=== PATIENT | male | born 1960 | race Caucasian/White ===

== ENCOUNTER 2017-10-01 09:16 | Emergency (ER) | payer BC ==
[2017-10-01 09:32] VITALS: BP 124/75
--- NOTE | 2017-10-01 10:11 | UC ---
Respiratory Complaint HPI - HPI Summary HPI Summary: 2-3 WEEKS OF COUGH, SUBJECTIVE FEVER, FATIGUE, POST-TUSSIVE EMESIS, SOB WITH COUGH. - History of Current Complaint Chief Complaint: UCGeneralIllness Stated Complaint: FLU SYMPTOMS Time Seen by Provider: 10/01/17 09:58 Hx Obtained From: Patient Onset/Duration: Gradual Onset, Lasting Weeks, Still Present Timing: Constant Severity Initially: Moderate Severity Currently: Moderate Pain Intensity: 2 Pain Scale Used: 0-10 Numeric Character: Cough: Nonproductive Aggravating Factors: Nothing Alleviating Factors: Nothing Associated Signs And Symptoms: Positive: Dyspnea, Fever, URI, Nasal Congestion - Allergies/Home Medications Allergies/Adverse Reactions: Allergies Allergy/AdvReac Type Severity Reaction Status Date / Time No Known Allergies Allergy Verified 10/01/17 09:32 PMH/Surg Hx/FS Hx/Imm Hx Endocrine History: Diabetes Cardiovascular History: Hypertension - Surgical History Surgical History: Yes Surgery Procedure, Year, and Place: Umbilical hernia surgery 2006. cardiac stent - May 2016 - Family History Known Family History: Positive: Hypertension - Social History Alcohol Use: Rare Substance Use Type: None Smoking Status (MU): Light Every Day Tobacco Smoker Type: Cigarettes Amount Used/How Often: 1-2/DAY Length of Time of Smoking/Using Tobacco: 32 years Have You Smoked in the Last Year: Yes Household Exposure Type: Cigarettes - Immunization History Most Recent Influenza Vaccination: NONE Most Recent Tetanus Shot: UNK Most Recent Pneumonia Vaccination: NONE Review of Systems Constitutional: Fever, Chills, Fatigue Respiratory: Shortness Of Breath, Cough Cardiovascular: Negative Gastrointestinal: Negative Musculoskeletal: Myalgia Neurological: Headache All Other Systems Reviewed And Are Negative: Yes Physical Exam Triage Information Reviewed: Yes Appearance: No Pain Distress, Well-Nourished, Ill-Appearing - MILD Vital Signs: Initial Vital Signs Temp 99.5 F 10/01/17 09:26 Pulse 63 10/01/17 09:26 Resp 19 10/01/17 09:26 BP 124/75 10/01/17 09:26 Pulse Ox 92 10/01/17 09:26 Eyes: Positive: Conjunctiva Clear ENT: Positive: Hearing grossly normal, Pharynx normal, TMs normal Neck: Positive: Supple, Nontender, No Lymphadenopathy Respiratory: Positive: No respiratory distress, No accessory muscle use, Crackles - MILD LEFT BASE. Negative: Wheezing Cardiovascular Exam: Normal Abdomen Description: Positive: Soft Musculoskeletal: Positive: No Edema Neurological: Positive: Alert Psychological: Positive: Age Appropriate Behavior Skin: Negative: rashes UC Diagnostic Evaluation - Laboratory O2 Sat by Pulse Oximetry: 92 - Radiology Xray Interpretation: Positive (See Comments) - CXR - RETROCARDIAC LEFT LUNG BASE DENSITY COULD REPRESENT PNEUMONIA OR ATELECTASIS Radiology Interpretation Completed By: Radiologist Respiratory Course/Dx - Differential Dx/Diagnosis Provider Diagnoses: LLL PNEUMONIA Discharge - Discharge Plan Condition: Stable Disposition: HOME Prescriptions: Doxycycline (Monohydrate) [Doxycycline Monohydrate] 1 cap PO BID #20 cap Guaifenesin-Codeine [Codeine/Guaifenesin 100-10 mg/5Ml] 5 - 10 ml PO Q6H PRN # 150 ml MDD 40ML PRN Reason: Cough Patient Education Materials: Pneumonia (ED) Forms: *Work Release Referrals: Charles Hancock MD [Primary Care Provider] - If Needed Additional Instructions: RECOMMEND REPEATING CHEST XRAY IN 4-6 WEEKS TO ENSURE RESOLUTION OF YOUR SYMPTOMS. TAKE ANTIBIOTICS TWICE DAILY FOR 10 DAYS. SEEK FOLLOW-UP IF YOU ARE NOT IMPROVING EXPECTED.
--- NOTE | 2017-10-01 10:39 | RAD ---
INDICATION: Shortness of breath fever COMPARISON: Chest x-ray February 02, 2016 TECHNIQUE: PA and lateral views of the chest were obtained. FINDINGS: The heart and mediastinum are normal in size and contour. There is appearance of a left lung base retrocardiac density. More superiorly the left lung as well as the right lung are otherwise clear. There is no evidence of large pleural effusion. Visualized bones are normal for the patient's age. There is no radiographic evidence of free air beneath the diaphragm IMPRESSION: RETROCARDIAC LEFT LUNG BASE DENSITY COULD REPRESENT PNEUMONIA OR ATELECTASIS.
== END 2017-10-01 11:06 | disposition home or self-care (01) ==
LOC: UCEAST 09:16
DX: J18.9 Pneumonia, unspecified organism (principal); E11.9 Type 2 diabetes mellitus without complications; I10 Essential (primary) hypertension; Z98.61 Coronary angioplasty status; F17.210 Nicotine dependence, cigarettes, uncomplicated
CPT/HCPCS: 71046; 99212; G0463

== ENCOUNTER 2017-12-17 10:26 | Observation (INO) | payer BC ==
[2017-12-17] MEDS ORDERED: fentaNYL* 50 MCG/ML 2 ML VIAL (100 MCG VIAL) ONE (11:22)
[2017-12-17] MEDS ORDERED: Iohexol 350 (CONTRAST) 200 ML MDV IV ONE ×2 (11:22→11:32)
[2017-12-17] MEDS ORDERED: Midazolam* 1 MG/ML 10 ML VIAL (10 MG) ONE (11:22)
[2017-12-17] MEDS ORDERED: Heparin 2 UNITS/ML IVPREMIX* 2,000 ML IV ONE (11:22)
[2017-12-17] MEDS ORDERED: Lidocaine 1% INJ* 10 MG/ML 30 ML SDV ONE (11:22)
[2017-12-17] MEDS ORDERED: NS 0.9% 1000 ML* 1,000 ML IV SCH (12:30)
[2017-12-17] MEDS ORDERED: Furosemide IV* 10 MG/ML 2 ML VIAL (20 MG) ONE ×2 (12:34→13:54)
--- NOTE | 2017-12-17 14:34 | RAD ---
INDICATION: Chronic low oxygen saturation and dyspnea. COMPARISON: Comparison is made with prior study from [place] 2017. TECHNIQUE: A portable view of the chest was obtained. FINDINGS: The heart is moderately enlarged and unchanged from the prior exam. There is mild diffuse prominence of the interstitial markings. No significant focal infiltrate is seen. No pleural effusion is noted. IMPRESSION: 1. CARDIAC MEGALY, UNCHANGED. 2. DIFFUSE INTERSTITIAL PROMINENCE, UNCHANGED.
[2017-12-17] MEDS ORDERED: Potassium Chlor TAB* 20 MEQ TAB.ER ONE (16:39)
[2017-12-17] MEDS ORDERED: Albuterol/Ipratropium NEB.SOL* Albuterol 2.5 MG/Ipratropium 0.5 MG 3 ML INH PRN (18:01)
[2017-12-17] MEDS ORDERED: Acetaminophen TAB* 325 MG PO PRN (18:01)
[2017-12-17] MEDS ORDERED: Dextrose 50% Syringe 50 ML* 25 GM/50 ML SYRINGE IV PUSH PRN (18:06)
[2017-12-17] MEDS ORDERED: Furosemide IV* 10 MG/ML 2 ML VIAL (20 MG) IV ONE (18:37)
[2017-12-17 19:51] LABS: EGFR Non-African American 100.4 (>60)
[2017-12-17] MEDS: Potassium Chlor TAB* 20 MEQ TAB.ER PO SCH (21:21)
[2017-12-17] MEDS: Docusate CAP* 100 MG PO SCH (21:21)
[2017-12-17] MEDS: Insulin LISPRO* 1 UNITS UNIT SUBCUT SCH (21:22)
[2017-12-17] MEDS: Heparin VIAL(*) 5000 UNITS/ML VIAL (FIVE THOUSAND) SUBCUT SCH (21:23)
--- NOTE | 2017-12-17 21:46 | HP ---
CC: Dr. Hancock; Dr. Stockton; Dr. Craig * HISTORY AND PHYSICAL: DATE OF ADMISSION: 12/17/17 PRIMARY CARE PROVIDER: Dr. Hancock. CHIEF COMPLAINT: Shortness of breath. HISTORY OF PRESENT ILLNESS: Augustine Watson is a 57-year-old male with history of bicuspid aortic valve as well as coronary artery disease for which he had been followed by Dr. Craig. He presented to Dr. Craig's office on 08/19 complaining of worsening shortness of breath and exertional dyspnea also. The patient was noted to have significant aortic stenosis that increased from kcbardck-so-bldvtb to severe with mean gradient across the aortic valve of 53. The patient presented today to [facility] for elective cardiac catheterization for evaluation for open heart surgery and aortic valve replacement. Postcardiac catheterization that showed no worsening of his coronary artery disease with stent that was placed in 2016. The patient was noted to be hypoxemic and required oxygen. He is being placed on overnight observation with a diagnosis of CHF. PAST MEDICAL HISTORY: 1. Coronary artery disease, status post cardiac catheterization in 2016 with stent placement into proximal LAD at that point. 2. History of bicuspid aortic valve and aortic valve stenosis. 3. History of moderate to severe concentric LVH. 4. History of aneurysm of the thoracic aorta. 5. History of tobacco use. 6. History of hypertension. 7. Dyspnea. 8. Hyperlipidemia. 9. Diabetes type 2. 10. Obstructive sleep apnea. 11. Obesity. CURRENT MEDICATIONS: Include: 1. Potassium chloride 20 mEq daily. 2. Pravachol 40 mg daily. 3. Acetaminophen 500 mg daily. 4. Doxazosin 4 mg daily. 5. Furosemide 20 mg daily. 6. Lisinopril/hydrochlorothiazide 20/12.5 one tablet daily. 7. Metformin 750 mg daily. 8. Amlodipine 10 mg daily. 9. Aspirin 81 mg daily. 10. Atenolol 100 mg daily. ALLERGIES: No known drug allergies. FAMILY HISTORY: Positive for father with heart disease and hypertension. SOCIAL HISTORY: The patient smokes half a pack of cigarettes per day. He denies any alcohol or drug use. He started smoking when he was 22 years old. He 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 , who is his surrogate. 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 REVIEW OF SYSTEMS: Positive for exertional dyspnea. The patient denies paroxysmal nocturnal dyspnea. He stated that he has had leg edema for the past couple of years and that had been unchanged. His cardiac catheterization today was from the right femoral access and he denies any pain or discomfort in the area. He denies chest pain. He complains of frequent cough productive of white sputum worsening for the past 1 to 2 months. All the remaining 12 systems were reviewed with the patient and were otherwise negative. PHYSICAL EXAMINATION GENERAL: The patient is a very pleasant 57-year-old obese male, who is in no acute distress. Alert, awake, and oriented x3. VITAL SIGNS: Blood pressure of 128/83, heart rate of 66 and regular, respiratory rate 18, oxygen saturation 94% on 2 L of oxygen nasal cannula, temperature 97.4. HEENT: Head: Atraumatic, normocephalic. Eyes: Pupils are equal, reactive to light and accommodation. Oropharynx clear. Mucosa moist. NECK: Supple. No JVD. No bruits bilaterally. CARDIOVASCULAR: Regular rate and rhythm with a 4/6 systolic ejection murmur noted on auscultation of the right upper sternal border radiating to bilateral carotids. ABDOMEN: Protuberant, obese, soft, nontender. Bowel sounds present in all quadrants. EXTREMITIES: There is +2 pitting pedal edema. Pulses poorly palpable, but present bilaterally. There is no clubbing or cyanosis. SKIN: On evaluation of skin, there is venous stasis chronic erythema, bilateral distal lower extremities. The puncture site of the right groin is covered with dressing. There is no evidence of hematoma. The patient has good femoral artery pulses bilaterally. NEUROLOGIC: Speech clear. Cranial nerves II through XII grossly intact. Motor strength is 5/5 bilaterally. DIAGNOSTIC STUDIES/LAB DATA: Laboratory data is pending at the time of dictation. The patient's portable chest x-ray obtained today showed cardiomegaly and diffuse interstitial prominence. ASSESSMENT AND PLAN: 1. The patient is in congestive heart failure worsening due to his aortic stenosis, which is severe. The patient is going to receive 20 mg of IV Lasix tonight and 1 dose tomorrow[address] We will place patient on strict I's and O's as well as daily weights. I will hold the patient's p.o. Lasix as well as lisinopril and hydrochlorothiazide. Remaining blood pressure medications are going to be continued. 2. In regards to the patient's dyslipidemia, the patient's Pravachol is going to be continued. 3. For the patient's diabetes, metformin is going to be held. The patient is going to be placed on insulin sliding scale. 4. For DVT prophylaxis, the patient is going to be placed on heparin subcutaneously. 5. The patient's code status is full. His surrogate is his . We will continue to ask control integration engineer to follow up with the patient with further suggestions, although at this point from my discussion with Dr. Craig, the patient is planned to be placed on observation, likely discharged home and possibly on oxygen at home. The plan is for the the patient to see Dr. Stockton next week for aortic valve replacement and likely aortic root repair. TIME SPENT: Approximately 65 minutes were spent on admission of this patient, more than half that time was spent [id number] with the patient during the interview and physical exam. [id number]/[facility] #: [id number] MTDD
--- NOTE | 2017-12-17 22:36 | CONS ---
CC: Dr. Charles Hancock; Dr. Nuno Stockton * CARDIOLOGY CONSULTATION: DATE OF CONSULT: 12/17/17 REASON FOR CONSULT: The patient postcardiac catheterization with congestive heart failure with known critical aortic stenosis. HISTORY OF PRESENT ILLNESS: The patient is a 57-year-old gentleman, known to me from his prior cardiac disease. He has a history of aortic stenosis progressive in nature over the past several years. Most recent echo when I saw him back in followup in the office just last week after not having been seen for 6 months and complaining about significant change in the shortness of breath , revealed overall LV function to be in a low-normal range at 50% to 55% with fgcojuxa-et-golzbh left ventricular hypertrophy. There was abnormal diastolic function with restrictive pattern. The left atrium was brgafhtpkp-fu-kooitkqr dilated and there was mild aortic regurgitation. There was severe aortic stenosis with a mean aortic valve gradient of 53 mmHg. There was trace tricuspid regurgitation and mild pulmonary hypertension with trace pulmonic regurgitation. There was moderate dilation of the ascending aorta, although the main portion of the ascending aorta could not be well assessed given the limitations and imaging. Of note earlier in December, he had a CTA of the chest with an aortic root of 3.6 cm with an ascending aorta of 4.8 cm at the level of the main pulmonary artery and 4.1 at the proximal aortic arch, 2.9 in the distal arch. There reportedly had not been a significant change compared to January of 2017. He came in for cardiac catheterization this morning and underwent cardiac catheterization with less than 70 cc of contrast utilized. He has no significant coronary artery disease with only mild luminal reductions and a patent LAD stent in the proximal portion from 2014. Post-procedure, he was noted to have a worsening O2 saturations and an intravenous Lasix was given. Because of the fact that his O2 saturations did not significantly improve despite diuresing over a liter, he was admitted to the hospital for further help with control of his congestive heart failure. In reviewing discussions with him, I had seen him in the office back on the discussing his echocardiogram and the CTA, and at that point, we had increased his furosemide to 40 mg twice a day for 2 days and then back to 40 mg a day. Interestingly, he tells me that he seems to remember his family doctor when he renewed his furosemide in the past where it had been 40 mg once a day alternating with twice a day, was renewed at only 40 mg once a day that was several months ago. Prior to the cardiac catheterization and leading up to this fairly rapid workup for his valve, he had complained about shortness of breath with any type of activity. PAST MEDICAL HISTORY: Includes diabetes type 2, hyperlipidemia, hypertension, sleep apnea, and aortic stenosis with ascending aortic aneurysm as mentioned. PAST SURGICAL HISTORY: Includes hernia repair in 2005. MEDICATIONS: Current medications at home included: 1. Pravastatin 40 mg a day. 2. Furosemide 40 mg after 2 days of 40 b.i.d. 3. Lantus 100 units per mL 80 units at night at bedtime. 4. Lisinopril/hydrochlorothiazide 20/12.5 daily. 5. Metformin 750 mg once a day. 6. Atenolol 100 mg by mouth daily. 7. Doxazosin 4 mg a day. 8. Amlodipine 10 mg daily. 9. Potassium chloride 20 mEq daily. 10. Aspirin 81 mg a day. FAMILY HISTORY: Includes the presence of diabetes, heart disease, and hypertension with a father who had an MO and heart disease. Mother had chronic obstructive lung disease and emphysema. SOCIAL HISTORY: He is , 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 and children, stepdaughter. 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 The patient has been a smoker as much as 8 cigarettes a day and trying to wean down. He rarely consumes alcohol. He denies any illicit drug usage. REVIEW OF SYSTEMS: As per the H and P with no additional findings. PHYSICAL EXAM: At the time when I saw him at postcardiac catheterization included blood pressure of 135/80 with a pulse in the 60 to 70 range. O2 saturation was 86% to 87% on room air with O2 administration. It increased at times into the 90 to 92 range, but would still dip into the 80s when he would not take deep inspirations. Afebrile. Neck was supple. His neck was too thick to appreciate a JVP. Carotids had diminished upstrokes and volume with bilateral bruits versus a transmitted murmur. Conjunctivae were pink. Sclerae clear. Lungs revealed no accessory muscle usage. There was zjba-ju-imgb excursion heard at best. There were slight crackles in the bases bilaterally. Heart revealed no visible heaves, no palpable heaves or thrills. Normal S1, S2. Does not split physiologic. There is a 2/3 systolic murmur at the aortic outflow track. I cannot appreciate a significant diastolic murmur. Abdomen is morbidly obese and I cannot assess with any degree of accuracy for organomegaly. Extremities are heavy bilaterally with marked nonpitting edema and usfm-uk-mpieciok pitting edema. Neuro: The patient is alert and oriented with normal mentation. Musculoskeletal: The patient walks with a slow cautious gait. Psychiatric: The patient with normal affect. DIAGNOSTIC STUDIES/LAB DATA: Laboratory results from the day before cardiac catheterization dated 12/16/17 revealed hemoglobin and hematocrit of 14.7 and 45 , white count of 8200, platelet count of 221,000. INR was 1.1. His sodium was 144, potassium 3.6, chloride 105, bicarb 32, BUN and creatinine were 11 and 0.67. Electrocardiogram from my office had revealed sinus bradycardia, heart rate 59, MN interval 0.22, first-degree AV block, QRS of 0.10, QT 0.45, axis is -15 degrees. There were no acute ST-T wave changes. Chest x-ray reported postcardiac catheterization revealed cardiomegaly, unchanged from x-ray in September. There was diffuse interstitial prominence noted. OVERALL ASSESSMENT: Augustine now presents with significant aortic stenosis with worsening shortness of breath and signs of congestive heart failure with an echocardiogram that suggests a restrictive pattern. At this point in time, he is admitted overnight hopefully observation status for further diuresis and hopefully will be able to go home in the morning. I am concerned that his O2 saturation and with his body habitus, I am worried about a possible pickwickian syndrome and I honestly believe he may need to go home on low-dose oxygen as well. I discussed this case with Dr. Nuno Stockton, who was scheduled to see him tomorrow, but prefers seeing him on Saturday at [facility] and being admitted overnight in preparation for aortic valve replacement. I discussed the case at length with the Hospitalist, who will be admitting the patient, Dr. Webster, and she understands our ultimate goals overnight. We will reassess the patient in the morning to decide his status. Thank you very much for asking me to be involved in his care during this hopefully brief admission. One of the considerations will be timing of restarting metformin after getting his dye load albeit not a significant amount. I would think if his BUN and creatinine are stable tomorrow, most likely we could consider restarting the metformin. [id number]/[facility] #: [id number] MTDD
[2017-12-18 05:03] LABS: ABS Basophils 0.1 10^3/ul (0-0.2); ABS Eosinophils 0.3 10^3/ul (0-0.6); ABS Lymphocytes 3.3 10^3/ul (1.0-4.8); ABS Monocytes 0.9 10^3/ul (0-0.8); ABS Neutrophils 5.8 10^3/ul (1.5-7.7); ABS Nucleated RBC 0 10^3/ul; Eosinophil % 2.6 % (0-6); Hematocrit 43 % (42-52); Hemoglobin 14.1 g/dl (14.0-18.0); Mean Corpuscular HGB Conc 33 g/dl (31-36); Mean Corpuscular Hemoglobin 29 pg (27-31); Mean Corpuscular Volume 87 fL (80-94); Nucleated Red Blood Cells % 0; Platelet Count 208 10^3/ul (150-450); Red Blood Count 4.86 10^6/ul (4.0-5.4); Red Cell Distribution Width 16 % (10.5-15); White Blood Count 10.4 10^3/ul (3.5-10.8)
[2017-12-18 05:19] LABS: EGFR Non-African American 106.5 (>60)
[2017-12-18] MEDS: Heparin VIAL(*) 5000 UNITS/ML VIAL (FIVE THOUSAND) SUBCUT SCH (06:25)
[2017-12-18] MEDS: Insulin LISPRO* 1 UNITS UNIT SUBCUT SCH ×2 (08:25→12:51)
[2017-12-18] MEDS ORDERED: Furosemide IV* 10 MG/ML 2 ML VIAL (20 MG) IV SCH (09:00)
[2017-12-18] MEDS ORDERED: amLODIPine TAB* 5 MG PO SCH (09:00)
[2017-12-18] MEDS ORDERED: Aspirin EC TAB* 81 MG TAB.EC PO SCH (09:00)
[2017-12-18] MEDS ORDERED: Atenolol TAB* 50 MG PO SCH (09:00)
[2017-12-18] MEDS: Potassium Chlor TAB* 20 MEQ TAB.ER PO SCH (09:18)
[2017-12-18] MEDS: Docusate CAP* 100 MG PO SCH (09:20)
--- NOTE | 2017-12-18 10:53 | CATH ---
CC: Charles Hancock MD; Dr. Nuno Stockton, Cardiovascular Surgeon, [facility] CARDIAC CATHETERIZATION REPORT: DATE OF PROCEDURE: 12/17/17 INDICATION FOR THE PROCEDURE: The patient for coronary arteriography in preparation for aortic valve replacement with critical aortic stenosis by echocardiography. PROCEDURE: Coronary arteriography, placement of a Mynx closure device in the right femoral artery site. EQUIPMENT UTILIZED: 1. Sheath utilized: 5-South African, 11-cm [employer] sheath. 2. Diagnostic coronary catheters - a FL5 curve 5-South African Monet left coronary catheter and a 5-South African JR4 curve diagnostic catheter. CLOSURE DEVICE: Mynx vascular closure device. DESCRIPTION OF PROCEDURE: The patient was interviewed and examined in the holding area where the risks and benefits were explained. He understood them and wished to proceed. He was brought to the cardiovascular laboratory were a formal time-out was performed. He was prepped and draped in a sterile fashion. The right groin area was anesthetized with 1% lidocaine. The right femoral artery was cannulated utilizing an anterior wall stick only and a 5-South African sheath was placed. Coronary arteriography was performed. Following this, an injection was made into the right femoral sheath to assess eligibility to utilize closure device. It was found to be acceptable for this and as such a 5-South African Mynx closure device was deployed with good hemostasis. The total contrast used was 70 cc of Omnipaque dye. The radiation exposure included 5.4 minutes of fluoro time. The air kerma radiation was 1326 milligray. The DAP radiation was 8757 microgray/sq. m. RESULTS: CORONARY ARTERIOGRAPHY: A. Left coronary artery: 1. Left main - widely patent. 2. Left anterior descending artery - there was calcification seen in the proximal portion of the left anterior descending artery. The prior existing stent had mild in-stent restenosis, the degree of luminal reduction was noted at best to be 30%. The rest of the left anterior descending artery traversed to the apical region and minimally on to the distal inferior wall. A bifurcating mid diagonal branch was noted, the lower branch of which had what appeared to be an ostial 40% narrowing. The hfb-hm-wekxxd LAD had mild 30% to 35% narrowing noted. 3. Circumflex artery - a nondominant vessel supplying a large size first obtuse marginal branch which trifurcated throughout the course of it extending to the inferoapical lateral region, there was mild luminal irregularity seen with 20% to 25% narrowing, but no critical stenosis was noted. Past this point , the continuation of the circumflex supplied a low-lying posterior left ventricular branch just after the first obtuse marginal branch, the continuation of the circumflex had a 25% to 30% narrowing. B. Right coronary artery - a dominant vessel supplying the PDA and multiple posterior left ventricular branches. There were minimal luminal irregularities seen in the posterior descending artery with 30% to 35% narrowing in its mid portion. OVERALL ASSESSMENT: No significant coronary artery disease noted as described above. This information was shared with Dr. Stas Stockton, who will be planning on performing aortic valve replacement in the near future. [id number]/[facility] #: [id number] MTDD
[2017-12-18 12:24] VITALS: BP 115/75
--- NOTE | 2017-12-18 18:07 | DS ---
CC: Dr. Charles Hancock; Dr. Nuno Stockton; Dr. Craig * DISCHARGE SUMMARY: DATE OF ADMISSION: 12/17/17 DATE OF DISCHARGE: 12/18/17 PRIMARY CARE PROVIDER: Dr. Charles Hancock. DISCHARGE DIAGNOSES: 1. Exacerbation of chronic diastolic congestive heart failure. 2. Severe aortic valve stenosis in patient with bicuspid aortic valve. SECONDARY DIAGNOSES: 1. Diabetes type 2. 2. Hyperlipidemia. 3. Hypertension. 4. Obstructive sleep apnea. 5. History of bicuspid aortic valve and aortic stenosis. 6. Ascending aortic aneurysm. MEDICATIONS AT DISCHARGE: Include: 1. Tylenol Extra Strength 500 mg daily p.r.n. 2. Norvasc 10 mg daily. 3. Aspirin 81 mg daily. 4. Atenolol 100 mg daily. 5. Cardura 4 mg daily. 6. Lasix 40 mg daily. 7. Hydrochlorothiazide/lisinopril 20/12.5 mg 1 tablet daily. 8. Metformin 750 mg a day. 9. Potassium chloride 20 mEq daily. 10. Pravachol 40 mg daily. LABORATORY DATA AND STUDIES PERFORMED DURING THE HOSPITAL STAY: Include: On , sodium of 142, potassium of 3.6, chloride 103, carbon dioxide 32, BUN 14 and creatinine 0.76. Magnesium was 2.1. Brain natriuretic peptide on admission was 491. Portable chest x-ray obtained on admission, cardiomegaly unchanged. Diffuse interstitial prominence appeared unchanged. HOSPITALIZATION COURSE: Augustine Watson is a 57-year-old male who was admitted after cardiac catheterization performed by Dr. Craig on 12/17/17. The cardiac catheterization report is pending at the time of dictation, but from Dr. Craig's verbal report, it did not show significant new coronary artery disease and patent stent. It was originally placed in 2016. The cardiac catheterization was obtained in preparation for the patient to have aortic valve replacement. The patient has a history of bicuspid aortic valve and severe aortic stenosis was diagnosed within the past week. Post cardiac catheterization, the patient was severely dyspneic and required oxygen. He was noted to be in CHF with symptoms going back to approximately a month prior. The patient was placed on overnight observation. We will treat him with intravenous Lasix. He had diuresed so far approximately 800 mL. He is going to go home with increased dose of Lasix from 20 mg, which he took before, to [address] Craig saw the patient in consultation during the hospital stay, which is greatly appreciated. The patient is scheduled with Dr. Toth next week to be seen at [facility] for aortic valve replacement. PHYSICAL EXAMINATION AT THE TIME OF DISCHARGE: Blood pressure of 115/75, heart rate of 56 and regular, respiratory rate 15, oxygen saturation 94% on 2 L of oxygen nasal cannula, temperature 97.8. General: The patient is a very pleasant 57-year- old male who is in no acute distress. Alert, awake, and oriented x3. HEENT: Head atraumatic, normocephalic. Eyes: Pupils equal and reactive to light and accommodation. Oropharynx clear. Mucosa moist. Neck: Supple. No JVD. No bruits bilaterally. Cardiovascular: Regular rate and rhythm with 4/6 systolic ejection murmur noted on auscultation on the right upper sternal border radiating to bilateral carotids. Respiratory: Crackles heard at bilateral bases. Abdomen: Protuberant, obese, soft, nontender. Bowel sounds present in all 4 quadrants. Extremities: There is +1 pitting pedal edema. Pulses are +2 bilaterally. There is no clubbing or cyanosis. On neuro evaluation, speech clear. Cranial nerves II through XII grossly intact. Motor strength is 5/5 bilaterally. Please note that the patient was significantly hypoxemic during his hospital stay due to CHF and with cough and qualified for oxygen, which is going to be prescribed to use at home at 2 L continuously. [id number]/[facility] #: [id number] [facility]
== END 2017-12-18 14:19 | disposition home or self-care (01) ==
LOC: CHICATH 10:26 → MEDTELE 17:43
PROVIDERS: ADMIT Internal Medicine Cardiovascular Disease; ATTEND Internal Medicine Cardiovascular Disease
DX: I11.0 Hypertensive heart disease with heart failure (principal); I50.32 Chronic diastolic (congestive) heart failure; I35.0 Nonrheumatic aortic (valve) stenosis; E11.9 Type 2 diabetes mellitus without complications; E78.5 Hyperlipidemia, unspecified; G47.33 Obstructive sleep apnea (adult) (pediatric); I71.2 Thoracic aortic aneurysm, without rupture; Z95.2 Presence of prosthetic heart valve; Z79.82 Long term (current) use of aspirin; I25.10 Atherosclerotic heart disease of native coronary artery without angina pectoris; Z95.5 Presence of coronary angioplasty implant and graft; Z87.891 Personal history of nicotine dependence; R06.00 Dyspnea, unspecified; E66.9 Obesity, unspecified
CPT/HCPCS: 36415; 71045; 80048; 83735; 83880; 85025; 93454; 99406; A9270-GY; C1887; G0378; J1644; J1940; J2250; J3010

== ENCOUNTER 2018-02-04 15:06 | Inpatient (IN) | payer BC ==
[2018-02-04] MEDS ORDERED: Furosemide IV* 10 MG/ML 10 ML VIAL (100 MG) IV ONE (15:43)
--- OUTSIDE RECORDS SUMMARY | 2018-02-04 15:58 | XMS REPORT ---
:1960 External Reference #:[id number] Author Organization [facility] Address [address] [address] Phone [phone] Care Team Providers Name Role Phone Charles Hancock MD Primary Care Physician Unavailable Payers Type Date Identification Numbers Payment Provider Subscriber Commercial Effective: Policy Number: BS Facets Augustine Watson JR 2017 [id number] PayID: [id number] [facility] [id number] [place] [id number] Problems Date Description Provider Status Onset: 01/29/2018 Atrial flutter Tma Craig M.D., [facility], Active [facility] Onset: 01/29/2018 Heart valve replacement Tam Craig M.D., [place], Active [facility] Onset: 12/12/2017 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, Active [facility] Onset: 02/28/2015 Thoracic Aortic Ectasia Tam Craig M.D., [facility], Active [facility] Onset: 02/14/2015 Dyspnea Tam Craig M.D., [facility], Active [facility] Onset: 02/14/2015 Hyperlipidemia Tam Craig M.D., [facility], Active [facility] Onset: 02/14/2015 Benign essential hypertension Tam Craig M.D., [facility], Active [facility] Onset: 02/14/2015 Aortic valve disorder Tam Craig M.D., [facility], Active 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 [employer] Cigarette Use Former Cigarette Smoker quit as of December 17 2017 ETOH Use Rarely consumes alcohol Recreational Drug Use Denies Drug Use Smoking Patient is a current smoker, 8 cigarretts a day smokes every day Daily Caffeine Consumes on average 1 cup of regular coffee per day Exercise Type/Frequency Exercises regularly 500 ft daily Allergies, Adverse Reactions, Alerts Date Description Reaction Status Severity Comments 02/14/2015 NKDA active Medications Medication Date Status Form Strength Qnty SIG Indications Ordering Provider Pravastatin 05/09/ Active Tablets 40mg 180tab 1 tablet E78.5 Tam Sodium 2015 s daily at Junie, sudha Denise [facility], [facility] Furosemide 04/09/ Active Tablets 40mg 150tab one daily Tam 2016 s Howie Craig, [facility], [facility] Lantus / Active Solution 100Unit/ML 80 units at Unknown 0000 night before bed Metformin HCL 00/ Active Tablets ER 750mg 2 by mouth Unknown ER 0000 24HR every day Doxazosin 0000/ Active Tablets 4mg one tab by Unknown Mesylate 0000 mouth daily Amlodipine 00/ Active Tablets 10mg 1 by mouth Unknown Besylate 0000 every day Potassium 00/00/ Active Tablets ER 20Meq 1 by mouth Unknown Chloride ER 0000 every day Tylenol Extra / Active Tablets 500mg prn Unknown Strength 0000 Aspirin 00/00/ Active Tablets DR 81mg 1 by mouth Unknown 0000 every day Amiodarone / Active Tablets 200mg 30tabs 1 by mouth Tam HCL 0000 every day Stefek, for 30 days M.Richie, FACC, [facility] Hydrocodone-A / Active Tablets 5-325mg 1 or 2 tabs Unknown cetaminophen 0000 by mouth every 6-8 hours as needed for pain Metoprolol / Active Tablets 25mg 1 by mouth Unknown Tartrate 0000 twice a day Warfarin / Active Tablets 2mg take 2 Unknown Sodium 0000 tablet daily Brilinta 07/15/ Hx Tablets 60mg 60tabs 1 tab by Tam 2017 - mouth twice Stefek, day M.Richie, 2018 FACC, [facility] Ibuprofen / Hx Tablets 200mg as needed Unknown 0000 - 2015 Lisinopril-Hy / Hx Tablets 20-12.5mg 1 by mouth Unknown drochlorothia 0000 - daily zide 2017 Atenolol / Hx Tablets 100mg 1 by mouth Unknown 0000 - every day 2017 Pravastatin / Hx Tablets 40mg 1 tablet E78.5 Unknown Sodium 0000 - daily at 05/09/ bedtime 2015 Furosemide / Hx Tablets 40mg 150tab 1 by mouth Unknown 0000 - s alternating 04/09/ with 2 by 2016 mouth a day Brilinta / Hx Tablets 90mg 1 tab by Unknown 0000 - mouth twice day 2017 Vital Signs Date Vital Result Comment 01/29/2018 Height 67 inches 5'7" Weight 308.00 lb w/ shoes Heart Rate 72 /min BP Systolic Sitting 138 mmHg lue lg cuff BP Diastolic Sitting 82 mmHg lue lg cuff BP Systolic Standing 138 mmHg lue lg cuff BP Diastolic Standing 82 mmHg lue lg cuff Respiratory Rate 18 /min BMI (Body Mass Index) 48.2 kg/m2 Ejection Fraction 50-55% echo 12/11/17 12/12/2017 Height 67 inches 5'7" Weight 325.00 lb w/ shoes Heart Rate 60 /min BP Systolic Sitting 120 mmHg lue large cuff BP Diastolic Sitting 78 mmHg lue large cuff BP Systolic Standing 122 mmHg lue large cuff BP Diastolic Standing 82 mmHg lue large cuff Respiratory Rate 18 /min BMI (Body Mass Index) 50.9 kg/m2 Ejection Fraction 50-55% echo 12/11/17 07/15/2017 Height 67 inches 5'7" Weight 295.00 lb w/ boots Heart Rate 66 /min BP Systolic Sitting 122 mmHg rue large cuff BP Diastolic Sitting 64 mmHg rue large cuff BP Systolic Standing 132 mmHg rue large cuff BP Diastolic Standing 74 mmHg rue large cuff Respiratory Rate 18 /min BMI (Body Mass Index) 46.2 kg/m2 Ejection Fraction 60-65% echo 02/06/17 12/19/2016 Height 67 inches 5'7" Weight 291.00 lb w/ shoes Heart Rate 64 /min reg BP Systolic Sitting 120 mmHg Rue, lg cuff BP Diastolic Sitting 80 mmHg Rue, lg cuff BP Systolic Standing 114 mmHg Rue BP Diastolic Standing 80 mmHg Rue Respiratory Rate 16 /min BMI (Body Mass Index) 45.6 kg/m2 Ejection Fraction 55-60% as of 01/26/16 echo 05/09/2016 Height 67 inches 5'7" Weight 282.00 lb Heart Rate 68 /min 70 BP Systolic Sitting 124 mmHg right arm, large cuff BP Diastolic Sitting 76 mmHg right arm, large cuff BP Systolic Standing 120 mmHg right arm, large cuff BP Diastolic Standing 78 mmHg right arm, large cuff Respiratory Rate 20 /min BMI (Body Mass Index) 44.2 kg/m2 Ejection Fraction 55-60% 01/26/16 04/09/2016 Height 67 inches 5'7" Weight 285.00 lb Heart Rate 66 /min 68 BP Systolic Sitting 130 mmHg left arm, large cuff BP Diastolic Sitting 84 mmHg left arm, large cuff BP Systolic Standing 124 mmHg left arm, large cuff BP Diastolic Standing 82 mmHg left arm, large cuff Respiratory Rate 16 /min BMI (Body Mass Index) 44.6 kg/m2 Ejection Fraction 55-60% 01/26/16 02/15/2016 Height 67 inches 5'7" Weight 292.00 lb Heart Rate 64 /min 66 BP Systolic Sitting 126 mmHg right arm, large cuff BP Diastolic Sitting 78 mmHg right arm, large cuff BP Systolic Standing 124 mmHg right arm, large cuff BP Diastolic Standing 78 mmHg right arm, large cuff Respiratory Rate 20 /min BMI (Body Mass Index) 45.7 kg/m2 Ejection Fraction 55-60% 01/26/16 09/12/2015 Height 67 inches 5'7" Weight 291.00 lb Heart Rate 60 /min 62 BP Systolic Sitting 118 mmHg right arm, large cuff BP Diastolic Sitting 82 mmHg right arm, large cuff BP Systolic Standing 116 mmHg right arm, large cuff BP Diastolic Standing 80 mmHg right arm, large cuff Respiratory Rate 16 /min BMI (Body Mass Index) 45.6 kg/m2 Ejection Fraction 60-65% 02/15/15 03/23/2015 Height 67 inches 5'7" Heart Rate 62 /min 64 BP Systolic Sitting 122 mmHg right arm, large cuff BP Diastolic Sitting 84 mmHg right arm, large cuff BP Systolic Standing 118 mmHg right arm, large cuff BP Diastolic Standing 82 mmHg right arm, large cuff Respiratory Rate 20 /min Ejection Fraction 60-65% 02/15/15 02/28/2015 Height 67 inches 5'7" Weight 289.00 lb w/ shoes Heart Rate 72 /min BP Systolic Sitting 136 mmHg LA, reg BP Diastolic Sitting 88 mmHg LA, reg BP Systolic Standing 132 mmHg LA, reg BP Diastolic Standing 82 mmHg LA, reg BMI (Body Mass Index) 45.3 kg/m2 Ejection Fraction 60% 02/21/15 [facility]-resting 02/14/2015 Height 67 inches 5'7" Weight 285.00 lb Heart Rate 64 /min 68 BP Systolic 110 mmHg left arm, large cuff BP Diastolic 80 mmHg left arm, large cuff BP Systolic Sitting 118 mmHg right arm, large cuff BP Diastolic Sitting 84 mmHg right arm, large cuff BP Systolic Standing 108 mmHg right arm, large cuff BP Diastolic Standing 80 mmHg right arm, large cuff Respiratory Rate 22 /min BMI (Body Mass Index) 44.6 kg/m2 Ejection Fraction 55-60% 09/12/11 Results Test Date Test Result H/L Range Note Basic Metabolic Panel 12/19/2017 Sodium 144 mmol/L 139-145 Potassium 3.8 mmol/L 3.5-5.0 Chloride 103 mmol/L 101-111 Co2 Carbon Dioxide 36 mmol/L High 22-32 Anion Gap 5 mmol/L 2-11 Glucose 119 mg/dL High 70-100 Blood Urea Nitrogen 16 mg/dL 6-24 Creatinine 0.76 mg/dL 0.67-1.17 BUN/Creatinine Ratio 21.1 High 8-20 Calcium 9.1 mg/dL 8.6-10.3 Egfr Non- 106.5 >60 Egfr 136.9 >60 1 Cath Panel 12/16/2017 Partial Thrombo Time PTT 35.0 seconds 26.0-36.3 CBC Auto Diff 12/16/2017 White Blood Count 8.2 10^3/uL 3.5-10.8 Red Blood Count 5.12 10^6/uL 4.0-5.4 Hemoglobin 14.7 g/dL 14.0-18.0 Hematocrit 45 % 42-52 Mean Corpuscular Volume 88 fL 80-94 Mean Corpuscular Hemoglobin 29 pg 27-31 Mean Corpuscular HGB Conc 33 g/dL 31-36 Red Cell Distribution Width 16 % High 10.5-15 Platelet Count 221 10^3/uL 150-450 Mean Platelet Volume 9.3 um3 7.4-10.4 Abs Neutrophils 5.2 10^3/uL 1.5-7.7 Abs Lymphocytes 2.2 10^3/uL 1.0-4.8 Abs Monocytes 0.6 10^3/uL 0-0.8 Abs Eosinophils 0.2 10^3/uL 0-0.6 Abs Basophils 0.1 10^3/uL 0-0.2 Abs Nucleated RBC 0 10^3/uL Granulocyte % 63.0 % 38-83 Lymphocyte % 26.3 % 25-47 Monocyte % 7.2 % High 0-7 Eosinophil % 2.8 % 0-6 Basophil % 0.7 % 0-2 Nucleated Red Blood Cells % 0.1 Inr/Protime 12/16/2017 Inr 1.13 High 0.77-1.02 Basic Metabolic Panel 12/16/2017 Sodium 144 mmol/L 139-145 Potassium 3.6 mmol/L 3.5-5.0 Chloride 105 mmol/L 101-111 Co2 Carbon Dioxide 32 mmol/L 22-32 Anion Gap 7 mmol/L 2-11 Glucose 92 mg/dL 70-100 Blood Urea Nitrogen 11 mg/dL 6-24 Creatinine 0.67 mg/dL 0.67-1.17 BUN/Creatinine Ratio 16.4 8-20 Calcium 9.1 mg/dL 8.6-10.3 Egfr Non- 123.2 >60 Egfr 158.4 >60 2 Basic Metabolic Panel 12/05/2017 Sodium 144 mmol/L 139-145 Potassium 3.7 mmol/L 3.5-5.0 Chloride 107 mmol/L 101-111 Co2 Carbon Dioxide 30 mmol/L 22-32 Anion Gap 7 mmol/L 2-11 Glucose 151 mg/dL High 70-100 Blood Urea Nitrogen 15 mg/dL 6-24 Creatinine 0.78 mg/dL 0.67-1.17 BUN/Creatinine Ratio 19.2 8-20 Calcium 8.9 mg/dL 8.6-10.3 Egfr Non- 103.3 >60 Egfr 132.9 >60 3 CBC Auto Diff 10/03/2016 White Blood Count 11.7 10^3/uL High 3.5-10.8 4 Red Blood Count 5.10 10^6/uL 4.0-5.4 4 Hemoglobin 15.3 g/dL 14.0-18.0 4 Hematocrit 45 % 42-52 4 Mean Corpuscular Volume 89 fL 80-94 4 Mean Corpuscular Hemoglobin 30 pg 27-31 4 Mean Corpuscular HGB Conc 34 g/dL 31-36 4 Red Cell Distribution Width 14 % 10.5-15 4 Platelet Count 246 10^3/uL 150-450 4 Mean Platelet Volume 10 um3 7.4-10.4 4 Abs Neutrophils 6.2 10^3/uL 1.5-7.7 4 Abs Lymphocytes 4.2 10^3/uL 1.0-4.8 4 Abs Monocytes 0.7 10^3/uL 0-0.8 4 Abs Eosinophils 0.5 10^3/uL 0-0.6 4 Abs Basophils 0.1 10^3/uL 0-0.2 4 Abs Nucleated RBC 0.01 10^3/uL 4 Granulocyte % 53.1 % 38-83 4 Lymphocyte % 35.8 % 25-47 4 Monocyte % 6.1 % 1-9 4 Eosinophil % 4.3 % 0-6 4 Basophil % 0.7 % 0-2 4 Nucleated Red Blood Cells % 0.1 4 Comp Metabolic Panel 10/03/2016 Sodium 140 mmol/L 133-145 4 Potassium 3.6 mmol/L 3.5-5.0 4 Chloride 105 mmol/L 101-111 4 Co2 Carbon Dioxide 26 mmol/L 22-32 4 Anion Gap 9 mmol/L 2-11 4 Glucose 302 mg/dL High 70-100 4 Blood Urea Nitrogen 18 mg/dL 6-24 4 Creatinine 0.77 mg/dL 0.67-1.17 4 BUN/Creatinine Ratio 23.4 High 8-20 4 Calcium 9.3 mg/dL 8.6-10.3 4 Total Protein 7.0 g/dL 6.4-8.9 4 Albumin 3.9 g/dL 3.2-5.2 4 Globulin 3.1 g/dL 2-4 4 Albumin/Globulin Ratio 1.3 1-3 4 Total Bilirubin 0.60 mg/dL 0.2-1.0 4 Alkaline Phosphatase 63 U/L 34-104 4 Alt 19 U/L 7-52 4 Ast 15 U/L 13-39 4 Egfr Non- 105.3 >60 4 Egfr 135.4 >60 4, 5 Lipid Profile (Trig/Chol/HDL) 10/03/2016 Triglycerides 206 mg/dL 4, 6 Cholesterol 155 mg/dL 4, 7 HDL Cholesterol 31.6 mg/dL 4, 8 LDL Cholesterol 82 mg/dL 4, 9 Laboratory test finding 10/03/2016 TSH (Thyroid Stim 1.85 mcIU/mL 0.34- 5.60 4, 10 Horm) PSA Screening 0.279 ng/mL 0-4.000 4, 11 Hemoglobin A1c (Glyco HGB) 11.1 % High Less than 6.0 4, 12 Basic Metabolic Panel 05/02/2016 Sodium 137 mmol/L 133-145 Potassium 3.7 mmol/L 3.5-5.0 Chloride 101 mmol/L 101-111 Co2 Carbon Dioxide 27 mmol/L 22-32 Anion Gap 9 mmol/L 2-11 Glucose 427 mg/dL High 70-100 Blood Urea Nitrogen 16 mg/dL 6-24 Creatinine 0.88 mg/dL 0.67-1.17 BUN/Creatinine Ratio 18.2 8-20 Calcium 9.5 mg/dL 8.6-10.3 Egfr Non- 90.6 >60 Egfr 116.5 >60 13 Lipid Profile (Trig/Chol/HDL) 04/28/2016 Triglycerides 228 mg/dL 14, 15 Cholesterol 155 mg/dL 14, 16 HDL Cholesterol 32.5 mg/dL 14, 17 LDL Cholesterol 77 mg/dL 14, 18 Cath Panel 04/28/2016 Partial Thrombo Time PTT 28.9 seconds 26.0-36.3 CBC Auto Diff 04/28/2016 White Blood Count 10.8 10^3/uL 3.5-10.8 Red Blood Count 5.43 10^6/uL High 4.0-5.4 Hemoglobin 16.3 g/dL 14.0-18.0 Hematocrit 47 % 42-52 Mean Corpuscular Volume 86 fL 80-94 Mean Corpuscular Hemoglobin 30 pg 27-31 Mean Corpuscular HGB Conc 35 g/dL 31-36 Red Cell Distribution Width 14 % 10.5-15 Abs Neutrophils 5.1 10^3/uL 1.5-7.7 Abs Lymphocytes 4.4 10^3/uL 1.0-4.8 Abs Monocytes 0.7 10^3/uL 0-0.8 Abs Eosinophils 0.4 10^3/uL 0-0.6 Abs Basophils 0.1 10^3/uL 0-0.2 Granulocyte % 47.7 % 38-83 Lymphocyte % 41.0 % 25-47 Monocyte % 7.0 % 1-9 Eosinophil % 3.4 % 0-6 Basophil % 0.9 % 0-2 Platelet Count 204 10^3/uL 150-450 Mean Platelet Volume 10 um3 7.4-10.4 Laboratory test finding 04/28/2016 Ast 19 U/L 13-39 14, 19 Alt 23 U/L 7-52 14, 20 Inr/Protime 04/28/2016 Inr 0.99 0.89-1.11 Basic Metabolic Panel 04/28/2016 Sodium 140 mmol/L 133-145 Potassium 3.4 mmol/L Low 3.5-5.0 Chloride 105 mmol/L 101-111 Co2 Carbon Dioxide 28 mmol/L 22-32 Anion Gap 7 mmol/L 2-11 Glucose 229 mg/dL High 70-100 Blood Urea Nitrogen 15 mg/dL 6-24 Creatinine 0.72 mg/dL 0.67-1.17 BUN/Creatinine Ratio 20.8 High 8-20 Calcium 9.3 mg/dL 8.6-10.3 Egfr Non- 114.2 >60 Egfr 146.9 >60 21 Laboratory test finding 04/28/2016 B-Type Natriuretic 91 pg/mL 14, 22 Peptide BNP Basic Metabolic Panel 04/04/2016 Sodium 137 mmol/L 133-145 Potassium 3.9 mmol/L 3.5-5.0 Chloride 102 mmol/L 101-111 Co2 Carbon Dioxide 26 mmol/L 22-32 Anion Gap 9 mmol/L 2-11 Glucose 369 mg/dL High 70-100 Blood Urea Nitrogen 16 mg/dL 6-24 Creatinine 0.76 mg/dL 0.67-1.17 BUN/Creatinine Ratio 21.1 High 8-20 Calcium 9.3 mg/dL 8.6-10.3 Egfr Non- 107.3 >60 Egfr 138.0 >60 23 Cath Panel 03/30/2016 Partial Thrombo Time PTT 31.8 seconds 26.0-36.3 24 CBC Auto Diff 03/30/2016 White Blood Count 12.6 10^3/uL High 3.5-10.8 Red Blood Count 5.16 10^6/uL 4.0-5.4 Hemoglobin 15.1 g/dL 14.0-18.0 Hematocrit 45 % 42-52 Mean Corpuscular Volume 87 fL 80-94 Mean Corpuscular Hemoglobin 29 pg 27-31 Mean Corpuscular HGB Conc 34 g/dL 31-36 Red Cell Distribution Width 13 % 10.5-15 Platelet Count 234 10^3/uL 150-450 Mean Platelet Volume 10 um3 7.4-10.4 Abs Neutrophils 6.5 10^3/uL 1.5-7.7 Abs Lymphocytes 4.8 10^3/uL 1.0-4.8 Abs Monocytes 0.9 10^3/uL High 0-0.8 Abs Eosinophils 0.3 10^3/uL 0-0.6 Abs Basophils 0.1 10^3/uL 0-0.2 Abs Nucleated RBC 0.01 10^3/uL Granulocyte % 51.4 % 38-83 Lymphocyte % 37.9 % 25-47 Monocyte % 6.9 % 1-9 Eosinophil % 2.6 % 0-6 Basophil % 1.2 % 0-2 Nucleated Red Blood Cells % 0.1 Inr/Protime 03/30/2016 Inr 1.06 0.89-1.11 Basic Metabolic Panel 03/30/2016 Sodium 143 mmol/L 133-145 Potassium 4.0 mmol/L 3.5-5.0 Chloride 105 mmol/L 101-111 Co2 Carbon Dioxide 30 mmol/L 22-32 Anion Gap 8 mmol/L 2-11 Glucose 168 mg/dL High 70-100 Blood Urea Nitrogen 19 mg/dL 6-24 Creatinine 0.90 mg/dL 0.67-1.17 BUN/Creatinine Ratio 21.1 High 8-20 Calcium 9.4 mg/dL 8.6-10.3 Egfr Non- 88.3 >60 Egfr 113.5 >60 25 Creatinine 03/17/2015 Creatinine 0.73 mg/dL 0.67-1.17 Egfr Non- 112.8 >60 Egfr 145.1 >60 26 Laboratory test finding 03/17/2015 Blood Urea Nitrogen BUN 15 mg/dL 6-24 Creatinine 03/11/2015 Creatinine 0.58 mg/dL Low 0.67-1.17 Egfr Non- 147.1 >60 Egfr 189.2 >60 27 Laboratory test finding 03/11/2015 Blood Urea Nitrogen BUN 12 mg/dL 6-24 1 Because ethnic data is not always readily available, this report includes an eGFR for both -Americans and non- Americans. The National Kidney Disease Education Program (NKDEP) does not endorse the use of the MDRD equation for patients that are not between the ages of 18 and 70, are , have extremes of body size, muscle mass, or nutritional status, or are non- or non-. According to the National Kidney Foundation, irrespective of diagnosis, the stage of the disease is based on the level of kidney function: Stage Description GFR(mL/min/1.73 m(2)) 1 Kidney damage with normal or decreased GFR 90 2 Kidney damage with mild decrease in GFR 60-89 3 Moderate decrease in GFR 30-59 4 Severe decrease in GFR 15-29 5 Kidney failure <15 (or dialysis) 2 Because ethnic data is not always readily available, this report includes an eGFR for both -Americans and non- Americans. The National Kidney Disease Education Program (NKDEP) does not endorse the use of the MDRD equation for patients that are not between the ages of 18 and 70, are , have extremes of body size, muscle mass, or nutritional status, or are non- or non-. According to the National Kidney Foundation, irrespective of diagnosis, the stage of the disease is based on the level of kidney function: Stage Description GFR(mL/min/1.73 m(2)) 1 Kidney damage with normal or decreased GFR 90 2 Kidney damage with mild decrease in GFR 60-89 3 Moderate decrease in GFR 30-59 4 Severe decrease in GFR 15-29 5 Kidney failure <15 (or dialysis) 3 Because ethnic data is not always readily available, this report includes an eGFR for both -Americans and non- Americans. The National Kidney Disease Education Program (NKDEP) does not endorse the use of the MDRD equation for patients that are not between the ages of 18 and 70, are , have extremes of body size, muscle mass, or nutritional status, or are non- or non-. According to the National Kidney Foundation, irrespective of diagnosis, the stage of the disease is based on the level of kidney function: Stage Description GFR(mL/min/1.73 m(2)) 1 Kidney damage with normal or decreased GFR 90 2 Kidney damage with mild decrease in GFR 60-89 3 Moderate decrease in GFR 30-59 4 Severe decrease in GFR 15-29 5 Kidney failure <15 (or dialysis) 4 [id number] 5 Because ethnic data is not always readily available, this report includes an eGFR for both -Americans and non- Americans. The National Kidney Disease Education Program (NKDEP) does not endorse the use of the MDRD equation for patients that are not between the ages of 18 and 70, are , have extremes of body size, muscle mass, or nutritional status, or are non- or non-. According to the National Kidney Foundation, irrespective of diagnosis, the stage of the disease is based on the level of kidney function: Stage Description GFR(mL/min/1.73 m(2)) 1 Kidney damage with normal or decreased GFR 90 2 Kidney damage with mild decrease in GFR 60-89 3 Moderate decrease in GFR 30-59 4 Severe decrease in GFR 15-29 5 Kidney failure <15 (or dialysis) 6 Desirable <150 Borderline high 150-199 High 200-499 Very High >500 7 Desirable <200 Borderline high 200-239 High >239 8 Low <40 Desirable: 40-60 High: >60 9 Desirable: <100 mg/dL Near Optimal: 100-129 mg/dL Borderline High: 130-159 mg/dL High: 160-189 mg/dL Very High: >189 mg/dL 10 [id number] 11 Serum levels of PSA measured using the [employer] DXI Hybritech immunoassay should not be interpreted as absolute evidence of the presence or absence of disease. The PSA value should be used in conjunction with other pertinent clinical diagnostic procedures. A PSA value in the range of 0.1 to 0.6 ng/ml is indeterminate if being used as an indicator of recurrent or residual disease. The values obtained with different assay methods or kits cannot be used interchangeably. 12 Therapeutic target for the treatment of diabetes Mellitus patients is <7% HBA1C, and in selective patients <6.0%.Please refer to [place] [employer] Diabetic care guidelines for further information. 13 Because ethnic data is not always readily available, this report includes an eGFR for both -Americans and non- Americans. The National Kidney Disease Education Program (NKDEP) does not endorse the use of the MDRD equation for patients that are not between the ages of 18 and 70, are , have extremes of body size, muscle mass, or nutritional status, or are non- or non-. According to the National Kidney Foundation, irrespective of diagnosis, the stage of the disease is based on the level of kidney function: Stage Description GFR(mL/min/1.73 m(2)) 1 Kidney damage with normal or decreased GFR 90 2 Kidney damage with mild decrease in GFR 60-89 3 Moderate decrease in GFR 30-59 4 Severe decrease in GFR 15-29 5 Kidney failure <15 (or dialysis) 14 to be drawn after 2 weeks on the increased furosemide. copy to Dr. Elijah cmleod Assess for rnalinsu 15 Desirable <150 Borderline high 150-199 High 200-499 Very High >500 16 Desirable <200 Borderline high 200-239 High >239 17 Low <40 Desirable: 40-60 High: >60 18 Desirable: <100 mg/dL Near Optimal: 100-129 mg/dL Borderline High: 130-159 mg/dL High: 160-189 mg/dL Very High: >189 mg/dL 19 to be drawn after 2 weeks on the increased furosemide. copy to Dr. Elijah mcleod Assess for rnalinsufficiency on increased diuretic and assess choles terol.. 20 to be drawn after 2 weeks on the increased furosemide. copy to Dr. Elijah hercules. Assess for rnalinsufficiency on increased diuretic and assess choles terol.. 21 Because ethnic data is not always readily available, this report includes an eGFR for both -Americans and non- Americans. The National Kidney Disease Education Program (NKDEP) does not endorse the use of the MDRD equation for patients that are not between the ages of 18 and 70, are , have extremes of body size, muscle mass, or nutritional status, or are non- or non-. According to the National Kidney Foundation, irrespective of diagnosis, the stage of the disease is based on the level of kidney function: Stage Description GFR(mL/min/1.73 m(2)) 1 Kidney damage with normal or decreased GFR 90 2 Kidney damage with mild decrease in GFR 60-89 3 Moderate decrease in GFR 30-59 4 Severe decrease in GFR 15-29 5 Kidney failure <15 (or dialysis) 22 >100 to <200 pg/mL: likely compensated congestive heart failure (CHF) 200 to 400 pg/mL: likely moderate CHF >400 pg/mL: likely moderate to severe CHF 23 Because ethnic data is not always readily available, this report includes an eGFR for both -Americans and non- Americans. The National Kidney Disease Education Program (NKDEP) does not endorse the use of the MDRD equation for patients that are not between the ages of 18 and 70, are , have extremes of body size, muscle mass, or nutritional status, or are non- or non-. According to the National Kidney Foundation, irrespective of diagnosis, the stage of the disease is based on the level of kidney function: Stage Description GFR(mL/min/1.73 m(2)) 1 Kidney damage with normal or decreased GFR 90 2 Kidney damage with mild decrease in GFR 60-89 3 Moderate decrease in GFR 30-59 4 Severe decrease in GFR 15-29 5 Kidney failure <15 (or dialysis) 24 to be done no sooner than 4 days before cath. 25 Because ethnic data is not always readily available, this report includes an eGFR for both -Americans and non- Americans. The National Kidney Disease Education Program (NKDEP) does not endorse the use of the MDRD equation for patients that are not between the ages of 18 and 70, are , have extremes of body size, muscle mass, or nutritional status, or are non- or non-. According to the National Kidney Foundation, irrespective of diagnosis, the stage of the disease is based on the level of kidney function: Stage Description GFR(mL/min/1.73 m(2)) 1 Kidney damage with normal or decreased GFR 90 2 Kidney damage with mild decrease in GFR 60-89 3 Moderate decrease in GFR 30-59 4 Severe decrease in GFR 15-29 5 Kidney failure <15 (or dialysis) 26 Because ethnic data is not always readily available, this report includes an eGFR for both -Americans and non- Americans. The National Kidney Disease Education Program (NKDEP) does not endorse the use of the MDRD equation for patients that are not between the ages of 18 and 70, are , have extremes of body size, muscle mass, or nutritional status, or are non- or non-. According to the National Kidney Foundation, irrespective of diagnosis, the stage of the disease is based on the level of kidney function: Stage Description GFR(mL/min/1.73 m(2)) 1 Kidney damage with normal or decreased GFR 90 2 Kidney damage with mild decrease in GFR 60-89 3 Moderate decrease in GFR 30-59 4 Severe decrease in GFR 15-29 5 Kidney failure <15 (or dialysis) 27 Because ethnic data is not always readily available, this report includes an eGFR for both -Americans and non- Americans. The National Kidney Disease Education Program (NKDEP) does not endorse the use of the MDRD equation for patients that are not between the ages of 18 and 70, are , have extremes of body size, muscle mass, or nutritional status, or are non- or non-. According to the National Kidney Foundation, irrespective of diagnosis, the stage of the disease is based on the level of kidney function: Stage Description GFR(mL/min/1.73 m(2)) 1 Kidney damage with normal or decreased GFR 90 2 Kidney damage with mild decrease in GFR 60-89 3 Moderate decrease in GFR 30-59 4 Severe decrease in GFR 15-29 5 Kidney failure <15 (or dialysis) Procedures Date CPT Code Description Status 01/29/2018 19048 EKG Tracing & Interpretation Completed 12/17/2017 95336 RT & LT HRT Cath W/Inj For Ventriculography I/S And Completed Interp If Don 12/12/2017 69674 EKG Tracing & Interpretation Completed 12/11/2017 56981 ECHO Transthorasic Realtime 2D W Doppler & Color Completed [facility] 02/06/2017 66894 ECHO Transthorasic Realtime 2D W Doppler & Color Completed [facility] 05/09/2016 11808 EKG Tracing & Interpretation Completed 05/01/2016 93457 EKG, Interpretation Only Completed 04/30/2016 45829 Intravascular Blood Flow Velocity Completed 04/30/2016 79802 EKG, Interpretation Only Completed 04/30/2016 78988 Percutaneous Transcatheter Placement Of Intracoronary Completed Stent 04/10/2016 96175 Echocardiography, Transesophageal, Real Time W/Image 2D Completed W/W/O M-M 04/10/2016 19254 Pulse Wave/Continuous-Interp.RPT Completed 04/10/2016 65853 Color Flow Doppler/Interp & Reprt Completed 04/02/2016 51431 RT & lt Cath W/Injx HRT Art&L Ventr Img S&I Completed 03/06/2016 10422 Treadmill Interp/Report Only Completed 03/06/2016 59348 Stress Test Supervsn W/Out I/R Completed 02/15/2016 95202 EKG Tracing & Interpretation Completed 01/26/2016 38979 ECHO Transthorasic Realtime 2D W Doppler & Color Completed [facility] 09/12/2015 02567 EKG Tracing & Interpretation Completed 02/23/2015 78943 Treadmill Interp/Report Only Completed 02/23/2015 53964 Stress Test Supervsn W/Out I/R Completed 02/15/2015 69113 ECHO Transthorasic Realtime 2D W Doppler & Color Completed [facility] 02/14/2015 05442 EKG Tracing & Interpretation Completed Encounters Type Date Location Provider CPT E/M Dx Office Visit 01/29/2018 [facility] Codi Craig M.D., 06346 Z95.2 1:40p [employer] AT [facility], FSCAI R06.02 I25.10 I48.3 Office Visit 12/18/2017 2:04p [facility] Codi Craig M.D., 67825 I35.0 [employer] AT [facility], [facility] I50.9 Office Visit [facility] 59460 I50.33 [facility] M.Richie I35.0 E11.9 E78.5 [facility] 47325 I50.33 [facility] MBerna I35.0 E11.9 E78.5 Office Visit 12/17/2017 11:30a [facility] Codi Craig M.D., 00381 R93.1 [employer] AT [facility], [facility] I35.0 I50.9 Office Visit 12/12/2017 8:40a [facility] Codi Craig M.D., 81363 I35.0 [employer] AT [facility], [facility] I25.10 I71.2 Office Visit 07/15/2017 8:20a [facility] Codi Craig M.D., 28648 I35.0 [employer] AT [facility], [facility] I25.110 I71.2 Office Visit 12/19/2016 8:20a [facility] Codi Craig M.D., 63055 I25.110 [employer] AT [facility], [facility] I10 E78.5 Z72.0 I35.0 I77.810 Office Visit 05/09/2016 3:00p [facility] Codi Craig M.D., 25131 I35.0 [employer] AT [facility], [facility] I10 I25.110 E78.5 Z72.0 Office Visit 04/09/2016 3:20p [facility] Codi Craig M.D., 86852 I35.0 [employer] AT [facility], [facility] I25.9 I10 E78.5 I25.10 Office Visit 02/15/2016 9:20a [facility] Codi Craig M.D., 97190 I35.0 [facility] AT [facility], [facility] I77.810 I10 Office Visit 09/12/2015 10:00a [facility] Codi Craig M.D., 82976 I35.0 [facility] AT [facility], [facility] I10 I77.810 Office Visit 03/23/2015 3:45p [facility] Codi Craig M.D., 20197 424.1 [employer] AT [facility], [facility] 401.1 447.71 Office Visit 02/28/2015 3:00p [facility] Codi Craig M.D., 93200 786.05 [facility] AT [facility], [facility] 424.1 401.1 272.4 447.71 Office Visit 02/14/2015 9:00a [facility] Codi Craig M.D., 85616 424.1 [facility] AT [facility], [facility] 401.1 272.4 786.05 Plan of Care Future Appointment(s):02/03/2018 3:40 pm - Tam Craig M.D., [facility], [facility] at [facility] AT [facility]01/30/2018 9:00 am - Tam Craig M.D., [facility], [facility] at [facility] AT [facility]01/29/2018 - Tam Craig M.D., [facility], IKEMFM62.2 Presence of prosthetic heart valveNew Orders:EchocardiogramComments: Your prosthetic aortic valve sounds stableFollow up:after swmksvgW78.02 Shortness of breathNew Xrays:Chest PA & Lat 2 VWSComments:Your exam suggests the presence of fluid still in your lungs . We will check a chest xray.I25.10 Athscl heart disease of sleetm[place] coronary artery w/o ang pctrsComments :You currently do not have any significant symptoms of progressive coronary artery disease.Recommendations:Continue current medications and watch carefully for symptoms as we yadgrddcvR46.3 Typical atrial flutterRecommendations: Continue current medications
--- OUTSIDE RECORDS SUMMARY | 2018-02-04 15:59 | XMS REPORT ---
:1960 External Reference #:[id number] Author Organization [facility] Address [address] [facility]/[address] [place] [address] Phone [phone] Care Team Providers Name Role Phone Charles Hancock MD Care Team Information Math Specialist Unavailable Charles Hancock MD Primary Care Physician Unavailable Payers Type Date Identification Numbers Payment Provider Subscriber Commercial Effective: Policy Number: BS [employer] [employer] Jerrica Watson 2017 [id number] PayID: [id number] [address] [address] [place] [address] Problems Date Description Provider Status Onset: 10/24/2016 Tobacco user Jesus SolisP Active Onset: 10/24/2016 Chronic obstructive lung disease Jesus SolisP Active Onset: 10/24/2016 Type II diabetes mellitus uncontrolled Jesus SolisP Active Onset: 10/24/2016 Essential hypertension Jesus SolisP Active Onset: 10/24/2016 Mixed hyperlipidemia Jesus SolisP Active Onset: 10/24/2016 Obstructive sleep apnea syndrome Jesus SolisP Active Onset: 10/24/2016 Impotence of organic origin Jesus SolisP Active Onset: 10/24/2016 Morbid obesity Jesus SolisP Active Onset: 10/24/2016 Chronic combined systolic and diastolic Jesus SolisP Active heart failure Onset: 10/24/2016 Aortic valve disorder Jesus SolisP Active Onset: 10/24/2016 Peripheral venous insufficiency Jesus SolisP Active Family History Date Family Member(s) Problem(s) Comments Father 73 Father Heart Attack Father Diabetes Mother 72 Mother Chronic Obstructive Pulmonary Disease (COPD) First Son 28 Second Son 26 First Daughter 25 Social History Type Date Description Comments Marital Status Legal Status: ETOH Use Occasionally consumes alcohol Smoking Light tobacco smoker (10 or fewer cigarettes/day) Daily Caffeine Negative For Consumes on average 3 cups of regular coffee per day Daily Caffeine Consumes on average 2 sodas per day Allergies, Adverse Reactions, Alerts Date Description Reaction Status Severity Comments 01/05/2016 NKDA active Medications Medication Date Status Form Strength Qnty SIG Indications Ordering Provider Brilinta Active Tablets 60mg 180tabs 1 by mouth E11.65 Santi, 018 twice a Ahmad M., day-cardiolo M.DCharles gy Ultra Fine Active 100unit use bid-tid Santi, Lancets 017 s Charles Whiteside M.D. Miguel Contour Active Strips 100unit use one E11.65 Santi, Next Blood 017 s strip to Charles Whiteside, Glucose Test check M.DCharles glucose twice daily Contour Next Active Kit 1units FS Qac And E11.65 Santi, One Blood 017 hs And prn Charles Whiteside, Glucose E11.65 M.DCharles Monitoring System Cpap Active cpap mask, G47.33 Santi, 016 head gear, Charles Whiteside, tubing, M.Richie filters, humidifier chamber with 1 refill [id number] Furosemide Active Tablets 40mg 90tabs 1 tab by R60.0 Santi, 016 mouth every Ahmad M., day M.D. I50.20 Klor-Con M20 02/07/2016 Active Tablets ER 20Meq 90tabs 1 by mouth R60.0 Santi, Ahmad every day M., M.DCharles I50.20 BD Pen 01/10/2016 Active Misc 31G 100units use as E11.65 Santi, Needle/Short/Ultrafine/31G X 8 directed Ahmad X 5/16" mm M., MCharlesD. Doxazosin Mesylate Active Table 4mg 90tabs 1 tab by R35.1 Santi, ts mouth Ahmad every M., night M.D. N40.1 R97.20 Lantus Active Solution 100Unit/ML 75units 85 units E11.65 Santi, Solostar Pen-Inject every in Ahmad the M., morning M.D. Pravastatin Active Tablets 40mg 90tabs 1 tab by E78.2 Santi, Sodium mouth Ahmad every day M., at M.D. bedtime Metformin HCL Active Tablets ER 750mg 180tabs 2 tab by E11.65 Santi, ER 24HR mouth Ahmad every day M., M.D. Lisinopril-Hy Active Tablets 20-12.5mg 90tabs take 1 I10 Santi, drochlorothia tablet by Ahmamackenzie zide mouth M., every M.D. morning I50.20 Atenolol Active Tablets 100mg 90tabs 1 tab by I10 Santi, mouth Ahmad M., every day M.D. Amlodipine Active Tablets 10mg 90tabs 1 by mouth I10 Santi, Besylate every day Ahmad M., M.D. Brilinta 07/02/2016 - Hx Tablets 90mg 180tabs 1 tab by E11.65 Santi, 10/21/2017 mouth Ahmad M., twice a M.D. day Miguel Contour 01/11/2016 - Hx Strips 75units fs twice a E11.65 Santi, Blood Glucose 04/08/2017 day and as Ahmad M., Test Strips needed M.D. pv Pen Brice 01/05/2016 - Hx FS Qac And E11.65 Santi, 8mm 31G 01/10/2016 hs And prn Charles Whiteside M.D. Vital Signs Date Vital Result Comment 01/14/2018 BP Systolic 140 mmHg BP Diastolic 85 mmHg Height 67 inches 5'7" Weight 280.00 lb BMI (Body Mass Index) 43.8 kg/m2 Heart Rate 95 /min Respiratory Rate 18 /min 10/21/2017 BP Systolic 124 mmHg BP Diastolic 80 mmHg Height 67 inches 5'7" Weight 307.00 lb BMI (Body Mass Index) 48.1 kg/m2 Heart Rate 61 /min Respiratory Rate 18 /min 07/12/2017 BP Systolic 130 mmHg BP Diastolic 70 mmHg Height 67 inches 5'7" Weight 303.00 lb BMI (Body Mass Index) 47.5 kg/m2 Heart Rate 61 /min Respiratory Rate 16 /min 04/08/2017 BP Systolic 136 mmHg BP Diastolic 80 mmHg Height 67 inches 5'7" Weight 294.00 lb BMI (Body Mass Index) 46.0 kg/m2 Heart Rate 89 /min Respiratory Rate 18 /min 10/24/2016 BP Systolic 128 mmHg BP Diastolic 82 mmHg Height 67 inches 5'7" Weight 282.00 lb BMI (Body Mass Index) 44.2 kg/m2 Heart Rate 66 /min Respiratory Rate 18 /min 10/03/2016 BP Systolic 120 mmHg BP Diastolic 78 mmHg Height 67 inches 5'7" Weight 280.00 lb BMI (Body Mass Index) 43.8 kg/m2 Heart Rate 77 /min Respiratory Rate 16 /min 02/21/2016 BP Systolic 134 mmHg BP Diastolic 90 mmHg Height 67 inches 5'7" Weight 293.00 lb BMI (Body Mass Index) 45.9 kg/m2 Heart Rate 82 /min Respiratory Rate 20 /min 02/07/2016 BP Systolic 130 mmHg BP Diastolic 88 mmHg Height 67 inches 5'7" Weight 297.00 lb BMI (Body Mass Index) 46.5 kg/m2 Heart Rate 78 /min Respiratory Rate 18 /min 01/05/2016 BP Systolic 156 mmHg BP Diastolic 93 mmHg Height 67 inches 5'7" Weight 296.00 lb BMI (Body Mass Index) 46.4 kg/m2 Heart Rate 84 /min Body Temperature 97.1 F Respiratory Rate 18 /min Results Test Date Test Result H/L Range [...] Non- 106.5 >60 Egfr 136.9 >60 1 CBC Auto Diff 12/16/2017 White Blood Count [...] 0.1 Inr/Protime 12/16/2017 Inr 1.13 High 0.77-1.02 Laboratory test finding 12/16/2017 Partial Thrombo Time 35.0 seconds 26.0 -36.3 PTT Basic Metabolic Panel 12/16/2017 Sodium 144 mmol/L 139-145 Potassium 3.6 mmol/L 3.5-5.0 Chloride 105 mmol/L 101-111 Co2 Carbon Dioxide 32 mmol/L 22-32 Anion Gap 7 mmol/L 2-11 Glucose 92 mg/dL 70-100 Blood Urea Nitrogen 11 mg/dL 6-24 Creatinine 0.67 mg/dL 0.67-1.17 BUN/Creatinine Ratio 16.4 8-20 Calcium 9.1 mg/dL 8.6-10.3 Egfr Non- 123.2 >60 Egfr 158.4 >60 2 CBC Auto Diff 10/21/2017 White Blood Count 10.6 10^3/uL 3.5-10.8 3 Red Blood Count 4.89 10^6/uL 4.0-5.4 3 Hemoglobin 14.3 g/dL 14.0-18.0 3 Hematocrit 43 % 42-52 3 Mean Corpuscular Volume 88 fL 80-94 3 Mean Corpuscular Hemoglobin 29 pg 27-31 3 Mean Corpuscular HGB Conc 33 g/dL 31-36 3 Red Cell Distribution Width 16 % High 10.5-15 3 Platelet Count 223 10^3/uL 150-450 3 Mean Platelet Volume 9 um3 7.4-10.4 3 Abs Neutrophils 6.2 10^3/uL 1.5-7.7 3 Abs Lymphocytes 3.1 10^3/uL 1.0-4.8 3 Abs Monocytes 0.8 10^3/uL 0-0.8 3 Abs Eosinophils 0.4 10^3/uL 0-0.6 3 Abs Basophils 0.1 10^3/uL 0-0.2 3 Abs Nucleated RBC 0 10^3/uL 3 Granulocyte % 58.9 % 38-83 3 Lymphocyte % 29.5 % 25-47 3 Monocyte % 7.4 % 1-9 3 Eosinophil % 3.7 % 0-6 3 Basophil % 0.5 % 0-2 3 Nucleated Red Blood Cells % 0.1 3 Comp Metabolic Panel 10/21/2017 Sodium 143 mmol/L 133-145 3 Potassium 3.7 mmol/L 3.5-5.0 3 Chloride 107 mmol/L 101-111 3 Co2 Carbon Dioxide 29 mmol/L 22-32 3 Anion Gap 7 mmol/L 2-11 3 Glucose 101 mg/dL High 70-100 3 Blood Urea Nitrogen 15 mg/dL 6-24 3 Creatinine 0.67 mg/dL 0.67-1.17 3 BUN/Creatinine Ratio 22.4 High 8-20 3 Calcium 9.1 mg/dL 8.6-10.3 3 Total Protein 6.8 g/dL 6.4-8.9 3 Albumin 3.7 g/dL 3.2-5.2 3 Globulin 3.1 g/dL 2-4 3 Albumin/Globulin Ratio 1.2 1-3 3 Total Bilirubin 1.10 mg/dL High 0.2-1.0 3 Alkaline Phosphatase 55 U/L 34-104 3 Alt 16 U/L 7-52 3 Ast 18 U/L 13-39 3 Egfr Non- 123.2 >60 3 Egfr 158.4 >60 3, 4 Laboratory test finding 10/21/2017 Hemoglobin A1c (Glyco HGB) 7.6 % High 4.0-5.6 3, 5 TSH (Thyroid Stim Horm) 3.17 mcIU/mL 0.34-5.60 3, 6 Lipid Profile (Trig/Chol/HDL) 10/21/2017 Triglycerides 79 mg/dL 3, 7 Cholesterol 127 mg/dL 3, 8 HDL Cholesterol 29.0 mg/dL 3, 9 LDL Cholesterol 82 mg/dL 3, 10 PSA Free And Total 10/21/2017 PSA Total 0.40 ng/mL <=3.5 3 PSA Free <0.1 ng/mL 3 PSA Free/Total See Comment ratio 3, 11 Laboratory test 10/21/2017 Vitamin D Total 10.7 ng/mL Low 20-50 3, 12 finding 25(Oh) Laboratory test 04/08/2017 TSH (Thyroid Stim 1.35 mcIU/mL 0.34-5.60 13, 14 finding Horm) PSA Screening 0.300 ng/mL 0-4.000 13, 15 Lipid Profile (Trig/Chol/HDL) 04/08/2017 Triglycerides 83 mg/dL 13, 16 Cholesterol 153 mg/dL 13, 17 HDL Cholesterol 36.6 mg/dL 13, 18 LDL Cholesterol 100 mg/dL 13, 19 Comp Metabolic Panel 04/08/2017 Sodium 141 mmol/L 133-145 13 Potassium 3.7 mmol/L 3.5-5.0 13 Chloride 108 mmol/L 101-111 13 Co2 Carbon Dioxide 26 mmol/L 22-32 13 Anion Gap 7 mmol/L 2-11 13 Glucose 132 mg/dL High 70-100 13 Blood Urea Nitrogen 12 mg/dL 6-24 13 Creatinine 0.63 mg/dL Low 0.67-1.17 13 BUN/Creatinine Ratio 19.0 8-20 13 Calcium 9.1 mg/dL 8.6-10.3 13 Total Protein 7.3 g/dL 6.4-8.9 13 Albumin 4.1 g/dL 3.2-5.2 13 Globulin 3.2 g/dL 2-4 13 Albumin/Globulin Ratio 1.3 1-3 13 Total Bilirubin 0.60 mg/dL 0.2-1.0 13 Alkaline Phosphatase 58 U/L 34-104 13 Alt 18 U/L 7-52 13 Ast 17 U/L 13-39 13 Egfr Non- 132.7 >60 13 Egfr 170.7 >60 13, 20 CBC Auto Diff 04/08/2017 White Blood Count 11.7 10^3/uL High 3.5-10.8 13 Red Blood Count 5.10 10^6/uL 4.0-5.4 13 Hemoglobin 15.1 g/dL 14.0-18.0 13 Hematocrit 46 % 42-52 13 Mean Corpuscular Volume 89 fL 80-94 13 Mean Corpuscular Hemoglobin 30 pg 27-31 13 Mean Corpuscular HGB Conc 33 g/dL 31-36 13 Red Cell Distribution Width 14 % 10.5-15 13 Platelet Count 226 10^3/uL 150-450 13 Mean Platelet Volume 10 um3 7.4-10.4 13 Abs Neutrophils 7.0 10^3/uL 1.5-7.7 13 Abs Lymphocytes 3.7 10^3/uL 1.0-4.8 13 Abs Monocytes 0.7 10^3/uL 0-0.8 13 Abs Eosinophils 0.3 10^3/uL 0-0.6 13 Abs Basophils 0.1 10^3/uL 0-0.2 13 Abs Nucleated RBC 0 10^3/uL 13 Granulocyte % 59.4 % 38-83 13 Lymphocyte % 31.5 % 25-47 13 Monocyte % 5.8 % 1-9 13 Eosinophil % 2.4 % 0-6 13 Basophil % 0.9 % 0-2 13 Nucleated Red Blood Cells % 0 13 Urine Microalbumin Random 04/08/2017 Urine Creatinine 138.10 mg/dL 13 Ur Microalbumin (mg/L) 912.7 mg/L 13 Urine Microalbumin/Creatinine 660.8 ug/mg High <31 13 Laboratory test 04/08/2017 Hemoglobin A1c 7.7 % High Less than 13, 21 finding (Glyco HGB) 6.0 Laboratory test 10/03/2016 Hemoglobin A1c 11.1 % High Less than 22, 23 finding (Glyco HGB) 6.0 CBC Auto Diff 10/03/2016 White Blood Count 11.7 10^3/uL High 3.5-10.8 22 Red Blood Count 5.10 10^6/uL 4.0-5.4 22 Hemoglobin 15.3 g/dL 14.0-18.0 22 Hematocrit 45 % 42-52 22 Mean Corpuscular Volume 89 fL 80-94 22 Mean Corpuscular Hemoglobin 30 pg 27-31 22 Mean Corpuscular HGB Conc 34 g/dL 31-36 22 Red Cell Distribution Width 14 % 10.5-15 22 Platelet Count 246 10^3/uL 150-450 22 Mean Platelet Volume 10 um3 7.4-10.4 22 Abs Neutrophils 6.2 10^3/uL 1.5-7.7 22 Abs Lymphocytes 4.2 10^3/uL 1.0-4.8 22 Abs Monocytes 0.7 10^3/uL 0-0.8 22 Abs Eosinophils 0.5 10^3/uL 0-0.6 22 Abs Basophils 0.1 10^3/uL 0-0.2 22 Abs Nucleated RBC 0.01 10^3/uL 22 Granulocyte % 53.1 % 38-83 22 Lymphocyte % 35.8 % 25-47 22 Monocyte % 6.1 % 1-9 22 Eosinophil % 4.3 % 0-6 22 Basophil % 0.7 % 0-2 22 Nucleated Red Blood Cells % 0.1 22 Comp Metabolic Panel 10/03/2016 Sodium 140 mmol/L 133-145 22 Potassium 3.6 mmol/L 3.5-5.0 22 Chloride 105 mmol/L 101-111 22 Co2 Carbon Dioxide 26 mmol/L 22-32 22 Anion Gap 9 mmol/L 2-11 22 Glucose 302 mg/dL High 70-100 22 Blood Urea Nitrogen 18 mg/dL 6-24 22 Creatinine 0.77 mg/dL 0.67-1.17 22 BUN/Creatinine Ratio 23.4 High 8-20 22 Calcium 9.3 mg/dL 8.6-10.3 22 Total Protein 7.0 g/dL 6.4-8.9 22 Albumin 3.9 g/dL 3.2-5.2 22 Globulin 3.1 g/dL 2-4 22 Albumin/Globulin Ratio 1.3 1-3 22 Total Bilirubin 0.60 mg/dL 0.2-1.0 22 Alkaline Phosphatase 63 U/L 34-104 22 Alt 19 U/L 7-52 22 Ast 15 U/L 13-39 22 Egfr Non- 105.3 >60 22 Egfr 135.4 >60 22, 24 Lipid Profile (Trig/Chol/HDL) 10/03/2016 Triglycerides 206 mg/dL 22, 25 Cholesterol 155 mg/dL 22, 26 HDL Cholesterol 31.6 mg/dL 22, 27 LDL Cholesterol 82 mg/dL 22, 28 Laboratory test 10/03/2016 TSH (Thyroid Stim 1.85 mcIU/mL 0.34-5.60 22, 29 finding Horm) PSA Screening 0.279 ng/mL 0-4.000 22, 30 Laboratory test finding 07/01/2016 Wound Culture/Sensi SEE RESULT BELOW 31, 32 MRSA/S. aureus Ssti PCR SEE RESULT BELOW 31, 33 Laboratory test finding 04/28/2016 Alt 23 U/L 7-52 34, 35 Ast 19 U/L 13-39 34, 36 B-Type Natriuretic Peptide BNP 91 pg/mL 34, 37 Lipid Profile (Trig/Chol/HDL) 04/28/2016 Triglycerides 228 mg/dL 34, 38 Cholesterol 155 mg/dL 34, 39 HDL Cholesterol 32.5 mg/dL 34, 40 LDL Cholesterol 77 mg/dL 34, 41 Basic Metabolic Panel 04/28/2016 Sodium 140 mmol/L 133-145 Potassium 3.4 mmol/L Low 3.5-5.0 Chloride 105 mmol/L 101-111 Co2 Carbon Dioxide 28 mmol/L 22-32 Anion Gap 7 mmol/L 2-11 Glucose 229 mg/dL High 70-100 Blood Urea Nitrogen 15 mg/dL 6-24 Creatinine 0.72 mg/dL 0.67-1.17 BUN/Creatinine Ratio 20.8 High 8-20 Calcium 9.3 mg/dL 8.6-10.3 Egfr Non- 114.2 >60 Egfr 146.9 >60 42 Inr/Protime 04/28/2016 Inr 0.99 0.89-1.11 Laboratory test finding 04/28/2016 Partial Thrombo Time 28.9 seconds 26.0 -36.3 PTT CBC Auto Diff 04/28/2016 White Blood Count [...] 150-450 Mean Platelet Volume 10 um3 7.4-10.4 Basic Metabolic Panel 04/04/2016 Sodium 137 mmol/L 133-145 Potassium 3.9 mmol/L 3.5-5.0 Chloride 102 mmol/L 101-111 Co2 Carbon Dioxide 26 mmol/L 22-32 Anion Gap 9 mmol/L 2-11 Glucose 369 mg/dL High 70-100 Blood Urea Nitrogen 16 mg/dL 6-24 Creatinine 0.76 mg/dL 0.67-1.17 BUN/Creatinine Ratio 21.1 High 8-20 Calcium 9.3 mg/dL 8.6-10.3 Egfr Non- 107.3 >60 Egfr 138.0 >60 43 Basic Metabolic Panel 02/07/2016 Sodium 140 mmol/L 133-145 44 Potassium 3.7 mmol/L 3.5-5.0 44 Chloride 103 mmol/L 101-111 44 Co2 Carbon Dioxide 30 mmol/L 22-32 44 Anion Gap 7 mmol/L 2-11 44 Glucose 161 mg/dL High 70-100 44 Blood Urea Nitrogen 17 mg/dL 6-24 44 Creatinine 0.74 mg/dL 0.67-1.17 44 BUN/Creatinine Ratio 23.0 High 8-20 44 Calcium 9.0 mg/dL 8.6-10.3 44 Egfr Non- 110.6 >60 44 Egfr 142.3 >60 44, 45 Urinalysis Profile 02/02/2016 Urine Color Yellow Urine Appearance Clear Urine Specific Stites 1.015 1.010-1.030 Urine pH 6.0 5-9 Urine Urobilinogen Negative Negative Urine Ketones Negative Negative Urine Protein 2+(100 mg/dL) Negative Urine Leukocytes Negative Negative Urine Blood Negative Negative Urine Nitrite Negative Negative Urine Bilirubin Negative Negative Urine Glucose Negative Negative Urine White Blood Cell Trace(0-5/hpf) Absent Urine Red Blood Cell Trace(0-2/hpf) Absent Urine Bacteria Absent Absent Urine Squamous Epithelial Cell Present Absent Laboratory test finding 02/02/2016 TSH (Thyroid Stim Horm) 1.51 ?IU/mL 0.34-5.60 CKMB 02/02/2016 CKMB ng/mL 4.6 ng/mL 0.6-6.3 Laboratory test finding 02/02/2016 Magnesium 2.0 mg/dL 1.9-2.7 Lipase 20 U/L 11.0-82.0 Creatine Kinase 228 U/L High 10-223 Troponin-I (TnI) 0.01 ng/mL <0.03 46 C Reactive Protein 7.71 mg/L High < 5.00 47 Comp Metabolic Panel 02/02/2016 Sodium 140 mmol/L 133-145 Potassium 3.4 mmol/L Low 3.5-5.0 Chloride 106 mmol/L 101-111 Co2 Carbon Dioxide 28 mmol/L 22-32 Anion Gap 6 mmol/L 2-11 Glucose 138 mg/dL High 70-100 Blood Urea Nitrogen 13 mg/dL 6-24 Creatinine 0.64 mg/dL Low 0.67-1.17 BUN/Creatinine Ratio 20.3 High 8-20 Calcium 8.9 mg/dL 8.6-10.3 Total Protein 6.9 g/dL 6.4-8.9 Albumin 3.8 g/dL 3.2-5.2 Globulin 3.1 g/dL 2-4 Albumin/Globulin Ratio 1.2 1-3 Total Bilirubin 0.90 mg/dL 0.2-1.0 Alkaline Phosphatase 60 U/L 34-104 Alt 18 U/L 7-52 Ast 18 U/L 13-39 Egfr Non- 130.8 >60 Egfr 168.2 >60 48 Laboratory test 02/02/2016 B-Type Natriuretic 250 pg/mL High 49 finding Peptide BNP CBC Auto Diff 02/02/2016 White Blood Count 9.7 10^3/uL 3.5-10.8 Red Blood Count 4.92 10^6/uL 4.0-5.4 Hemoglobin 14.4 g/dL 14.0-18.0 Hematocrit 44 % 42-52 Mean Corpuscular Volume 90 fL 80-94 Mean Corpuscular Hemoglobin 29 pg 27-31 Mean Corpuscular HGB Conc 33 g/dL 31-36 Red Cell Distribution Width 14 % 10.5-15 Platelet Count 196 10^3/uL 150-450 Mean Platelet Volume 10 um3 7.4-10.4 Abs Neutrophils 5.3 10^3/uL 1.5-7.7 Abs Lymphocytes 3.4 10^3/uL 1.0-4.8 Abs Monocytes 0.7 10^3/uL 0-0.8 Abs Eosinophils 0.3 10^3/uL 0-0.6 Abs Basophils 0.1 10^3/uL 0-0.2 Abs Nucleated RBC 0 10^3/uL Granulocyte % 54.5 % 38-83 Lymphocyte % 34.7 % 25-47 Monocyte % 6.9 % 1-9 Eosinophil % 3.3 % 0-6 Basophil % 0.6 % 0-2 Nucleated Red Blood Cells % 0.1 Laboratory test finding 02/02/2016 Inr/Protime 1.15 High 0.89-1.11 Partial Thrombo Time PTT 32.6 seconds 26.0-36.3 Lactic Acid 0.9 mmol/L 0.5-2.0 50 1 Because ethnic data is not always [...] 5 Kidney failure <15 (or dialysis) 3 [id number] 4 Because ethnic data is not always readily [...] 15-29 5 Kidney failure <15 (or dialysis) 5 Therapeutic target for the treatment of diabetes mellitus patients is <7% HBA1C, and in selective patients <6.0%. Please refer to [place] [employer] diabetic care guidelines for further information. 6 [id number] 7 Desirable: <150 Borderline High: 150-199 High: 200-499 Very High: >500 8 Desirable: <200 Borderline High: 200-239 High: >239 9 Low: <40 Desirable: 40-60 High: >60 10 Desirable: <100 Near Optimal: 100-129 Borderline High: 130-159 High: 160-189 Very High: >189 11 Ratio was not calculated because free PSA is less than 0.1 ng/mL Ratio not calculated because clinical usefulness is not defined except in range of total PSA 4.0-10.0 ng/mL. ADDITIONAL INFORMATION The testing method is an electrochemiluminescence assay manufactured by [employer] and performed on the Modular or Nadira system. Values obtained with different assay methods or kits may be different and cannot be used interchangeably. Test results cannot be interpreted as absolute evidence for the presence or absence of malignant disease. Test Performed by: [facility] [employer] [address] [place] [address] 12 [id number] 15 Serum levels of PSA measured using the [employer] DXI Hybritech immunoassay should not be interpreted [...] methods or kits cannot be used interchangeably. 16 Desirable <150 Borderline high 150-199 High 200-499 Very High >500 17 Desirable <200 Borderline high 200-239 High >239 18 Low <40 Desirable: 40-60 High: >60 19 Desirable: <100 mg/dL Near Optimal: 100-129 mg/dL Borderline High: 130-159 mg/dL High: 160-189 mg/dL Very High: >189 mg/dL 20 Because ethnic data is not always readily [...] 15-29 5 Kidney failure <15 (or dialysis) 21 Therapeutic target for the treatment of diabetes Mellitus patients is <7% HBA1C, and in selective patients <6.0%.Please refer to [place] [employer] Diabetic care guidelines for further information. 22 [id number] 23 Therapeutic target for the treatment of diabetes Mellitus patients is <7% HBA1C, and in selective patients <6.0%.Please refer to [place] [employer] Diabetic care guidelines for further information. 24 Because ethnic data is not always readily [...] 15-29 5 Kidney failure <15 (or dialysis) 25 Desirable <150 Borderline high 150-199 High 200-499 Very High >500 26 Desirable <200 Borderline high 200-239 High >239 27 Low <40 Desirable: 40-60 High: >60 28 Desirable: <100 mg/dL Near Optimal: 100-129 mg/dL Borderline High: 130-159 mg/dL High: 160-189 mg/dL Very High: >189 mg/dL 29 [id number] 30 Serum levels of PSA measured using the [employer] DXI Hybritech immunoassay should not be interpreted [...] methods or kits cannot be used interchangeably. 31 [id number] 32 SEE RESULT BELOW Name: JERRICA WATSON JR : [address]: Dale Aiken MD Acct: [id number] Unit: [id number] AGE: 56 Location: [facility] Re07/01/16 SEX: M Status: DEP ER SPEC: [id number] DIONICIO: 07/01/16-[address] [facility] [address]: Joy Aiken PILOT SUBMERSIBLE REQ: [id number] RECD: 07/02/16-1103 STATUS: RES BUCK DR: Charles Aiken MD _ SOURCE: THIGH,LEFT SPDESC: ORDERED: MRSA/SA SSTI, Culture Stain COMMENTS: [id number] Procedure Result Reported Site MRSA/S. aureus SSTI PCR PENDING Wound/Misc Gram Stain Final 07/02/16- 1320 ML 1+ Epithelial Cells 2+ Neutrophils 2+ Gram Positive Cocci Wound/Misc Culture PENDING * ML - MAIN LAB ([facility]) . END OF REPORT * ML=Testing performed at Main Lab DEPARTMENT OF PATHOLOGY, [address] [place] [address] Israel Catherine M.D. Director [facility] # [id number] 33 SEE RESULT BELOW Name: JERRICA WATSON JR : [address]: Dale Aiken MD Acct: [id number] Unit: [id number] AGE: 56 Location: [facility] Re07/01/16 SEX: M Status: DEP ER SPEC: [id number] DIONICIO: 07/01/[address] [facility] [address]: Joy Aiken PILOT SUBMERSIBLE REQ: [id number] RECD: 07/02/16 STATUS: RODRIGO JANE DR: Charles Aiken MD _ SOURCE: THIGH,LEFT SPDESC: ORDERED: MRSA/SA SSTI, Culture Stain COMMENTS: [id number] Procedure Result Reported Site MRSA/S. aureus SSTI PCR Final 07/02/16- 1444 ML Organism 1 MRSA NEGATIVE Organism 2 S.AUREUS NEGATIVE Wound/Misc Gram Stain Final 07/02/16- 1320 ML 1+ Epithelial Cells 2+ Neutrophils 2+ Gram Positive Cocci Wound/Misc Culture Final 07/05/16- 0818 ML Organism 1 STREP AGALACTIAE - (GROUP B) Quantity 1+ Organism 2 STAPHYLOCOCCUS LUGDENENSIS Quantity 2+ Organism 3 NORMAL NESS Quantity 2+ 1. STREP AGALACTIAE - (GROUP B) M.I.C. RX --------- ------ Ampicillin <=0.25 S Penicillin <=0.12 S Clindamycin R Levofloxacin 0.5 S Linezolid 1 S * Moxifloxacin <=0.25 S CONTINUED ON NEXT PAGE * ML=Testing performed at Main Lab DEPARTMENT OF PATHOLOGY, [address] [place] [address] Israel Catherine M.D. Director [facility] # [id number] Patient: JERRICA WATSON JR [id number] (Continued) Specimen: [id number] Collected: 07/01/16-1310 Received: 07/02/16-1103 (Continued) Procedure Result Reported Site Wound/Misc Culture Final (continued) 07/05/16817 1. STREP AGALACTIAE - (GROUP B) (continued) M.I.C. RX --------- ------ * Quinupristin/Dalfopristin <=0.25 S Tetracycline >=16 R Tigecycline 0.25 S Vancomycin <=0.5 S Imipenem-Deduced S * Ampicillin/Sulbactam-Deduced S Cefazolin-Deduced S 2. STAPHYLOCOCCUS LUGDENENSIS M.I.C. RX --------- ------ Penicillin <=0.03 S Clindamycin >=8 R Erythromycin >=8 R Gentamicin <=0.5 S Linezolid 1 S Nitrofurantoin <=16 S Oxacillin 1 S * Quinupristin/Dalfopristin <=0.25 S Rifampin <=0.5 S Tetracycline <=1 S Doxycycline - Deduced S * Minocycline - Deduced S Tigecycline <=0.12 S Vancomycin 1 S Imipenem-Deduced S * Ampicillin/Sulbactam-Deduced S Cefazolin-Deduced S CONTINUED ON NEXT PAGE * ML=Testing performed at Main Lab DEPARTMENT OF PATHOLOGY, [address] [place] [address] Israel Catherine M.D. Director [facility] # [id number] Patient: JERRICA WATSON JR [id number] (Continued) Specimen: [id number] Collected: 07/01/16-131 Received: 07/02/16 (Continued) Procedure Result Reported Site Wound/Misc Culture Final (continued) * These antibiotics are not available in the [facility] Formulary Contact the Microbiology Department for any additional antibiotic reporting. * ML - MAIN LAB ([facility]) . END OF REPORT * ML=Testing performed at Main Lab DEPARTMENT OF PATHOLOGY, [address] [place] [address] Israel Cahterine M.D. Director [facility] # [id number] 34 to be drawn after 2 weeks on the increased furosemide. copy to Dr. Elijah mcleod Assess for rnalinsu 35 to be drawn after 2 weeks on the increased furosemide. copy to Dr. Elijah hercules. Assess for rnalinsufficiency on increased diuretic and assess choles terol.. 36 to be drawn after 2 weeks on the increased furosemide. copy to Dr. Elijah hercules. Assess for rnalinsufficiency on increased diuretic and assess choles terol.. 37 >100 to <200 pg/mL: likely compensated congestive heart failure (CHF) 200 to 400 pg/mL: likely moderate CHF >400 pg/mL: likely moderate to severe CHF 38 Desirable <150 Borderline high 150-199 High 200-499 Very High >500 39 Desirable <200 Borderline high 200-239 High >239 40 Low <40 Desirable: 40-60 High: >60 41 Desirable: <100 mg/dL Near Optimal: 100-129 mg/dL Borderline High: 130-159 mg/dL High: 160-189 mg/dL Very High: >189 mg/dL 42 Because ethnic data is not always readily [...] 15-29 5 Kidney failure <15 (or dialysis) 43 Because ethnic data is not always readily [...] 15-29 5 Kidney failure <15 (or dialysis) 44 [id number] 45 Because ethnic data is not always readily [...] 15-29 5 Kidney failure <15 (or dialysis) 46 Reference Range and Interpretation: TnI (ng/mL) Interpretation Less Than 0.03 ng/mL Not supportive of diagnosis of MS 0.03 - 0.50 ng/mL Indeterminate: suggest serial studies if clinically indicated. Greater than 0.5 ng/mL Consistent with diagnosis of MS 47 Acute inflammation: >10.00 48 Because ethnic data is not always readily [...] 15-29 5 Kidney failure <15 (or dialysis) 49 >100 to <200 pg/mL: likely compensated congestive heart failure (CHF) 200 to 400 pg/mL: likely moderate CHF >400 pg/mL: likely moderate to severe CHF 50 [facility] Severe Sepsis and Septic Shock Management Bundle Measure requires all lactic acids initially measuring >2.0 mmol/L be repeated. Procedures Date CPT Code Description Status 10/24/2016 35824 Visual Screening Test Completed 10/24/2016 97540 EKG Completed 10/24/2016 26418 Audiometry, Bekesy, Screening Completed 01/05/2016 47472 Visual Screening Test Completed 01/05/2016 59855 Audiometry, Bekesy, Screening Completed Encounters Type Date Location Provider CPT E/M Dx Office Visit 01/14/2018 2:00p [facility] Charles Hancock M.D. 05515 E11.65 I10 J44.9 E78.2 G47.33 F17.210 E66.01 R97.20 R35.1 M54.5 N52.9 M15.9 J30.9 L20.9 H52.4 H90.6 R60.0 I35.0 I87.2 I83.92 I50.42 F41.9 N40.1 E55.9 I71.2 I48.2 Z00.01 Office Visit 10/21/2017 8:15a [facility] Charles Hancock M.D. 62389 E11.65 I10 J44.9 E78.2 G47.33 F17.210 E66.01 R97.20 R35.1 M54.5 N52.9 M15.9 J30.9 L20.9 H52.4 H90.6 R60.0 I35.0 I87.2 I83.92 I50.42 F41.9 N40.1 E55.9 I77.810 J18.9 Office Visit 07/12/2017 8:30a [facility] Charles Hancock M.D. 31271 E11.65 I10 J44.9 E78.2 G47.33 F17.210 E66.01 R97.20 R35.1 N40.0 M54.5 N52.9 I25.10 M15.9 J30.9 L20.9 H52.4 H90.6 I35.0 R60.0 I87.2 I83.92 I50.42 F41.9 Z28.20 Office Visit 04/08/2017 11:30a [facility] [address] F17.210 J44.9 E11.65 I10 G47.33 E78.2 E66.01 R97.20 R35.1 N40.0 I50.20 Office Visit 10/24/2016 8:45a [facility] 53691 F17.210 J44.9 E11.65 I10 G47.33 E78.2 E66.01 Z00.01 Office Visit 10/03/2016 8:30a [facility] 827[address] J44.9 E11.65 I10 M54.5 G47.33 E78.2 I10 E11.65 N52.9 F17.210 E66.01 I25.10 J44.9 Office Visit 02/21/2016 10:45a [facility] Charles Hancock M.D. 40592 E11.65 I10 E78.2 M15.9 M54.5 Z68.42 E66.01 G47.33 J44.9 F17.210 J30.9 L20.9 N52.9 H52.4 H90.6 I35.0 R60.0 I87.2 I83.92 I50.42 Office Visit 02/07/2016 9:30a [facility] Charles Hancock M.D. 70520 E11.65 I10 E78.2 M15.9 M54.5 Z68.42 E66.01 G47.33 J44.9 F17.210 J30.9 L20.9 N52.9 H52.4 H90.6 I35.0 R60.0 I87.2 I83.92 I50.42 Office Visit 01/05/2016 9:30a [facility] Charles Hancock M.D. 40185 Z00.01 E11.65 I10 E78.2 M15.9 M54.5 Z68.42 E66.01 G47.33 J44.9 F17.210 J30.9 L20.9 N52.9 H52.4 H90.6 Plan of Care Future Appointment(s):02/13/2018 1:00 pm - Charles Hancock M.D. at [facility]01/14/2018 - Charles Hancock M.D.E11.65 Type 2 diabetes mellitus with hyperglycemiaComments:DIET REVIEWED CONTINUE DIETWT LOSSF/U LAB FS qAC AND HS PRN F/U FBWI10 Essential (primary) hypertensionComments:CHECK BP TIW ( PRN)F/U LABDIET AND FLUID COUNSELING LOW SODIUM DIETWT LOSSF/U LABJ44.9 Chronic obstructive pulmonary disease, unspecifiedComments:INCREASE PO FLUIDRESTSMOKING VBJLKFBBAD33.2 Mixed hyperlipidemiaComments:DIET REVIEWED CONTINUE DIETWT LOSSF/ U LAB FBWG47.33 Obstructive sleep apnea (adult) (pediatric)Comments:CONTINUE WITH CPAPF/U WITH ENT PRN SMOKING WIGMKNEHXT71.210 Nicotine dependence, cigarettes, uncomplicatedComments:SMOKING CESSATION VJQJRKWGLKYH31.01 Morbid ( severe) obesity due to excess caloriesComments:WT LOSS COUNCELLINGEXERCISEDIET RSYDPOSDWALK62.20 Elevated prostate specific antigen [PSA]Comments:F/U WITH UROLOGY PRNF/U PSAR35.1 NocturiaComments:USE RX GIVEN EDUCATION ON DX AND TXM54.5 Low back painComments:EXERCISE/HEAT /MESSAGEAVOID HEAVY LIFTING WT LOSSTYLENOL OR MOTRIN PRNN52.9 Male erectile dysfunction, unspecifiedComments: COUNCELLING AND TEACHING ON DIFEEERENT TREATMENT LREOZUAP02.9 Polyosteoarthritis , unspecifiedComments:EXERCISE/HEAT/MESSAGETYLENOL OR MOTRIN PRNAVOID HEAVY LIFTINGWT LOSSJ30.9 Allergic rhinitis, unspecifiedComments:INCREASE PO FLUID USE ANTIHISTAMINE PRN SECOND HAND SMOKING AVOIDANCE SMOKING DCWFSZHOMS17.9 Atopic dermatitis, unspecifiedComments:SKIN CARE INSTRUCTIONS LOTION OR BABY OIL 2-3 APPLICATION PER DAYUSE MOISTURIZING SOAPAVOID PROLONGED WATER EXPOSUREAVOID USING HOT WATER IN LHJEIXN95.4 PresbyopiaComments:USE GLASSES/ CONTACTSF/U WITH XCDPDHHBVGVIMF53.6 Mixed conductive and sensorineural hearing loss, bilateralComments:OBSERVE F/U WITH ENT PRN SMOKING QQTZHDKLJR38.0 Localized edemaComments:ELEVATE LE PRNELASTIC STOCKING / TREVOR WRAP PRNF/U LABI35.0 Nonrheumatic aortic (valve) stenosisComments:CARDIOLOGY CONSULT AND F/ UI87.2 Venous insufficiency (chronic) (peripheral)Comments:ELEVATE LEPRESSURE STOCKINGWT LOSS NEEDED F/U LABI83.92 Asymptomatic varicose veins of left lower extremityComments:WT. LOSS ELEVATE LOWER EXT. ELASTIC CTEJJUOPL07.42 Chronic combined systolic and diastolic hrt failComments:F/U LABELEVATE LE PRNTED STOCKING / TREVOR WRAP PRN HNRGSKD01.9 Anxiety disorder, unspecifiedComments:COUNCELLING AND REASSURANCE RELAXATION TECHNIQUES DISCUSSEDCOUNSELED RE: STRESSORS IN LIFE AVOID ALLENERGY/HIGH CAFFEINE SMDTIND59.1 Benign prostatic hyperplasia with lower urinary tract sympComments: STABLEF/U PSAE55.9 Vitamin D deficiency, unspecifiedComments:INCREASE EXPOSURE TO SUNREVIEW OF DIETI71.2 Thoracic aortic aneurysm, without ruptureComments:S/P REPAIR 12/27/17OBSERVE F/U WITH CARDIOLOIGYF/U CT PIWWRJVEAV50.2 Chronic atrial fibrillationComments:CHECK PT/INR CONTINUE COUMADINCOUNCELLING ON COUMADIN CARE F/U WITH CARDIOLOGY NEEDED LAB DONE BYVISITING NURSE AND F/U BY CARDIOLOIGYFollow up:1 yvceuH16.01 Encounter for general adult medical exam w abnormal findingsComments:GOOD NUTRITION /EXERCISEDENTAL/ FLOSSING/ SELF CAREDROWNING/ SUN SAFETYSEAT BELT/ DRIVING SAFETYSPORT BIKE/ HELMET USESPORTS/ INJURY PREVENTIONVIOLENCE PREVENTION/ GUN SAFETYPARENTING ADVICE"SAFE AT HOME "SEX EDUCATION/ COUNSELINGBREAST/ TESTICULAR SELF EXAMEDUCATION GOALS/ ACTIVITIESLIMIT TV/ INTERNETUSETOBACCO/ ALCOHOL/ DRUGS/ INHALANTSPEER REFUSAL SKILLSSOCIAL INTERACTIONFAMILY FUNCTIONINGSELF CONTROLDEPRESSION/ ANXIETYNEXT APPOINTMENTYEARLY PHYSICAL WELLNESS EVALUATION
[2018-02-04 16:04] LABS: ABS Basophils 0.1 10^3/ul (0-0.2); ABS Eosinophils 0.2 10^3/ul (0-0.6); ABS Lymphocytes 2.9 10^3/ul (1.0-4.8); ABS Monocytes 0.8 10^3/ul (0-0.8); ABS Neutrophils 5.3 10^3/ul (1.5-7.7); ABS Nucleated RBC 0 10^3/ul; Eosinophil % 1.8 % (0-6); Hematocrit 32 % (42-52); Hemoglobin 10.2 g/dl (14.0-18.0); Lymphocyte % 31.3 % (25-47); Mean Corpuscular HGB Conc 32 g/dl (31-36); Mean Corpuscular Hemoglobin 27 pg (27-31); Mean Corpuscular Volume 85 fL (80-94); Mean Platelet Volume 7.6 um3 (7.4-10.4); Nucleated Red Blood Cells % 0.1; Platelet Count 363 10^3/ul (150-450); Red Blood Count 3.71 10^6/ul (4.0-5.4); Red Cell Distribution Width 17 % (10.5-15); White Blood Count 9.3 10^3/ul (3.5-10.8)
--- NOTE | 2018-02-04 16:08 | RAD ---
Indication: Shortness of breath. Single frontal view of the chest performed at 1551 hours was reviewed. Comparison is made with previous exam dated February 04, 2018. Cardiomegaly is noted. Interstitial edema consistent with mild vascular congestion is noted. Patient is status post chest thoracotomy. IMPRESSION: CARDIOMEGALY WITH MILD VASCULAR CONGESTION.
[2018-02-04 16:26] LABS: EGFR Non-African American 92.3 (>60)
[2018-02-04] MEDS ORDERED: Albuterol 2.5 MG/3 ML NEB.SOL* (0.083%) INH PRN (17:39)
[2018-02-04] MEDS ORDERED: Al Hydrox/Mg Hydrox/Simet LIQ* 30 ML UDC PO PRN (17:39)
[2018-02-04] MEDS ORDERED: Acetaminophen TAB* 325 MG PO PRN (17:39)
[2018-02-04] MEDS ORDERED: HYDROcodone/ACETAMIN 5-325 MG* 1 TAB PO PRN (17:42)
[2018-02-04] MEDS ORDERED: Dextrose 50% Syringe 50 ML* 25 GM/50 ML SYRINGE IV PUSH PRN (17:43)
[2018-02-04] MEDS: Insulin LISPRO* 1 UNITS UNIT SUBCUT SCH (21:42)
--- NOTE | 2018-02-04 21:44 | HP ---
CC: Dr. Hancock; Dr. Craig; Dr. Stockton * HISTORY AND PHYSICAL: DATE OF ADMISSION: 02/04/18 PRIMARY CARE PROVIDER: Dr. Charles Hancock CHIEF COMPLAINT: Shortness of breath, sent from Dr. Craig's office. HISTORY OF PRESENT ILLNESS: Augustine Watson is a 57-year-old male with history of status post aortic valve replacement performed on 12/27/[address] Stockton as well as replacement of ascending aortic aneurysm with vascular graft. On , the patient returned to the OR for mediastinal bleeding and it was surgically repaired. Post surgery, he was released and he followed up with Dr. Craig. The patient stated that his weight after surgery was approximately 250 pounds and currently the patient weighs 316 pounds. He is close to 70-pound weight gain in the past month and a half. Also, postoperatively, he developed atrial flutter for which he is on Coumadin. I saw the patient in reevaluation today after the patient's Lasix was increased from 40 to 80 mg daily for the past 5 days. The increase in Lasix did not bring any results and the patient continues to gain weight and having generalized edema. He is going to be admitted with diagnosis of congestive heart failure. Please note that the patient's EF on 01/30/18 on echo showed to be at lower limits of normal at 50% to 55% with severe left atrial dilatation. The right ventricle is moderately dilated and systolic function was mildly reduced. The bioprosthetic pericardial aortic valve appeared to be grossly normal in function. There was felt to be small pericardial effusion without signs of significant hemodynamic compromise. PAST MEDICAL HISTORY: 1. Status post aortic valve replacement with bioprosthetic valve of [place] as well as ascending aortic aneurysm replacement with vascular graft performed by Dr. Stockton on 12/27/17. 2. History of atrial flutter. 3. History of tobacco use. 4. History of bioprosthetic aortic valve preoperatively and aortic valve stenosis preoperatively, now status post replacement as mentioned above. 5. History of urjxsmwv-df-ridpzf concentric LVH. 6. History of hypertension. 7. Dyslipidemia. 8. Diabetes, type 2. 9. Obstructive sleep apnea, on CPAP. 10. Obesity. MEDICATIONS AT HOME: Include: Please note that the patient uses CPAP at night at 2 L of oxygen continuously during the day time. Remaining medications are: 1. Coumadin 2 mg daily. 2. Pravachol 40 mg daily. 3. Potassium chloride 20 mEq daily. 4. Metoprolol tartrate 25 mg b.i.d. 5. Glucophage 750 mg b.i.d. 6. Insulin glargine 65 units daily. 7. Nikolai 1 to 2 tablets on a p.r.n. basis. 8. Furosemide 80 mg daily. 9. Cardura 4 mg daily. 10. Aspirin 81 mg daily. 11. Amiodarone 200 mg daily. ALLERGIES: No known drug allergies. FAMILY HISTORY: Positive for father with heart disease and hypertension. SOCIAL HISTORY: The patient smokes half a pack of cigarettes a day and he stopped approximately a month ago. He denies any alcohol or drug use. He 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 , who is his surrogate. 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 REVIEW OF SYSTEMS: Positive for paroxysmal nocturnal dyspnea. Positive for shortness of breath with any exertion. Negative for chest pain. Positive for generalized edema and weight gain as mentioned above. All the remaining 12 systems were reviewed with the patient and were otherwise negative. PHYSICAL EXAMINATION GENERAL: The patient is a very pleasant 57-year-old male, who appears markedly edematous. The patient is in no acute distress. Alert, awake, oriented x3. VITAL SIGNS: Blood pressure of 158/107, heart rate of 101 and regular, respiratory rate 23, oxygen saturation 95% on 2 L of oxygen via nasal cannula, temperature of 98.0. HEENT: Head: Atraumatic, normocephalic. Eyes: Pupils are equal, reactive to light and accommodation. Oropharynx clear. Mucosa moist. NECK: Supple. No JVD. No bruits bilaterally. RESPIRATORY: Decreased sounds in bilateral bases, more so on the left, one- third of the lower lung base to percussion. CARDIOVASCULAR: Tachycardia and mostly regular rhythm. Atrial flutter on evaluation on telemetry. Occasionally, the rhythm is irregular. There is no murmur noted. ABDOMEN: Soft, nontender. Bowel sounds are present in all 4 quadrants. EXTREMITIES: There is +2 entire bilateral lower extremity edema. There is no clubbing or cyanosis. Pulses are +2 bilaterally. NEURO: Speech is clear. Cranial nerves II through XII grossly intact. Motor strength is 5/5 bilaterally. SKIN: On evaluation of the skin, the patient's surgical scars on his chest and from the drains on his upper abdomen are healed without evidence of dehiscence or wound infection. There is an area in the epigastric region, a wound after one of the drains that was pulled, that was covered with eschar approximately 1 cm in diameter. DIAGNOSTIC STUDIES/LAB DATA: White blood cell count was 9.3, hemoglobin 10.2, hematocrit 32, and platelets 363. INR of 2.9. Sodium was 145, potassium 4.0, chloride 104, carbon dioxide 36, BUN 15, creatinine 0.86. Liver function tests unremarkable. Troponin of 0.01. Brain natriuretic peptide was 245. Portable chest x-ray, impression: "Cardiomegaly with mild vascular congestion. " The patient's EKG shows atrial flutter with ventricular heart rate of 98 beats per minute with some nonspecific ST changes. ASSESSMENT AND PLAN: 1. Acute what appears to be diastolic congestive heart failure. The patient did not diurese on p.o. Lasix at home. I will place the patient on 60 mg of IV Lasix twice a day. Daily weights and I's and O's are going to be followed. The patient already had a transthoracic echocardiogram just a week ago and I do not believe we need a repeat one. 2. In regards to the patient's diabetes, the patient's all medications are going to be held and he is going to be continued on insulin Lantus at lower dose when in hospital stay as well as with addition of insulin lispro sliding scale. 3. The patient's anemia is postoperative and at baseline. 4. The patient's atrial flutter is controlled with amiodarone and metoprolol, which is going to be continued. 5. In regards to the left-sided pleural effusion, at this point, I would attempt to try to diurese the patient before considering thoracentesis. Nevertheless, I will hold the patient's Coumadin for the time being in case he needed thoracentesis. 6. For DVT prophylaxis, the patient is still therapeutic with his therapeutic INR at this point. 7. For obstructive sleep apnea, the patient is going to be continued on his CPAP from home. 8. The patient's code status is full and his surrogate is his . TIME SPENT: Approximately 70 minutes was spent on the admission of this patient , more than half that time was spent [id number] with the patient during the interview and physical exam. [id number]/[facility] #: [id number] KATELYNN
[2018-02-04] MEDS: Docusate CAP* 100 MG PO SCH (22:03)
[2018-02-04] MEDS: Insulin GLARGINE(*) 1 UNITS UNIT SUBCUT SCH (22:03)
[2018-02-04] MEDS: Metoprolol Tartrate TAB* 25 MG PO SCH (22:03)
[2018-02-05] MEDS: Insulin LISPRO* 1 UNITS UNIT SUBCUT SCH ×4 (07:22→20:42)
[2018-02-05] MEDS: Aspirin EC TAB* 81 MG TAB.EC PO SCH (07:51)
[2018-02-05] MEDS: Metoprolol Tartrate TAB* 25 MG PO SCH ×2 (07:51→20:42)
[2018-02-05] MEDS: Amiodarone TAB* 200 MG PO SCH (07:51)
[2018-02-05] MEDS: Docusate CAP* 100 MG PO SCH ×2 (07:51→20:42)
[2018-02-05] MEDS ORDERED: Furosemide IV* 10 MG/ML 10 ML VIAL (100 MG) IV SCH (08:00)
[2018-02-05] MEDS: Doxazosin TAB* 2 MG PO SCH (08:10)
[2018-02-05 08:34] LABS: EGFR Non-African American 98.9 (>60)
[2018-02-05] MEDS ORDERED: Potassium Chlor TAB* 20 MEQ TAB.ER PO SCH (09:00)
[2018-02-05] MEDS ORDERED: Furosemide IV* 10 MG/ML VIAL (40 MG) IV ONE (09:38)
--- NOTE | 2018-02-05 09:44 | PN ---
Subjective Date of Service: 02/05/18 Interval History: Pt had no urinated much during the night, but filled the urinal twice this AM. Objective Active Medications: Acetaminophen (Tylenol Tab*) 650 mg PO Q4H PRN PRN Reason: FEVER/PAIN Hydrocodone Bitart/Acetaminophen ([place] 5-325 Tab*) 1 tab PO Q4H PRN PRN Reason: PAIN Al Hydrox/Mg Hydrox/Simethicone (Maalox Plus*) 30 ml PO Q6H PRN PRN Reason: INDIGESTION Albuterol (Ventolin 2.5 Mg/3 Ml Neb.Rebecca*) 2.5 mg INH RT.[id number] AWAKE PRN PRN Reason: sob/wheezing Amiodarone HCl (Cordarone Tab*) 200 mg PO DAILY [facility] Last Admin: 02/05/18 07:51 Dose: 200 mg Aspirin (Aspirin Ec Tab*) 81 mg PO DAILY [facility] Last Admin: 02/05/18 07:51 Dose: 81 mg Dextrose (D50w Syringe 50 Ml*) 12.5 gm IV PUSH .FOR FS < 60 - SS PRN PRN Reason: FS < 60 Docusate Sodium (Colace Cap*) 100 mg PO BID [facility] Last Admin: 02/05/18 07:51 Dose: 100 mg Doxazosin Mesylate (Cardura Tab*) 4 mg PO DAILY [facility] Last Admin: 02/05/18 08:10 Dose: 4 mg Furosemide (Lasix Iv*) 40 mg IV ONCE ONE Stop: 02/05/18 09:39 Insulin Glargine (Lantus(*)) 40 units SUBCUT Q24H [facility] Last Admin: 02/04/18 22:03 Dose: 40 units Insulin Human Lispro (Humalog*) 0 units SUBCUT ACHS [facility] PRN Reason: Protocol Last Admin: 02/05/18 07:22 Dose: Not Given Metoprolol Tartrate (Lopressor Tab*) 25 mg PO BID [facility] Last Admin: 02/05/18 07:51 Dose: 25 mg Potassium Chloride (Klor Con Er Tab*) 20 meq PO DAILY [facility] Last Admin: 02/05/18 07:51 Dose: 20 meq Vital Signs - 8 hr 02/05/18 02/05/18 02/05/18 03:35 06:47 07:11 Temperature 97.8 F 98.1 F Pulse Rate 82 92 Respiratory 22 22 20 Rate Blood Pressure 142/90 155/102 (mmHg) O2 Sat by Pulse 97 95 Oximetry Oxygen Devices in Use Now: Nasal Cannula Appearance: 57 yo M in nAD, AAOx3 Eyes: No Scleral Icterus, PERRLA Ears/Nose/Mouth/Throat: NL Teeth, Lips, Gums, Mucous Membranes Moist Neck: Trachea Midline, No Thyroid Enlargement, Masses Respiratory: Symmetrical Chest Expansion and Respiratory Effort, - - decreased breath sounds LLL, bibasiliar wheezes Cardiovascular: - - irregular Abdominal: NL Sounds; No Tenderness; No Distention, No Hepatosplenomegaly Lymphatic: No Cervical Adenopathy Extremities: No Clubbing, Cyanosis, - - +2 pitting pedal edema Skin: No Rash or Ulcers, No Nodules or Sclerosis Neurological: Alert and Oriented x 3, NL Muscle Strength and Tone Result Diagrams: 02/04/18 15:58 02/05/18 07:56 Assess/Plan/Problems-Billing Assessment: 57 yo M s/o AVR and aortic root graft in 12/2017 now with post op pleural effusions and CHF. Gained nearly 70 lbs since his surgery - Patient Problems (1) CHF (congestive heart failure) Comment: Acute , suspected diastolic. Dr. Craig consulted Lasix increased to 80 mg BID Cont daily weights and I/Os (2) Pleural effusion Comment: mostly on left side will get PA, lat CXR to eval today Will ask DR. Saravia to see pt in consult re: poss pickwickian syndrome and poss thoracentesis (3) MARIA R (obstructive sleep apnea) Comment: on CPAP at night (4) Chronic hypoxemic respiratory failure Comment: on 02 post op, now up to 4 L (5) DM2 (diabetes mellitus, type 2) Comment: const Lantus and ISS (6) Atrial flutter Comment: persistent, post op Cotn amiodarone and lopressor coumadin held for now in case pt needed throracentesis in the near future (7) DVT prophylaxis Comment: INR from today pending Status and Disposition: inpatient
[2018-02-05] MEDS ORDERED: Potassium Chlor TAB* 20 MEQ TAB.ER PO ONE (09:55)
[2018-02-05 11:08] LABS: INR 2.75 (0.77-1.02)
--- NOTE | 2018-02-05 11:47 | RAD ---
HISTORY: Pleural effusions COMPARISONS: February 04, 2018 VIEWS: 4: Frontal dual-energy and lateral views of the chest. FINDINGS: CARDIOMEDIASTINAL SILHOUETTE: The cardiomediastinal silhouette is normal. MARCO: The amrco are normal. PLEURA: There is moderate left pleural effusion with a small right pleural effusion. LUNG PARENCHYMA: There is confluent alveolar opacification of the left lung base. ABDOMEN: The upper abdomen is clear. There is no subphrenic gas. BONES AND SOFT TISSUES: The patient is status post median sternotomy. OTHER: None. IMPRESSION: MODERATE LEFT AND SMALL RIGHT PLEURAL EFFUSIONS WITH LEFT BASILAR ATELECTASIS VERSUS CONSOLIDATION
--- NOTE | 2018-02-05 14:41 | CONS ---
CC: Dr. Charles Hancock; Dr. Sobia Saravia * CARDIOLOGY CONSULT: DATE OF CONSULT: 02/05/18 INDICATION FOR CONSULT: The patient with a history of recent aortic valve replacement and ascending aortic replacement with progressive shortness of breath and heart failure with resistant pleural effusions to outpatient diuretic therapy, now admitted for inpatient IV diuretic therapy. HISTORY OF PRESENT ILLNESS: The patient is a pleasant 57-year-old gentleman, known from his prior cardiac problems. I have followed him along with his bicuspid aortic valve and ascending aortic aneurysm. Of note, he has had a prior cardiac catheterization back in 2016 with a proximal LAD lesion with a positive FFR and underwent stenting of that with a drug-eluting stent at that time. Since that time, he had progression in his valvular disease and continued significant shortness of breath. He does have a history of sleep apnea and I believe underlying chronic obstructive lung disease and possible Pickwickian syndrome. He has had chronic lower leg edema. He eventually underwent aortic valve replacement and ascending aortic replacement back on 12/27/[address] Stockton at [facility] with a pericardial aortic valve. He went back to the OR for tamponade of bleeding and had a prolonged hospital course with respiratory difficulty, atrial fibrillation, eventually atrial flutter, for which he was placed on Coumadin therapy. Since coming home, he had had continued progressive shortness of breath and weight gain. I initially saw him as an outpatient and tried to increase his diuretic therapy with 80 mg of Lasix orally a day. I had worked him up and shown that he had significant left pleural effusion and a right pleural effusion. He had an echocardiogram that showed low normal left ventricular systolic function with a normal functioning bioprosthetic valve. The right ventricle had significant volume with pressure overload. Left atrium was severely dilated. The right ventricle was moderately dilated, and there was mildly reduced right ventricular systolic function. There was tricuspid regurgitation but the tracing was difficult to assess and it was reported as mild pulmonary hypertension. He had a pericardial effusion that was felt not to be significant. He continued to do poorly and as such I referred him to the emergency room for admission for aggressive IV diuretic therapy and pleural effusion tapping. I have already spoken with Dr. Una Webster regarding these things. PAST MEDICAL HISTORY: Diabetes type 2, hyperlipidemia, hypertension, sleep apnea, aortic stenosis, and coronary artery disease as mentioned. CURRENT MEDICATIONS: At home and include: 1. Pravastatin 40 mg a day. 2. Furosemide 80 mg a day. 3. Lantus insulin 80 units at bedtime. 4. Metformin 750 mg twice a day. 5. Doxazosin 4 mg a day. 6. Amlodipine 10 mg daily. 7. Potassium 20 mEq a day. 8. Aspirin 81 mg a day. 9. Amiodarone 200 mg a day. 10. Hydrocodone as needed for pain. 11. Metoprolol tartrate 25 mg twice a day. 12. Warfarin under the management of Dr. Hancock for the atrial flutter. ALLERGIES: No known drug allergies. FAMILY HISTORY: Father had heart disease and SD. Mother had chronic obstructive lung disease and emphysema. 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 He was a former smoker and was smoking 8 cigarettes a day, 12/17/17 he states he quit. He rarely consumes alcohol. REVIEW OF SYSTEMS: As per H and P with no additional comments. PHYSICAL EXAM: Reveals blood pressure in 142/90 range, pulse is in the 80s to 90s, respirations are 20, O2 saturation 95% with oxygen. Neck is supple. It is thick in nature. I cannot assess accurately for increased JVP. Carotids have fair upstroke and volume without bruits. Conjunctivae are slightly pale. Sclerae are clear. Lungs reveal no accessory muscle usage. There is absent breath sounds in left base from the base to the midportion. The right has diminished breath sounds in the base. Heart reveals no visible heaves, no palpable heaves or thrills. Heart sounds are very distant in nature. There is a faint systolic murmur noted. Abdomen is morbidly obese. Extremities have severe tense edema present bilaterally. DIAGNOSTIC STUDIES/LAB DATA: Laboratory results from admission 02/04/18, hemoglobin and hematocrit of 10.2 and 32 with a white count of 9300, platelet count of 363,000. INR on admission was 2.9, repeat today 2.75. Admission BUN and creatinine were 15 and 0.8, on repeat 14 and 0.8. Cardiac enzymes, troponin 0.01, 0.03, 0.00. B-natriuretic peptide is 245. Albumin is 3.5, total protein 7.2, lactic acid was 1.6. Electrocardiogram reveals atrial flutter with a somewhat controlled rate. Chest x-ray from 02/04/18 showed question of mild vascular congestion with pleural effusions noted. OVERALL ASSESSMENT: Augustine comes in with refractory heart failure that appears to be more diastolic than systolic in nature. I am concerned about the persistent pleural effusions and most likely left lung collapse. At this point in time, I do not believe diuretic therapy alone will help him and I believe he needs pleurocentesis to remove the fluid. Dr. Webster stated that she was going to consult Dr. Saravia for further management of this. Ideally with regard to the atrial flutter, he has been on amiodarone for long enough time period where I would want to attempt an elective cardioversion, but I need to have his lung status much more stable in order to put him under any type of anesthesia. We will try to stabilize his respiratory status before we attempt to electrically cardiovert him. I would continue aggressive diuretic management as well and hopefully as we get his fluid off from his lungs, he will slowly improve. Aggressive incentive spirometry will have to be pursued as well. Thank you very much for asking us to see the patient. We will follow him with you. [id number]/[facility] #: [id number] KATELYNN
--- NOTE | 2018-02-05 15:38 | CONS ---
PULMONARY CONSULTATION REPORT: DATE OF CONSULT: 02/05/18 CONSULTATION REQUESTED BY: Dr. Webster. REASON FOR CONSULT: Evaluation of pleural effusion and hypoxemia. HISTORY OF PRESENT ILLNESS: The patient is a 57-year-old obese male with history of aortic valve stenosis, status post aortic valve replacement in December 2017 at [place]; history of ascending aortic aneurysm, status post repair with vascular graft around the same time, had a complicated postop course with mediastinal hemorrhage, was surgically repaired, who was doing well until recently when he started noticing worsening shortness of breath and also increase in weight from his discharge weight at 250 pounds to 316 pounds with a 70-pound weight gain. He also had developed atrial flutter post surgery and was initiated on Coumadin. The patient has chronic lower extremity swelling, which has worsened slightly recently. He was admitted with a diagnosis of congestive heart failure. Repeat echocardiogram showed low EF at 50% to 55% with left atrial dilatation, moderate dilatation of right ventricle with mildly decreased systolic function with normal appearing bioprosthetic aortic valve, small pericardial effusion without hemodynamic compromise. The patient also was noted to have pleural effusion on the left side. The patient had a CT scan in December 2017, which did not reveal any filling defects, was found to have mildly prominent or enlarged paratracheal lymph nodes, cardiomegaly with left ventricular and left atrial enlargement, small pericardial effusion, and calcified aortic valve. The patient also noted to have a small right pleural effusion at that time. The patient had chest x-ray on admission, which showed evidence of moderate to large left-sided left pleural effusion with basal atelectasis, small right pleural effusion. The patient was initiated on 80 mg b.i.d. of Lasix. The patient reports improvement in shortness of breath this morning compared to yesterday. The patient also reports slight improvement in lower extremity swelling. He denies chest pain, palpitations, or dizziness. He is on therapeutic dose of Coumadin. The patient has significant smoking history, quit recently in December 2017. The patient denies history of recurrent bronchitis in the past. The patient also has history of obstructive sleep apnea and has been on CPAP. He claims to be compliant with CPAP as prescribed. He is on CPAP of 13 cm H2O. His machine was not checked for a very long time , I checked his download from last night which appeared to be good. He was recently initiated on O2 supplementation secondary to hypoxemia. The patient did not have PFTs in the past. PAST MEDICAL HISTORY: 1. Status post aortic valve replacement with bioprosthetic valve and ascending aortic aneurysm repair in December 2017. 2. Recently diagnosed with atrial flutter. 3. Significant tobacco abuse, not diagnosed with COPD in the past. 4. Recently noted to have hypoxemia, on O2 supplementation. 5. Moderate to severe left ventricular concentric hypertrophy. 6. Morbid obesity. 7. Hypertension. 8. Dyslipidemia. 9. Diabetes. 10. Obstructive sleep apnea, on CPAP. MEDICATIONS AT HOME: 1. Coumadin. 2. Pravachol. 3. Potassium chloride. 4. Metoprolol. 5. Glucophage. 6. Insulin. 7. Mobile. 8. Furosemide. 9. Cardura. 10. Aspirin. 11. Amiodarone. ALLERGIES: No known drug allergies. FAMILY HISTORY: Heart disease and hypertension. SOCIAL HISTORY: Smoked half a pack per day, smoked 1 pack until a year ago, quit a month ago. Denies alcohol or drug abuse. 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 REVIEW OF SYSTEMS: All 14 systems reviewed and as per HPI. PHYSICAL EXAM: An obese male, in bed, in no apparent distress, significant lower extremity edema. Vital Signs: Temperature 98, pulse 90 beats per minute , respiratory rate 16 per minute, O2 sat 98% on 4 L, blood pressure 136/98. HEENT: Pupils equal, reactive to light. Mucous membranes moist. No JVD. Lungs : Diminished air entry at bases left greater than right, slight rhonchi present at left base. Cardiovascular: S1, S2 present. Regular. Murmur present. Abdomen: Obese. Bowel sounds present. Nontender. Extremities: Significant lower extremity edema bilaterally, normal range of motion, no cellulitis. Skin : No rash or bruises. Neuro: No focal deficits. DIAGNOSTIC STUDIES/LAB DATA: WBC count 9.3, hemoglobin 10.2, hematocrit 32, platelet count 363,000. INR 2.75. Sodium 143, potassium 3.6, chloride 103, bicarb 36, BUN 14, creatinine 0.81, glucose 107. BNP elevated at 245. Troponin is within normal limits. Chest x-ray on admission showed evidence of moderate to large left pleural effusion and small right pleural effusion, slight improvement on repeat chest x- ray from this morning. IMPRESSION AND PLAN: 57-year-old obese male, former smoker, with history of aortic valve stenosis, status post replacement with complicated postop course, with new-onset atrial flutter, mediastinal bleeding, status post drainage, also noted to have pleural effusion when he was in [place], was diuresed and was doing well when he started having worsening shortness of breath and admitted for evaluation of shortness of breath. 1. Shortness of breath, likely secondary to congestive heart failure. 2. Pleural effusion bilaterally, greater on the left side, likely secondary to heart failure and recent surgery. 3. Obstructive sleep apnea, on CPAP. 4. Hypoxemia secondary to underlying cardiac issues with pleural effusion. Also concern with chronic obstructive pulmonary disease. The patient reports improvement in breathing. He does have anemia; however, also had significant bleeding recently, so could have been from mediastinal bleeding that he had recently and resultant blood loss. The patient's hemoglobin in December was around 14.1, which currently is at 10.3, might have been from recent blood loss during the surgery. Worsening hypoxemia could also be secondary to underlying anemia. Given the pleural effusion, would probably need thoracentesis to evaluate for hemorrhage into the chest cavity, which then needs to be drained. The patient on Coumadin, will hold the dose tonight and then repeat a chest x- ray tomorrow. If no significant improvement in fluid with current diuresis, we will schedule the patient for thoracentesis. For now, continue with diuresis and hold the Coumadin for tonight and repeat INR tomorrow morning. Otherwise, continue with current management. CPAP pressures are optimal at 13 cm H2O. He will also continue with O2 along with the CPAP. Will need further evaluation for chronic obstructive pulmonary disease as outpatient. Thank you for allowing me to participate in the care of your patient. Will follow up with you. D/w Dr Webster [id number]/[facility] #: [id number] KATELYNN
[2018-02-05] MEDS: Insulin GLARGINE(*) 1 UNITS UNIT SUBCUT SCH (16:58)
[2018-02-05] MEDS: Furosemide IV* 10 MG/ML 10 ML VIAL (100 MG) IV SCH (16:58)
[2018-02-06 05:40] LABS: ABS Basophils 0.4 10^3/ul (0-0.2); ABS Eosinophils 0.2 10^3/ul (0-0.6); ABS Lymphocytes 3.2 10^3/ul (1.0-4.8); ABS Monocytes 0.9 10^3/ul (0-0.8); ABS Neutrophils 4.5 10^3/ul (1.5-7.7); ABS Nucleated RBC 0 10^3/ul; Eosinophil % 2.7 % (0-6); Hematocrit 32 % (42-52); Hemoglobin 10.1 g/dl (14.0-18.0); Lymphocyte % 34.3 % (25-47); Mean Corpuscular HGB Conc 32 g/dl (31-36); Mean Corpuscular Hemoglobin 27 pg (27-31); Mean Corpuscular Volume 85 fL (80-94); Mean Platelet Volume 7.5 um3 (7.4-10.4); Nucleated Red Blood Cells % 0.1; Platelet Count 338 10^3/ul (150-450); Red Blood Count 3.73 10^6/ul (4.0-5.4); Red Cell Distribution Width 17 % (10.5-15); White Blood Count 9.2 10^3/ul (3.5-10.8)
[2018-02-06 05:51] LABS: INR 2.41 (0.77-1.02)
[2018-02-06 05:58] LABS: EGFR Non-African American 93.6 (>60)
[2018-02-06] MEDS: Insulin LISPRO* 1 UNITS UNIT SUBCUT SCH ×4 (07:39→20:34)
[2018-02-06] MEDS: Furosemide IV* 10 MG/ML 10 ML VIAL (100 MG) IV SCH ×2 (08:07→17:35)
[2018-02-06] MEDS: Aspirin EC TAB* 81 MG TAB.EC PO SCH (08:07)
[2018-02-06] MEDS: Potassium Chlor TAB* 20 MEQ TAB.ER PO SCH (08:07)
[2018-02-06] MEDS: Metoprolol Tartrate TAB* 25 MG PO SCH ×2 (08:07→20:34)
[2018-02-06] MEDS: Docusate CAP* 100 MG PO SCH ×2 (08:07→20:34)
[2018-02-06] MEDS: Doxazosin TAB* 2 MG PO SCH (08:07)
[2018-02-06] MEDS: Amiodarone TAB* 200 MG PO SCH (08:07)
--- NOTE | 2018-02-06 11:39 | PN ---
Subjective Date of Service: 02/06/18 Interval History: Wt loss of 19 lbs since admission. Feels better. c/o occasional cough Objective Active Medications: Acetaminophen (Tylenol Tab*) 650 mg PO Q4H PRN PRN Reason: FEVER/PAIN Hydrocodone Bitart/Acetaminophen ([place] 5-325 Tab*) 1 tab PO Q4H PRN PRN Reason: PAIN Al Hydrox/Mg Hydrox/Simethicone (Maalox Plus*) 30 ml PO Q6H PRN PRN Reason: INDIGESTION Albuterol (Ventolin 2.5 Mg/3 Ml Neb.Rebecca*) 2.5 mg INH RT.[id number]-[id number] AWAKE PRN PRN Reason: sob/wheezing Amiodarone HCl (Cordarone Tab*) 200 mg PO DAILY [facility] Last Admin: 02/06/18 08:07 Dose: 200 mg Aspirin (Aspirin Ec Tab*) 81 mg PO DAILY [facility] Last Admin: 02/06/18 08:07 Dose: 81 mg Dextrose (D50w Syringe 50 Ml*) 12.5 gm IV PUSH .FOR FS < 60 - SS PRN PRN Reason: FS < 60 Docusate Sodium (Colace Cap*) 100 mg PO BID [facility] Last Admin: 02/06/18 08:07 Dose: 100 mg Doxazosin Mesylate (Cardura Tab*) 4 mg PO DAILY [facility] Last Admin: 02/06/18 08:07 Dose: 4 mg Furosemide (Lasix Iv*) 80 mg IV 0800,1700 [facility] Last Admin: 02/06/18 08:07 Dose: 80 mg Insulin Glargine (Lantus(*)) 40 units SUBCUT Q24H [facility] Last Admin: 02/05/18 16:58 Dose: 40 units Insulin Human Lispro (Humalog*) 0 units SUBCUT ACHS [facility] PRN Reason: Protocol Last Admin: 02/06/18 07:39 Dose: Not Given Metoprolol Tartrate (Lopressor Tab*) 25 mg PO BID [facility] Last Admin: 02/06/18 08:07 Dose: 25 mg Potassium Chloride (Klor Con Er Tab*) 40 meq PO DAILY [facility] Last Admin: 02/06/18 08:07 Dose: 40 meq Vital Signs - 8 hr 02/06/18 02/06/18 07:30 07:51 Temperature 97.7 F Pulse Rate 102 Respiratory 20 20 Rate Blood Pressure 149/95 (mmHg) O2 Sat by Pulse 91 Oximetry Oxygen Devices in Use Now: Nasal Cannula Appearance: 57 yo M in nAD, AAOx3 Eyes: No Scleral Icterus, PERRLA Ears/Nose/Mouth/Throat: NL Teeth, Lips, Gums, Mucous Membranes Moist Neck: NL Appearance and Movements; NL JVP, Trachea Midline Respiratory: Symmetrical Chest Expansion and Respiratory Effort, - - LLL rhonchi noted Cardiovascular: NL Sounds; No Murmurs; No JVD, RRR Abdominal: NL Sounds; No Tenderness; No Distention Lymphatic: No Cervical Adenopathy Extremities: No Clubbing, Cyanosis, - - +2 pittinf edema b.l LE's Skin: No Rash or Ulcers, No Nodules or Sclerosis Neurological: Alert and Oriented x 3, NL Muscle Strength and Tone Result Diagrams: 02/06/18 05:28 02/06/18 05:28 Assess/Plan/Problems-Billing Assessment: 57 yo M s/o AVR and aortic root graft in 12/2017 now with post op pleural effusions and CHF. Gained nearly 70 lbs since his surgery - Patient Problems (1) CHF (congestive heart failure) Comment: Acute , suspected diastolic. Appreciate Dr. Craig's consult Lasix cont 80 mg BID Cont daily weights and I/Os. Today's wt decreased by 19 lbs since admission (2) Pleural effusion Comment: mostly on left side Repeat PA, lat CXR to eval today pending appreciate DR. Saravia's consult . Pt may need thoracentesis if effusion not improving with diuresis (3) MARIA R (obstructive sleep apnea) Comment: on CPAP at night (4) Chronic hypoxemic respiratory failure Comment: on 02 post op, now up to 4 L (5) DM2 (diabetes mellitus, type 2) Comment: const Lantus and ISS (6) Atrial flutter Comment: persistent, post op. Today on EKG apppared to be sinus tachy, but now back to a. flutter Cont amiodarone and lopressor coumadin held for now in case pt needed throracentesis in the near future (7) DVT prophylaxis Comment: INR stil therapeutic, Coumadin held since admission Status and Disposition: inpatient
--- NOTE | 2018-02-06 14:38 | RAD ---
HISTORY: f/u pleural effusion COMPARISONS: February 05, 2018 VIEWS: 4: Frontal dual-energy and lateral views of the chest. FINDINGS: CARDIOMEDIASTINAL SILHOUETTE: The cardiomediastinal silhouette is normal. A prosthetic heart valve is noted. MARCO: The marco are normal. PLEURA: There is a moderate left pleural effusion. There is blunting of the right costophrenic angle. This is stable from the previous examination. LUNG PARENCHYMA: There is confluent alveolar opacification of the left lung base. ABDOMEN: The upper abdomen is clear. There is no subphrenic gas. BONES AND SOFT TISSUES: The patient is status post median sternotomy. OTHER: None. IMPRESSION: STABLE MODERATE LEFT AND SMALL RIGHT PLEURAL EFFUSION WITH LEFT BASILAR ATELECTASIS VERSUS CONSOLIDATION
[2018-02-06] MEDS ORDERED: Phytonadione Oral Solution* 5 MG/25 ML UDC PO ONE (14:49)
[2018-02-06] MEDS ORDERED: Phytonadione INJ (Adult)* 5 MG in NS 0.9% 50 ML* 50 ML IV ONE (15:30)
[2018-02-06] MEDS: Insulin GLARGINE(*) 1 UNITS UNIT SUBCUT SCH (17:35)
[2018-02-07 06:06] LABS: ABS Basophils 0.1 10^3/ul (0-0.2); ABS Eosinophils 0.3 10^3/ul (0-0.6); ABS Lymphocytes 2.6 10^3/ul (1.0-4.8); ABS Monocytes 0.9 10^3/ul (0-0.8); ABS Nucleated RBC 0 10^3/ul; Eosinophil % 3.1 % (0-6); Hematocrit 31 % (42-52); Mean Corpuscular HGB Conc 32 g/dl (31-36); Mean Corpuscular Hemoglobin 27 pg (27-31); Mean Corpuscular Volume 84 fL (80-94); Mean Platelet Volume 7.4 um3 (7.4-10.4); Nucleated Red Blood Cells % 0.1; Platelet Count 327 10^3/ul (150-450); Red Blood Count 3.71 10^6/ul (4.0-5.4); Red Cell Distribution Width 17 % (10.5-15); White Blood Count 8.9 10^3/ul (3.5-10.8)
[2018-02-07 06:10] LABS: INR 1.7 (0.77-1.02)
[2018-02-07 06:26] LABS: EGFR Non-African American 94.9 (>60)
[2018-02-07] MEDS ORDERED: Potassium Chlor TAB* 20 MEQ TAB.ER PO ONE (07:37)
[2018-02-07] MEDS ORDERED: Phytonadione INJ (Adult)* 3 MG in NS 0.9% 50 ML* 50 ML IV ONE (07:41)
--- NOTE | 2018-02-07 08:40 | ED ---
David Maria Stephanie, scribed for Quinton Gonzales MD on 02/04/18 at 1556 . Shortness of Breath - HPI Summary HPI Summary: The pt is a 57 y/o M presenting to the ED with c/o SOB that began after aortic valve replacement on December 27 2017. The pt went to Dr. Craig today for check- up and for increased SOB since surgery. Symptoms include cough, fluid retention in lungs and bilateral LE. The pt has been on home O2 since surgery. He states he is taking 80 mg of water pills. - History of Current Complaint Chief Complaint: EDShortnessOfBreath Time Seen by Provider: 02/04/18 15:42 Hx Obtained From: Patient Onset/Duration: Gradual Onset, Lasting Weeks, Still Present Timing: Constant Current Severity: Moderate Aggrevating Factors: Nothing Alleviating Factors: Nothing Associated Signs & Symptoms: Cough (Nonproductive) - Allergy/Home Medications Allergies/Adverse Reactions: Allergies Allergy/AdvReac Type Severity Reaction Status Date / Time No Known Allergies Allergy Verified 02/04/18 15:14 PMH/Surg Hx/FS Hx/Imm Hx Endocrine/Hematology History: Reports: Hx Diabetes - Type 2 Denies: Hx Thyroid Disease Cardiovascular History: Reports: Hx Angina, Hx Hypercholesterolemia, Hx Hypertension, Other Cardiovascular Problems/Disorders - aoritic valve replacement soon Denies: Hx Coronary Artery Disease, Hx Myocardial Infarction, Hx Valvular Heart Disease Respiratory History: Reports: Hx Sleep Apnea - WEARS cpap AT NIGHT Denies: Hx Asthma, Hx Chronic Obstructive Pulmonary Disease (COPD) GI History: Reports: Other GI Disorders - umbicial hernia repair 2002 Denies: Hx Ulcer History: Denies: Hx Renal Disease Sensory History: Reports: Hx Contacts or Glasses - reading Denies: Hx Hearing Aid Opthamlomology History: Reports: Hx Contacts or Glasses - reading - Surgical History Surgery Procedure, Year, and Place: Umbilical hernia surgery 2006. cardiac stent - May 2016 Hx Anesthesia Reactions: No Infectious Disease History: No Infectious Disease History: Denies: Hx Hepatitis, Hx Human Immunodeficiency Virus (HIV), History Other Infectious Disease, Traveled Outside the [place] in Last 30 Days - Family History Known Family History: Positive: Hypertension - Social History Occupation: Employed Full-time Lives: With Family Alcohol Use: None Hx Substance Use: No Substance Use Type: Reports: None Hx Tobacco Use: Yes Smoking Status (MU): Light Every Day Tobacco Smoker Type: Cigarettes Amount Used/How Often: 1-2/DAY Length of Time of Smoking/Using Tobacco: 32 years Have You Smoked in the Last Year: Yes Review of Systems Negative: Fever, Chills Negative: Erythema Negative: Sore Throat Negative: Chest Pain Positive: Shortness Of Breath, Cough Negative: Abdominal Pain, Vomiting, Nausea Negative: dysuria, hematuria Positive: Edema - bilateral LE. Negative: Myalgia Negative: Rash All Other Systems Reviewed And Are Negative: Yes Physical Exam - Summary Physical Exam Summary: Constitutional: Well-developed, Well-nourished, Alert. (-) Distressed Skin: Warm, Dry HENT: Normocephalic; Atraumatic Eyes: Conjunctiva normal Neck: Musculoskeletal ROM normal neck. (-) JVD, (-) Stridor, (-) Tracheal deviation Cardio: Rhythm regular, rate normal, Heart sounds normal; Intact distal pulses; The pedal pulses are 2+ and symmetric. Radial pulses are 2+ and symmetric. (-) Murmur Pulmonary/Chest wall: Effort normal. Diminished breath sounds on the L, (-) Wheezes, (-) Rales Abd: Soft, (-) Tenderness, (-) Distension, (-) Guarding, (-) Rebound Musculoskeletal: 3+ bilateral LE pitting edema Lymph: (-) Cervical adenopathy Neuro: Alert, Oriented x3 Psych: Mood and affect Normal Triage Information Reviewed: Yes Vital Signs On Initial Exam: Initial Vitals Temp Pulse Resp BP Pulse Ox 98 F 104 28 157/94 87 02/04/18 15:10 02/04/18 15:10 02/04/18 15:10 02/04/18 15:10 02/04/18 15:10 Vital Signs Reviewed: Yes Diagnostics - Vital Signs Vital Signs Temp Pulse Resp BP Pulse Ox 02/04/18 15:22 99 47 174/118 95 02/04/18 15:10 98 F 104 28 157/94 87 - Laboratory Result Diagrams: 02/04/18 15:58 02/04/18 15:58 Lab Statement: Any lab studies that have been ordered have been reviewed, and results considered in the medical decision making process. - Radiology CXR Xray Interpretation: Positive (See Comments) Radiology Interpretation Completed By: Radiologist - CARDIOMEGALY WITH MILD VASCULAR CONGESTION. ED physician has reviewed this report. 1 of 1 - EKG 15:41 Cardiac Rate: Tachycardia EKG Rhythm: Sinus Tachycardia - 98 BPM EKG Interpretation: No STEMI Re-Evaluation - Re-Evaluation First Eval Re-Evaluation Time: 17:00 Change: Unchanged - ED physician discussed plan of admission to the hospital with the pt and the pt understands and agrees. Course/Dx - Diagnoses Provider Diagnoses: Pulmonary edema - Physician Notifications Discussed Care of Patient With: Una Webster Time Discussed With Above Provider: 17:13 Instructed by Provider To: Admit As Inpatient Discharge - Sign-Out/Discharge Documenting (check all that apply): Discharge/Admit/Transfer - Admit - Discharge Plan Condition: Stable Disposition: ADMITTED TO [facility] Referrals: Charles Hancock MD [Primary Care Provider] - The documentation as recorded by the David woodard Stephanie accurately reflects the service I personally performed and the decisions made by Janet reese Jerry, MD.
[2018-02-07] MEDS: Insulin LISPRO* 1 UNITS UNIT SUBCUT SCH ×4 (09:07→21:42)
[2018-02-07] MEDS: Amiodarone TAB* 200 MG PO SCH (09:19)
[2018-02-07] MEDS: Docusate CAP* 100 MG PO SCH ×2 (09:19→21:42)
[2018-02-07] MEDS: Metoprolol Tartrate TAB* 25 MG PO SCH ×3 (09:19→21:42)
[2018-02-07] MEDS: Potassium Chlor TAB* 20 MEQ TAB.ER PO SCH (09:19)
[2018-02-07] MEDS: Aspirin EC TAB* 81 MG TAB.EC PO SCH (09:19)
[2018-02-07] MEDS: Furosemide IV* 10 MG/ML 10 ML VIAL (100 MG) IV SCH ×2 (09:19→18:21)
[2018-02-07] MEDS: Doxazosin TAB* 2 MG PO SCH (09:30)
--- NOTE | 2018-02-07 10:04 | PN ---
Subjective Date of Service: 02/07/18 Interval History: Pt feels "OK" , anxious before planned thoracentesis Objective Active Medications: Acetaminophen (Tylenol Tab*) 650 mg PO Q4H PRN PRN Reason: FEVER/PAIN Hydrocodone Bitart/Acetaminophen ([place] 5-325 Tab*) 1 tab PO Q4H PRN PRN Reason: PAIN Al Hydrox/Mg Hydrox/Simethicone (Maalox Plus*) 30 ml PO Q6H PRN PRN Reason: INDIGESTION Albuterol (Ventolin 2.5 Mg/3 Ml Neb.Rebecca*) 2.5 mg INH [id number] AWAKE PRN PRN Reason: sob/wheezing Amiodarone HCl (Cordarone Tab*) 200 mg PO DAILY [facility] Last Admin: 02/07/18 09:19 Dose: 200 mg Aspirin (Aspirin Ec Tab*) 81 mg PO DAILY [facility] Last Admin: 02/07/18 09:19 Dose: 81 mg Dextrose (D50w Syringe 50 Ml*) 12.5 gm IV PUSH .FOR FS < 60 - SS PRN PRN Reason: FS < 60 Docusate Sodium (Colace Cap*) 100 mg PO BID [facility] Last Admin: 02/07/18 09:19 Dose: 100 mg Doxazosin Mesylate (Cardura Tab*) 4 mg PO DAILY [facility] Last Admin: 02/07/18 09:30 Dose: 4 mg Furosemide (Lasix Iv*) 80 mg IV 0800,1700 [facility] Last Admin: 02/07/18 09:19 Dose: 80 mg Insulin Glargine (Lantus(*)) 40 units SUBCUT Q24H [facility] Last Admin: 02/06/18 17:35 Dose: 40 units Insulin Human Lispro (Humalog*) 0 units SUBCUT ACHS [facility] PRN Reason: Protocol Last Admin: 02/07/18 09:07 Dose: Not Given Metoprolol Tartrate (Lopressor Tab*) 25 mg PO Q8H [facility] Potassium Chloride (Klor Con Er Tab*) 40 meq PO DAILY [facility] Last Admin: 02/07/18 09:19 Dose: 40 meq Vital Signs - 8 hr 02/07/18 02/07/18 02/07/18 04:35 07:44 08:00 Temperature 97.9 F 97.8 F Pulse Rate 84 98 Respiratory 16 16 18 Rate Blood Pressure 141/84 143/96 (mmHg) O2 Sat by Pulse 97 96 Oximetry Oxygen Devices in Use Now: Nasal Cannula Appearance: 57 yo M in nAD, aAOx3 Eyes: No Scleral Icterus, PERRLA Ears/Nose/Mouth/Throat: NL Teeth, Lips, Gums, Mucous Membranes Moist Neck: NL Appearance and Movements; NL JVP, Trachea Midline Respiratory: Symmetrical Chest Expansion and Respiratory Effort, - - LLL - decreased breath sounds Cardiovascular: - - irregular Abdominal: NL Sounds; No Tenderness; No Distention, No Hepatosplenomegaly Lymphatic: No Cervical Adenopathy Extremities: No Clubbing, Cyanosis, - - +2 piting pedal edema Skin: No Rash or Ulcers, No Nodules or Sclerosis Neurological: Alert and Oriented x 3, NL Muscle Strength and Tone Result Diagrams: 02/07/18 05:55 02/07/18 05:55 Assess/Plan/Problems-Billing Assessment: 57 yo M s/o AVR and aortic root graft in 12/2017 now with post op pleural effusions and CHF. Gained nearly 70 lbs since his surgery - Patient Problems (1) CHF (congestive heart failure) Comment: Acute , suspected diastolic. Appreciate Dr. Craig's consult. will get a limited Echo to eval for possible pericardial effusion Lasix cont 80 mg BID Cont daily weights and I/Os. Today's wt decreased by 2 lbs only (2) Pleural effusion Comment: mostly on left side-for thoracentesis today by Dr. Saravia (3) MARIA R (obstructive sleep apnea) Comment: on CPAP at night (4) Chronic hypoxemic respiratory failure Comment: on 02 post op (5) DM2 (diabetes mellitus, type 2) Comment: const Lantus and ISS (6) Atrial flutter Comment: persistent, post op. Cont amiodarone and lopressor. due to SBP's in 140's and HR in 90's, will increase Lopressor to TID 25 mg coumadin held for throracentesis (7) DVT prophylaxis Comment: INR 1.7. will start SCD's, no anticoagulation due to planned procedure Status and Disposition: inpatient
--- NOTE | 2018-02-07 11:54 | ECHO ---
Patient: JERRICA BUI [facility] Rec#: [id number] : 1960 Date: 02/07/2018 Age: 57y Height: 170 cm / 66.9 in Weight: 134 kg / 295.3 lbs Sex: M BSA: 2.38 Room#: [facility] Admit Date#: 02/04/2018 Type: Inpatient Referring: Una Webster MD Reading: Yogi Owen DO Information Technology Instructor: Katie Perera RN RDCS CC: Charles Hancock MD Transthoracic Echocardiogram Indication: Pericardial effusion, SOB BP: 143/96 HR: 104 Rhythm: Tachycardia Findings History: CAD, PCI, aortic valve stenosis, S/P AVR #27 [place] pericardial tissue valve and ascending aortic graft 32mm, HTN, HLD, DM, former smoker, obesity, MARIA R. This is a LIMITED exam to reassess the pericardial effusion per Dr. Webster. Technical Comments: The study is technically limited due to patient body habitus. The study is technically limited due to the patient's smoking history. Pericardium: There is a large pericardial effusion. Venous: The inferior vena cava is dilated. There is no change in the dimension of the inferior vena cava with respiration consistent with markedly increased right atrial pressure. Conclusions Limited echo. There is a large posterior predominant pericardial effusion measuring up to 2.9 cm which is unchanged from recent echo 01/30/2018. Analysis limited by atrial flutter at time of examination. Patient has sensitive finding for hemodynamic significance with dilated IVC does not collapse with inspiration. There are no specific findings for hemodynamic significance including the mitral E peak respiratory variation is 8% and LVOT velocity variation is 10% which are normal. There is no abnormal diastolic collapse of the RA, RV or LA. Given the non-circumferential and post-operative nature of this effusion would recommend to correlate clinically. Results discussed and imaging reviewed with patients parts room associate Dr. Craig at time of interpretation Measurements Name Value Normal Range IVC diameter 3.1 cm -
--- NOTE | 2018-02-07 13:27 | RAD ---
INDICATION: Pradip site for thoracentesis. COMPARISON: Comparison is made with a prior chest x-ray study from February 06, 2018. TECHNIQUE: Multiple real-time images of the chest were obtained on the left side. FINDINGS: There is a moderate size left pleural effusion. A site was marked for thoracentesis to follow. IMPRESSION: MODERATE SIZE LEFT PLEURAL EFFUSION SITE MARKED FOR FOLLOW-UP THORACENTESIS.
--- NOTE | 2018-02-07 15:15 | RAD ---
Indication: Left thoracentesis, left pleural effusion. Single frontal view of the chest performed at 1439 hours was reviewed. No prior study is available.. No mediastinal shift is noted. Large heart is noted. No pleural fluid or pneumothorax is noted. Lung juares appear clear. IMPRESSION: NO ACTIVE CARDIOPULMONARY DISEASE IS NOTED. NO EVIDENCE OF PNEUMOTHORAX IS NOTED.
[2018-02-07] MEDS: Insulin GLARGINE(*) 1 UNITS UNIT SUBCUT SCH (18:21)
--- NOTE | 2018-02-07 20:35 | PN ---
Progress Note - Progress Note Date of Service: 02/07/18 - Pulm f/u note Note: Pt seen and examined at bedside. Pt reports improvement in SOB. Denies cough, chest pain, LE swelling is improving CXR was reviewed, no change in effusion on left side Active Medications Generic Name Dose Route Start Last Admin Trade Name Freq PRN Reason Stop Dose Admin Acetaminophen 650 mg 02/04/18 17:39 Tylenol Tab* PO Q4H PRN FEVER/PAIN Hydrocodone Bitart/Acetaminophen 1 tab 02/04/18 17:42 02/07/18 14:02 [place] 5-325 Tab* PO 1 tab Q4H PRN Administration PAIN Al Hydrox/Mg Hydrox/Simethicone 30 ml 02/04/18 17:39 Maalox Plus* PO Q6H PRN INDIGESTION Albuterol 2.5 mg 02/04/18 17:39 Ventolin 2.5 Mg/3 Ml Neb.Rebecca* INH [id number] AWAKE PRN sob/wheezing Amiodarone HCl 200 mg 02/05/18 09:00 02/07/18 09:19 Cordarone Tab* PO 200 mg DAILY [facility] Administration Aspirin 81 mg 02/05/18 09:00 02/07/18 09:19 Aspirin Ec Tab* PO 81 mg DAILY MARYJO Administration Dextrose 12.5 gm 02/04/18 17:43 D50w Syringe 50 Ml* IV PUSH .FOR FS < 60 - SS PRN FS < 60 Docusate Sodium 100 mg 02/04/18 21:00 02/07/18 09:19 Colace Cap* PO 100 mg BID MARYJO Administration Doxazosin Mesylate 4 mg 02/05/18 09:00 02/07/18 09:30 Cardura Tab* PO 4 mg DAILY [facility] Administration Furosemide 80 mg 02/05/18 17:00 02/07/18 18:21 Lasix Iv* IV 80 mg 0800,1700 [facility] Administration Insulin Glargine 40 units 02/04/18 18:00 02/07/18 18:21 Lantus(*) SUBCUT 40 units Q24H [facility]ARY[facility] Administration Insulin Human Lispro 0 units 02/04/18 21:00 02/07/18 18:21 Humalog* SUBCUT 1 units ACHS MARYJO Administration Protocol Metoprolol Tartrate 25 mg 02/07/18 12:00 02/07/18 14:02 Lopressor Tab* PO 25 mg Q8H [facility] Administration Potassium Chloride 40 meq 02/05/18 09:55 02/07/18 09:19 Klor Con Er Tab* PO 40 meq DAILY [facility] Administration Vital Signs Temp Pulse Resp BP Pulse Ox 98.3 F 82 24 113/75 95 02/07/18 19:54 02/07/18 19:54 02/07/18 19:54 02/07/18 19:54 02/07/18 19:54 O/E: Pt in NAD HEENT: PERRLA, No JVD Lungs: Diminished air entry at bases L>R CVS: S1, S+ Abd: Obese, BS+ Ext: Edema +, normal ROM Neuro: NO focal defecits Skin: No rash Laboratory Results - last 24 hr 02/07/18 02/07/18 02/07/18 05:55 05:55 05:55 WBC 8.9 RBC 3.71 L Hgb 10.0 L Hct 31 L MCV 84 MCH 27 MCHC 32 RDW 17 H Plt Count 327 MPV 7.4 Neut % (Auto) 56.8 Lymph % (Auto) 29.0 [place] % (Auto) 9.9 H Eos % (Auto) 3.1 Baso % (Auto) 1.2 Absolute Neuts (auto) 5.0 Absolute Lymphs (auto) 2.6 Absolute Monos (auto) 0.9 H Absolute Eos (auto) 0.3 Absolute Basos (auto) 0.1 Absolute Nucleated RBC 0 Nucleated RBC % 0.1 ESR 25 H INR (Anticoag Therapy) 1.70 H Sodium 142 Potassium 3.3 L Chloride 100 L Carbon Dioxide 39 H Anion Gap 3 BUN 15 Creatinine 0.84 Est GFR ( Amer) 122.0 Est GFR (Non-Af Amer) 94.9 BUN/Creatinine Ratio 17.9 Glucose 82 POC Glucose (mg/dL) Calcium 9.0 C-Reactive Protein 1.69 Fluid Source Fluid Volume Fluid Color Fluid Appearance Fluid WBC Fluid RBC Fluid Tot Cell Count Fluid Neutrophils Fluid Lymphocytes Fluid Monocytes Fluid Other Cells 02/07/18 02/07/18 02/07/18 07:38 11:36 13:15 WBC RBC Hgb Hct MCV MCH MCHC RDW Plt Count MPV Neut % (Auto) Lymph % (Auto) [place] % (Auto) Eos % (Auto) Baso % (Auto) Absolute Neuts (auto) Absolute Lymphs (auto) Absolute Monos (auto) Absolute Eos (auto) Absolute Basos (auto) Absolute Nucleated RBC Nucleated RBC % ESR INR (Anticoag Therapy) Sodium Potassium Chloride Carbon Dioxide Anion Gap BUN Creatinine Est GFR ( Amer) Est GFR (Non-Af Amer) BUN/Creatinine Ratio Glucose POC Glucose (mg/dL) 85 119 H Calcium C-Reactive Protein Fluid Source Pleural fluid Fluid Volume 6 Fluid Color Yellow Fluid Appearance Cloudy Fluid WBC 837 Fluid RBC 802 Fluid Tot Cell Count 100 Fluid Neutrophils 12 Fluid Lymphocytes 66 Fluid Monocytes 22 Fluid Other Cells 14 02/07/18 16:54 WBC RBC Hgb Hct MCV MCH MCHC RDW Plt Count MPV Neut % (Auto) Lymph % (Auto) [place] % (Auto) Eos % (Auto) Baso % (Auto) Absolute Neuts (auto) Absolute Lymphs (auto) Absolute Monos (auto) Absolute Eos (auto) Absolute Basos (auto) Absolute Nucleated RBC Nucleated RBC % ESR INR (Anticoag Therapy) Sodium Potassium Chloride Carbon Dioxide Anion Gap BUN Creatinine Est GFR ( Amer) Est GFR (Non-Af Amer) BUN/Creatinine Ratio Glucose POC Glucose (mg/dL) 138 H Calcium C-Reactive Protein Fluid Source Fluid Volume Fluid Color Fluid Appearance Fluid WBC Fluid RBC Fluid Tot Cell Count Fluid Neutrophils Fluid Lymphocytes Fluid Monocytes Fluid Other Cells CXR: INterval improvement in left basal effusion, no PTX I/R: 57 y o obese male, former smoker with recent AVR with complicated post op course with hemothorax, anemia, a/w worsening SOB, found to have signficant LE edema, b/l effusions, L>R Pt with agressive diuresis with no improvement in pleural fluid Has been hypoxic, requiring O2 supplementation Coumadin being held for thoracentesis Thoracentesis performed at bedside, 650 ml pleural fluid, ark yellow, drained under manual suction See separately dictated thoracentesis report Post procedure CXR was reviewed, no PTX Pl fluid studies are pending Titrate FiO2 as tolerated c/w diuresis D/w Dr Webster
[2018-02-07] MEDS ORDERED: Captopril TAB* 12.5 MG PO SCH (21:00)
[2018-02-08] MEDS: Metoprolol Tartrate TAB* 25 MG PO SCH ×3 (05:09→20:21)
[2018-02-08 06:43] LABS: INR 1.29 (0.77-1.02)
[2018-02-08 06:50] LABS: EGFR Non-African American 93.6 (>60)
[2018-02-08] MEDS: Furosemide IV* 10 MG/ML 10 ML VIAL (100 MG) IV SCH ×2 (07:23→17:08)
[2018-02-08] MEDS: Potassium Chlor TAB* 20 MEQ TAB.ER PO SCH (07:24)
[2018-02-08] MEDS: Aspirin EC TAB* 81 MG TAB.EC PO SCH (07:24)
[2018-02-08] MEDS: Amiodarone TAB* 200 MG PO SCH (07:24)
[2018-02-08] MEDS: Doxazosin TAB* 2 MG PO SCH (07:24)
[2018-02-08] MEDS: Docusate CAP* 100 MG PO SCH ×2 (07:24→20:21)
[2018-02-08] MEDS ORDERED: Potassium Chlor TAB* 20 MEQ TAB.ER PO ONE (07:50)
[2018-02-08] MEDS: Insulin LISPRO* 1 UNITS UNIT SUBCUT SCH ×4 (07:57→20:56)
--- NOTE | 2018-02-08 10:12 | PRO ---
THORACENTESIS REPORT: DATE OF PROCEDURE: 02/07/18 - ROOM #445 PROCEDURE PERFORMED: Ultrasound-sound guided thoracentesis on the left side. PREPROCEDURAL DIAGNOSIS: Moderate-sized left pleural effusion. POSTPROCEDURAL DIAGNOSIS: Moderate left pleural effusion. ANESTHESIA: 1% lidocaine 5 mL. DESCRIPTION OF PROCEDURE: Informed consent was obtained from the patient prior to the procedure after all the risks and benefits of the procedure including risk of pneumothorax were thoroughly discussed. Appropriate time-out was agreed on by attending staff. Portable ultrasound was utilized at bedside to localize free flowing moderate-sized left pleural effusion. Site was marked. Area was anesthetized with chlorhexidine. Appropriate barrier techniques were utilized. A CareFusion 8-[place] thoracentesis catheter was utilized. Under ultrasound localization, after 1% lidocaine was instilled intradermally, subcutaneously, down in the pleural space taking precautions, a #11 scalpel blade was used to make a stab incision to facilitate passage of bigger needle. An 8-[place] CareFusion thoracentesis catheter was then inserted under manual suction taking precautions. Catheter was left in place and needle was removed. 650 mL of dark yellow fluid was drained under manual suction. Catheter was then removed and Band-Aid was applied to the area. Specimen was sent to the lab for cytological, biochemical, and hematological examination. Postprocedure chest x-ray was ordered and pending at the time of dictation. The patient tolerated the procedure well and felt improvement in shortness of breath postprocedure. [id number]/CPS #: [id number] KATELYNN
--- NOTE | 2018-02-08 11:48 | PN ---
Subjective Date of Service: 02/08/18 Interval History: Pt feels well. no significant change since yesterday. according to wt he diuresed only 2 lbs. Objective Active Medications: Acetaminophen (Tylenol Tab*) 650 mg PO Q4H PRN PRN Reason: FEVER/PAIN Hydrocodone Bitart/Acetaminophen ([place] 5-325 Tab*) 1 tab PO Q4H PRN PRN Reason: PAIN Last Admin: 02/07/18 14:02 Dose: 1 tab Al Hydrox/Mg Hydrox/Simethicone (Maalox Plus*) 30 ml PO Q6H PRN PRN Reason: INDIGESTION Albuterol (Ventolin 2.5 Mg/3 Ml Neb.Rebecca*) 2.5 mg INH [id number] AWAKE PRN PRN Reason: sob/wheezing Amiodarone HCl (Cordarone Tab*) 200 mg PO DAILY [facility] Last Admin: 02/08/18 07:24 Dose: 200 mg Aspirin (Aspirin Ec Tab*) 81 mg PO DAILY [facility] Last Admin: 02/08/18 07:24 Dose: 81 mg Dextrose (D50w Syringe 50 Ml*) 12.5 gm IV PUSH .FOR FS < 60 - SS PRN PRN Reason: FS < 60 Docusate Sodium (Colace Cap*) 100 mg PO BID [facility] Last Admin: 02/08/18 07:24 Dose: 100 mg Doxazosin Mesylate (Cardura Tab*) 4 mg PO DAILY [facility] Last Admin: 02/08/18 07:24 Dose: 4 mg Furosemide (Lasix Iv*) 80 mg IV 0800,1700 [facility] Last Admin: 02/08/18 07:23 Dose: 80 mg Insulin Glargine (Lantus(*)) 40 units SUBCUT Q24H [facility] Last Admin: 02/07/18 18:21 Dose: 40 units Insulin Human Lispro (Humalog*) 0 units SUBCUT ACHS [facility] PRN Reason: Protocol Last Admin: 02/08/18 07:57 Dose: Not Given Metolazone (Zaroxolyn Tab*) 5 mg PO DAILY [facility] Metolazone (Zaroxolyn Tab*) 5 mg PO ONCE ONE Stop: 02/08/18 16:01 Metoprolol Tartrate (Lopressor Tab*) 25 mg PO Q8H [facility] Last Admin: 02/08/18 05:09 Dose: 25 mg Potassium Chloride (Klor Con Er Tab*) 40 meq PO DAILY [facility] Last Admin: 02/08/18 07:24 Dose: 40 meq Vital Signs - 8 hr 02/08/18 02/08/18 02/08/18 05:10 07:13 07:51 Temperature 97.4 F 98.4 F Pulse Rate 80 Respiratory 16 20 Rate Blood Pressure 131/92 (mmHg) O2 Sat by Pulse 93 Oximetry Oxygen Devices in Use Now: Nasal Cannula Appearance: 57 yo M in nAD, aAOx3 Eyes: No Scleral Icterus, PERRLA Ears/Nose/Mouth/Throat: NL Teeth, Lips, Gums, Mucous Membranes Moist Neck: NL Appearance and Movements; NL JVP, Trachea Midline Respiratory: Symmetrical Chest Expansion and Respiratory Effort, - - decreased breath sounds at LLL+ rhonchi LLL Cardiovascular: NL Sounds; No Murmurs; No JVD, - - irregular Abdominal: NL Sounds; No Tenderness; No Distention Lymphatic: No Cervical Adenopathy Extremities: No Clubbing, Cyanosis, - - +2 pitting pedal edema b/l-slowly improving Skin: No Rash or Ulcers, No Nodules or Sclerosis Neurological: Alert and Oriented x 3, NL Muscle Strength and Tone Result Diagrams: 02/07/18 05:55 02/08/18 06:08 Microbiology and Other Data: Microbiology 02/07/18 13:15 Gram Stain - Final Pleural Fluid Body Fluid Culture - Preliminary No Growth Day 1 Assess/Plan/Problems-Billing Assessment: 57 yo M s/o AVR and aortic root graft in 12/2017 now with post op pleural effusions and CHF. Gained nearly 70 lbs since his surgery - Patient Problems (1) CHF (congestive heart failure) Comment: Acute , suspected diastolic. Appreciate Dr. Craig's consult. Lasix cont 80 mg BID Cont daily weights and I/Os. Today's wt decreased by 2 lbs only, adding metolazone (2) Pleural effusion Comment: mostly on left side- s/p thoracentesis on 02/07/[address] Saravia. Labs so far nonconclusive. gram stain neg. The fluid was straw coloured, slightly cloudy (3) MARIA R (obstructive sleep apnea) Comment: on CPAP at night (4) Chronic hypoxemic respiratory failure Comment: on 02 post op (5) DM2 (diabetes mellitus, type 2) Comment: const Lantus and ISS (6) Atrial flutter Comment: persistent, post op. Cont amiodarone and lopressor-dose increased to TID 25 mg on 02/07/18 coumadin held for throracentesis, as per d/w cardiology Echo on 02/07/18 showed siginficant pericardial effusion. Pt is asymptomatic. Plan to repeat Echo on 07/20 and compare. Till then no anticoagulation will be restarted. (7) DVT prophylaxis Comment: HSQ whrn not anticoagulated Status and Disposition: inpatient
[2018-02-08] MEDS: Metolazone TAB* 5 MG PO SCH (11:51)
[2018-02-08] MEDS: Heparin VIAL(*) 5000 UNITS/ML VIAL (FIVE THOUSAND) SUBCUT SCH ×2 (13:20→22:21)
[2018-02-08] MEDS ORDERED: Metolazone TAB* 5 MG PO ONE (16:00)
[2018-02-08] MEDS: Insulin GLARGINE(*) 1 UNITS UNIT SUBCUT SCH (17:10)
[2018-02-09] MEDS: Metoprolol Tartrate TAB* 25 MG PO SCH ×3 (04:15→20:02)
[2018-02-09] MEDS: Heparin VIAL(*) 5000 UNITS/ML VIAL (FIVE THOUSAND) SUBCUT SCH ×3 (05:03→21:43)
[2018-02-09 06:25] LABS: INR 1.26 (0.77-1.02)
[2018-02-09] MEDS: Metolazone TAB* 5 MG PO SCH (07:39)
[2018-02-09] MEDS: Insulin LISPRO* 1 UNITS UNIT SUBCUT SCH ×4 (07:42→20:23)
[2018-02-09] MEDS: Furosemide IV* 10 MG/ML 10 ML VIAL (100 MG) IV SCH ×2 (08:10→17:24)
[2018-02-09] MEDS: Potassium Chlor TAB* 20 MEQ TAB.ER PO SCH (08:10)
[2018-02-09] MEDS: Doxazosin TAB* 2 MG PO SCH (08:10)
[2018-02-09] MEDS: Amiodarone TAB* 200 MG PO SCH (08:10)
[2018-02-09] MEDS: Aspirin EC TAB* 81 MG TAB.EC PO SCH (08:10)
[2018-02-09] MEDS: Docusate CAP* 100 MG PO SCH ×2 (08:10→20:02)
[2018-02-09] MEDS ORDERED: Potassium Chlor TAB* 20 MEQ TAB.ER PO ONE (10:25)
[2018-02-09 10:27] LABS: EGFR Non-African American 82.3 (>60)
--- NOTE | 2018-02-09 10:58 | PN ---
Subjective Date of Service: 02/09/18 Interval History: Pt feels well, urinating "a lot" aprox 3000 ml neg balance in 24 hr Objective Active Medications: Acetaminophen (Tylenol Tab*) 650 mg PO Q4H PRN PRN Reason: FEVER/PAIN Hydrocodone Bitart/Acetaminophen ([place] 5-325 Tab*) 1 tab PO Q4H PRN PRN Reason: PAIN Last Admin: 02/07/18 14:02 Dose: 1 tab Al Hydrox/Mg Hydrox/Simethicone (Maalox Plus*) 30 ml PO Q6H PRN PRN Reason: INDIGESTION Albuterol (Ventolin 2.5 Mg/3 Ml Neb.Rebecca*) 2.5 mg INH [id number] AWAKE PRN PRN Reason: sob/wheezing Amiodarone HCl (Cordarone Tab*) 200 mg PO DAILY [facility] Last Admin: 02/09/18 08:10 Dose: 200 mg Aspirin (Aspirin Ec Tab*) 81 mg PO DAILY [facility] Last Admin: 02/09/18 08:10 Dose: 81 mg Dextrose (D50w Syringe 50 Ml*) 12.5 gm IV PUSH .FOR FS < 60 - SS PRN PRN Reason: FS < 60 Docusate Sodium (Colace Cap*) 100 mg PO BID [facility] Last Admin: 02/09/18 08:10 Dose: Not Given Doxazosin Mesylate (Cardura Tab*) 4 mg PO DAILY [facility] Last Admin: 02/09/18 08:10 Dose: 4 mg Furosemide (Lasix Iv*) 80 mg IV 0800,1700 [facility] Last Admin: 02/09/18 08:10 Dose: 80 mg Heparin Sodium (Porcine) (Heparin Vial(*)) 5,000 units SUBCUT Q8HR [facility] Last Admin: 02/09/18 05:03 Dose: 5,000 units Insulin Glargine (Lantus(*)) 40 units SUBCUT Q24H [facility] Last Admin: 02/08/18 17:10 Dose: 40 units Insulin Human Lispro (Humalog*) 0 units SUBCUT ACHS [facility] PRN Reason: Protocol Last Admin: 02/09/18 07:42 Dose: Not Given Metolazone (Zaroxolyn Tab*) 5 mg PO DAILY [facility] Last Admin: 02/09/18 07:39 Dose: 5 mg Metoprolol Tartrate (Lopressor Tab*) 25 mg PO Q8H [facility] Last Admin: 02/09/18 04:15 Dose: 25 mg Potassium Chloride (Klor Con Er Tab*) 40 meq PO DAILY [facility] Last Admin: 02/09/18 08:10 Dose: 40 meq Potassium Chloride (Klor Con Er Tab*) 40 meq PO ONCE ONE Stop: 02/09/18 10:26 Vital Signs - 8 hr 02/09/18 02/09/18 02/09/18 03:27 07:20 07:45 Temperature 98.0 F 98.1 F Pulse Rate 82 77 Respiratory 20 19 19 Rate Blood Pressure 122/69 131/81 (mmHg) O2 Sat by Pulse 93 97 Oximetry Oxygen Devices in Use Now: Nasal Cannula Appearance: 57 yo M in nAD, aAOx3 Eyes: No Scleral Icterus, PERRLA Ears/Nose/Mouth/Throat: NL Teeth, Lips, Gums, Mucous Membranes Moist Neck: NL Appearance and Movements; NL JVP, Trachea Midline Respiratory: Symmetrical Chest Expansion and Respiratory Effort, - - decreased breath sound at LLL Cardiovascular: - - irregular, no murmur Abdominal: NL Sounds; No Tenderness; No Distention, No Hepatosplenomegaly Lymphatic: No Cervical Adenopathy Extremities: No Clubbing, Cyanosis, - - +2 piting pedal edema still present Skin: No Rash or Ulcers, No Nodules or Sclerosis Neurological: Alert and Oriented x 3, NL Muscle Strength and Tone Result Diagrams: 02/07/18 05:55 02/09/18 05:29 Microbiology and Other Data: Microbiology 02/07/18 13:15 Gram Stain - Final Pleural Fluid Body Fluid Culture - Preliminary No Growth Day 1 Assess/Plan/Problems-Billing Assessment: 57 yo M s/o AVR and aortic root graft in 12/2017 now with post op pleural effusions and CHF. Gained nearly 70 lbs since his surgery - Patient Problems (1) CHF (congestive heart failure) Comment: Acute , suspected diastolic. Appreciate Dr. Craig's consult. Lasix cont 80 mg BID Cont daily weights and I/Os. added metolazone on 02/08/18 with improved urine output (2) Pleural effusion Comment: mostly on left side- s/p thoracentesis on 02/07/[address] Saravia. Labs so far nonconclusive. gram stain neg. The fluid was straw coloured, slightly cloudy (3) MARIA R (obstructive sleep apnea) Comment: on CPAP at night (4) Chronic hypoxemic respiratory failure Comment: on 02 post op (5) DM2 (diabetes mellitus, type 2) Comment: const Lantus and ISS (6) Atrial flutter Comment: persistent, post op. Cont amiodarone and lopressor-dose increased to TID 25 mg on 02/07/18 coumadin held for throracentesis, as per d/w cardiology Echo on 02/07/18 showed siginficant pericardial effusion. Pt is asymptomatic. Plan to repeat Echo on 07/20 and compare. Till then no anticoagulation will be restarted, as per d/w cardiology (7) DVT prophylaxis Comment: HSQ when not anticoagulated Status and Disposition: inpatient
[2018-02-09] MEDS: Insulin GLARGINE(*) 1 UNITS UNIT SUBCUT SCH (17:24)
[2018-02-10] MEDS: Metoprolol Tartrate TAB* 25 MG PO SCH ×2 (04:21→11:59)
[2018-02-10] MEDS: Heparin VIAL(*) 5000 UNITS/ML VIAL (FIVE THOUSAND) SUBCUT SCH ×2 (05:05→14:52)
[2018-02-10 05:55] LABS: EGFR Non-African American 79.4 (>60)
[2018-02-10] MEDS ORDERED: Potassium Chloride LIQUID* 20 MEQ PACKET PO ONE (08:13)
[2018-02-10] MEDS: Aspirin EC TAB* 81 MG TAB.EC PO SCH (08:26)
[2018-02-10] MEDS: Furosemide IV* 10 MG/ML 10 ML VIAL (100 MG) IV SCH (08:26)
[2018-02-10] MEDS: Doxazosin TAB* 2 MG PO SCH (08:26)
[2018-02-10] MEDS: Amiodarone TAB* 200 MG PO SCH (08:26)
[2018-02-10] MEDS: Potassium Chlor TAB* 20 MEQ TAB.ER PO SCH (08:27)
[2018-02-10] MEDS: Docusate CAP* 100 MG PO SCH (08:27)
[2018-02-10] MEDS: Insulin LISPRO* 1 UNITS UNIT SUBCUT SCH ×2 (09:12→11:56)
[2018-02-10] MEDS ORDERED: acetaZOLAMIDE TAB* 250 MG PO SCH (11:30)
--- NOTE | 2018-02-10 13:02 | ECHO ---
Patient: JERRICA BUI [facility] Rec#: [id number] : 1960 Date: 02/10/2018 Age: 57y Height: 170.18 cm / 67.0 in Weight: 133.81 kg / 294.9 lbs Sex: M BSA: 2.39 Room#: [facility] Admit Date#: 02/04/2018 Type: Inpatient Referring: Tam Craig MD Reading: Andrew Slade MD Wire Spinner: Audrey DriverHARRISON CC: Charles Hancock MD Transthoracic Echocardiogram Indication: Pericardial Effusion follow up. BP: 130/78 HR: 78 Rhythm: A-Flutter Findings History: CAD s/p PCI, aortic valve stenosis, s/p ACR # 27 [place] pericardial tissue valve, s/p ascending aorta graft 32 mm, HTN, HLD, former smoker. This is a LIMITED echo to reassess pericardial effusion. Technical Comments: The study quality is fair. Completed at 0900. Left Ventricle: The left ventricular chamber size is normal. Moderate concentric left ventricular hypertrophy is observed. Left ventricular systolic function is at the lower limits of normal. The estimated ejection fraction is 50-55%. Post surgical hypokinesis of the interventricular septum is observed consistent with valve replacement. The assessment of diastolic function is non-diagnostic. Right Ventricle: The right ventricle wall thickness is mildly increased. The right ventricle is moderately dilated. The right ventricular global systolic function is mildly reduced. Pericardium: There is a large pericardial effusion. The pericardial effusion is seen adjacent to the left ventricle.LArge pericardial effusion mostly posterior and lateral. Some RV diastolic collapse but no clear tomponade physiology. A pericardial fat pad is visualized. Venous: The inferior vena cava is dilated. There is less than 50% respiratory change in the inferior vena cava dimension. Conclusions Left ventricular systolic function is at the lower limits of normal. The estimated ejection fraction is 50-55%. Post surgical hypokinesis of the interventricular septum is observed consistent with valve replacement. There is a large pericardial effusion. The pericardial effusion is seen adjacent to the left ventricle.LArge pericardial effusion mostly posterior and lateral. Some RV diastolic collapse but no clear tomponade physiology. Compared to study of 02/07/18 the LV function and AVR function are the same. Size of pericardial effusion is the same Measurements Name Value Normal Range IVC diameter 3 cm -
--- NOTE | 2018-02-10 15:04 | PN ---
Subjective Date of Service: 02/10/18 Interval History: Patient is feeling much better today. Improved SOB, improved swelling in LE. No AMS, CP, SOB, N/V, abdominal pain, diarrhea, CP, dysuria, dizziness, palpitations. Patient is still making profuse clear urine. Family History: Unchanged from Admission Social History: Unchanged from Admission Past Medical History: Unchanged from Admission Objective Active Medications: Acetaminophen (Tylenol Tab*) 650 mg PO Q4H PRN PRN Reason: FEVER/PAIN Hydrocodone Bitart/Acetaminophen ([place] 5-325 Tab*) 1 tab PO Q4H PRN PRN Reason: PAIN Last Admin: 02/07/18 14:02 Dose: 1 tab Acetazolamide (Diamox Tab*) 250 mg PO BID [facility] Stop: 02/12/18 21:01 Last Admin: 02/10/18 11:59 Dose: 250 mg Al Hydrox/Mg Hydrox/Simethicone (Maalox Plus*) 30 ml PO Q6H PRN PRN Reason: INDIGESTION Albuterol (Ventolin 2.5 Mg/3 Ml Neb.Rebecca*) 2.5 mg INH [id number] AWAKE PRN PRN Reason: sob/wheezing Amiodarone HCl (Cordarone Tab*) 200 mg PO DAILY [facility] Last Admin: 02/10/18 08:26 Dose: 200 mg Aspirin (Aspirin Ec Tab*) 81 mg PO DAILY [facility] Last Admin: 02/10/18 08:26 Dose: 81 mg Dextrose (D50w Syringe 50 Ml*) 12.5 gm IV PUSH .FOR FS < 60 - SS PRN PRN Reason: FS < 60 Docusate Sodium (Colace Cap*) 100 mg PO BID [facility] Last Admin: 02/10/18 08:27 Dose: 100 mg Doxazosin Mesylate (Cardura Tab*) 4 mg PO DAILY [facility] Last Admin: 02/10/18 08:26 Dose: 4 mg Furosemide (Lasix Iv*) 80 mg IV 0800,1700 [facility] Last Admin: 02/10/18 08:26 Dose: 80 mg Heparin Sodium (Porcine) (Heparin Vial(*)) 5,000 units SUBCUT Q8HR [facility] Last Admin: 02/10/18 14:52 Dose: 5,000 units Insulin Glargine (Lantus(*)) 40 units SUBCUT Q24H [facility] Last Admin: 02/09/18 17:24 Dose: 40 units Insulin Human Lispro (Humalog*) 0 units SUBCUT ACHS MARYJO PRN Reason: Protocol Last Admin: 02/10/18 11:56 Dose: Not Given Metoprolol Tartrate (Lopressor Tab*) 25 mg PO Q8H [facility] Last Admin: 02/10/18 11:59 Dose: 25 mg Potassium Chloride (Klor Con Er Tab*) 40 meq PO DAILY [facility] Last Admin: 02/10/18 08:27 Dose: 40 meq Potassium Chloride (Klor Con Er Tab*) 20 meq PO DAILY [facility] Stop: 02/12/18 09:01 Vital Signs - 8 hr 02/10/18 02/10/18 02/10/18 08:00 08:24 11:46 Temperature 98.4 F 97.9 F Pulse Rate 70 90 Respiratory 20 20 16 Rate Blood Pressure 139/81 124/82 (mmHg) O2 Sat by Pulse 94 95 Oximetry Oxygen Devices in Use Now: Nasal Cannula Appearance: Patient is a 57yo male who appears stated age and is sitting in the bed in [facility]. Eyes: No Scleral Icterus, PERRLA Ears/Nose/Mouth/Throat: NL Teeth, Lips, Gums, Clear Oropharnyx, Mucous Membranes Moist Neck: NL Appearance and Movements; NL JVP, Trachea Midline Respiratory: Symmetrical Chest Expansion and Respiratory Effort, Clear to Auscultation Cardiovascular: NL Sounds; No Murmurs; No JVD, RRR, - - 3+ edema in B/L LE. Abdominal: NL Sounds; No Tenderness; No Distention, No Hepatosplenomegaly Lymphatic: No Cervical Adenopathy Extremities: No Clubbing, Cyanosis Skin: No Nodules or Sclerosis, - - Left sided thoracentesis site covered with band-aid without drainage. Neurological: Alert and Oriented x 3, NL Sensation, NL Muscle Strength and Tone , - - CN II-XII intact. Result Diagrams: 02/07/18 05:55 02/10/18 05:18 Microbiology and Other Data: Microbiology 02/07/18 13:15 Gram Stain - Final Pleural Fluid Body Fluid Culture - Preliminary No Growth Day 1 Assess/Plan/Problems-Billing Assessment: 57 yo M s/o AVR and aortic root graft in 12/2017 now with post op pleural effusions and CHF which are improving. Status and Disposition: inpatient
[2018-02-10 15:52] VITALS: BP 123/76
--- NOTE | 2018-02-10 20:34 | TRS ---
CC: Dr. Charles Hancock; Tam Craig MD; Dr. Dale Delgado, [facility] * TRANSFER SUMMARY: DATE OF ADMISSION: 02/04/18 DATE OF TRANSFER: 02/10/18 PRIMARY CARE PROVIDER: Dr. Charles Hancock. OUTPATIENT WIRE WINDER: Tam Craig MD ATTENDING PROVIDER: Tatianna Vargas MD * (DICTATED BY TOBY IQBAL) PRIMARY DISCHARGE DIAGNOSES: 1. Diastolic congestive heart failure exacerbation. 2. Status post aortic valve replacement. 3. Pericardial effusion. 4. Atrial flutter. SECONDARY DISCHARGE DIAGNOSES: 1. Status post aortic valve replacement, 12/27/17. 2. Atrial flutter. 3. Bicuspid aortic valve. 4. Hypertension. 5. Hyperlipidemia. 6. Diabetes mellitus. 7. Obstructive sleep apnea. 8. Obesity. STUDIES DONE WHILE IN THE HOSPITAL: Electrocardiogram from 02/04/18 shows atrial flutter, ST depression in V4 and V5 with notching, normal axis, no hypertrophy or enlargement, rate of 98, QTc of 487, no other significant abnormalities. Repeat EKG shows decrease in ST depression in V4 and V5, complete resolution in V4, T-wave flattening in V5 and V6, continued atrial flutter, rate of 85, QTc of 278, no significant changes from previous record. EKG from 02/06/18 shows T-wave inversion in V5 and V6, early repolarization in V3, possible ST depression in II, III and aVF, T-wave flattening in I and aVL. No other significant changes. Chest x-ray from 02/04/18 read as cardiomegaly with mild vascular congestion. Chest x-ray from 02/05/18 read as moderate left and small right pleural effusions with left basilar atelectasis versus consolidation. Chest x-ray from 02/06/18 read as stable moderate left and small right pleural effusion with left basilar atelectasis versus consolidation. Transthoracic echocardiogram from 02/07/18 read as large posterior prominent pericardial effusion measuring up to 2.9 cm, which is unchanged from recent echo on 01/30/18, limited by atrial flutter at the time of admission. The patient had sensitive finding for hemodynamic significance with dilated IVC, does not collapse during inspiration. There are no specific findings for hemodynamic significance including respiratory variation is 8% and LVOT velocity variation is 10%, which are normal. There is no abnormal diastolic collapse of the RA, RV or LA. Given the noncircumferential and postoperative nature of this effusion, we recommend cardiac correlate clinically. Results discussed and imaging reviewed with the patient's belt measurer, Dr. Craig. Chest ultrasound from 02/07/18 read as moderate sized left pleural effusion marked for followup thoracentesis. Chest x-ray from 02/07/18 read as no active cardiopulmonary disease, no evidence of pneumothorax. Transthoracic echocardiogram from 02/10/18 shows left ventricular systolic function at the lower limits of normal, estimated ejection fraction 50% to 55%, postsurgical hypokinesis of the interventricular septum consistent with valve replacement, large pericardial effusion, pericardial effusion seen adjacent to the left ventricular large pericardial effusion mostly posterior and lateral, some RV diastolic collapse, but no clear tamponade physiology. Compared to study of 02/07/18, the LV function and AVR function are the same, size of pericardial is the same. Cytology from pericardial effusion was negative for malignant cells. MEDICATIONS AT DISCHARGE: 1. Pravastatin 40 mg p.o. daily. 2. Tylenol 650 mg p.o. q.4 hours as needed. 3. Acetazolamide 250 mg p.o. b.i.d. x5 more doses. 4. Maalox Plus 30 mL p.o. q.6 hours as needed for indigestion. 5. Albuterol nebulizer 2.5 mg inhalation q.4 hours as needed. 6. Amiodarone 200 mg p.o. daily. 7. Aspirin 81 mg p.o. daily. 8. Docusate 100 mg p.o. b.i.d. 9. Doxazosin 4 mg p.o. daily. 10. Furosemide 80 mg IV at 0800 and 1700. 11. [place] 5/325 mg 1 tab p.o. q.4 hours as needed. 12. Insulin glargine 40 units subcutaneous q.24 hours. 13. Insulin lispro sliding scale a.c. and h.s. 14. Metoprolol tartrate 25 mg p.o. q.8 hours. 15. Potassium chloride 20 mEq p.o. daily. HOSPITAL COURSE: This is a brief summary of the patient's presentation. For more details, please see the history and physical from Dr. Una Webster on 01/17. In brief, the patient is a 57-year-old male with past medical history significant for the above, who was directly admitted from his belt measurer, Dr. Craig's office due to significant weight gain of approximately 70 pounds postoperatively from to 02/04/18, which was refractory to increase in oral Lasix dosing. The patient was admitted for congestive heart failure. The patient had an echocardiogram on 01/30/18, which showed a small pericardial effusion without significant hemodynamic compromise and EF at the lower limits of normal. The patient was admitted to the hospital and seen in consultation by his belt measurer, Dr. Craig, as well as pole peeling machine operator helper, Dr. Sobia Saravia. The patient was started on IV Lasix at 60 mg twice a day. The patient was continued on lantus and insulin sliding scale. The patient was found to be persistently in atrial flutter. The patient was on Coumadin at the time of admission, which was held due to pleural effusions and possible need for pericardiocentesis. The patient was not cardioverted at the time of admission due to decreased respiratory function due to pleural effusions causing compressive atelectasis as well as pulmonary edema from CHF. The patient was continued on his home CPAP at 13 cm of water with supplemental oxygen. The patient was significantly hypoxemic while in the hospital likely due to pleural effusion and pulmonary edema. The patient was diuresed aggressively with an initial weight of 304 pounds and weight at transfer of 280 pounds. There was also concern for Pickwickian syndrome. The patient remained stable throughout his hospitalization. The patient had a thoracentesis on 02/07/18. Pleural fluid showing yellow cloudy fluid with white blood cell count 837, red blood cell count of 802, neutrophils 12, lymphocytes 66, monocytes 22 with 14 other cells, glucose 114, total protein of 3.1, LDH 130. The patient met Light's criteria on his pleural fluid due to the LDH being greater than two-thirds of the upper limit of normal in [facility]'s lab, which was 140. The patient's serum LDH was 291 and protein on admission was 7.2. Other laboratory data of note on admission: Hemoglobin 10.2, decreased from 14.1 on 12/18/17 preoperatively. The patient had an admission carbon dioxide of 36. After 5 days of treatment with oral Lasix 80 daily, the patient had BNP of 245. Troponin I of 0.01, 0.03 and 0.00. The patient's initial INR was 2.75. The patient's hemoglobin stayed stable. The patient's INR trended down. The patient's carbon dioxide trended up to be 45 on day of transfer when he was started on Diamox with a plan for a total of 6 doses and close monitoring of his carbon dioxide. The patient refused an arterial blood gas due to pain. The patient's potassium was persistently decreased while in the hospital and this was repleted orally repeatedly and the patient was started on daily supplementation orally on his day of transfer. The patient is being transferred due to pericardial effusion of unknown hemodynamic significance, possibly complication of transaortic valve replacement with previous mediastinal bleeding, which would be unable to be addressed at this institution. The patient is being transferred to [facility] under the care of Dr. Dale Delgado for consideration of Cardiothoracic Surgery to address his pericardial effusion. DISCHARGE PLAN: The patient will be discharged to a higher level of care at [facility]. The patient will be continued at this time on his IV furosemide and his amiodarone. The patient is currently in what appears to be atrial flutter on his telemetry. The patient will also continue on his metoprolol tartrate 25 mg p.o. q.8 hours. The patient has received 1 dose of Diamox, which will be continued b.i.d. for a planned total of 6 doses. This should be continued cautiously if the patient continues to be alkalotic. TIME SPENT: Approximately 60 minutes were spent on this discharge, 30 of which was spent [id number] with the patient obtaining history and physical and discussing treatment plan. TOBY IQBAL [id number]/[facility] #: [id number] KATELYNN
[2018-02-11] MEDS ORDERED: Potassium Chlor TAB* 20 MEQ TAB.ER PO SCH (09:00)
== END 2018-02-10 16:45 | disposition short-term general hospital (02) | DRG 194 ==
LOC: ED 15:06 → MEDTELE 17:39 → ED 18:55
PROVIDERS: ADMIT Internal Medicine; ATTEND Internal Medicine
PROC: 5A2204Z Restoration of Cardiac Rhythm, Single (ICD-10-PCS; 2018-02-04)
PROC: 0W9B3ZZ Drainage of Left Pleural Cavity, Percutaneous Approach (ICD-10-PCS; principal; 2018-02-07)
PROC: 5A09357 Assistance with Respiratory Ventilation, Less than 24 Consecutive Hours, Continuous Positive Airway Pressure (ICD-10-PCS; 2018-02-07)
DX: I11.0 Hypertensive heart disease with heart failure (principal); I48.92 Unspecified atrial flutter; J96.11 Chronic respiratory failure with hypoxia; J90 Pleural effusion, not elsewhere classified; I31.3 Pericardial effusion (noninflammatory); Z68.41 Body mass index [BMI] 40.0-44.9, adult; I50.33 Acute on chronic diastolic (congestive) heart failure; E11.9 Type 2 diabetes mellitus without complications; E78.5 Hyperlipidemia, unspecified; G47.33 Obstructive sleep apnea (adult) (pediatric); D64.9 Anemia, unspecified; I27.20 Pulmonary hypertension, unspecified; I07.1 Rheumatic tricuspid insufficiency; I25.10 Atherosclerotic heart disease of native coronary artery without angina pectoris; E87.6 Hypokalemia; E66.01 Morbid (severe) obesity due to excess calories; Z95.5 Presence of coronary angioplasty implant and graft; Z82.49 Family history of ischemic heart disease and other diseases of the circulatory system; Z99.81 Dependence on supplemental oxygen; Z95.2 Presence of prosthetic heart valve; Z79.82 Long term (current) use of aspirin; Z79.4 Long term (current) use of insulin; Z87.891 Personal history of nicotine dependence; Z82.5 Family history of asthma and other chronic lower respiratory diseases
CPT/HCPCS: 36415; 71045; 71046; 71048; 76604; 80048; 80053; 82945; 83605; 83615; 83735; 83880; 83986; 84157; 84484; 85025; 85610; 85652; 86140; 87070; 87205; 88112; 88305; 88341; 88342; 89051; 93005; 93306; 93308; 94660; 99284; A9270-GY; J1644; J1940; J3430

== ENCOUNTER 2018-03-09 17:59 | Inpatient (IN) | payer BC ==
--- NOTE | 2018-03-09 18:40 | RAD ---
INDICATION: Fever. COMPARISON: Comparison is made with prior studies from October 01, 2017 and February 06, 2018. TECHNIQUE: A portable view of the chest was obtained. FINDINGS: The heart is slightly enlarged. The patient is status post sternotomy. There is a small left pleural effusion and basilar infiltrate which is slightly improved from the prior exam. IMPRESSION: SMALL LEFT PLEURAL EFFUSION AND BASILAR INFILTRATE SLIGHTLY IMPROVED.
[2018-03-09 18:47] LABS: ABS Basophils 0 10^3/ul (0-0.2); ABS Eosinophils 0.1 10^3/ul (0-0.6); ABS Lymphocytes 2.2 10^3/ul (1.0-4.8); ABS Neutrophils 6.2 10^3/ul (1.5-7.7); ABS Nucleated RBC 0 10^3/ul; Eosinophil % 0.9 % (0-6); Hematocrit 33 % (42-52); Hemoglobin 10.9 g/dl (14.0-18.0); Lymphocyte % 23.5 % (25-47); Mean Corpuscular HGB Conc 34 g/dl (31-36); Mean Corpuscular Hemoglobin 26 pg (27-31); Mean Corpuscular Volume 78 fL (80-94); Mean Platelet Volume 8.1 um3 (7.4-10.4); Nucleated Red Blood Cells % 0; Platelet Count 226 10^3/ul (150-450); Red Blood Count 4.17 10^6/ul (4.00-5.40); Red Cell Distribution Width 17 % (10.5-15); White Blood Count 9.5 10^3/ul (3.5-10.8)
[2018-03-09 18:56] LABS: INR 1.62 (0.77-1.02)
--- OUTSIDE RECORDS SUMMARY | 2018-03-09 19:00 | XMS REPORT ---
:1960 External Reference #:[id number] Author Organization [facility] Address [address] [address] Phone [phone] Care Team Providers Name Role Phone Charles Hancock MD Primary Care Physician Unavailable Payers Type Date Identification Numbers Payment Provider Subscriber Commercial Effective: Policy Number: BS Facets Augustine Watson JR 2017 [id number] PayID: [id number] [place] [id number] Problems Date Description Provider Status Onset: 02/14/2015 Aortic valve disorder Tam Craig M.D., [facility], Active [facility] Onset: 02/14/2015 Benign essential hypertension Tam Craig M.D., [place], Active [facility] Onset: 02/14/2015 Hyperlipidemia Tam Craig M.D., [facility], Active [facility] Onset: 02/14/2015 Dyspnea Tam Craig M.D., [place], Active [facility] Onset: 02/28/2015 Thoracic Aortic Ectasia Tam Craig M.D., [facility], Active [facility] Onset: 09/12/2015 Essential hypertension Tam Craig M.D., [facility], Active [facility] Onset: 04/09/2016 Chronic ischemic heart disease, Tam Craig M.D., [facility], Active unspecified [facility] Onset: 05/09/2016 [place] heart disease [place] Tam Craig M.D., [facility], Active cor art w unstable ang pctrs [facility] Onset: 05/09/2016 Tobacco use Tam Craig M.D., [facility], Active [facility] Onset: 07/15/2017 Aneurysm of thoracic aorta Tam Craig M.D., [facility], Active [facility] Onset: 12/12/2017 [place]scl heart disease [place] Tam Craig M.D., [facility], Active coronary artery w/o ang pctrs [facility] Onset: 01/29/2018 Heart valve replacement Tam Craig M.D., [facility], Active [facility] Onset: 01/29/2018 Atrial flutter Tam Craig M.D., [facility], Active [facility] Onset: 02/04/2018 Acute diastolic heart failure Una Webster M.D. Active Onset: 02/04/2018 Type 2 diabetes mellitus Una Webster M.D. Active Onset: 02/04/2018 Long-term current use of insulin Una Webster M.D. Active Onset: 02/05/2018 Chronic hypoxemic respiratory Una Webster M.D. Active failure Onset: 02/05/2018 Pleural effusion, not elsewhere Una Webster M.D. Active classified Onset: 02/08/2018 Pleural effusion Una Webster M.D. 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 [employer] Cigarette Use Former Cigarette Smoker quit as of December 17 2017 ETOH Use Rarely consumes alcohol Recreational Drug Use Denies Drug Use Smoking Patient is a current smoker, 8 cigarretts a day- pt quit smokes every day in December 2017 Daily Caffeine Consumes on average 1 cup of regular coffee per day Exercise Type/Frequency Exercises regularly 1/2 mile daily Allergies, Adverse Reactions, Alerts Date Description Reaction Status Severity Comments 02/14/2015 NKDA active Medications Medication Date Status Form Strength Qnty SIG Indications Ordering Provider Amiodarone 02/25/ Active Tablets 200mg 30tabs 1 by mouth I48.3 Tam HCL 2017 every day Stefek, for 30 days M.DCharles, [facility] Pravastatin 05/09/ Active Tablets 40mg 180tab 1 tablet E78.5 Tam Sodium 2016 [place] [facility] [place] Howie, [facility] Furosemide 04/09/ Active Tablets 40mg 150tab 1 tablet 2 Tam 2015 s times daily [facility] [place]changed at M.D., [facility] 02/17/18) [facility] Lantus / Active Solution 100Unit/ML 20 units at Unknown 0000 night before bed Metformin HCL / Active Tablets ER 750mg 2 by mouth Unknown ER 0000 24HR every day Doxazosin / Active Tablets 4mg one tab by Unknown Mesylate 0000 mouth daily Potassium / Active Tablets ER 20Meq 1 by mouth Unknown Chloride ER 0000 every day Tylenol Extra / Active Tablets 500mg prn Unknown Strength 0000 Aspirin / Active Tablets DR 81mg 1 by mouth Unknown 0000 every day Hydrocodone-A / Active Tablets 5-325mg 1 or 2 tabs Unknown cetaminophen 0000 by mouth every 6-8 hours as needed for pain Metoprolol / Active Tablets 25mg 1 by mouth Unknown Tartrate 0000 twice a day Warfarin / Active Tablets 4mg take 2 Unknown Sodium 0000 tablet daily Brilinta 07/15/ Hx Tablets 60mg 60tabs 1 tab by Tam 2016 - mouth twice [facility] [place] 10[place]21/ a day Howie, 2018 [facility] Ibuprofen /00/ Hx Tablets 200mg as needed Unknown 0000 - 2015 Lisinopril-Hy 00/ Hx Tablets 20-12.5mg 1 by mouth Unknown drochlorothia 0000 - daily zide 2017 Atenolol 00/ Hx Tablets 100mg 1 by mouth Unknown 0000 - every day 2017 Pravastatin / Hx Tablets 40mg 1 tablet E78.5 Unknown Sodium 0000 - daily at 09/07/ bedtime 2015 Amlodipine 00/ Hx Tablets 10mg 1 by mouth Unknown Besylate 0000 - every day 2017 Furosemide 00/ Hx Tablets 40mg 150tab 1 by mouth Unknown 0000 - s alternating 08/08/ with 2 by 2015 mouth a day Brilinta / Hx Tablets 90mg 1 tab by Unknown 0000 - mouth twice a day 2016 Amiodarone / Hx Tablets 200mg 30tabs 1 by mouth Tam HCL 0000 - every day Rafa, 02/24/ for 30 days M.Richie, 2018 [facility], [facility] Vital Signs Date Vital Result Comment 02/25/2018 Height 67 inches 5'7" Weight 268.00 lb w/ shoes Heart Rate 104 /min BP Systolic Sitting 144 mmHg lue lg cuff BP Diastolic Sitting 98 mmHg lue lg cuff BP Systolic Standing 132 mmHg lue lg cuff BP Diastolic Standing 88 mmHg lue lg cuff BMI (Body Mass Index) 42.0 kg/m2 Ejection Fraction 50-55% 02/10/18 02/04/2018 Height 67 inches 5'7" Weight 317.00 lb w/ shoes Heart Rate 106 /min BP Systolic Sitting 150 mmHg lue lg cuff BP Diastolic Sitting 72 mmHg lue lg cuff BP Systolic Standing 148 mmHg lue lg cuff BP Diastolic Standing 82 mmHg lue lg cuff Respiratory Rate 26 /min BMI (Body Mass Index) 49.6 kg/m2 Ejection Fraction 50-55% echo 01/30/18 01/29/2018 Height 67 inches 5'7" Weight 308.00 [...] Result H/L Range Note Basic Metabolic Panel 02/04/2018 Sodium 145 mmol/L 139-145 Potassium 3.9 mmol/L 3.5-5.0 Chloride 104 mmol/L 101-111 Co2 Carbon Dioxide 36 mmol/L High 22-32 Anion Gap 5 mmol/L 2-11 Glucose 136 mg/dL High 70-100 Blood Urea Nitrogen 17 mg/dL 6-24 Creatinine 0.85 mg/dL 0.67-1.17 BUN/Creatinine Ratio 20.0 8-20 Calcium 9.1 mg/dL 8.6-10.3 Egfr Non- 93.6 >60 Egfr 120.4 >60 1 CBC Auto Diff 02/04/2018 White Blood Count 8.0 10^3/uL 3.5-10.8 Red Blood Count 3.81 10^6/uL Low 4.0-5.4 Hemoglobin 10.3 g/dL Low 14.0-18.0 Hematocrit 33 % Low 42-52 Mean Corpuscular Volume 85 fL 80-94 Mean Corpuscular Hemoglobin 27 pg 27-31 Mean Corpuscular HGB Conc 32 g/dL 31-36 Red Cell Distribution Width 17 % High 10.5-15 Platelet Count 353 10^3/uL 150-450 Mean Platelet Volume 7.9 um3 7.4-10.4 Abs Neutrophils 4.9 10^3/uL 1.5-7.7 Abs Lymphocytes 2.2 10^3/uL 1.0-4.8 Abs Monocytes 0.7 10^3/uL 0-0.8 Abs Eosinophils 0.2 10^3/uL 0-0.6 Abs Basophils 0.1 10^3/uL 0-0.2 Abs Nucleated RBC 0 10^3/uL Granulocyte % 60.8 % 38-83 Lymphocyte % 27.2 % 25-47 Monocyte % 8.9 % High 0-7 Eosinophil % 2.2 % 0-6 Basophil % 0.9 % 0-2 Nucleated Red Blood Cells % 0.1 Inr/Protime 02/04/2018 Inr 2.90 High 0.77-1.02 Basic Metabolic Panel 01/30/2018 Sodium 144 mmol/L 139-145 Potassium 4.2 mmol/L 3.5-5.0 Chloride 105 mmol/L 101-111 Co2 Carbon Dioxide 34 mmol/L High 22-32 Anion Gap 5 mmol/L 2-11 Glucose 109 mg/dL High 70-100 Blood Urea Nitrogen 13 mg/dL 6-24 Creatinine 0.78 mg/dL 0.67-1.17 BUN/Creatinine Ratio 16.7 8-20 Calcium 9.0 mg/dL 8.6-10.3 Egfr Non- 103.3 >60 Egfr 132.9 >60 2 Laboratory test finding 01/30/2018 B-Type Natriuretic 257 pg/mL High 3 Peptide BNP Basic Metabolic Panel 12/19/2017 Sodium 144 mmol/L 139-145 Potassium 3.8 mmol/L 3.5-5.0 Chloride 103 mmol/L 101-111 Co2 Carbon Dioxide 36 mmol/L High 22-32 Anion Gap 5 mmol/L 2-11 Glucose 119 mg/dL High 70-100 Blood Urea Nitrogen 16 mg/dL 6-24 Creatinine 0.76 mg/dL 0.67-1.17 BUN/Creatinine Ratio 21.1 High 8-20 Calcium 9.1 mg/dL 8.6-10.3 Egfr Non- 106.5 >60 Egfr 136.9 >60 4 Cath Panel 12/16/2017 Partial Thrombo Time PTT [...] Egfr Non- 123.2 >60 Egfr 158.4 >60 5 Basic Metabolic Panel 12/05/2017 Sodium 144 mmol/L 139-145 Potassium 3.7 mmol/L 3.5-5.0 Chloride 107 mmol/L 101-111 Co2 Carbon Dioxide 30 mmol/L 22-32 Anion Gap 7 mmol/L 2-11 Glucose 151 mg/dL High 70-100 Blood Urea Nitrogen 15 mg/dL 6-24 Creatinine 0.78 mg/dL 0.67-1.17 BUN/Creatinine Ratio 19.2 8-20 Calcium 8.9 mg/dL 8.6-10.3 Egfr Non- 103.3 >60 Egfr 132.9 >60 6 CBC Auto Diff 10/03/2016 White Blood Count 11.7 10^3/uL High 3.5-10.8 7 Red Blood Count 5.10 10^6/uL 4.0-5.4 7 Hemoglobin 15.3 g/dL 14.0-18.0 7 Hematocrit 45 % 42-52 7 Mean Corpuscular Volume 89 fL 80-94 7 Mean Corpuscular Hemoglobin 30 pg 27-31 7 Mean Corpuscular HGB Conc 34 g/dL 31-36 7 Red Cell Distribution Width 14 % 10.5-15 7 Platelet Count 246 10^3/uL 150-450 7 Mean Platelet Volume 10 um3 7.4-10.4 7 Abs Neutrophils 6.2 10^3/uL 1.5-7.7 7 Abs Lymphocytes 4.2 10^3/uL 1.0-4.8 7 Abs Monocytes 0.7 10^3/uL 0-0.8 7 Abs Eosinophils 0.5 10^3/uL 0-0.6 7 Abs Basophils 0.1 10^3/uL 0-0.2 7 Abs Nucleated RBC 0.01 10^3/uL 7 Granulocyte % 53.1 % 38-83 7 Lymphocyte % 35.8 % 25-47 7 Monocyte % 6.1 % 1-9 7 Eosinophil % 4.3 % 0-6 7 Basophil % 0.7 % 0-2 7 Nucleated Red Blood Cells % 0.1 7 Comp Metabolic Panel 10/03/2016 Sodium 140 mmol/L 133-145 7 Potassium 3.6 mmol/L 3.5-5.0 7 Chloride 105 mmol/L 101-111 7 Co2 Carbon Dioxide 26 mmol/L 22-32 7 Anion Gap 9 mmol/L 2-11 7 Glucose 302 mg/dL High 70-100 7 Blood Urea Nitrogen 18 mg/dL 6-24 7 Creatinine 0.77 mg/dL 0.67-1.17 7 BUN/Creatinine Ratio 23.4 High 8-20 7 Calcium 9.3 mg/dL 8.6-10.3 7 Total Protein 7.0 g/dL 6.4-8.9 7 Albumin 3.9 g/dL 3.2-5.2 7 Globulin 3.1 g/dL 2-4 7 Albumin/Globulin Ratio 1.3 1-3 7 Total Bilirubin 0.60 mg/dL 0.2-1.0 7 Alkaline Phosphatase 63 U/L 34-104 7 Alt 19 U/L 7-52 7 Ast 15 U/L 13-39 7 Egfr Non- 105.3 >60 7 Egfr 135.4 >60 7, 8 Lipid Profile (Trig/Chol/HDL) 10/03/2016 Triglycerides 206 mg/dL 7, 9 Cholesterol 155 mg/dL 7, 10 HDL Cholesterol 31.6 mg/dL 7, 11 LDL Cholesterol 82 mg/dL 7, 12 Laboratory test finding 10/03/2016 TSH (Thyroid Stim 1.85 mcIU/mL 0.34- 5.60 7, 13 Horm) PSA Screening 0.279 ng/mL 0-4.000 7, 14 Hemoglobin A1c (Glyco HGB) 11.1 % High Less than 6.0 7, 15 Basic Metabolic Panel 05/02/2016 Sodium 137 mmol/L 133-145 Potassium 3.7 mmol/L 3.5-5.0 Chloride 101 mmol/L 101-111 Co2 Carbon Dioxide 27 mmol/L 22-32 Anion Gap 9 mmol/L 2-11 Glucose 427 mg/dL High 70-100 Blood Urea Nitrogen 16 mg/dL 6-24 Creatinine 0.88 mg/dL 0.67-1.17 BUN/Creatinine Ratio 18.2 8-20 Calcium 9.5 mg/dL 8.6-10.3 Egfr Non- 90.6 >60 Egfr 116.5 >60 16 CBC Auto Diff 04/28/2016 White Blood Count [...] 150-450 Mean Platelet Volume 10 um3 7.4-10.4 Cath Panel 04/28/2016 Partial Thrombo Time PTT 28.9 seconds 26.0-36.3 Inr/Protime 04/28/2016 Inr 0.99 0.89-1.11 Basic Metabolic [...] Egfr Non- 114.2 >60 Egfr 146.9 >60 17 Laboratory test finding 04/28/2016 B-Type Natriuretic Peptide 91 pg/mL 18, 19 BNP Lipid Profile 04/28/2016 Triglycerides 228 mg/dL 18, 20 (Trig/Chol/HDL) Cholesterol 155 mg/dL 18, 21 HDL Cholesterol 32.5 mg/dL 18, 22 LDL Cholesterol 77 mg/dL 18, 23 Laboratory test finding 04/28/2016 Ast 19 U/L 13-39 18, 24 Alt 23 U/L 7-52 18, 25 Basic Metabolic Panel 04/04/2016 Sodium 137 mmol/L 133-145 Potassium 3.9 mmol/L 3.5-5.0 Chloride 102 mmol/L 101-111 Co2 Carbon Dioxide 26 mmol/L 22-32 Anion Gap 9 mmol/L 2-11 Glucose 369 mg/dL High 70-100 Blood Urea Nitrogen 16 mg/dL 6-24 Creatinine 0.76 mg/dL 0.67-1.17 BUN/Creatinine Ratio 21.1 High 8-20 Calcium 9.3 mg/dL 8.6-10.3 Egfr Non- 107.3 >60 Egfr 138.0 >60 26 Basic Metabolic Panel 03/30/2016 Sodium 143 mmol/L 133-145 Potassium 4.0 mmol/L 3.5-5.0 Chloride 105 mmol/L 101-111 Co2 Carbon Dioxide 30 mmol/L 22-32 Anion Gap 8 mmol/L 2-11 Glucose 168 mg/dL High 70-100 Blood Urea Nitrogen 19 mg/dL 6-24 Creatinine 0.90 mg/dL 0.67-1.17 BUN/Creatinine Ratio 21.1 High 8-20 Calcium 9.4 mg/dL 8.6-10.3 Egfr Non- 88.3 >60 Egfr 113.5 >60 27 Inr/Protime 03/30/2016 Inr 1.06 0.89-1.11 CBC Auto Diff 03/30/2016 White Blood Count [...] 0-2 Nucleated Red Blood Cells % 0.1 Cath Panel 03/30/2016 Partial Thrombo Time 31.8 seconds 26.0-36.3 28 PTT Laboratory test finding 03/17/2015 Blood Urea Nitrogen BUN 15 mg/dL 6-24 Creatinine 03/17/2015 Creatinine 0.73 mg/dL 0.67-1.17 Egfr Non- 112.8 >60 Egfr 145.1 >60 29 Laboratory test finding 03/11/2015 Blood Urea Nitrogen BUN 12 mg/dL 6-24 Creatinine 03/11/2015 Creatinine 0.58 mg/dL Low 0.67-1.17 Egfr Non- 147.1 >60 Egfr 189.2 >60 30 1 Because ethnic data is not always [...] 5 Kidney failure <15 (or dialysis) 3 >100 to <200 pg/mL: likely compensated congestive heart failure (CHF) 200 to 400 pg/mL: likely moderate CHF >400 pg/mL: likely moderate to severe CHF 4 Because ethnic data is not always [...] 5 Kidney failure <15 (or dialysis) 5 Because ethnic data is not always [...] 5 Kidney failure <15 (or dialysis) 6 Because ethnic data is not always readily [...] 15-29 5 Kidney failure <15 (or dialysis) 7 [id number] Because ethnic data is not always readily [...] 15-29 5 Kidney failure <15 (or dialysis) 9 Desirable <150 Borderline high 150-199 High 200-499 Very High >500 10 Desirable <200 Borderline high 200-239 High >239 11 Low <40 Desirable: 40-60 High: >60 12 Desirable: <100 mg/dL Near Optimal: 100-129 mg/dL Borderline High: 130-159 mg/dL High: 160-189 mg/dL Very High: >189 mg/dL 13 [id number] Serum levels of PSA measured using the Cody Leonidas DXI Hybritech immunoassay should not be interpreted [...] methods or kits cannot be used interchangeably. 15 Therapeutic target for the treatment of diabetes Mellitus patients is <7% HBA1C, and in selective patients <6.0%.Please refer to [place] [employer] Diabetic care guidelines for further information. 16 Because ethnic data is not always readily [...] 15-29 5 Kidney failure <15 (or dialysis) 17 Because ethnic data is not always readily [...] 15-29 5 Kidney failure <15 (or dialysis) 18 to be drawn after 2 weeks on the increased furosemide. copy to Dr. Elijah mcleod Assess for rnalinsu 19 >100 to <200 pg/mL: likely compensated congestive heart failure (CHF) 200 to 400 pg/mL: likely moderate CHF >400 pg/mL: likely moderate to severe CHF 20 Desirable <150 Borderline high 150-199 High 200-499 Very High >500 21 Desirable <200 Borderline high 200-239 High >239 22 Low <40 Desirable: 40-60 High: >60 23 Desirable: <100 mg/dL Near Optimal: 100-129 mg/dL Borderline High: 130-159 mg/dL High: 160-189 mg/dL Very High: >189 mg/dL 24 to be drawn after 2 weeks on the increased furosemide. copy to Dr. Elijah hercules. Assess for rnalinsufficiency on increased diuretic and assess choles terol.. 25 to be drawn after 2 weeks on the increased furosemide. copy to Dr. Elijah hercules. Assess for rnalinsufficiency on increased diuretic and assess choles terol.. 26 Because ethnic data is not always [...] 15-29 5 Kidney failure <15 (or dialysis) 28 to be done no sooner than 4 days before cath. 29 Because ethnic data is not always readily [...] 15-29 5 Kidney failure <15 (or dialysis) 30 Because ethnic data is not always readily [...] dialysis) Procedures Date CPT Code Description Status 02/25/2018 04610 EKG Tracing & Interpretation Completed 02/10/2018 15339 Echocardiogram, Limited Study Completed 02/07/2018 94109 Echocardiogram, Limited Study Completed 02/07/2018 13502 Thoracentesis W/ Img Guidance Completed 01/30/2018 42647 ECHO Transthorasic Realtime 2D W Doppler & Color Flow Completed Hosp 01/30/2018 61491 ECHO Transthorasic Realtime 2D W Doppler & Color Flow Completed Hosp 01/29/2018 06590 EKG Tracing & Interpretation Completed 12/17/2017 26239 RT & LT HRT Cath W/Inj For Ventriculography I/S And Completed Interp If Don 12/12/2017 45727 EKG Tracing & Interpretation Completed 12/11/2017 37534 ECHO Transthorasic Realtime 2D W Doppler & Color Flow Completed Hosp 02/06/2017 72452 ECHO Transthorasic Realtime 2D W Doppler & Color Flow Completed Hosp 05/09/2016 97772 EKG Tracing & Interpretation Completed 05/01/2016 51101 EKG, Interpretation Only Completed 04/30/2016 36669 Percutaneous Transcatheter Placement Of Intracoronary Completed Stent 04/30/2016 90390 EKG, Interpretation Only Completed 04/30/2016 19928 Intravascular Blood Flow Velocity Completed 04/10/2016 85869 Color Flow Doppler/Interp & Reprt Completed 04/10/2016 51665 Pulse Wave/Continuous-Interp.RPT Completed 04/10/2016 95442 Echocardiography, Transesophageal, Real Time W/Image 2D Completed W/W/O M-M 04/02/2016 98176 RT & lt Cath W/Injx HRT Art&L Ventr Img S&I Completed 03/06/2016 17682 Treadmill Interp/Report Only Completed 03/06/2016 49686 Stress Test Supervsn W/Out I/R Completed 02/15/2016 85451 EKG Tracing & Interpretation Completed 01/26/2016 73692 ECHO Transthorasic Realtime 2D W Doppler & Color Flow Completed Hosp 09/12/2015 67499 EKG Tracing & Interpretation Completed 02/23/2015 04176 Treadmill Interp/Report Only Completed 02/23/2015 58173 Stress Test Supervsn W/Out I/R Completed 02/15/2015 15766 ECHO Transthorasic Realtime 2D W Doppler & Color Flow Completed Hosp 02/14/2015 33383 EKG Tracing & Interpretation Completed Encounters Type Date Location Provider CPT E/M Dx Office Visit 02/09/2018 [facility] nathalia Babcock, 81754 I50.31 8:44a Silvestre Denise I48.92 E11.9 Z79.4 J91.8 J96.11 Office Visit 02/08/2018 8:43a [facility] Una Webster 55407 I50.31 nathalia Babcock M.D. I48.92 E11.9 Z79.4 J96.11 J91.8 Office Visit 02/07/2018 11:09a [facility] Tam Craig M.D., 12567 I48.92 [employer] Manager AT [facility] J90 Office Visit 02/07/2018 8:42a [facility] Una Webster, 99584 I50.31 Assoc,pc Hospitalists M.Richie I48.92 E11.9 Z79.4 J96.11 Office Visit 02/07/2018 11:59a [facility] [address] R06.02 Services Of [employer] Manager R09.02 J90 R60.0 Z87.891 Office Visit 02/06/2018 8:41a [facility] Una Darin, 61502 I50.31 Assoc,pc Hospitalists MBerna J96.11 I48.92 J90 E11.9 Z79.4 Office Visit 02/05/2018 8:39a [facility] Una Hohn, 72188 J96.11 Assoc,pc Hospitalists MBerna J90 I48.92 E11.9 I50.31 Z79.4 Office Visit 02/05/2018 8:25a [facility] Codi Craig M.D., 27879 I50.9 [employer] Manager AT [facility], [facility] J90 I48.92 Office Visit 02/05/2018 11:50a [facility] [place] [address] R06.02 Services Of [employer] Manager R09.02 J90 G47.33 Office Visit 02/04/2018 8:35a [facility] Una Darin, 29929 J96.11 Assoc, Hospitalists Howie J90 I50.31 I48.92 E11.9 Z79.4 Office Visit 02/04/2018 2:20p [facility] Codi Craig M.D., 60773 R06.02 [employer]ass Plant Manager AT [facility], [facility] J90 Office Visit 01/30/2018 10:43a [facility] Edvin Santiago, 34620 R06.00 Howie R94.39 Z95.2 Office Visit 01/29/2018 1:40p [facility] Codi Craig M.D., 65755 Z95.2 [employer] Plant Manager AT [facility], [facility] R06.02 I25.10 I48.3 Office Visit 12/18/2017 [facility] 22265 I50.33 Assoc, Hospitalists Howie I35.0 E11.9 E78.5 Office Visit 12/18/2017 2:04p [facility] Tam Craig M.D., 57689 I35.0 [employer] Manager AT [facility], [facility] I50.9 Office Visit 12/17/2017 [facility] 49252 I50.33 Assoc, Hospitalists Howie I35.0 E11.9 E78.5 Office Visit 12/17/2017 11:30a [facility] Codi Craig M.D., 80559 R93.1 [employer]ass [employer] Manager AT [facility], [facility] I35.0 I50.9 Office Visit 12/12/2017 8:40a [facility] Codi Craig M.D., 25294 I35.0 [employer]ass Plant Manager AT [facility], [facility] I25.10 I71.2 Office Visit 07/15/2017 8:20a [facility] Codi Craig M.D., 48287 I35.0 [employer]ass Plant Manager AT [facility], [facility] I25.110 I71.2 Office Visit 12/19/2016 8:20a [facility] Codi Craig M.D., 91178 I25.110 [employer]ass Plant Manager AT [facility], [facility] I10 E78.5 Z72.0 I35.0 I77.810 Office Visit 05/09/2016 3:00p [facility] Codi Craig M.D., 74700 I35.0 [employer]ass Plant Manager AT [facility], [facility] I10 I25.110 E78.5 Z72.0 Office Visit 04/09/2016 3:20p [facility] Codi Craig M.D., 75303 I35.0 [employer]ass [employer] Manager AT [facility], [facility] I25.9 I10 E78.5 I25.10 Office Visit 02/15/2016 9:20a [facility] Codi Craig M.D., 94694 I35.0 [facility] AT [facility], [facility] I77.810 I10 Office Visit 09/12/2015 10:00a [facility] Codi Craig M.D., 14342 I35.0 [facility] AT [facility], [facility] I10 I77.810 Office Visit 03/23/2015 3:45p [facility] Codi Craig M.D., 91587 424.1 [employer]ass Plant Manager AT [facility], [facility] 401.1 447.71 Office Visit 02/28/2015 3:00p [facility] Codi Craig M.D., 27451 786.05 [facility] AT [facility], [facility] 424.1 401.1 272.4 447.71 Office Visit 02/14/2015 9:00a [facility] Codi Craig M.D., 83045 424.1 [facility] AT [facility], [facility] 401.1 272.4 786.05 Plan of Care Future Appointment(s):03/31/2018 3:00 pm - Tam Craig M.D., [facility], [facility] [place] - Tam Craig M.D., [facility], [id number] Disease of pericardium, unspecifiedNew Orders:EchocardiogramComments:Now feeling better after the pericardial fluid was removed from around your heart.Recommendations:We will schedule a repeat echocardiogram next week to reassess this.Z95.2 Presence of prosthetic heart valveComments:Your prosthetic aortic valve sounds xfmwyaR56.10 [place]cl heart disease [place] coronary artery w/o ang pctrsComments:You currently do not have any significant symptoms of progressive coronary artery disease.Follow up:1 monthRecommendations:Continue current medications and watch carefully for symptoms as we [id number] Typical atrial flutterNew Medication:Amiodarone HCL 200 mgComments:You are still in the atrial flutter rhythm.Recommendations:We will have you continue your Coumadin for now. After 4 weeks of appropriate level of anticoagulation, we will consider an outpatient electrical cardioversion.
--- OUTSIDE RECORDS SUMMARY | 2018-03-09 19:01 | XMS REPORT ---
:1960 External Reference #:[id number] Author Organization [facility] Address [address] [facility]/[address] [place] [address] Phone [phone] Care Team Providers Name Role Phone Charles Hancock MD Care Team Information Supervisor [facility] Nursing Unavailable Charles Hancock MD Primary Care Physician Unavailable Payers Type Date Identification Numbers Payment Provider Subscriber Commercial Effective: Policy Number: BS [place] [employer] Jerrica Watson 2017 [id number] PayID: [id number] [address] [address] [place] [address] Problems Date Description Provider Status Onset: 10/24/2016 Tobacco user Jesus SolisP Active Onset: 10/24/2016 Chronic obstructive lung disease Jesus SolisP Active Onset: 10/24/2016 Type II diabetes mellitus uncontrolled Na Solisy SPECIAL ORDER JEWELER Active Onset: 10/24/2016 Essential hypertension Jesus SolisP [...] Form Strength Qnty SIG Indications Ordering Provider Aspir-81 02/21/ Active Tablets 81mg OTC 1 by mouth I35.0 Santi, 2017 DR krzysztof Whiteside, morning M.D. Portable 02/21/ Active 2 L/min I31.3 Santi, Oxygen 2018 Charles Whiteside, Concentrator M.DCharles Coumadin 01/22/ Active Tablets 2mg 90tabs 1-2 tab by I48.2 Santi, 2017 mouth every Charles Whiteside, day M.D. Brilinta 10/21/ Active Tablets 60mg 180tab 1 by mouth E11.65 Santi, 2018 s twice a sarah Cosme-cardiolo M.Richie gy Ultra Fine 04/08/ Active 100uni use bid-tid Santi, Lancets 2017 ts Charles Whiteside M.D. Miguel Contour 04/08/ Active Strips 100uni use one E11.65 Santi, Next Blood 2016 ts strip to Charles Whiteside, Glucose Test check M.DCharles glucose twice daily Contour Next 02/07/ Active Kit 1units FS Qac And E11.65 Santi, One Blood 2016 hs And prn Charles Whiteside, Glucose E11.65 M.DCharles Monitoring System Cpap 04/05/ Active cpap mask, G47.33 Santi, 2015 head gear, Charles Whiteside, tubing, Howie filters, humidifier chamber with 1 refill [id number] Furosemide 02/06/ Active Tablets 40mg 90tabs 1 tab by R60.0 Santi, 2015 mouth every Charles Whiteside, day M.DCharles I50.20 Klor-Con M20 02/07/2016 Active Tablets ER 20Meq 90tabs 1 by mouth R60.0 Santi, Ahmad every day M., M.D. I50.20 BD Pen 01/10/2016 Active Misc 31G 100units use as . Santi, Needle/Short/Ultrafine/31G X 8 directed Ahmad X 5/16" mm M., M.D. Doxazosin Mesylate Active Table 4mg 90tabs 1 tab by R35.1 Santi, ts mouth Ahmad every M., night M.D. N40.1 R97.20 Lantus Active Solution 100Unit/ML 75units 85 units E11. Santi, Solostar Pen-Inject every in Ahmad the [...] - Hx Strips 75units fs twice a .65 Santi, Blood Glucose 04/08/2017 day and as Ahmad M., Test Strips needed M.D. pv Pen Tichnor 01/05/2016 - Hx FS Qac And . Santi, 8mm 31G 01/10/2016 hs And roman Whiteside M.D. Vital Signs Date Vital Result Comment 02/21/2018 BP Systolic 126 mmHg BP Diastolic 88 mmHg Height 67 inches 5'7" Weight 259.00 lb BMI (Body Mass Index) 40.6 kg/m2 Heart Rate 103 /min Respiratory Rate 16 /min 01/14/2018 BP Systolic 140 mmHg BP Diastolic [...] Test Date Test Result H/L Range Note Laboratory test finding 02/04/2018 Troponin-I (TnI) 0.03 ng/mL <0.04 CBC Auto Diff 02/04/2018 White Blood Count 9.3 10^3/uL 3.5-10.8 Red Blood Count 3.71 10^6/uL Low 4.0-5.4 Hemoglobin 10.2 g/dL Low 14.0-18.0 Hematocrit 32 % Low 42-52 Mean Corpuscular Volume 85 fL 80-94 Mean Corpuscular Hemoglobin 27 pg 27-31 Mean Corpuscular HGB Conc 32 g/dL 31-36 Red Cell Distribution Width 17 % High 10.5-15 Platelet Count 363 10^3/uL 150-450 Mean Platelet Volume 7.6 um3 7.4-10.4 Abs Neutrophils 5.3 10^3/uL 1.5-7.7 Abs Lymphocytes 2.9 10^3/uL 1.0-4.8 Abs Monocytes 0.8 10^3/uL 0-0.8 Abs Eosinophils 0.2 10^3/uL 0-0.6 Abs Basophils 0.1 10^3/uL 0-0.2 Abs Nucleated RBC 0 10^3/uL Granulocyte % 57.2 % 38-83 Lymphocyte % 31.3 % 25-47 Monocyte % 8.5 % High 0-7 Eosinophil % 1.8 % 0-6 Basophil % 1.2 % 0-2 Nucleated Red Blood Cells % 0.1 Laboratory test finding 02/04/2018 B-Type Natriuretic Peptide BNP 245 pg/mL High 1 Lactic Acid 1.6 mmol/L 0.5-2.0 2 Comp Metabolic Panel 02/04/2018 Sodium 145 mmol/L 139-145 Potassium 4.0 mmol/L 3.5-5.0 Chloride 104 mmol/L 101-111 Co2 Carbon Dioxide 36 mmol/L High 22-32 Anion Gap 5 mmol/L 2-11 Glucose 133 mg/dL High 70-100 Blood Urea Nitrogen 15 mg/dL 6-24 Creatinine 0.86 mg/dL 0.67-1.17 BUN/Creatinine Ratio 17.4 8-20 Calcium 8.7 mg/dL 8.6-10.3 Total Protein 7.2 g/dL 6.4-8.9 Albumin 3.5 g/dL 3.2-5.2 Globulin 3.7 g/dL 2-4 Albumin/Globulin Ratio 0.9 Low 1-3 Total Bilirubin 0.50 mg/dL 0.2-1.0 Alkaline Phosphatase 66 U/L 34-104 Alt 9 U/L 7-52 Ast 15 U/L 13-39 Egfr Non- 92.3 >60 Egfr 118.7 >60 3 Laboratory test finding 02/04/2018 Troponin-I (TnI) 0.01 ng/mL <0.04 CBC Auto Diff 02/04/2018 White Blood Count [...] Inr 2.90 High 0.77-1.02 Basic Metabolic Panel 02/04/2018 Sodium 145 mmol/L 139-145 Potassium 3.9 mmol/L 3.5-5.0 Chloride 104 mmol/L 101-111 Co2 Carbon Dioxide 36 mmol/L High 22-32 Anion Gap 5 mmol/L 2-11 Glucose 136 mg/dL High 70-100 Blood Urea Nitrogen 17 mg/dL 6-24 Creatinine 0.85 mg/dL 0.67-1.17 BUN/Creatinine Ratio 20.0 8-20 Calcium 9.1 mg/dL 8.6-10.3 Egfr Non- 93.6 >60 Egfr 120.4 >60 4 Basic Metabolic Panel 12/19/2017 Sodium 144 mmol/L 139-145 Potassium 3.8 mmol/L 3.5-5.0 Chloride 103 mmol/L 101-111 Co2 Carbon Dioxide 36 mmol/L High 22-32 Anion Gap 5 mmol/L 2-11 Glucose 119 mg/dL High 70-100 Blood Urea Nitrogen 16 mg/dL 6-24 Creatinine 0.76 mg/dL 0.67-1.17 BUN/Creatinine Ratio 21.1 High 8-20 Calcium 9.1 mg/dL 8.6-10.3 Egfr Non- 106.5 >60 Egfr 136.9 >60 5 CBC Auto Diff 12/16/2017 White Blood Count [...] Egfr Non- 123.2 >60 Egfr 158.4 >60 6 Laboratory test finding 10/21/2017 Vitamin D Total 25(Oh) 10.7 ng/mL Low 20-50 7, 8 PSA Free And Total 10/21/2017 PSA Total 0.40 ng/mL <=3.5 7 PSA Free <0.1 ng/mL 7 PSA Free/Total See Comment ratio 7, 9 Lipid Profile (Trig/Chol/HDL) 10/21/2017 Triglycerides 79 mg/dL 7, 10 Cholesterol 127 mg/dL 7, 11 HDL Cholesterol 29.0 mg/dL 7, 12 LDL Cholesterol 82 mg/dL 7, 13 Laboratory test finding 10/21/2017 Hemoglobin A1c (Glyco 7.6 % High 4.0- 5.6 7, 14 HGB) TSH (Thyroid Stim Horm) 3.17 mcIU/mL 0.34-5.60 7, 15 Comp Metabolic Panel 10/21/2017 Sodium 143 mmol/L 133-145 7 Potassium 3.7 mmol/L 3.5-5.0 7 Chloride 107 mmol/L 101-111 7 Co2 Carbon Dioxide 29 mmol/L 22-32 7 Anion Gap 7 mmol/L 2-11 7 Glucose 101 mg/dL High 70-100 7 Blood Urea Nitrogen 15 mg/dL 6-24 7 Creatinine 0.67 mg/dL 0.67-1.17 7 BUN/Creatinine Ratio 22.4 High 8-20 7 Calcium 9.1 mg/dL 8.6-10.3 7 Total Protein 6.8 g/dL 6.4-8.9 7 Albumin 3.7 g/dL 3.2-5.2 7 Globulin 3.1 g/dL 2-4 7 Albumin/Globulin Ratio 1.2 1-3 7 Total Bilirubin 1.10 mg/dL High 0.2-1.0 7 Alkaline Phosphatase 55 U/L 34-104 7 Alt 16 U/L 7-52 7 Ast 18 U/L 13-39 7 Egfr Non- 123.2 >60 7 Egfr 158.4 >60 7, 16 CBC Auto Diff 10/21/2017 White Blood Count 10.6 10^3/uL 3.5-10.8 7 Red Blood Count 4.89 10^6/uL 4.0-5.4 7 Hemoglobin 14.3 g/dL 14.0-18.0 7 Hematocrit 43 % 42-52 7 Mean Corpuscular Volume 88 fL 80-94 7 Mean Corpuscular Hemoglobin 29 pg 27-31 7 Mean Corpuscular HGB Conc 33 g/dL 31-36 7 Red Cell Distribution Width 16 % High 10.5-15 7 Platelet Count 223 10^3/uL 150-450 7 Mean Platelet Volume 9 um3 7.4-10.4 7 Abs Neutrophils 6.2 10^3/uL 1.5-7.7 7 Abs Lymphocytes 3.1 10^3/uL 1.0-4.8 7 Abs Monocytes 0.8 10^3/uL 0-0.8 7 Abs Eosinophils 0.4 10^3/uL 0-0.6 7 Abs Basophils 0.1 10^3/uL 0-0.2 7 Abs Nucleated RBC 0 10^3/uL 7 Granulocyte % 58.9 % 38-83 7 Lymphocyte % 29.5 % 25-47 7 Monocyte % 7.4 % 1-9 7 Eosinophil % 3.7 % 0-6 7 Basophil % 0.5 % 0-2 7 Nucleated Red Blood Cells % 0.1 7 Laboratory test 04/08/2017 Hemoglobin A1c 7.7 % High Less than 17, 18 finding (Glyco HGB) 6.0 Urine Microalbumin 04/08/2017 Urine Creatinine 138.10 17 Random mg/dL Ur Microalbumin (mg/L) 912.7 mg/L 17 Urine Microalbumin/Creatinine 660.8 ug/mg High <31 17 CBC Auto Diff 04/08/2017 White Blood Count 11.7 10^3/uL High 3.5-10.8 17 Red Blood Count 5.10 10^6/uL 4.0-5.4 17 Hemoglobin 15.1 g/dL 14.0-18.0 17 Hematocrit 46 % 42-52 17 Mean Corpuscular Volume 89 fL 80-94 17 Mean Corpuscular Hemoglobin 30 pg 27-31 17 Mean Corpuscular HGB Conc 33 g/dL 31-36 17 Red Cell Distribution Width 14 % 10.5-15 17 Platelet Count 226 10^3/uL 150-450 17 Mean Platelet Volume 10 um3 7.4-10.4 17 Abs Neutrophils 7.0 10^3/uL 1.5-7.7 17 Abs Lymphocytes 3.7 10^3/uL 1.0-4.8 17 Abs Monocytes 0.7 10^3/uL 0-0.8 17 Abs Eosinophils 0.3 10^3/uL 0-0.6 17 Abs Basophils 0.1 10^3/uL 0-0.2 17 Abs Nucleated RBC 0 10^3/uL 17 Granulocyte % 59.4 % 38-83 17 Lymphocyte % 31.5 % 25-47 17 Monocyte % 5.8 % 1-9 17 Eosinophil % 2.4 % 0-6 17 Basophil % 0.9 % 0-2 17 Nucleated Red Blood Cells % 0 17 Comp Metabolic Panel 04/08/2017 Sodium 141 mmol/L 133-145 17 Potassium 3.7 mmol/L 3.5-5.0 17 Chloride 108 mmol/L 101-111 17 Co2 Carbon Dioxide 26 mmol/L 22-32 17 Anion Gap 7 mmol/L 2-11 17 Glucose 132 mg/dL High 70-100 17 Blood Urea Nitrogen 12 mg/dL 6-24 17 Creatinine 0.63 mg/dL Low 0.67-1.17 17 BUN/Creatinine Ratio 19.0 8-20 17 Calcium 9.1 mg/dL 8.6-10.3 17 Total Protein 7.3 g/dL 6.4-8.9 17 Albumin 4.1 g/dL 3.2-5.2 17 Globulin 3.2 g/dL 2-4 17 Albumin/Globulin Ratio 1.3 1-3 17 Total Bilirubin 0.60 mg/dL 0.2-1.0 17 Alkaline Phosphatase 58 U/L 34-104 17 Alt 18 U/L 7-52 17 Ast 17 U/L 13-39 17 Egfr Non- 132.7 >60 17 Egfr 170.7 >60 17, 19 Lipid Profile (Trig/Chol/HDL) 04/08/2017 Triglycerides 83 mg/dL 17, 20 Cholesterol 153 mg/dL 17, 21 HDL Cholesterol 36.6 mg/dL 17, 22 LDL Cholesterol 100 mg/dL 17, 23 Laboratory test 04/08/2017 TSH (Thyroid Stim 1.35 mcIU/mL 0.34-5.60 17, 24 finding Horm) PSA Screening 0.300 ng/mL 0-4.000 17, 25 Laboratory test 10/03/2016 TSH (Thyroid Stim 1.85 mcIU/mL 0.34-5.60 26, 27 finding Horm) PSA Screening 0.279 ng/mL 0-4.000 26, 28 Lipid Profile (Trig/Chol/HDL) 10/03/2016 Triglycerides 206 mg/dL 26, 29 Cholesterol 155 mg/dL 26, 30 HDL Cholesterol 31.6 mg/dL 26, 31 LDL Cholesterol 82 mg/dL 26, 32 Comp Metabolic Panel 10/03/2016 Sodium 140 mmol/L 133-145 26 Potassium 3.6 mmol/L 3.5-5.0 26 Chloride 105 mmol/L 101-111 26 Co2 Carbon Dioxide 26 mmol/L 22-32 26 Anion Gap 9 mmol/L 2-11 26 Glucose 302 mg/dL High 70-100 26 Blood Urea Nitrogen 18 mg/dL 6-24 26 Creatinine 0.77 mg/dL 0.67-1.17 26 BUN/Creatinine Ratio 23.4 High 8-20 26 Calcium 9.3 mg/dL 8.6-10.3 26 Total Protein 7.0 g/dL 6.4-8.9 26 Albumin 3.9 g/dL 3.2-5.2 26 Globulin 3.1 g/dL 2-4 26 Albumin/Globulin Ratio 1.3 1-3 26 Total Bilirubin 0.60 mg/dL 0.2-1.0 26 Alkaline Phosphatase 63 U/L 34-104 26 Alt 19 U/L 7-52 26 Ast 15 U/L 13-39 26 Egfr Non- 105.3 >60 26 Egfr 135.4 >60 26, 33 CBC Auto Diff 10/03/2016 White Blood Count 11.7 10^3/uL High 3.5-10.8 26 Red Blood Count 5.10 10^6/uL 4.0-5.4 26 Hemoglobin 15.3 g/dL 14.0-18.0 26 Hematocrit 45 % 42-52 26 Mean Corpuscular Volume 89 fL 80-94 26 Mean Corpuscular Hemoglobin 30 pg 27-31 26 Mean Corpuscular HGB Conc 34 g/dL 31-36 26 Red Cell Distribution Width 14 % 10.5-15 26 Platelet Count 246 10^3/uL 150-450 26 Mean Platelet Volume 10 um3 7.4-10.4 26 Abs Neutrophils 6.2 10^3/uL 1.5-7.7 26 Abs Lymphocytes 4.2 10^3/uL 1.0-4.8 26 Abs Monocytes 0.7 10^3/uL 0-0.8 26 Abs Eosinophils 0.5 10^3/uL 0-0.6 26 Abs Basophils 0.1 10^3/uL 0-0.2 26 Abs Nucleated RBC 0.01 10^3/uL 26 Granulocyte % 53.1 % 38-83 26 Lymphocyte % 35.8 % 25-47 26 Monocyte % 6.1 % 1-9 26 Eosinophil % 4.3 % 0-6 26 Basophil % 0.7 % 0-2 26 Nucleated Red Blood Cells % 0.1 26 Laboratory test 10/03/2016 Hemoglobin A1c 11.1 % High Less than 26, 34 finding (Glyco HGB) 6.0 Laboratory test 07/01/2016 Wound SEE RESULT 35, 36 finding Culture/Sensi BELOW MRSA/S. aureus Ssti PCR SEE RESULT BELOW 35, 37 Basic Metabolic Panel 04/28/2016 Sodium 140 mmol/L 133-145 Potassium 3.4 mmol/L Low 3.5-5.0 Chloride 105 mmol/L 101-111 Co2 Carbon Dioxide 28 mmol/L 22-32 Anion Gap 7 mmol/L 2-11 Glucose 229 mg/dL High 70-100 Blood Urea Nitrogen 15 mg/dL 6-24 Creatinine 0.72 mg/dL 0.67-1.17 BUN/Creatinine Ratio 20.8 High 8-20 Calcium 9.3 mg/dL 8.6-10.3 Egfr Non- 114.2 >60 Egfr 146.9 >60 38 Inr/Protime 04/28/2016 Inr 0.99 0.89-1.11 Laboratory test [...] 150-450 Mean Platelet Volume 10 um3 7.4-10.4 Lipid Profile (Trig/Chol/HDL) 04/28/2016 Triglycerides 228 mg/dL 39, 40 Cholesterol 155 mg/dL 39, 41 HDL Cholesterol 32.5 mg/dL 39, 42 LDL Cholesterol 77 mg/dL 39, 43 Laboratory test finding 04/28/2016 Alt 23 U/L 7-52 39, 44 Ast 19 U/L 13-39 39, 45 B-Type Natriuretic Peptide BNP 91 pg/mL 39, 46 Basic Metabolic Panel 04/04/2016 Sodium 137 mmol/L 133-145 Potassium 3.9 mmol/L 3.5-5.0 Chloride 102 mmol/L 101-111 Co2 Carbon Dioxide 26 mmol/L 22-32 Anion Gap 9 mmol/L 2-11 Glucose 369 mg/dL High 70-100 Blood Urea Nitrogen 16 mg/dL 6-24 Creatinine 0.76 mg/dL 0.67-1.17 BUN/Creatinine Ratio 21.1 High 8-20 Calcium 9.3 mg/dL 8.6-10.3 Egfr Non- 107.3 >60 Egfr 138.0 >60 47 Basic Metabolic Panel 02/07/2016 Sodium 140 mmol/L 133-145 48 Potassium 3.7 mmol/L 3.5-5.0 48 Chloride 103 mmol/L 101-111 48 Co2 Carbon Dioxide 30 mmol/L 22-32 48 Anion Gap 7 mmol/L 2-11 48 Glucose 161 mg/dL High 70-100 48 Blood Urea Nitrogen 17 mg/dL 6-24 48 Creatinine 0.74 mg/dL 0.67-1.17 48 BUN/Creatinine Ratio 23.0 High 8-20 48 Calcium 9.0 mg/dL 8.6-10.3 48 Egfr Non- 110.6 >60 48 Egfr 142.3 >60 48, 49 Urinalysis Profile 02/02/2016 Urine Color Yellow Urine Appearance Clear Urine Specific [place] 1.015 1.010-1.030 Urine pH 6.0 5-9 Urine [...] High 10-223 Troponin-I (TnI) 0.01 ng/mL <0.03 50 C Reactive Protein 7.71 mg/L High < 5.00 51 Comp Metabolic Panel 02/02/2016 Sodium 140 mmol/L [...] Egfr Non- 130.8 >60 Egfr 168.2 >60 52 Laboratory test 02/02/2016 B-Type Natriuretic 250 pg/mL High 53 finding Peptide BNP CBC Auto Diff 02/02/2016 [...] seconds 26.0-36.3 Lactic Acid 0.9 mmol/L 0.5-2.0 54 1 >100 to <200 pg/mL: likely compensated congestive heart failure (CHF) 200 to 400 pg/mL: likely moderate CHF >400 pg/mL: likely moderate to severe CHF 2 [place] Severe Sepsis and Septic Shock Management Bundle Measure requires all lactic acids initially measuring >2.0 mmol/L be repeated. 3 Because ethnic data is not always [...] 5 Kidney failure <15 (or dialysis) 4 Because ethnic data is not always [...] 5 Kidney failure <15 (or dialysis) 7 [id number] Ratio was not calculated because free PSA [...] absence of malignant disease. Test Performed by: [facility] [employer] [facility] [address] [place] [address] 10 Desirable: <150 Borderline High: 150-199 High: 200-499 Very High: >500 11 Desirable: <200 Borderline High: 200-239 High: >239 12 Low: <40 Desirable: 40-60 High: >60 13 Desirable: <100 Near Optimal: 100-129 Borderline High: 130-159 High: 160-189 Very High: >189 14 Therapeutic target for the treatment of diabetes mellitus patients is <7% HBA1C, and in selective patients <6.0%. Please refer to [place] [employer] diabetic care guidelines for further information. 15 [id number] 16 Because ethnic data is not always [...] 5 Kidney failure <15 (or dialysis) 17 [id number] 18 Therapeutic target for the treatment of diabetes Mellitus patients is <7% HBA1C, and in selective patients <6.0%.Please refer to [place] [employer] Diabetic care guidelines for further information. 19 Because ethnic data is not always readily [...] 15-29 5 Kidney failure <15 (or dialysis) 20 Desirable <150 Borderline high 150-199 High 200-499 Very High >500 21 Desirable <200 Borderline high 200-239 High >239 22 Low <40 Desirable: 40-60 High: >60 23 Desirable: <100 mg/dL Near Optimal: 100-129 mg/dL Borderline High: 130-159 mg/dL High: 160-189 mg/dL Very High: >189 mg/dL 24 [id number] 25 Serum levels of PSA measured using the [employer] DailyStrength DXI Hybritech immunoassay should not be interpreted [...] methods or kits cannot be used interchangeably. 26 [id number] 27 [id number] 28 Serum levels of PSA measured using the [...] methods or kits cannot be used interchangeably. 29 Desirable <150 Borderline high 150-199 High 200-499 Very High >500 30 Desirable <200 Borderline high 200-239 High >239 31 Low <40 Desirable: 40-60 High: >60 32 Desirable: <100 mg/dL Near Optimal: 100-129 mg/dL Borderline High: 130-159 mg/dL High: 160-189 mg/dL Very High: >189 mg/dL 33 Because ethnic data is not always readily [...] 15-29 5 Kidney failure <15 (or dialysis) 34 Therapeutic target for the treatment of diabetes Mellitus patients is <7% HBA1C, and in selective patients <6.0%.Please refer to [place] [employer] Diabetic care guidelines for further information. 35 [id number] 36 SEE RESULT BELOW Name: JERRICA WATSON JR : [address]: Dale Aiken MD Acct: [id number] Unit: [id number] AGE: 56 Location: [facility] Re07/01/16 SEX: M Status: DEP ER SPEC: [id number] DIONICIO: 07/01/[address] [facility] [address]: Joy Aiken SPECIAL NEEDS CAREGIVER REQ: [id number] RECD: 07/02/16 STATUS: RES KATIAHR DR: Charles Aiken MD _ SOURCE: THIGH,LEFT SPDESC: ORDERED: MRSA/SA SSTI, Culture Stain COMMENTS: [id number] Procedure Result Reported Site MRSA/S. aureus SSTI PCR PENDING Wound/Misc Gram Stain Final 07/02/16- 1320 ML 1+ Epithelial Cells 2+ Neutrophils 2+ Gram Positive Cocci Wound/Misc Culture PENDING * ML - MAIN LAB ([facility]) . END OF REPORT * ML=Testing performed at Main Lab DEPARTMENT OF PATHOLOGY, [address] [place] [address] Israel Catherine M.D. Director [facility] # [id number] SEE RESULT BELOW Name: JERRICA WATSON JR : [address]: Dale Aiken MD Acct: [id number] Unit: [id number] AGE: 56 Location: [facility] Re07/01/16 SEX: M Status: DEP ER SPEC: [id number] DIONICIO: 07/01/[address] [facility] [address]: Joy Aiken SPECIAL NEEDS CAREGIVER REQ: [id number] RECD: 07/02/16 STATUS: RODRIGO JANE DR: Charles Aiken MD _ SOURCE: THIGH,LEFT SPDESC: ORDERED: MRSA/SA SSTI, Culture Stain COMMENTS: [id number] Procedure Result Reported Site MRSA/S. aureus SSTI [...] performed at Main Lab DEPARTMENT OF PATHOLOGY, [address] [place] [address] Israel Catherine M.D. Director [facility] # [id number] Patient: JERRICA WATSON JR [id number] (Continued) Specimen: [id number] Collected: 07/01/16-1310 Received: 07/02/16-1103 (Continued) Procedure Result [...] performed at Main Lab DEPARTMENT OF PATHOLOGY, [address] [place] [address] Israel Catherine M.D. Director [facility]ENNETH # [id number] Patient: JERRICA WATSON JR [id number] (Continued) Specimen: [id number] Collected: 07/01/16-1310 Received: 07/02/16 (Continued) Procedure Result Reported Site Wound/Misc Culture Final (continued) * These antibiotics are not available in the [facility] Formulary Contact the Microbiology Department for any additional antibiotic reporting. * ML - [facility] ([facility]) . END OF REPORT * ML=Testing performed at Main Lab DEPARTMENT OF PATHOLOGY, [address] [place] [address] Israel Catherine M.D. Director [facility] # [id number] 38 Because ethnic data is not always readily [...] 15-29 5 Kidney failure <15 (or dialysis) 39 to be drawn after 2 weeks on the increased furosemide. copy to Dr. Elijah hercules. Assess for rnalinsu 40 Desirable <150 Borderline high 150-199 High 200-499 Very High >500 41 Desirable <200 Borderline high 200-239 High >239 42 Low <40 Desirable: 40-60 High: >60 43 Desirable: <100 mg/dL Near Optimal: 100-129 mg/dL Borderline High: 130-159 mg/dL High: 160-189 mg/dL Very High: >189 mg/dL 44 to be drawn after 2 weeks on the increased furosemide. copy to Dr. Elijah mcleod Assess for rnalinsufficiency on increased diuretic and assess choles terol.. 45 to be drawn after 2 weeks on the increased furosemide. copy to Dr. Elijah hercules. Assess for rnalinsufficiency on increased diuretic and assess choles terol.. 46 >100 to <200 pg/mL: likely compensated congestive heart failure (CHF) 200 to 400 pg/mL: likely moderate CHF >400 pg/mL: likely moderate to severe CHF 47 Because ethnic data is not always readily [...] 15-29 5 Kidney failure <15 (or dialysis) 48 [id number] 49 Because ethnic data is not always readily [...] 15-29 5 Kidney failure <15 (or dialysis) 50 Reference Range and Interpretation: TnI (ng/mL) Interpretation Less Than 0.03 ng/mL Not supportive of diagnosis of HI 0.03 - 0.50 ng/mL Indeterminate: suggest serial studies if clinically indicated. Greater than 0.5 ng/mL Consistent with diagnosis of HI 51 Acute inflammation: >10.00 52 Because ethnic data is not always readily [...] 15-29 5 Kidney failure <15 (or dialysis) 53 >100 to <200 pg/mL: likely compensated congestive heart failure (CHF) 200 to 400 pg/mL: likely moderate CHF >400 pg/mL: likely moderate to severe CHF 54 [facility] Severe Sepsis and Septic Shock Management Bundle Measure requires all lactic acids initially measuring >2.0 mmol/L be repeated. Procedures Date CPT Code Description Status 10/24/2016 06769 Visual Screening Test Completed 10/24/2016 72345 EKG Completed 10/24/2016 94085 Audiometry, Bekesy, Screening Completed 01/05/2016 57950 Visual Screening Test Completed 01/05/2016 43849 Audiometry, Bekesy, Screening Completed Encounters Type Date Location Provider CPT E/M Dx Office Visit 02/21/2018 10:45a [facility] Charles Hancock M.D. 19176 E11.65 I10 J44.9 E78.2 G47.33 F17.210 E66.01 R97.20 R35.1 M54.5 N52.9 M15.9 J30.9 L20.9 H52.4 H90.6 R60.0 I35.0 I87.2 I83.92 I50.42 F41.9 N40.1 E55.9 I71.2 I48.2 I31.3 R06.02 Office Visit 01/14/2018 2:00p [facility] Charles Hancock M.D. 81953 E11.65 I10 J44.9 E78.2 G47.33 F17.210 Z68.41 E66.01 R97.20 R35.1 M54.5 N52.9 M15.9 J30.9 L20.9 H52.4 H90.6 R60.0 I35.0 I87.2 I83.92 I50.42 F41.9 N40.1 E55.9 I71.2 I48.2 Z00.01 Office Visit 10/21/2017 8:15a [facility] Charles Hancock M.D. 91360 E11.65 I10 J44.9 E78.2 G47.33 F17.210 E66.01 R97.20 R35.1 M54.5 N52.9 M15.9 J30.9 L20.9 H52.4 H90.6 R60.0 I35.0 I87.2 I83.92 I50.42 F41.9 N40.1 E55.9 I77.810 J18.9 Office Visit 07/12/2017 8:30a [facility] Charles Hancock M.D. 98201 E11.65 I10 J44.9 E78.2 G47.33 F17.210 E66.01 R97.20 R35.1 N40.0 M54.5 N52.9 I25.10 M15.9 J30.9 L20.9 H52.4 H90.6 I35.0 R60.0 I87.2 I83.92 I50.42 F41.9 Z28.20 Office Visit 04/08/2017 11:30a [facility] Jesus Solis [facility] [address]278 F17.210 J44.9 E11.65 I10 G47.33 E78.2 E66.01 R97.20 R35.1 N40.0 I50.20 Office Visit 10/24/2016 8:45a [facility] Jesus Solis [facility] [address] F17.210 J44.9 E11.65 I10 G47.33 E78.2 E66.01 Z00.01 Office Visit 10/03/2016 8:30a [facility] Jesus Solis [facility] [address] J44.9 E11.65 I10 M54.5 G47.33 E78.2 I10 E11.65 N52.9 F17.210 E66.01 I25.10 J44.9 Office Visit 02/21/2016 10:45a [facility] Charles Hancock M.D. 07540 E11.65 I10 E78.2 M15.9 M54.5 Z68.42 E66.01 G47.33 J44.9 F17.210 J30.9 L20.9 N52.9 H52.4 H90.6 I35.0 R60.0 I87.2 I83.92 I50.42 Office Visit 02/07/2016 9:30a [facility] Charles Hancock M.D. 08325 E11.65 I10 E78.2 M15.9 M54.5 Z68.42 E66.01 G47.33 J44.9 F17.210 J30.9 L20.9 N52.9 H52.4 H90.6 I35.0 R60.0 I87.2 I83.92 I50.42 Office Visit 01/05/2016 9:30a [facility] Charles Hancock M.D. 65460 Z00.01 E11.65 I10 E78.2 M15.9 M54.5 Z68.42 E66.01 G47.33 J44.9 F17.210 J30.9 L20.9 N52.9 H52.4 H90.6 Plan of Care 02/21/2018 - Charles Hancock M.D.E11.65 Type 2 diabetes mellitus with hyperglycemiaComments:DIET REVIEWED CONTINUE DIETWT LOSSF/U LAB FS qAC AND HS PRN F/U [id number] Essential (primary) hypertensionComments:CHECK BP TIW ( PRN)F/U LABDIET AND FLUID COUNSELING LOW SODIUM DIETWT LOSSF/U LABJ44.9 Chronic obstructive pulmonary disease, unspecifiedComments:INCREASE PO FLUIDRESTSMOKING WANQSTOEKX60.2 Mixed hyperlipidemiaComments:DIET REVIEWED CONTINUE DIETWT LOSSF/ U LAB FBWG47.33 Obstructive sleep apnea (adult) (pediatric)Comments:CONTINUE WITH CPAPF/U WITH ENT PRN SMOKING KAHRENGUVK73.210 Nicotine dependence, cigarettes, uncomplicatedComments:SMOKING CESSATION EMWLKWWGSLJL05.01 Morbid ( severe) obesity due to excess caloriesComments:WT LOSS COUNCELLINGEXERCISEDIET NZXAQCTVDVSM75.20 Elevated prostate specific antigen [PSA]Comments:F/U WITH UROLOGY PRNF/U PSAR35.1 NocturiaComments:USE RX GIVEN EDUCATION ON DX AND TXM54.5 Low back painComments:EXERCISE/HEAT /MESSAGEAVOID HEAVY LIFTING WT LOSSTYLENOL OR MOTRIN PRNN52.9 Male erectile dysfunction, unspecifiedComments: COUNCELLING AND TEACHING ON DIFEEERENT TREATMENT QCRAMDBZ03.9 Polyosteoarthritis , unspecifiedComments:EXERCISE/HEAT/MESSAGETYLENOL OR MOTRIN PRNAVOID HEAVY LIFTINGWT LOSSJ30.9 Allergic rhinitis, unspecifiedComments:INCREASE PO FLUID USE ANTIHISTAMINE PRN SECOND HAND SMOKING AVOIDANCE SMOKING [id number] Atopic dermatitis, unspecifiedComments:SKIN CARE INSTRUCTIONS LOTION OR BABY OIL 2-3 APPLICATION PER DAYUSE MOISTURIZING SOAPAVOID PROLONGED WATER EXPOSUREAVOID USING HOT WATER IN JQQKMVD32.4 PresbyopiaComments:USE GLASSES/ CONTACTSF/U WITH [id number] Mixed conductive and sensorineural hearing loss, bilateralComments:OBSERVE F/U WITH ENT PRN SMOKING [id number] Localized edemaComments:ELEVATE LE PRNELASTIC STOCKING / TREVOR WRAP PRNF/U LABI35.0 Nonrheumatic aortic (valve) stenosisNew Medication:Aspir-81 81 mgComments:CARDIOLOGY CONSULT AND F/UI87.2 Venous insufficiency (chronic) ( peripheral)Comments:ELEVATE LEPRESSURE STOCKINGWT LOSS NEEDED F/U LABI83.92 Asymptomatic varicose veins of left lower extremityComments:WT. LOSS ELEVATE LOWER EXT. ELASTIC ABGYXOLMA73.42 Chronic combined systolic and diastolic hrt failComments:F/U LABELEVATE LE PRNTED STOCKING / TREVOR WRAP PRN [id number] Anxiety disorder, unspecifiedComments:COUNCELLING AND REASSURANCE RELAXATION TECHNIQUES DISCUSSEDCOUNSELED RE: STRESSORS IN LIFE AVOID ALLENERGY/HIGH CAFFEINE TKCFNCO75.1 Benign prostatic hyperplasia with lower urinary tract sympComments:STABLEF/U PSAE55.9 Vitamin D deficiency, unspecifiedComments: INCREASE EXPOSURE TO SUNREVIEW OF DIETI71.2 Thoracic aortic aneurysm, without ruptureComments:S/P REPAIR 12/27/17OBSERVE F/U WITH CARDIOLOIGYF/U CT [id number] Chronic atrial fibrillationComments:CHECK PT/INR CONTINUE COUMADINCOUNCELLING ON COUMADIN CARE F/U WITH CARDIOLOGY NEEDED LAB DONE BYVISITING NURSE AND F/U BY [id number] Pericardial effusion ( noninflammatory)New Medication:Portable Oxygen ConcentratorComments:OBSERVE F/U WITH [id number] Shortness of breathComments:INCREASE PO FLUIDREST
[2018-03-09 19:04] LABS: EGFR Non-African American 117.1 (>60)
[2018-03-09] MEDS ORDERED: Cefepime(*) 1 GM in NS 0.9% 50 ML* 50 ML IVPB ONE (19:27)
[2018-03-09] MEDS ORDERED: Levofloxacin 750 MG IVPREMIX(* 750 MG/150 ML BAG IVPB ONE (19:27)
[2018-03-09] MEDS ORDERED: Vancomycin(*) 1,750 MG in NS 0.9% 500 ML* 500 ML IVPB ONE (20:00)
[2018-03-09] MEDS ORDERED: Vancomycin(*) 1,000 MG VIAL IVPB ONE (20:00)
--- NOTE | 2018-03-09 20:28 | ED ---
Linnette Maria Devyn, scribed for Mason Cobb MD on 03/09/18 at 1934 . HPI Febrile Illness - HPI Summary HPI Summary: This patient is a 57 year old M presenting to [facility] accompanied by his and granddaughter with a chief complaint of constant fever since this morning. Symptoms relieved with Tylenol before leaving his home. Pt was referred to come to the ER if his temperature bryce above 100 because of a previous open heart surgery in December ([facility]). Patient reports diarrhea, some nausea, coughing, leg edema. All discharge from cough is clear. Patient denies abd pain , difficulty urinating, facial pain, sinus pain, neck pain, rhinorrhea, flu symptoms, CP, wounds, LE pain. Pts product assurance engineer told him to go to [facility] today because of his fever. Pt has quit smoking and drinking but did both in the past. PMHx aortic dissection, aortic valve replacement, Afib). Valve was replaced with pig valve. FHx of CAD. No one in his home is sick. - History of Current Complaint Chief Complaint: EDGeneral Time Seen by Provider: 03/09/18 18:28 Hx Obtained From: Patient Onset/Duration: Started Hours Ago - this morning Timing: Constant Initial Severity: Moderate Current Severity: Moderate Pain Intensity: 0 Pain Scale Used: 0-10 Numeric - Additional Pertinent History Primary Care Physician: [id number] - Allergy/Home Medications Allergies/Adverse Reactions: Allergies Allergy/AdvReac Type Severity Reaction Status Date / Time No Known Allergies Allergy Verified 03/09/18 18:03 PMH/Surg Hx/FS Hx/Imm Hx Endocrine/Hematology History: Reports: Hx Diabetes - Type 2 Denies: Hx Thyroid Disease Cardiovascular History: Reports: Hx Angina, Hx Hypercholesterolemia, Hx Hypertension, Other Cardiovascular Problems/Disorders - aoritic valve replacement soon Denies: Hx Coronary Artery Disease, Hx Myocardial Infarction, Hx Valvular Heart Disease Respiratory History: Reports: Hx Sleep Apnea - WEARS cpap AT NIGHT Denies: Hx Asthma, Hx Chronic Obstructive Pulmonary Disease (COPD) GI History: Reports: Other GI Disorders - umbicial hernia repair 2002 Denies: Hx Ulcer History: Denies: Hx Renal Disease Sensory History: Reports: Hx Contacts or Glasses - reading Denies: Hx Hearing Aid Opthamlomology History: Reports: Hx Contacts or Glasses - reading - Surgical History Surgery Procedure, Year, and Place: Umbilical hernia surgery 2006. cardiac stent - May 2016 Hx Anesthesia Reactions: No Infectious Disease History: No Infectious Disease History: Denies: Hx Hepatitis, Hx Human Immunodeficiency Virus (HIV), History Other Infectious Disease, Traveled Outside the [place] in Last 30 Days - Family History Known Family History: Positive: Cardiac Disease, Hypertension - Social History Alcohol Use: None Hx Substance Use: No Substance Use Type: Reports: None Hx Tobacco Use: Yes Smoking Status (MU): Former Smoker Type: Cigarettes Amount Used/How Often: 1-2/DAY Length of Time of Smoking/Using Tobacco: 32 years Have You Smoked in the Last Year: Yes Review of Systems Negative: Nasal Discharge Negative: Chest Pain Positive: Cough Positive: Diarrhea, Nausea Negative: dysuria, hematuria Positive: Edema - LE. Negative: Other - LE pain All Other Systems Reviewed And Are Negative: Yes Physical Exam - Summary Physical Exam Summary: Appearance: Well appearing, no pain distress Skin: warm, dry, reflects adequate perfusion. Pitting edema 1-2+ bilateral fading in LEs. Head/face: normal Eyes: EOMI, ASH ENT: normal Neck: supple, non-tender Respiratory: CTA. Fine crackles right base, diminished in the left. Pleural effusion. Cardiovascular: tachycardic, pericardial effusion Abdomen: non-tender, soft, healing sternotomy scars Bowel Sounds: present Musculoskeletal: normal, strength/ROM intact Neuro: normal, sensory motor intact, A&Ox3 Triage Information Reviewed: Yes Vital Signs On Initial Exam: Initial Vitals Temp Pulse Resp BP Pulse Ox 98.5 F 116 16 129/75 93 03/09/18 18:01 03/09/18 18:01 03/09/18 18:01 03/09/18 18:01 03/09/18 18:01 Vital Signs Reviewed: Yes Diagnostics - Vital Signs Vital Signs Temp Pulse Resp BP Pulse Ox 03/09/18 18:44 94 03/09/18 18:01 98.5 F 116 16 129/75 93 - Laboratory Lab Results: Lab Results 03/09/18 03/09/18 03/09/18 Range/Units 18:40 18:40 18:40 WBC 9.5 (3.5-10.8) 10^3/ul RBC 4.17 (4.00-5.40) 10^6/ul Hgb 10.9 L (14.0-18.0) g/dl Hct 33 L (42-52) % MCV 78 L (80-94) fL MCH 26 L (27-31) pg MCHC 34 (31-36) g/dl RDW 17 H (10.5-15) % Plt Count 226 (150-450) 10^3/ul MPV 8.1 (7.4-10.4) um3 Neut % (Auto) 65.3 (38-83) % Lymph % (Auto) 23.5 L (25-47) % [place] % (Auto) 10.0 H (0-7) % Eos % (Auto) 0.9 (0-6) % Baso % (Auto) 0.3 (0-2) % Absolute Neuts (auto) 6.2 (1.5-7.7) 10^3/ul Absolute Lymphs (auto) 2.2 (1.0-4.8) 10^3/ul Absolute Monos (auto) 1.0 H (0-0.8) 10^3/ul Absolute Eos (auto) 0.1 (0-0.6) 10^3/ul Absolute Basos (auto) 0 (0-0.2) 10^3/ul Absolute Nucleated RBC 0 10^3/ul Nucleated RBC % 0 ESR Pending INR (Anticoag Therapy) 1.62 H (0.77-1.02) APTT 33.8 (26.0-36.3) seconds Sodium 137 (135-145) mmol/L Potassium 3.6 (3.5-5.0) mmol/L Chloride 100 L (101-111) mmol/L Carbon Dioxide 29 (22-32) mmol/L Anion Gap 8 (2-11) mmol/L BUN 9 (6-24) mg/dL Creatinine 0.70 (0.67-1.17) mg/dL Est GFR ( Amer) 141.7 (>60) Est GFR (Non-Af Amer) 117.1 (>60) BUN/Creatinine Ratio 12.9 (8-20) Glucose 128 H (70-100) mg/dL Lactic Acid (0.5-2.0) mmol/L Calcium 8.6 (8.6-10.3) mg/dL Total Bilirubin 0.70 (0.2-1.0) mg/dL AST 14 (13-39) U/L ALT 12 (7-52) U/L Alkaline Phosphatase 78 (34-104) U/L Troponin I 0.01 (<0.04) ng/mL C-Reactive Protein 58.66 H (<8.01) mg/L Total Protein 7.0 (6.4-8.9) g/dL Albumin 3.2 (3.2-5.2) g/dL Globulin 3.8 (2-4) g/dL Albumin/Globulin Ratio 0.8 L (1-3) /04/19 Range/Units 18:40 WBC (3.5-10.8) 10^3/ul RBC (4.00-5.40) 10^6/ul Hgb (14.0-18.0) g/dl Hct (42-52) % MCV (80-94) fL MCH (27-31) pg MCHC (31-36) g/dl RDW (10.5-15) % Plt Count (150-450) 10^3/ul MPV (7.4-10.4) um3 Neut % (Auto) (38-83) % Lymph % (Auto) (25-47) % [place] % (Auto) (0-7) % Eos % (Auto) (0-6) % Baso % (Auto) (0-2) % Absolute Neuts (auto) (1.5-7.7) 10^3/ul Absolute Lymphs (auto) (1.0-4.8) 10^3/ul Absolute Monos (auto) (0-0.8) 10^3/ul Absolute Eos (auto) (0-0.6) 10^3/ul Absolute Basos (auto) (0-0.2) 10^3/ul Absolute Nucleated RBC 10^3/ul Nucleated RBC % ESR INR (Anticoag Therapy) (0.77-1.02) APTT (26.0-36.3) seconds Sodium (135-145) mmol/L Potassium (3.5-5.0) mmol/L Chloride (101-111) mmol/L Carbon Dioxide (22-32) mmol/L Anion Gap (2-11) mmol/L BUN (6-24) mg/dL Creatinine (0.67-1.17) mg/dL Est GFR ( Amer) (>60) Est GFR (Non-Af Amer) (>60) BUN/Creatinine Ratio (8-20) Glucose (70-100) mg/dL Lactic Acid 1.0 (0.5-2.0) mmol/L Calcium (8.6-10.3) mg/dL Total Bilirubin (0.2-1.0) mg/dL AST (13-39) U/L ALT (7-52) U/L Alkaline Phosphatase (34-104) U/L Troponin I (<0.04) ng/mL C-Reactive Protein (<8.01) mg/L Total Protein (6.4-8.9) g/dL Albumin (3.2-5.2) g/dL Globulin (2-4) g/dL Albumin/Globulin Ratio (1-3) Result Diagrams: 03/09/18 18:40 03/09/18 18:40 Lab Statement: Any lab studies that have been ordered have been reviewed, and results considered in the medical decision making process. - EKG 18:32 EKG Rhythm: Atrial Fibrillation - rapid ventricular response rate 109, normal axis, low voltage ST Segment: Non-Specific Course/Dx - Course Course Of Treatment: 57-year-old male 3 months postoperative from repair of aortic dissection, aortic valve who presents with fever at home and cough since surgery. He also had pericardial effusion, pleural effusion that required thoracentesis and pericardial window. No chest pain or significant shortness of breath at present. No distress. Elevation of CRP without elevation of WBC. Tool Crib Manager wished to get echo in the morning. He was scheduled for outpatient procedure for same. There is infiltrated the right base which be treated as nosocomial acquired pneumonia. Triple antibiotics given. Discussed the case with the hospitalist will evaluate the bedside and admit. - Febrile Illness Differential Diagnoses: Other: - Pneumonia, UTI, pericarditis, empyema, endocarditis - Diagnoses Provider Diagnoses: Hospital acquired PNA, Pleural effusion, Fever - Provider Notifications Discussed Care Of Patient With: Aubrey Crump Time Discussed With Above Provider: 19:27 Instructed by Provider To: Admit As Inpatient Discharge - Sign-Out/Discharge Documenting (check all that apply): Discharge/Admit/Transfer - admit - Discharge Plan Condition: Fair Disposition: ADMITTED TO [facility] Referrals: Charles Hancock MD [Primary Care Provider] - - Billing Disposition and Condition Condition: FAIR Disposition: Admitted to [facility] The documentation as recorded by the Linnette woodard Devyn accurately reflects the service I personally performed and the decisions made by me, Mason Cobb MD.
[2018-03-09] MEDS ORDERED: NS 0.9% 50 ML* 50 ML ONE (21:31)
[2018-03-09] MEDS ORDERED: Albuterol 2.5 MG/3 ML NEB.SOL* (0.083%) INH PRN (22:21)
[2018-03-09] MEDS ORDERED: Acetaminophen TAB* 325 MG PO PRN (22:21)
[2018-03-09] MEDS ORDERED: Melatonin 3 MG TAB PO PRN (22:22)
--- NOTE | 2018-03-09 22:23 | HP ---
H&P (Free Text) History and Physical: PCP: Ewa Hancock MD Cardiology: Frannie Craig MD Date/Time: 03/09/2018 2145 CC: fever HPI: Mr Watson is a 57YO male HX AVR 12/[address] Stockton who has been coughing up more cream colored phlegm over the past 2 days and developed more malaise today associated with a fever of 101.6F, chills, and sweats. He called cardiology electrical transmission engineer, Dr Gonzalez, who advised evaluation in the ED where evaluation reveals a persistent L pleural effusion w/ associated atelectasis which could mask an infilatrate vs empyema. He is SIRS positive for tachycardia & tachypnea. PMedHx [facility] AVR 12/[address] Stockton pericardial effusion s/p pericardial window paroxysmal AFLUT DM2 2L oxygen dependant COPD MARIA R on CPAP HTN HLD mod/sev concentric LVH Ambulatory Orders Pravastatin (NF) [Pravachol (NF)] 40 mg PO DAILY 02/04/18 Acetaminophen TAB* [Tylenol TAB*] 650 mg PO Q4H PRN tab 02/10/18 Al Hydrox/Mg Hydrox/Simet LIQ* [Maalox Plus*] 30 ml PO Q6H PRN udc 02/10/18 Amiodarone TAB* [Cordarone Tab*] 200 mg PO DAILY tab 02/10/18 Aspirin EC TAB* [Ecotrin EC Low Dose 81 MG*] 81 mg PO DAILY tab.ec 02/10/18 Docusate CAP* [Colace Cap*] 100 mg PO BID cap 02/10/18 Doxazosin TAB* [Cardura TAB*] 4 mg PO DAILY tab 02/10/18 HYDROcodone/ACETAMIN 5-325 MG* [[place]ero 5-325 TAB*] 1 tab PO Q4H PRN tab MDD 6 tabs 02/10/18 Metoprolol Tartrate TAB* [Lopressor TAB*] 25 mg PO Q8H tab 02/10/18 Potassium Chlor TAB* [Potassium Chlor TAB 20 MEQ*] 20 meq PO DAILY tab.er 02/10 acetaZOLAMIDE TAB* [Diamox Tab*] 250 mg PO BID tab 02/10/18 Furosemide TAB* [Lasix TAB*] 40 mg PO BID 03/09/18 Insulin GLARGINE(*) [Lantus(*)] 20 units SUBCUT Q24H 03/09/18 Allergies No Known Allergies Allergy (Verified 03/09/18 18:03) SocHx: former smoker recently quit, no alcohol or recreational drugs; 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 ; [facility]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; 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 FamHx: positive for HTN & CAD ROS: as above, otherwise reviewed and all were negative vitals: Vital Signs Temp 36.9 C 03/09/18 18:01 Pulse 99 03/09/18 21:00 Resp 32 03/09/18 21:14 BP 135/85 03/09/18 21:14 Pulse Ox 94 03/09/18 21:00 Intake & Output 03/08/18 03/09/18 03/09/18 23:59 11:59 23:59 Weight 113.398 kg Constitutional: NAD, normally developed, obese white male HEENM: atraumatic; sclera/conjunctiva: anicteric/clear; hearing: clinically intact; oropharynx: clear, mucosa moist Neck: soft tissue: no nuchal rigidity; thyroid: normal Pulmonary: diminished L base with scant crackles R base but no wheeze, fair aeration, no accessory muscle use CV: TR/RR, normal S1S2, no carotid bruit, no jugular venous distention, 2+ B DP/ PT, trace BLE edema Abdominal: soft, non-distended, non-tender, no rebound/guarding/rigidity, normoactive bowel sounds, no hepatosplenomegaly or masses, no costovertebral angle tenderness Musculoskeletal: general: grossly intact, non-tender Integumental: mild chronic venous stasis BLE Psychiatric orientation: AA&O to PPS affect: calm mood: cooperative eye contact: fair content: reliable responses: timely insight: fair Testing: Lab Results 03/09/18 03/09/18 03/09/18 Range/Units 18:40 18:40 18:40 WBC 9.5 (3.5-10.8) 10^3/ul RBC 4.17 (4.00-5.40) 10^6/ul Hgb 10.9 L (14.0-18.0) g/dl Hct 33 L (42-52) % MCV 78 L (80-94) fL MCH 26 L (27-31) pg MCHC 34 (31-36) g/dl RDW 17 H (10.5-15) % Plt Count 226 (150-450) 10^3/ul MPV 8.1 (7.4-10.4) um3 Neut % (Auto) 65.3 (38-83) % Lymph % (Auto) 23.5 L (25-47) % [place] % (Auto) 10.0 H (0-7) % Eos % (Auto) 0.9 (0-6) % Baso % (Auto) 0.3 (0-2) % Absolute Neuts (auto) 6.2 (1.5-7.7) 10^3/ul Absolute Lymphs (auto) 2.2 (1.0-4.8) 10^3/ul Absolute Monos (auto) 1.0 H (0-0.8) 10^3/ul Absolute Eos (auto) 0.1 (0-0.6) 10^3/ul Absolute Basos (auto) 0 (0-0.2) 10^3/ul Absolute Nucleated RBC 0 10^3/ul Nucleated RBC % 0 ESR 52 H (0-20) mm/Hr INR (Anticoag Therapy) 1.62 H (0.77-1.02) APTT 33.8 (26.0-36.3) seconds Sodium 137 (135-145) mmol/L Potassium 3.6 (3.5-5.0) mmol/L Chloride 100 L (101-111) mmol/L Carbon Dioxide 29 (22-32) mmol/L Anion Gap 8 (2-11) mmol/L BUN 9 (6-24) mg/dL Creatinine 0.70 (0.67-1.17) mg/dL Est GFR ( Amer) 141.7 (>60) Est GFR (Non-Af Amer) 117.1 (>60) BUN/Creatinine Ratio 12.9 (8-20) Glucose 128 H (70-100) mg/dL Lactic Acid (0.5-2.0) mmol/L Calcium 8.6 (8.6-10.3) mg/dL Total Bilirubin 0.70 (0.2-1.0) mg/dL AST 14 (13-39) U/L ALT 12 (7-52) U/L Alkaline Phosphatase 78 (34-104) U/L Troponin I 0.01 (<0.04) ng/mL C-Reactive Protein 58.66 H (<8.01) mg/L Total Protein 7.0 (6.4-8.9) g/dL Albumin 3.2 (3.2-5.2) g/dL Globulin 3.8 (2-4) g/dL Albumin/Globulin Ratio 0.8 L (1-3) 03/09/18 Range/Units 18:40 WBC (3.5-10.8) 10^3/ul RBC (4.00-5.40) 10^6/ul Hgb (14.0-18.0) g/dl Hct (42-52) % MCV (80-94) fL MCH (27-31) pg MCHC (31-36) g/dl RDW (10.5-15) % Plt Count (150-450) 10^3/ul MPV (7.4-10.4) um3 Neut % (Auto) (38-83) % Lymph % (Auto) (25-47) % [place] % (Auto) (0-7) % Eos % (Auto) (0-6) % Baso % (Auto) (0-2) % Absolute Neuts (auto) (1.5-7.7) 10^3/ul Absolute Lymphs (auto) (1.0-4.8) 10^3/ul Absolute Monos (auto) (0-0.8) 10^3/ul Absolute Eos (auto) (0-0.6) 10^3/ul Absolute Basos (auto) (0-0.2) 10^3/ul Absolute Nucleated RBC 10^3/ul Nucleated RBC % ESR (0-20) mm/Hr INR (Anticoag Therapy) (0.77-1.02) APTT (26.0-36.3) seconds Sodium (135-145) mmol/L Potassium (3.5-5.0) mmol/L Chloride (101-111) mmol/L Carbon Dioxide (22-32) mmol/L Anion Gap (2-11) mmol/L BUN (6-24) mg/dL Creatinine (0.67-1.17) mg/dL Est GFR ( Amer) (>60) Est GFR (Non-Af Amer) (>60) BUN/Creatinine Ratio (8-20) Glucose (70-100) mg/dL Lactic Acid 1.0 (0.5-2.0) mmol/L Calcium (8.6-10.3) mg/dL Total Bilirubin (0.2-1.0) mg/dL AST (13-39) U/L ALT (7-52) U/L Alkaline Phosphatase (34-104) U/L Troponin I (<0.04) ng/mL C-Reactive Protein (<8.01) mg/L Total Protein (6.4-8.9) g/dL Albumin (3.2-5.2) g/dL Globulin (2-4) g/dL Albumin/Globulin Ratio (1-3) ECG, personally reviewed: sinus tachycardia rate 109, diffuse non-specific ST-T changes CXR, personally reviewed: IMPRESSION: SMALL LEFT PLEURAL EFFUSION AND BASILAR INFILTRATE SLIGHTLY IMPROVED. ECHO (02/10/2018): Conclusions: Left ventricular systolic function is at the lower limits of normal. The estimated ejection fraction is 50-55%. Post surgical hypokinesis of the interventricular septum is observed consistent with valve replacement. There is a large pericardial effusion. The pericardial effusion is seen adjacent to the left ventricle. LArge pericardial effusion mostly posterior and lateral. Some RV diastolic collapse but no clear tomponade physiology. Compared to study of 02/07/18 the LV function and AVR function are the same. Size of pericardial effusion is the same Impression: 57M s/p [facility] AVR 12/[address] Stockton presenting with sepsis 2nd suspected HCAP DIAGNOSIS & PLAN Primary sepsis 2nd suspected HCAP : IV vancomycin, cefepime, & levofloxacin : blood & sputum CXs : hold IVFs given elevated BNP & good BP : supplemental oxygen : supportive care Secondary [facility] AVR 12/[address] Stockton pericardial effusion s/p pericardial window : no acute issues paroxysmal AFLUT : continue amiodarone PO DM2 : update A1c : insulin carb ratio diet : basal/bolus/correctional insulin 2L oxygen dependant COPD MARIA R on CPAP : continue CPAP : supplemental oxygen : albuterol nebs PRN HTN mod/sev concentric LVH : continue furosemide, metoprolol, & doxazosin HLD : continue pravastatin Admission Rational: inpatient for IV ABXs in patient at significant risk of morbidity/mortality; inappropriate for outpatient setting DVTp: SCDs & heparin SQ Code Status: full HCP:
[2018-03-09] MEDS ORDERED: LORazepam INJ* 2 MG/ML 1 ML VIAL IV PRN (22:27)
[2018-03-09] MEDS ORDERED: Vancomycin per Pharmacy* NOTE FOLLOW UP SCH (23:00)
[2018-03-10] MEDS: Levofloxacin 750 MG IVPREMIX(* 750 MG/150 ML BAG IVPB SCH ×2 (01:04→20:53)
[2018-03-10] MEDS: Metoprolol Tartrate TAB* 25 MG PO SCH ×4 (01:36→23:37)
[2018-03-10 05:43] LABS: ABS Basophils 0.1 10^3/ul (0-0.2); ABS Eosinophils 0.1 10^3/ul (0-0.6); ABS Neutrophils 5.4 10^3/ul (1.5-7.7); ABS Nucleated RBC 0 10^3/ul; Eosinophil % 0.7 % (0-6); Hematocrit 32 % (42-52); Hemoglobin 10.5 g/dl (14.0-18.0); Lymphocyte % 23.6 % (25-47); Mean Corpuscular HGB Conc 33 g/dl (31-36); Mean Corpuscular Hemoglobin 26 pg (27-31); Mean Corpuscular Volume 79 fL (80-94); Mean Platelet Volume 8.1 um3 (7.4-10.4); Nucleated Red Blood Cells % 0.1; Platelet Count 216 10^3/ul (150-450); Red Blood Count 4.05 10^6/ul (4.00-5.40); Red Cell Distribution Width 17 % (10.5-15); White Blood Count 8.5 10^3/ul (3.5-10.8)
[2018-03-10] MEDS: Heparin VIAL(*) 5000 UNITS/ML VIAL (FIVE THOUSAND) SUBCUT SCH ×3 (05:49→20:54)
[2018-03-10] MEDS: Vancomycin(*) 1,250 MG in NS 0.9% 250 ML* 250 ML IVPB SCH ×3 (05:49→22:32)
[2018-03-10] MEDS: Omeprazole CAP* 20 MG PO SCH (05:50)
[2018-03-10 06:07] LABS: EGFR Non-African American 115.2 (>60)
[2018-03-10] MEDS: Docusate CAP* 100 MG PO SCH ×2 (07:35→20:49)
[2018-03-10] MEDS: Cefepime(*) 1 GM in NS 0.9% 50 ML* 50 ML IVPB SCH ×2 (08:18→19:58)
[2018-03-10] MEDS: Insulin LISPRO* 1 UNITS UNIT SUBCUT SCH ×7 (09:27→22:11)
[2018-03-10] MEDS: Amiodarone TAB* 200 MG PO SCH (09:29)
[2018-03-10] MEDS: Furosemide TAB* 40 MG PO SCH ×2 (09:29→21:23)
[2018-03-10] MEDS: Potassium Chlor TAB* 20 MEQ TAB.ER PO SCH (09:29)
[2018-03-10] MEDS: Atorvastatin* 10 MG TAB PO SCH (09:29)
[2018-03-10] MEDS: Aspirin EC TAB* 81 MG TAB.EC PO SCH (09:29)
[2018-03-10] MEDS ORDERED: Perflutren Lipid Microsphere* 3 ML VIAL ONE (09:51)
[2018-03-10 10:41] LABS: Urine Appearance Cloudy; Urine Blood 1+ (Negative); Urine Color Amber; Urine Ketones Negative (Negative); Urine Protein 3+(>=500 mg/dL) (Negative); Urine Red Blood Cell 2+(6-10/hpf) (Absent); Urine Specific Gravity 1.024 (1.010-1.030); Urine Urobilinogen Negative (Negative); Urine White Blood Cell Trace(0-5/hpf) (Absent)
--- NOTE | 2018-03-10 11:34 | ECHO ---
Patient: JERRICA BUI [facility] Rec#: [id number] : 1960 Date: 03/10/2018 Age: 57y Height: 170.18 cm / 67.0 in Weight: 113.4 kg / 249.9 lbs Sex: M BSA: 2.22 Room#: [facility] Admit Date#: 03/09/2018 Type: Inpatient Referring: Aubrey Crump MD Reading: Tracee Eng MD Felled Seam Operator Chainstitch: Audrey DriverHARRISON CC: Charles Hancock MD Transthoracic Echocardiogram Indication: Fever, history of AVR BP: 144/83 HR: 84 Rhythm: A-Flutter Findings History: S/p [facility] AVR 12/18, pericardial window, P. A flutter, DMII, COPD, MARIA R on CPAP, HTN, HLD, former smoker. Technical Comments: The study is technically limited due to poor apical windows. Completed at 1040. Left Ventricle: The left ventricular chamber size is normal. Moderate concentric left ventricular hypertrophy is observed. Mild global hypokinesis of the left ventricle is observed. There is mildly decreased left ventricular systolic function. The estimated ejection fraction is 40-45%. Post surgical hypokinesis of the interventricular septum is observed consistent with valve replacement. There is septal flattening of the interventricular septum consistent with right ventricular volume or pressure overload. The assessment of diastolic function is non-diagnostic. Left Atrium: The left atrium is severely dilated. Right Ventricle: Moderator Band present. The right ventricle is moderately dilated. The right ventricular global systolic function is mildly to moderately reduced. Right Atrium: The right atrial cavity size is severely dilated. Aortic Valve: There is trace to mild aortic regurgitation. There is no evidence of aortic stenosis. A porcine bio-prosthetic aortic valve is present. There is a paravalvular leak of the bio-prosthetic aortic valve. appears trace. Mitral Valve: The mitral valve leaflets are mildly thickened. There is trace to mild mitral regurgitation. There is no evidence of mitral stenosis. Tricuspid Valve: The tricuspid valve leaflets are normal. There is mild tricuspid regurgitation. The right ventricular systolic pressure is estimated at 42 mmHg. There is evidence of mild pulmonary hypertension. There is no tricuspid stenosis. Pulmonic Valve: The pulmonic valve structure is not well visualized. There is trace to mild pulmonic regurgitation. There is no pulmonic stenosis. Pericardium: There is no significant pericardial effusion. A pericardial fat pad is visualized. A left pleural effusion is present. Aorta: There is no dilatation of the ascending aorta. There is no dilatation of the aortic arch. There is mild dilatation of the aortic root. Pulmonary Artery: The main pulmonary artery is not well visualized. Venous: The inferior vena cava is dilated. There is less than 50% respiratory change in the inferior vena cava dimension. Contrast: Definity was used to optimize study. 3 mL of diluted Definity was utilized. Intravenous contrast was used to enhance endocardial border definition. Summary: There are changes noted when compared to the previous study done on 01/30/2018, LV EF is now 40-45% instead of 50-55% then.No there is no sig pericardial effusion instead of large pericardial effusion on 02/10/2018. Conclusions The left ventricular chamber size is normal. Moderate concentric left ventricular hypertrophy is observed. Mild global hypokinesis of the left ventricle is observed. There is mildly decreased left ventricular systolic function. The estimated ejection fraction is 40-45%. Post surgical hypokinesis of the interventricular septum is observed consistent with valve replacement. There is septal flattening of the interventricular septum consistent with right ventricular volume or pressure overload. The left atrium is severely dilated. The assessment of diastolic function is non-diagnostic. The right ventricular global systolic function is mildly to moderately reduced. There is trace to mild mitral regurgitation. A porcine bio-prosthetic aortic valve is present and functioning normally. There is a paravalvular leak of the bio-prosthetic aortic valve. appears trace. There is mild tricuspid regurgitation. The right ventricular systolic pressure is estimated at 42 mmHg. There is evidence of mild pulmonary hypertension. There is trace to mild pulmonic regurgitation. There is no significant pericardial effusion. Measurements Name Value Normal Range RVIDd (AP) 2D 4.2 cm (0.9 - 2.6) RVDdMajor (2D) 5.5 cm (2.2 - 4.4) RAd ISD 4CH 7.2 cm (3.4 - 4.9) RA (A4C)W 4.9 cm (2.9 - 4.6) IVSd (2D) 1.6 cm (0.6 - 1) LVPWd (2D) 1.6 cm (0.6 - 1) LVIDd (2D) 4.7 cm (3.6 - 5.4) LVIDs (2D) 3.4 cm - LV FS (2D) 28 % (25 - 45) Aortic Annulus 2 cm (1.4 - 2.6) Ao root diameter (2D) 3.6 cm (2.1 - 3.5) Ascending Ao 3.3 cm (2.1 - 3.4) Aortic arch 2.3 cm (1.8 - 3.4) LA dimension (AP) 2D 5.8 cm (2.3 - 3.8) LAd ISD 4CH 6.9 cm (2.9 - 5.3) LA ISD 4CH W 7 cm (2.5 - 4.5) Name Value Normal Range LA ESV SP 4CH (A/L) 162 ml - LA ESV SP 2CH (A/L) 188 ml - LA ESV BP (A/L) 186 ml - LA ESV BP (A/L) index 83 ml/m2 - LA ESV SP 4CH (MOD) 140 ml - LA ESV SP 2CH (MOD) 177 ml - Name Value Normal Range MV E-wave Vmax 1.2 m/sec - MV deceleration time 184.8 msec - LV septal e' Vmax 0.1 m/sec - LV lateral e' Vmax 0.18 m/sec - LV E:e' septal ratio 12 ratio - LV E:e' lateral ratio 6.67 ratio - Name Value Normal Range AV Vmax 2.17 m/sec - AV VTI 37.82 cm - AV peak gradient 19 mmHg - AV mean gradient 10.18 mmHg - LVOT diameter 2 cm - LVOT Vmax 0.95 m/sec - LVOT VTI 19.04 cm - LVOT peak gradient 3.61 mmHg - LVOT mean gradient 2.18 mmHg - DOI (VTI) 0.44 ratio - KINSEY (continuity Vmax) 1.4 cm2 - KINSEY (continuity VTI) 1.6 cm2 - CHRISTINE Vmax 1.2 m/sec - Name Value Normal Range TR Vmax 2.6 m/sec - TR peak gradient 27 mmHg - RAP 15 mmHg - RVSP 42 mmHg - IVC diameter 3.2 cm - Name Value Normal Range PV Vmax 0.95 m/sec - PV peak gradient 3.64 mmHg -
--- NOTE | 2018-03-10 16:51 | PN ---
Subjective Date of Service: 03/10/18 Interval History: Interviewed and examined patient at bedside; Discussed case with Dr. Crump; Reviewed previous notes and radiology results; Patient feels better today, but still "far from my normal self" breathing better - but still labored. poor exercise tolerance. "wiped out" continue inpatient therapy and monitoring. . Family History: Unchanged from Admission Social History: Unchanged from Admission Past Medical History: Unchanged from Admission Objective Active Medications: . Acetaminophen (Tylenol Tab*) 650 mg PO Q6H PRN PRN Reason: FEVER/PAIN Last Admin: 03/10/18 10:37 Dose: 650 mg Albuterol (Ventolin 2.5 Mg/3 Ml Neb.Rebecca*) 2.5 mg INH Q2H PRN PRN Reason: SOB/WHEEZING Amiodarone HCl (Cordarone Tab*) 200 mg PO DAILY [facility] Last Admin: 03/10/18 09:29 Dose: 200 mg Aspirin (Aspirin Ec Tab*) 81 mg PO DAILY [facility] Last Admin: 03/10/18 09:29 Dose: 81 mg Atorvastatin Calcium (Lipitor*) 10 mg PO DAILY [facility]; Protocol Last Admin: 03/10/18 09:29 Dose: 10 mg Docusate Sodium (Colace Cap*) 100 mg PO BID [facility] Last Admin: 03/10/18 07:35 Dose: Not Given Furosemide (Lasix Tab*) 40 mg PO BID [facility] Last Admin: 03/10/18 09:29 Dose: 40 mg Heparin Sodium (Porcine) (Heparin Vial(*)) 5,000 units SUBCUT Q8HR [facility] Last Admin: 03/10/18 14:11 Dose: 5,000 units Levofloxacin/Dextrose (Levaquin 750 Mg Ivpremix(*)) 750 mg in 150 mls @ 100 mls /hr IVPB Q24HR@2100 [facility] Last Admin: 03/10/18 01:04 Dose: 100 mls/hr Cefepime HCl 1 gm/ Sodium (Chloride) 50 mls @ 100 mls/hr IVPB Q12H [facility] Last Admin: 03/10/18 08:18 Dose: 100 mls/hr Vancomycin HCl 1,250 mg/ (Sodium Chloride) 250 mls @ 166.667 mls/hr IVPB Q8H [facility] Last Admin: 03/10/18 14:10 Dose: 166.667 mls/hr Insulin Glargine (Lantus(*)) 27 units 0.24 units/kg (27 units) SUBCUT 2100 [facility] Insulin Human Lispro (Humalog*) 0 units SUBCUT AC [facility]; Protocol Last Admin: 03/10/18 13:10 Dose: 7 units Insulin Human Lispro (Humalog*) 0 units SUBCUT ACHS [facility]; Protocol Last Admin: 03/10/18 13:11 Dose: 3 units Lorazepam (Ativan Inj*) 0.5 mg IV Q6H PRN PRN Reason: nausea Melatonin (Melatonin) 3 mg PO BEDTIME PRN; Protocol PRN Reason: Sleep Metoprolol Tartrate (Lopressor Tab*) 25 mg PO Q8H [facility] Last Admin: 03/10/18 14:16 Dose: 25 mg Omeprazole (Prilosec Cap*) 20 mg PO DAILY@0600 [facility] Last Admin: 03/10/18 05:50 Dose: 20 mg Pharmacy Consult (Vancomycin Per Pharmacy*) 1 note FOLLOW UP .VANC PER PHARMACY [facility] Pharmacy Profile Note (Vancomycin Trough Check) 1 note FOLLOW UP 0600 ONE Stop: 03/11/18 06:01 Potassium Chloride (Klor Con Er Tab*) 20 meq PO DAILY [facility] Last Admin: 03/10/18 09:29 Dose: 20 meq . Vital Signs - 8 hr 03/10/18 11:12 Temperature 99.4 F Pulse Rate 86 Respiratory 21 Rate Blood Pressure 139/75 (mmHg) O2 Sat by Pulse 96 Oximetry Oxygen Devices in Use Now: Nasal Cannula Appearance: obese, ill-appearing. Eyes: No Scleral Icterus Ears/Nose/Mouth/Throat: NL Teeth, Lips, Gums Neck: NL Appearance and Movements; NL JVP Respiratory: Symmetrical Chest Expansion and Respiratory Effort, - - increased WOB noted. + rhonchi and rales throughout. Cardiovascular: - - sternal scar noted; C/D/I. Abdominal: NL Sounds; No Tenderness; No Distention, - - obese Lymphatic: No Cervical Adenopathy Extremities: No Edema Skin: No Rash or Ulcers Neurological: Alert and Oriented x 3 Lines/Tubes/Other Access: Clean, Dry and Intact Peripheral IV Nutrition: Taking PO's Result Diagrams: 03/10/18 05:30 03/10/18 05:30 Additional Lab and Data: . Microbiology and Other Data: Microbiology 03/10/18 09:40 Gram Stain - Final Sputum 03/09/18 21:14 Aerobic Blood Culture - Preliminary Blood Venous Anaerobic Blood Culture - Preliminary 03/09/18 18:40 Aerobic Blood Culture - Preliminary Blood Venous Anaerobic Blood Culture - Preliminary Assess/Plan/Problems-Billing . Assessment: 57 yo man with hospital acquired Pneumonia given recent AVR. Secondary Diagnoses - [facility] AVR 12/[address] [place] - pericardial effusion s/p pericardial window - paroxysmal AFLUTTER - DM2 - 2L oxygen dependant COPD - MARIA R on CPAP - HTN - LVH - HLD - Patient Problems (1) Streptococcus pneumoniae pneumonia Current Visit: Yes Status: Acute Priority: High Code(s): J13 - PNEUMONIA DUE TO STREPTOCOCCUS PNEUMONIAE Comment: - Broad coverage for now -- then can tailor - Levofloxacin 750 mg IV daily - Cefepime 1 gm IVPB Q12H - Vancomycin 1,250 mg IVPB Q8H - Albuterol nebs, Q4 prn - follow bcx results (2) Atrial flutter Current Visit: No Status: Chronic Priority: High Code(s): I48.92 - UNSPECIFIED ATRIAL FLUTTER (3) CHF (congestive heart failure) Current Visit: Yes Status: Chronic Priority: High Code(s): I50.9 - HEART FAILURE, UNSPECIFIED (4) Chronic hypoxemic respiratory failure Current Visit: No Status: Chronic Priority: High Comment: on 02 L as per usual custom (5) DM2 (diabetes mellitus, type 2) Current Visit: Yes Status: Chronic Priority: High Comment: - cont Lantus and SSI (6) DVT prophylaxis Current Visit: Yes Status: Acute Priority: High Code(s): UHO8081 - Comment: - AC (7) MARIA R (obstructive sleep apnea) Current Visit: No Status: Chronic Priority: High Code(s): G47.33 - OBSTRUCTIVE SLEEP APNEA (ADULT) (PEDIATRIC) Comment: - on CPAP at night (8) Pleural effusion Current Visit: No Status: Chronic Code(s): J90 - PLEURAL EFFUSION, NOT ELSEWHERE CLASSIFIED Comment: - chronic L > R
[2018-03-10] MEDS: Insulin GLARGINE(*) 1 UNITS UNIT SUBCUT SCH (22:04)
[2018-03-11] MEDS: Vancomycin(*) 1,250 MG in NS 0.9% 250 ML* 250 ML IVPB SCH ×3 (05:53→22:30)
[2018-03-11] MEDS: Metoprolol Tartrate TAB* 25 MG PO SCH ×3 (05:53→22:34)
[2018-03-11] MEDS: Heparin VIAL(*) 5000 UNITS/ML VIAL (FIVE THOUSAND) SUBCUT SCH ×3 (05:53→21:38)
[2018-03-11] MEDS: Omeprazole CAP* 20 MG PO SCH (05:53)
[2018-03-11] MEDS ORDERED: Vancomycin Trough Check NOTE FOLLOW UP ONE (06:00)
[2018-03-11] MEDS: Insulin LISPRO* 1 UNITS UNIT SUBCUT SCH ×7 (08:47→20:57)
[2018-03-11] MEDS: Amiodarone TAB* 200 MG PO SCH (08:48)
[2018-03-11] MEDS: Potassium Chlor TAB* 20 MEQ TAB.ER PO SCH (08:48)
[2018-03-11] MEDS: Docusate CAP* 100 MG PO SCH ×2 (08:48→20:42)
[2018-03-11] MEDS: Furosemide TAB* 40 MG PO SCH ×2 (08:48→20:45)
[2018-03-11] MEDS: Aspirin EC TAB* 81 MG TAB.EC PO SCH (08:48)
[2018-03-11] MEDS: Atorvastatin* 10 MG TAB PO SCH (08:48)
[2018-03-11] MEDS: Cefepime(*) 1 GM in NS 0.9% 50 ML* 50 ML IVPB SCH (08:49)
--- NOTE | 2018-03-11 16:24 | CONS ---
CONSULTATION REPORT: DATE OF CONSULT: 03/11/18 REQUESTING PHYSICIAN: Dr. Shipley. CONSULTING SERVICE: Infectious Disease. REASON FOR CONSULTATION: Gram-positive bacteremia in the setting of prosthetic aortic valve. IMPRESSION: 1. Recent onset fever, myalgia in the setting of chronic cough since his aortic valve replacement in December. Four of four bottles are growing gram- positive cocci resembling Streptococcus. It could be any variety of strep, it could be Enterococcus, though his urine culture was negative so that is probably less likely. He does have a small left pleural effusion, which could be resolving postoperative in nature. His cough is chronic, so there may be an alternative source, which in this case infective endocarditis I saw in the list. He does have paravalvular leak seen on his transthoracic echocardiogram that was present on the echocardiogram 01/30/18 as well. 2. Recent pericardial effusion, status post pericardial window at [facility]. 3. Obesity. 4. Type 2 diabetes. 5. Atrial flutter. 6. Obstructive sleep apnea, on CPAP. 7. Chronic obstructive pulmonary disease with chronic respiratory failure. RECOMMENDATIONS: Stop the cefepime. We will continue the vancomycin and Levaquin awaiting the speciation of the gram-positive cocci in his blood. We will obtain a transesophageal echocardiogram to evaluate vegetation, paravalvular leak, and for subvalvular abscess. Repeat blood cultures. HISTORY OF PRESENT ILLNESS: This is a 57-year-old man who had a bioprosthetic aortic valve replacement in December for severe aortic stenosis, bicuspid aortic valve. He subsequently developed a large pericardial effusion, was transferred back to [facility], treated with pericardial window, and cultures there were negative. He was doing okay until the weekend he developed high fever, shaking chills, malaise. He has had a cough since December, which is intermittently productive of yellowish, whitish sputum. He had had no abdominal pain or diarrhea. No skin lesions or rash. Does not spend much time outdoors here. He came to the hospital on the 03/09/18 with the white count of 9,000, CRP of 58, was started on vancomycin, cefepime, and Levaquin, which he tolerated well. He has had no fever since that first night. Blood cultures taken initially were 4/4 positive for gram- positive cocci and chains resembling strep. Urinalysis showed blood, no white cells, no leukocyte esterase. Urine cultures negative. He feels like he is getting back to his usual self, still some cough, no chest pain, occasional chills and sweats, but overall much improved. His appetite is good. He has no spine pain or joint pain at rest or with weight bearing. PAST MEDICAL HISTORY: 1. Bicuspid aortic valve with aortic stenosis, status post aortic valve replacement in December 2017. 2. Pericardial effusion, teated with pericardial window. 3. Atrial flutter. 4. Type 2 diabetes. 5. Obesity. 6. COPD with chronic respiratory failure, on 2 L supplemental oxygen. 7. Obstructive sleep apnea, using CPAP. 8. Hypertension. 9. Hyperlipemia. 10. Wzkrntwy-xm-cnifdi left ventricular hypertrophy. MEDICATIONS: 1. Tylenol. 2. Albuterol. 3. Amiodarone. 4. Aspirin. 5. Lipitor. 6. Docusate. 7. Lasix. 8. Heparin subcutaneous injection. 9. Insulin glargine. 10. Insulin lispro. 11. Levaquin 750 mg IV every 24 hours. 12. Cefepime 1 g every 12 hours. 13. Melatonin. 14. Vancomycin 1250 mg every 8 hours. ALLERGIES: No known drug allergies. FAMILY HISTORY: Coronary disease, diabetes, hypertension. SOCIAL HISTORY: He lives in [place] with his . He has no travel other than to the hospital in [place]. He is a nonsmoker. No injection drugs. REVIEW OF SYSTEMS: All negative to 14-point review of systems, except as noted above in the history of present illness. PHYSICAL EXAM: Vital Signs: Temperature is 37, heart rate 110, respiratory rate 18, blood pressure 167/96, oxygen saturation of 95% on 2 liters. In general, he is awake, not in distress. Neurologic: He is oriented x3, follows all commands. HEENT: There is no conjunctival hemorrhage. Oropharynx without lesions. Neck is supple without mass. Lymph Nodes: There is no cervical, supraclavicular, inguinal, axillary, or epitrochlear lymphadenopathy. Heart is regular and tachycardic without murmurs. Lungs: Decreased breath sounds at the left base without wheeze or rale. Abdomen: Soft, nontender, nondistended. There are bowel sounds present. Skin: There is no rash or splinter hemorrhage. Musculoskeletal: There is no spine tenderness to palpation or joint synovitis. LABORATORY DATA: White blood cell count 8, hemoglobin 10.5, MCV is 79, platelets 216. Creatinine 0.7. ALT 12. Please see impressions and recommendations as outlined above, which I have discussed with Dr. Shipley. Thanks for asking me to see Walter in consultation. [id number]/[facility] #: [id number] MTDD
[2018-03-11] MEDS: Levofloxacin 750 MG IVPREMIX(* 750 MG/150 ML BAG IVPB SCH (20:53)
[2018-03-11] MEDS: Insulin GLARGINE(*) 1 UNITS UNIT SUBCUT SCH (20:58)
[2018-03-12] MEDS: Omeprazole CAP* 20 MG PO SCH (05:54)
[2018-03-12] MEDS: Metoprolol Tartrate TAB* 25 MG PO SCH ×2 (05:54→15:05)
[2018-03-12] MEDS: Heparin VIAL(*) 5000 UNITS/ML VIAL (FIVE THOUSAND) SUBCUT SCH ×3 (05:54→13:18)
[2018-03-12] MEDS: Vancomycin(*) 1,250 MG in NS 0.9% 250 ML* 250 ML IVPB SCH (05:55)
[2018-03-12 06:45] LABS: ABS Basophils 0.1 10^3/ul (0-0.2); ABS Eosinophils 0.5 10^3/ul (0-0.6); ABS Lymphocytes 3.6 10^3/ul (1.0-4.8); ABS Neutrophils 3.9 10^3/ul (1.5-7.7); ABS Nucleated RBC 0 10^3/ul; Eosinophil % 5.3 % (0-6); Hematocrit 35 % (42-52); Hemoglobin 11.4 g/dl (14.0-18.0); Lymphocyte % 39.3 % (25-47); Mean Corpuscular HGB Conc 33 g/dl (31-36); Mean Corpuscular Hemoglobin 26 pg (27-31); Mean Corpuscular Volume 78 fL (80-94); Mean Platelet Volume 8.1 um3 (7.4-10.4); Nucleated Red Blood Cells % 0.1; Platelet Count 284 10^3/ul (150-450); Red Blood Count 4.44 10^6/ul (4.00-5.40); Red Cell Distribution Width 17 % (10.5-15); White Blood Count 9.1 10^3/ul (3.5-10.8)
[2018-03-12] MEDS: Insulin LISPRO* 1 UNITS UNIT SUBCUT SCH ×6 (08:36→18:01)
[2018-03-12] MEDS ORDERED: fentaNYL* 50 MCG/ML 2 ML VIAL (100 MCG VIAL) ONE (10:15)
[2018-03-12] MEDS ORDERED: Midazolam* 1 MG/ML 10 ML VIAL (10 MG) ONE (10:15)
[2018-03-12] MEDS ORDERED: Naloxone* 0.4 MG/ML 1 ML VIAL ONE (10:15)
[2018-03-12] MEDS ORDERED: Lidocaine 2% VISCOUS* 15 ML UDC ONE (10:15)
[2018-03-12] MEDS ORDERED: Flumazenil* 0.1 MG/ML 5 ML MDV ONE (10:15)
[2018-03-12] MEDS: Docusate CAP* 100 MG PO SCH (13:16)
[2018-03-12] MEDS: Potassium Chlor TAB* 20 MEQ TAB.ER PO SCH (13:16)
[2018-03-12] MEDS: Amiodarone TAB* 200 MG PO SCH (13:17)
[2018-03-12] MEDS: Furosemide TAB* 40 MG PO SCH (13:17)
[2018-03-12] MEDS: Aspirin EC TAB* 81 MG TAB.EC PO SCH (13:17)
[2018-03-12] MEDS: Atorvastatin* 10 MG TAB PO SCH (13:17)
--- NOTE | 2018-03-12 14:06 | TEE ---
Patient: JERRICA BUI [facility] Rec#: [id number] : 1960 Date: 03/12/2018 Age: 57y Height: 170.18 cm / 67.0 in Weight: 126.55 kg / 278.9 lbs Sex: M BSA: 2.33 Room#: [facility] Type: Inpatient Referring: Duane Shipley MD Performing: Tamera Gonzalez MD Reading: Tamera Gonzalez MD Tile Grader: Akiko Mark HARRISON Nurse: Jc Arevalo RN CC: Charles Hancock MD CC: Tam Craig MD Transesophageal Echocardiogram Indication: Bacteremia BP: 110/82 HR: 94 Rhythm: A-Flutter Findings History: S/P [facility] AVR 12/2017,s/p pericardial window, PAFlutter,DM,COPD,MARIA R with CPAP,HTN,HLD,former smoker. Group D Strep Enterococcus bacteremia. Technical Comments: The study quality is good. Completed at 1153. Left Ventricle: The left ventricular chamber size is normal. The estimated ejection fraction is 50-55%. Post surgical hypokinesis of the interventricular septum is observed consistent with valve replacement. The assessment of diastolic function is non-diagnostic. Left Atrium: The left atrium is mild to moderately dilated. The left atrial appendage velocity is normal. No thrombus is visualized within the left atrium. Right Ventricle: The right ventricular cavity size is normal. The right ventricular global systolic function is normal. Right Atrium: The right atrium is moderately dilated. A patent foramen ovale is visualized. There were late bubbles seen in the left atrium. A patent foramen ovale is demonstrated by color Doppler. There is evidence of an atrial septal aneurysm. Aortic Valve: There is mild to moderate aortic regurgitation. trace to mild valvular leak, mild to moderate paravalvular leak. A bio-prosthetic aortic valve is present. There is a paravalvular leak of the bio-prosthetic aortic valve. starts at 6 O'clock extends counterclockwise to 1 o'clock. There is a small calcific nodule associated with the origin of the leak. Mitral Valve: The mitral valve leaflets are mildly thickened. There is mild mitral regurgitation. several small jets There is no evidence of mitral stenosis. No vegetation is observed on the mitral valve. Tricuspid Valve: The tricuspid valve leaflets are normal. There is mild tricuspid regurgitation. There is no tricuspid stenosis. No vegetation is observed on the tricuspid valve. Pulmonic Valve: The pulmonic valve appears normal. There is a trace pulmonic regurgitation. There is no pulmonic stenosis. No vegetation is observed on the pulmonic valve. Pericardium: The pericardium appears normal. Aorta: There is no dilatation of the ascending aorta. There is no dilatation of the aortic arch. There is mild dilatation of the aortic root. However, there is minimal palque noted in the arch. Pulmonary Artery: The main pulmonary artery appears normal. Venous: The bicaval view was obtained and appears normal. The pulmonary veins appear normal in size. 3 of 4 seen. The flow pattern of the pulmonary veins appear normal. LORENE Procedures: History and physical as well as labs were reviewed. The patient was in a fasting state. Risks and benefits of the procedure, including alternatives, were discussed and written informed consent was obtained. The patient and/or their health care corporate sales representative expressed understanding of the procedure, risks and benefits. Baseline and continuous monitoring of blood pressure, heart rate, pulse oximetry and heart rhythm was performed throughout the procedure. The appropriate time-out procedure was performed as per [facility] protocol. The patient was placed in the left lateral decubitus position. The patient's posterior pharynx was anesthetized with 20ml of 2% viscous lidocaine. The patient received IV Midazolam with a total dose of 6 mg. The patient received IV Fentanyl with a total dose of 25mcg. An oral bite block was inserted for protection of oral dentition. The multiplane transesophageal echocardiogram probe was inserted through the posterior oropharynx and advanced into the esophagus without difficulty. Multiple 2D images were obtained of the heart and its related structures. Color flow Doppler was used for evaluation. Spectral Doppler was also used. The atrial septum was interrogated with color flow Doppler. At the conclusion of the procedure the probe was removed with continuous suction without complications. The patient tolerated the procedure with no apparent complications. Contrast: Normal saline was used as contrast for the bubble study. Intravenous contrast was used to help determine presence of intracardiac shunting. Conclusions The estimated ejection fraction is 50-55%. Post surgical hypokinesis of the interventricular septum is observed consistent with valve replacement. The right ventricular global systolic function is normal. The left atrium is mild to moderately dilated. A patent foramen ovale is demonstrated by color Doppler. A bio-prosthetic aortic valve is present. There is a paravalvular leak of the bio-prosthetic aortic valve which starts at 6 o'clock extends counterclockwise to 1 o'clock. with mild to moderate aortic regurgitation: trace to mild valvular leak, mild to moderate paravalvular leak. No reversal of flow noted. There is a small calcific nodule associated with the origin of the leak, I can't rule out a vegetation (see frame 71). There is mild mitral regurgitation. several small jets There is mild tricuspid regurgitation. The pericardium appears normal. Measurements Name Value Normal Range Aortic Annulus 2.4 cm (1.4 - 2.6) Ao root diameter (2D) 3.7 cm (2.1 - 3.5) Ascending Ao 3 cm (2.1 - 3.4) Name Value Normal Range MV E-wave Vmax 1 m/sec - MV deceleration time 134 msec - MV A-wave Vmax 0.4 m/sec - MV E:A ratio 2.61 ratio -
[2018-03-12] MEDS: Ampicillin IV* 2 GM in NS 0.9% 100 ML* 100 ML IVPB SCH ×2 (15:03→18:01)
--- NOTE | 2018-03-12 17:25 | TRS ---
CC: Dr. Hancock; Dr. Craig * DATE OF ADMISSION TO [facility]: 03/09/2018. DATE OF TRANSFER ACCEPTED TO [facility]: 03/12/2018. PRIMARY CARE PHYSICIAN: Dr. Hancock. COLLEGE SPECIALIST: Dr. Craig. REASON FOR TRANSFER: Access to cardiothoracic surgery. CONDITION ON TRANSFER: Good/stable. HISTORY OF PRESENT ILLNESS: This is a 57-year-old gentleman with a past medical history of aortic valve replacement in December 2017 at [facility] by Dr. Stockton who had a complicated postoperative course, who presented to [facility] with two days of increasing malaise associated with fever , measured to 101 at home. In the emergency room, his T-max was 101.3 without an associated leukocytosis, but elevated ESR of 52 and CRP of 58. Urine culture yielded no growth and chest x-ray was unremarkable except for a small left pleural effusion and basilar infiltrate that has improved since his previous imaging in September of this year. However, blood cultures returned four out of four bottles for enterococcus faecalis, pansensitive to antibiotics tested except for Erythromycin and Quinupristin/Dalfopristin. The patient had been started on Cefepime, Levofloxacin, and Vancomycin on presentation, changed to Ampicillin and Gentamicin upon speciation and sensitivity results from blood cultures. Additional blood cultures were drawn today and have not yet resulted. A transthoracic echocardiogram was performed on the day of admission without evidence of infective endocarditis, but did note paravalvular leak. A transesophageal echocardiogram was performed on 03/12/2018 which again noted paravalvular leak with moderate aortic regurgitation, as well as a small calcific nodule associated with the origin of the leak that could not rule out vegetation. With the results of the transesophageal echocardiogram as well as notable enterococcus in the blood, we contacted Dr. Stockton's team to discuss. These images were pushed to [facility] and reviewed by his team. It was thought that he should be transferred. Our appreciation in conjunction with the cardiothoracic team is he should be transferred to their care for further evaluation and management of suspected infected endocarditis. Please note again, at the time of discharge another set of blood cultures has been drawn and remains pending at the time of discharge. ACTIVE MEDICATIONS: 1. Acetaminophen. 2. Albuterol. 3. Amiodarone 200 mg daily. 4. Ampicillin 2 gm every 4 hours. 5. Aspirin 81 mg daily. 6. Atorvastatin 10 mg daily. 7. Docusate 100 mg twice daily. 8. Lasix 40 mg twice daily. 9. Lantus 27 units in the evening. 10. Insulin Lispro sliding scale with meals. 11. Lorazepam 0.5 mg every 6 hours as needed. 12. Melatonin 3 mg at bedtime. 13. Metoprolol Tartrate 25 mg every 8 hours. 14. Omeprazole 20 mg daily. 15. Potassium chloride 20 mEq daily. Thank you for your assistance in taking care of this patient. Please do not hesitate to call for additional information or questions. Greater than 45 minutes were spent discharging this patient, greater than half were spent [id number] with the patient discussing results as well as the preparation of this transfer summary. [id number]/[facility] #: [id number] MTDD
[2018-03-12 20:10] VITALS: BP 145/99
[2018-03-13] MEDS ORDERED: Vancomycin Trough Check NOTE FOLLOW UP ONE (05:30)
== END 2018-03-12 19:45 | disposition short-term general hospital (02) | DRG 720 ==
LOC: ED 17:59 → MED 22:11
PROVIDERS: ADMIT Hospitalist; ATTEND Internal Medicine
PROC: B24BZZ4 Ultrasonography of Heart with Aorta, Transesophageal (ICD-10-PCS; principal; 2018-03-09)
PROC: 5A09357 Assistance with Respiratory Ventilation, Less than 24 Consecutive Hours, Continuous Positive Airway Pressure (ICD-10-PCS; 2018-03-10)
DX: A41.81 Sepsis due to Enterococcus (principal); J13 Pneumonia due to Streptococcus pneumoniae; I33.0 Acute and subacute infective endocarditis; J90 Pleural effusion, not elsewhere classified; I31.3 Pericardial effusion (noninflammatory); J98.11 Atelectasis; I48.92 Unspecified atrial flutter; J96.11 Chronic respiratory failure with hypoxia; J44.0 Chronic obstructive pulmonary disease with (acute) lower respiratory infection; I48.91 Unspecified atrial fibrillation; E11.9 Type 2 diabetes mellitus without complications; G47.33 Obstructive sleep apnea (adult) (pediatric); E66.9 Obesity, unspecified; B95.2 Enterococcus as the cause of diseases classified elsewhere; E78.5 Hyperlipidemia, unspecified; I11.0 Hypertensive heart disease with heart failure; I35.1 Nonrheumatic aortic (valve) insufficiency; I50.9 Heart failure, unspecified; R05 Cough; Z83.3 Family history of diabetes mellitus; Z99.81 Dependence on supplemental oxygen; Z95.5 Presence of coronary angioplasty implant and graft; Z95.3 Presence of xenogenic heart valve; Z82.49 Family history of ischemic heart disease and other diseases of the circulatory system; Z87.891 Personal history of nicotine dependence; Z79.82 Long term (current) use of aspirin; Z79.4 Long term (current) use of insulin
CPT/HCPCS: 36415; 71045; 80053; 80202; 81003; 81015; 82565; 83036; 83605; 83880; 84484; 84520; 85025; 85610; 85652; 85730; 86140; 87040; 87070; 87077; 87086; 87186; 87205; 93005; 93306; 93312; 93325; 94660; 99156; 99157; 99284; A9270-GY; C8929; J0290; J0692; J1644; J2250; J2310; J3010; J3370

== ENCOUNTER 2018-07-08 06:44 | Emergency (ER) | payer BC ==
[2018-07-08 07:48] VITALS: BP 158/83
--- NOTE | 2018-07-08 08:15 | ED ---
Lower Extremity - HPI Summary HPI Summary: Patient is a 58yo in with a history of hypertension, diabetes, hypercholesterolemia and MD and morbid obesity presenting to the ED with chief complaint of right foot pain. Denies any known injury or trauma. Pulses +2 intact bilaterally. Denies any color or temperature changes. Denies any numbness or tingling. He has never injured the right foot before. Denies any Chacot foot. He remains ambulatory, however with pain. - History of Current Complaint Chief Complaint: EDExtremityLower Stated Complaint: PAIN IN RIGHT FOOT Time Seen by Provider: 07/08/18 06:56 Hx Obtained From: Patient Mechanism Of Injury: Unknown Onset of Pain: Immediate Onset/Duration: Hours Severity Initially: Moderate Severity Currently: Moderate Pain Intensity: 8 Pain Scale Used: 0-10 Numeric Timing: Constant Location: Is Discrete @ - right dorsum of the foot Associated Signs And Symptoms: Negative: Swelling, Redness, Bruising Aggravating Factor(s): Standing, Ambulation Alleviating Factor(s): Rest Able to Bear Weight: No - Risk Factors Gout Risk Factors: Negative DVT Risk Factors: Negative Septic Arthritis Risk Factor: Negative - Allergies/Home Medications Allergies/Adverse Reactions: Allergies Allergy/AdvReac Type Severity Reaction Status Date / Time No Known Allergies Allergy Verified 07/08/18 06:49 PMH/Surg Hx/FS Hx/Imm Hx Previously Healthy: No Endocrine/Hematology History: Reports: Hx Anticoagulant Therapy - Warfarin, Hx Diabetes - Type 2 Denies: Hx Blood Disorders, Hx Blood Transfusions, Hx Bone Marrow Disease, Hx Systemic Lupus Erythematosus, Hx Sickle Cell Disease, Hx Thyroid Disease, Hx Anemia, Hx Unexplained Bleeding, Other Endocrine/Hematological Disorders Cardiovascular History: Reports: Hx Aneurysm - December 2017 aortic valve replaced , Hx Angina, Hx Coronary Artery Disease, Hx Hypercholesterolemia, Hx Hypertension, Other Cardiovascular Problems/Disorders - aoritic valve replacement soon Denies: Hx Auto Implanted Cardiovert Defib, Hx Cardiac Arrest, Hx Cardiomegaly, Hx Deep Vein Thrombosis, Hx Embolism, Hx Hypotension, Hx Myocardial Infarction, Hx Pacemaker/ICD, Hx Peripheral Vascular Disease, Hx Rheumatic Fever, Hx Syncope, Hx Valvular Heart Disease Respiratory History: Reports: Hx Pneumonia - December 2017, Hx Pulmonary Edema, Hx Sleep Apnea - WEARS cpap AT NIGHT Denies: Hx Asthma, Hx Bronchopulmonary Dysplasia, Hx Chronic Bronchitis, Hx Chronic Obstructive Pulmonary Disease (COPD), Hx Cystic Fibrosis, Hx Lung Cancer , Hx Pleural Effusion, Hx Pulmonary Embolism, Hx Seasonal Allergies, Other Respiratory Problems/Disorders GI History: Reports: Other GI Disorders - umbicial hernia repair 2002 Denies: Hx Cirrhosis, Hx Crohn's Disease, Hx Diverticulosis, Hx Gall Bladder Disease, Hx Gastroesophageal Reflux Disease, Hx Gastrointestinal Bleed, Hx Hiatal Hernia, Hx Irritable Bowel, Hx Jaundice, Hx Obstructive Bowel, Hx Ileostomy, Hx Pyloric Stenosis, Hx Ulcer History: Denies: Hx Acute Renal Failure, Hx Benign Prostatic Hyperplasia, Hx Chronic Renal Failure, Hx Dialysis, Hx Kidney Infection, Hx Kidney Stones, Hx Renal Disease, Other Problems/Disorders Musculoskeletal History: Denies: Hx Arthritis, Hx Back Problems, Hx Bursitis, Hx Congenital Bone Abnormalities, Hx Fibromyalgia, Hx Gout, Hx Orthopedic Injury, Hx Osteoporosis, Hx Scoliosis, Hx Tendonitis, Other Musculoskeletal History Sensory History: Reports: Hx Contacts or Glasses - Reading glasses at home Denies: Hx Cataracts, Hx Eye Injury, Hx Eye Prosthesis, Hx Glaucoma, Hx Legally Blind, Hx Macular Degeneration, Hx Vision Problem, Hx Deafness, Hx Hearing Aid, Hx Hearing Problem, Other Sensory Impairments Opthamlomology History: Reports: Hx Contacts or Glasses - Reading glasses at home Denies: Hx Cataracts, Hx Eye Injury, Hx Eye Prosthesis, Hx Glaucoma, Hx Legally Blind, Hx Macular Degeneration, Hx Vision Problem, Other Sensory Impairments Neurological History: Denies: Hx Dementia, Hx Developmental Delay, Hx Headaches, Hx Migraine, Hx Nerve Disease, Hx Seizures, Hx Spinal Cord Injury, Hx Transient Ischemic Attacks (TIA), Other Neuro Impairments/Disorders Psychiatric History: Denies: Hx Anxiety, Hx Attention Deficit Hyperactivity Disorder, Hx Autism, Hx Eating Disorder, Hx Oppositional [place] Disorder, Hx Depression, Hx Panic Disorder, Hx Post Traumatic Stress Disorder, Hx Inpatient Treatment, Hx Community Mental Health Tx, Hx Schizophrenia, Hx Bipolar Disorder, Hx Suicide Attempt, Hx of Violent Episodes Against Others, Other Psychiatric Issues/ Disorders - Surgical History Surgery Procedure, Year, and Place: Umbilical hernia surgery 2006. cardiac stent - May 2016. Aortic valve replacement December 2017. Pericardial window January 2018 Hx Anesthesia Reactions: No Infectious Disease History: No Infectious Disease History: Denies: Hx Hepatitis, Hx Human Immunodeficiency Virus (HIV), History Other Infectious Disease, Traveled Outside the [place] in Last 30 Days - Family History Known Family History: Positive: Cardiac Disease, Hypertension - Social History Occupation: Employed Part-time Lives: Alone Alcohol Use: Rare Hx Substance Use: No Substance Use Type: Reports: None Hx Tobacco Use: Yes Smoking Status (MU): Former Smoker Type: Cigarettes Amount Used/How Often: 1-2/DAY Length of Time of Smoking/Using Tobacco: 32 years Have You Smoked in the Last Year: Yes Review of Systems Constitutional: Negative Negative: Fever, Chills, Fatigue, Skin Diaphoresis Negative: Palpitations, Chest Pain Negative: Shortness Of Breath, Cough Genitourinary: Negative Positive: no symptoms reported, see HPI Positive: Arthralgia - right foot pain. Negative: Myalgia Skin: Negative Neurological: Negative All Other Systems Reviewed And Are Negative: Yes Physical Exam Triage Information Reviewed: Yes Vital Signs On Initial Exam: Initial Vitals Temp Pulse Resp BP Pulse Ox 97.9 F 62 18 179/89 94 07/08/18 06:46 07/08/18 06:46 07/08/18 06:46 07/08/18 06:46 07/08/18 06:46 Vital Signs Reviewed: Yes Appearance: Positive: Well-Appearing, Well-Nourished Skin: Positive: Warm, Skin Color Reflects Adequate Perfusion Head/Face: Positive: Normal Head/Face Inspection Eyes: Positive: Normal, ASH, Conjunctiva Clear Neck: Positive: Supple Respiratory/Lung Sounds: Positive: Clear to Auscultation, Breath Sounds Present Cardiovascular: Positive: Pulses are Symmetrical in both Upper and Lower Extremities Musculoskeletal: Positive: Pain @ - pain to the dorsum of the R foot Neurological: Positive: Speech Normal Psychiatric: Positive: Affect/Mood Appropriate Diagnostics - Vital Signs Vital Signs Temp Pulse Resp BP Pulse Ox 07/08/18 08:00 55 91 07/08/18 07:48 158/83 93 07/08/18 07:47 56 158/83 95 07/08/18 07:44 58 93 07/08/18 06:46 97.9 F 62 18 179/89 94 - Laboratory Lab Statement: Any lab studies that have been ordered have been reviewed, and results considered in the medical decision making process. Lower Extremity Course/Dx - Course Course Of Treatment: X-ray of the right foot obtained which shows no acute osseous injury. This x-ray was read by myself, KATE Hernandez. He is encouraged ibuprofen, ice, elevation. - Diagnoses Provider Diagnoses: Tendonitis Discharge - Sign-Out/Discharge Documenting (check all that apply): Patient Departure - Discharge Plan Condition: Stable Disposition: HOME Patient Education Materials: Tendinitis (ED) Forms: *Work Release Referrals: Charles Hancock MD [Primary Care Provider] - Additional Instructions: follow-up with orthopedics if symptoms persist Elevation Ice - Billing Disposition and Condition Condition: STABLE Disposition: Home
== END 2018-07-08 08:18 | disposition home or self-care (01) ==
LOC: ED 06:44
DX: M77.51 Other enthesopathy of right foot and ankle (principal); M19.071 Primary osteoarthritis, right ankle and foot; M85.871 Other specified disorders of bone density and structure, right ankle and foot; Z79.01 Long term (current) use of anticoagulants; Z87.891 Personal history of nicotine dependence
CPT/HCPCS: 99282

== ENCOUNTER 2019-04-14 11:09 | Inpatient (IN) | payer BC ==
--- NOTE | 2019-03-31 14:37 | HP ---
AMENDED REPORT NOW INCLUDES DESIGNATED COSIGNER CC: Dr. Sudheer Sahni; Dr. Yogi Owen; Dr. Saravia * PREOPERATIVE HISTORY AND PHYSICAL: DATE OF ADMISSION: 04/14/19 This patient is scheduled for AA admission by Dr. Mulligan on 04/14/19. DATE OF EXAMINATION: 03/31/19 ATTENDING SURGEON: Dr. Omid Mulligan * (dictated by Ronal Ron NP). CHIEF COMPLAINT: Colon cancer. 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 He also has obstructive sleep apnea requiring the use of CPAP, type 2 diabetes mellitus, COPD, and severe obesity. He had a routine screening colonoscopy by Dr. Rojas and was found to have an invasive adenocarcinoma at 55 cm. He was referred to Dr. Mulligan for consideration of surgery. He denies abdominal pain , change in bowel habits, nausea, vomiting, or weight loss. He had a CAT scan of the abdomen and pelvis, 03/10/19, there was no evidence for abdominal or pelvic visceral metastasis; a lesion at the level of the umbilicus was noted which may represent a small fluid containing nodule (Sister Juliette Mitchell nodule) , lymph node, or other lesion. Preoperative CEA was 1.9. Dr. Mulligan examined the patient and discussed the findings with him and recommended laparoscopic assisted left colectomy. The patient has been cleared by Dr. Owen from Cardiology and by Dr. Saravia from Pulmonary Medicine to proceed with the recommended surgery. Today, I reviewed the typical postoperative hospitalization and instructed him and a preoperative bowel cleansing prep consisting of CoLyte laxative, neomycin, and metronidazole tablet, and a clear liquid diet to be taken on the day before surgery. The patient has had a chance to ask questions and stated that he understands the information and is satisfied with the answer given to his questions. He will sign surgical consent on the day of surgery. PAST MEDICAL HISTORY: Significant for coronary artery disease, aortic stenosis , and ascending aorta aneurysm, status post aortic valve replacement, and ascending aortic aneurysm replacement 12/27/17 at [facility]; type 2 diabetes; obstructive sleep apnea requiring CPAP; COPD; hypertension; hyperlipidemia; obesity; former smoker; and colon cancer. PAST SURGICAL HISTORY: Open umbilical hernia repair for incarceration in 2006 at [facility], aortic valve replacement, and repair of ascending aortic aneurysm, and pericardial window in 2018 at [facility]. MEDICATIONS: 1. Aspirin 325 mg p.o. daily and the patient will continue this in the perioperative period as recommended by Dr. Owen. 2. Amlodipine 5 mg p.o. daily. 3. Atorvastatin 80 mg p.o. daily. 4. Metoprolol 50 mg p.o. b.i.d. 5. Lisinopril 40 mg p.o. daily. 6. Amoxicillin 500 mg p.o. b.i.d. 7. Furosemide 20 mg p.o. daily. 8. Doxazosin 4 mg p.o. daily. 9. Metformin ER 750 mg 2 tablets daily. The patient will hold that on the day before surgery while he is doing his bowel cleaning prep. 10. Lantus 110 units at h.s. 11. Tylenol Extra Strength 500 mg p.r.n. ALLERGIES: No known drug allergies. FAMILY HISTORY: No known bleeding disorder, clotting disorders, or anesthesia complications. Father with a history of heart disease. Mother with a history of emphysema. SOCIAL HISTORY: He is ; he is a former smoker, who quit in December 2017, previously less than 1 pack per day for 40 years. He rarely consumes alcohol. He denies the use of other substances. He drinks decaf coffee. 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 REVIEW OF SYSTEMS: Constitutional: No fevers, chills, excessive fatigue, or unintentional weight loss. Endocrine: Type 2 diabetes. He reports that typically his blood sugar runs 129 although today at home his blood sugar was 278 and he states that he has not been careful with his diabetic diet; I cautioned him that if his blood sugar was 200 or greater that he should be communicating with Dr. Sahni and if his blood sugar was too high on the day of surgery, his surgery could be postponed. He stated he would be more compliant with his diabetic diet. No known thyroid disease. Hematologic: No easy bruising or bleeding. He has never received a blood transfusion. Respiratory: He has COPD and obstructive sleep apnea and consistently uses CPAP. He has been cleared by Dr. Saravia to proceed with the recommended surgery. He will have preoperative pulmonary function tests; Dr. Saravia recommends perioperative and postoperative bronchodilators and careful perioperative monitoring of O2 saturations and CO2 monitoring to evaluate for hypercapnia; he has mild dyspnea on exertion. No chronic cough. Cardiovascular: No anginal chest pain or palpitations. Please see Dr. Owen's note for complete information on his cardiac history. He has been cleared by Dr. Owen to proceed with the recommended surgery. Dr. Owen recommended continuing aspirin in the perioperative period, continuing atorvastatin and metoprolol and lisinopril and Lasix which he states could be held for surgery. He also counseled the patient on a heart-healthy diet and weight loss and strict control of diabetes. Gastrointestinal: No nausea, vomiting, diarrhea, GI bleeding, or constipation, or change in bowel habits. Genitourinary: No dysuria. Musculo-skeletal: Normal strength and tone. Integumentary: Both lower extremities have changes of venous insufficiency, but there are no ulcerations. Neurologic: No headache or blurred vision or areas of focal weakness or numbness. General: No history of deep vein thrombosis or pulmonary embolism; no previous anesthesia complications; no history of MRSA infections. PHYSICAL EXAMINATION GENERAL SURGERY: The patient is a 58-year-old obese male, in no acute distress. VITAL SIGNS: Height 67 inches, weight 288 pounds, body mass index 45.1. Blood pressure 148/90, pulse 72 and regular, respiratory rate 16, temperature 97.6 tympanic. HEENT: Benign. NECK: Supple. No cervical lymphadenopathy. No audible carotid bruits. LUNGS: Breath sounds bilaterally clear and equal. No increased work of breathing. HEART: Regular rate and rhythm. 2/6 systolic murmur. Sternotomy site well healed. ABDOMEN: Active bowel sounds, obese, well-healed umbilical surgical scar. Soft and nontender throughout. No obvious masses or organomegaly, but exam is limited by body habitus. No skin folds, rashes. Genitalia and rectal exam is deferred. EXTREMITIES: Warm, mild edema, no pitting and skin changes consistent with venous stasis. No ulcerations. NEUROLOGIC: Alert and oriented x3, steady gait. SKIN: Warm, dry, intact. Changes of venous stasis and insufficiency both lower extremities. No skin ulcerations. IMPRESSION: Colon cancer. PLAN/RECOMMENDATIONS: AA admission to Dr. Mulligan' service for laparoscopic- assisted left colectomy on 04/14/19. The patient has been cleared to proceed by Dr. Owen from Cardiology and Dr. Saravia from Pulmonary Medicine. Please see the attached reports for further details; the patient will take a bowel cleansing prep on the day before surgery consisting of clear liquids, CoLyte laxative, neomycin and metronidazole tablets. The patient will also have preoperative pulmonary function tests. RONAL RON, ANN [id number]/[facility] #: [id number] KATELYNN
[~2019-04-14 11:09] MED LIST: Buffered Lidocaine 1% SYRIN* 1 ML/SYRINGE INTRADERM ONE; ERTApenem(*) 1 GM in NS 0.9% 50 ML* 50 ML IVPB SCH; Famotidine IV* 10 MG/ML 2 ML (20 mg) IV ONE; Gabapentin CAP(*) 300 MG PO ONE; Lactated Ringers 1000 ML Bag* 1,000 ML IV SCH; Levalbuterol 0.63MG/3ML NEB* UNIT OF USE INH ONE
--- OUTSIDE RECORDS SUMMARY | 2019-04-14 11:14 | XMS REPORT | Continuity of Care Document ---
:1960 External Reference #:[id number] Author Name Shari Alford Care Team Providers Name Role Phone Sudheer Sahni MD Primary Care Physician Unavailable Payers Date Identification Numbers Payment Provider Subscriber Effective: Policy Number: [id number] BS Facets Augustine Watson JR 2017 PayID: [id number] [address] [address] [place] [address] Problems Active Problems Provider Date Aortic valve disorder Tam Craig M.D., [place] Onset: 02/14/2015 Benign essential hypertension Tam Craig M.D., [place], [facility] Onset: 2014 Hyperlipidemia Tma Craig M.D., [place], [place] Onset: 02/14/2015 Dyspnea Tam Craig M.D., [place], [place] Onset: 02/14/2015 Thoracic Aortic Ectasia Tam Craig M.D., [place], [facility] Onset: 02/28/2015 Essential hypertension Tam Craig M.D., [place], [facility] Onset: 09/12/2015 Chronic ischemic heart disease, Tam Craig M.D., [place], [place] Onset: 2015 unspecified 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 Onset: 02/04/2018 Type 2 diabetes mellitus Una Webster M.D. Onset: 02/04/2018 Long-term current use of insulin Una Webster M.D. Onset: 02/04/2018 Chronic hypoxemic respiratory Una Webster M.D. Onset: 02/05/2018 failure Pleural effusion, not elsewhere Una Webster M.D. Onset: 02/05/2018 classified Pleural effusion Una Webster M.D. Onset: 02/08/2018 Disorder of pericardium Tam Craig M.D., [facility] Onset: 02/25/2018 Sepsis, unspecified organism Aubrey Crump II, M.D. Onset: 03/09/2018 Paroxysmal atrial fibrillation Aubrey Crump II, M.D. Onset: 03/09/2018 Chronic obstructive lung disease Aubrey Crump II, M.D. Onset: 03/09/2018 Pneumonia due to Streptococcus Duane Shipley M.D. 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 [employer] Tobacco Use Start: Unknown End: Former Cigarette quit as of December Unknown Smoker 2017 ETOH Use Rarely consumes alcohol Recreational Drug Use Denies Drug Use Tobacco Use Start: Unknown End: Patient is a former quit December 2017 - Unknown smoker formerly less than 1 ppd x 40 yrs Smoking Status Reviewed: 03/27/19 Patient is a former quit December 2017 - smoker formerly less than 1 ppd x 40 yrs Exercise Type/Frequency Exercises regularly 1/2 mile daily Allergies, Adverse Reactions, Alerts Description No Known Drug Allergies Medications Active Medications SIG Qnty Indications Ordering Provider Date Amlodipine Besylate 1 by mouth 90tabs Yogi Owen, 03/10/2019 10mg every day DO [facility] Tablets Aspirin take 1 by mouth 90tabs Yogi Owen, 09/05/2018 325mg Tablets once a day DO [facility] Atorvastatin Calcium 1 by mouth 90tabs E78.5 Yogi Owen, 09/05/2018 80mg every day DO [facility] Tablets Metoprolol Tartrate 1 by mouth 180tabs Yogi Owen, 06/02/2018 50mg twice a day DO [facility] Tablets Lisinopril 1 by mouth 90tabs Yogi Owen, 05/20/2018 40mg Tablets every day DO [facility] Amoxicillin 1 by mouth 60tabs T82.7xxD Chris Quiroz 04/11/2018 500mg Tablets twice a day Howie Baltazar Furosemide 1 by mouth Tam Craig, 03/25/2018 20mg Tablets every day Howie, [facility], [facility] Lantus 100 units at Unknown 100Unit/ML night before Solution bed Metformin HCL ER 2 by mouth Unknown 750mg every day Tablets ER 24HR Doxazosin Mesylate one tab by Unknown 4mg mouth daily Tablets Tylenol Extra Strength prn Unknown 500mg Tablets History Medications Xarelto 1 by mouth every 30tabs I48.92 Yogi Briceno 05/07/2018 - 20mg day Owen, DO [facility] 09/05/2018 Tablets Lisinopril 1 by mouth every 90tabs Yogi Briceno 05/07/2018 - 20mg day Owen, DO [facility] 05/20/2018 Tablets Warfarin Sodium take as directed 90tabs Tam Craig, 03/06/2018 - 2mg Howie, [facility], 05/07/2018 Tablets [facility] Amiodarone HCL 1 by mouth every 30tabs I48.3 Tam Craig, 02/25/2018 - day Howie, [facility], 05/12/2018 200mg Tablets [place] Brilinta 1 tab by mouth 60tabs Tam Craig, 07/15/2017 - 60mg twice a day M.DCharles, [facility], 10/21/2017 Tablets [facility] Pravastatin Sodium 1 tablet daily at 180tabs E78.5 Tam Craig, 2015 - bedtime M.Richie, [facility], 09/05/2018 40mg Tablets [facility] Furosemide 1 tablet 2 times 150tabs Tam Craig, 04/09/2016 - 40mg daily (changed at M.D., [facility], 03/25/2018 Tablets [facility] 02/17/18) [facility] Ventolin HFA 2 puffs by mouth Unknown - four times a day as 03/30/2018 108(90Base) mcg/Act needed Aerosol Gentamicin Sulfate 100 ml's IV every Unknown - 12 hours until 04/21/2018 60mg/50ML Solution 04/28/18 Penicillin G 50 ml's IV every 4 Unknown - Potassium hours for 38 days( 04/21/2018 3Million ends 04/28/18) Units/50 ML'S Solution Rec Warfarin Sodium 1 tab every night 90tabs Maria R Weldon - 3mg or as directed MD Fallon, 05/07/2018 Tablets [facility], [facility] Omeprazole 1 by mouth every Unknown - 20mg day 03/30/2018 Capsules Lisinopril 1 by mouth every Unknown - 10mg day 05/07/2018 Tablets Warfarin Sodium take as directed 90tabs Tam Craig, - 4mg Howie, [facility], 05/07/2018 Tablets [facility] Metoprolol Tartrate 1 by mouth twice a Unknown - day 06/02/2018 25mg Tablets Hydrocodone-Acetami 1 or 2 tabs by Unknown - nophen mouth every 6-8 05/06/2018 5-325mg hours as needed for Tablets pain Amiodarone HCL 1 by mouth every 30tabs Tam Craig, - day for 30 days M.Richie, [facility], 02/24/2018 200mg Tablets DARYL Aspirin 1 by mouth every Unknown - 81mg day 09/05/[address] Fields 1 tab by mouth Unknown - 90mg twice a day 07/15/2017 Tablets Furosemide 1 by mouth 150tabs Unknown - 40mg alternating with 2 04/09/2016 Tablets by mouth a day Potassium Chloride 1 by mouth every Unknown - ER day 05/06/2018 20Meq Tablets ER Amlodipine Besylate 1 by mouth every Unknown - day 02/19/2018 10mg Tablets Pravastatin Sodium 1 tablet daily at E78.5 Unknown - bedtime 05/09/2016 40mg Tablets Atenolol 1 by mouth every Unknown - 100mg day 01/15/2018 Tablets Lisinopril-Hydrochl 1 by mouth daily Unknown - orothiazide 01/08/2018 20-12.5mg Tablets Ibuprofen as needed Unknown - 200mg 04/08/2016 Tablets Vital Signs Date Vital Result Comment 03/27/2019 6:53am Height 67 inches 5'7" Weight 288.00 lb Heart Rate 52 /min BP Systolic Sitting 140 mmHg Lue large cuff BP Diastolic Sitting 80 mmHg Lue large cuff Respiratory Rate 12 /min O2 % BldC Oximetry 96 % BMI (Body Mass Index) 45.1 kg/m2 Neck Circumference in inches 17 03/12/2019 7:40am Height 67 inches 5'7" Weight 288.00 lb with shoes Heart Rate 78 /min BP Systolic Sitting 144 mmHg lue large cuff BP Diastolic Sitting 86 mmHg lue large cuff BP Systolic Standing 150 mmHg lue large cuff BP Diastolic Standing 90 mmHg lue large cuff Respiratory Rate 14 /min BMI (Body Mass Index) 45.1 kg/m2 Ejection Fraction 55-60% 02/27/2019 1:16pm Height 67 inches 5'7" Weight 289.00 lb Heart Rate 72 /min BP Systolic 168 mmHg BP Diastolic 92 mmHg Respiratory Rate 16 /min Body Temperature 99.3 F BMI (Body Mass Index) 45.3 kg/m2 02/16/2019 1:48pm Height 67 inches 5'7" Weight 289.00 lb Heart Rate 68 /min BP Systolic Sitting 162 mmHg BP Diastolic Sitting 84 mmHg Respiratory Rate 14 /min Body Temperature 98.6 F BMI (Body Mass Index) 45.3 kg/m2 09/05/2018 8:02am Height 67 inches 5'7" Weight 288.00 lb with shoes Heart Rate 61 /min BP Systolic Sitting 134 mmHg lue large cuff BP Diastolic Sitting 70 mmHg lue large cuff BP Systolic Standing 136 mmHg lue large cuff BP Diastolic Standing 70 mmHg lue large cuff BMI (Body Mass Index) 45.1 kg/m2 Ejection Fraction 55-60% 08/05/2018 8:23am Height 67 inches 5'7" Weight 286.25 lb Heart Rate 63 /min BP Systolic Sitting 138 mmHg BP Diastolic Sitting 86 mmHg Respiratory Rate 14 /min Body Temperature 98.1 F O2 % BldC Oximetry 95 % BMI (Body Mass Index) 44.8 kg/m2 06/02/2018 2:07pm Height 67 inches 5'7" Weight 281.00 lb Heart Rate 88 /min BP Systolic Sitting 144 mmHg lue lg cuff BP Diastolic Sitting 78 mmHg lue lg cuff BP Systolic Standing 148 mmHg BP Diastolic Standing 82 mmHg Respiratory Rate 18 /min BMI (Body Mass Index) 44.0 kg/m2 Ejection Fraction 55-60% 04/16/2018 echo 05/20/2018 11:24am Height 67 inches 5'7" Weight 276.00 lb Heart Rate 88 /min BP Systolic Sitting 150 mmHg BP Diastolic Sitting 82 mmHg BP Systolic Standing 154 mmHg BP Diastolic Standing 82 mmHg Pain Level 0 BMI (Body Mass Index) 43.2 kg/m2 05/07/2018 3:27pm Height 67 inches 5'7" Weight 279.00 lb w/ shoes Heart Rate 96 /min BP Systolic Sitting 146 mmHg Lue Large Cuff BP Diastolic Sitting 110 mmHg Lue Large Cuff BP Systolic Standing 142 mmHg BP Diastolic Standing 102 mmHg BMI (Body Mass Index) 43.7 kg/m2 Ejection Fraction 55-60% ECHO 04/16/18 05/06/2018 8:52am Height 67 inches 5'7" Weight 279.50 lb Heart Rate 72 /min BP Systolic Sitting 152 mmHg BP Diastolic Sitting 84 mmHg Respiratory Rate 14 /min Body Temperature 97.9 F BMI (Body Mass Index) 43.8 kg/m2 04/11/2018 9:47am Height 67 inches 5'7" Weight 277.38 lb Heart Rate 72 /min BP Systolic Sitting 144 mmHg BP Diastolic Sitting 88 mmHg Respiratory Rate 14 /min Body Temperature 97.6 F BMI (Body Mass Index) 43.4 kg/m2 03/31/2018 4:08pm Height 67 inches 5'7" Weight 270.25 lb Heart Rate 72 /min BP Systolic Sitting 158 mmHg BP Diastolic Sitting 62 mmHg Respiratory Rate 14 /min Body Temperature 98.6 F BMI (Body Mass Index) 42.3 kg/m2 03/31/2018 2:31pm Height 67 inches 5'7" Weight 270.00 lb w/ shoes Heart Rate 70 /min BP Systolic Sitting 158 mmHg lue lg cuff BP Diastolic Sitting 88 mmHg lue lg cuff BP Systolic Standing 152 mmHg lue lg cuff BP Diastolic Standing 86 mmHg lue lg cuff Respiratory Rate 20 /min BMI (Body Mass Index) 42.3 kg/m2 Ejection Fraction 50-55% echo 03/12/18 02/25/2018 4:10pm Height 67 inches 5'7" Weight 268.00 lb w/ shoes Heart Rate 104 /min BP Systolic Sitting 144 mmHg lue lg cuff BP Diastolic Sitting 98 mmHg lue lg cuff BP Systolic Standing 132 mmHg lue lg cuff BP Diastolic Standing 88 mmHg lue lg cuff BMI (Body Mass Index) 42.0 kg/m2 Ejection Fraction 50-55% 02/10/18 02/04/2018 2:28pm Height 67 inches 5'7" Weight 317.00 lb w/ shoes Heart Rate 106 /min BP Systolic Sitting 150 mmHg lue lg cuff BP Diastolic Sitting 72 mmHg lue lg cuff BP Systolic Standing 148 mmHg lue lg cuff BP Diastolic Standing 82 mmHg lue lg cuff Respiratory Rate 26 /min BMI (Body Mass Index) 49.6 kg/m2 Ejection Fraction 50-55% echo 01/30/18 01/29/2018 1:15pm Height 67 inches 5'7" Weight 308.00 lb w/ shoes Heart Rate 72 /min BP Systolic Sitting 138 mmHg lue lg cuff BP Diastolic Sitting 82 mmHg lue lg cuff BP Systolic Standing 138 mmHg lue lg cuff BP Diastolic Standing 82 mmHg lue lg cuff Respiratory Rate 18 /min BMI (Body Mass Index) 48.2 kg/m2 Ejection Fraction 50-55% echo 12/11/17 12/12/2017 8:34am Height 67 inches 5'7" Weight 325.00 lb w/ shoes Heart Rate 60 /min BP Systolic Sitting 120 mmHg lue large cuff BP Diastolic Sitting 78 mmHg lue large cuff BP Systolic Standing 122 mmHg lue large cuff BP Diastolic Standing 82 mmHg lue large cuff Respiratory Rate 18 /min BMI (Body Mass Index) 50.9 kg/m2 Ejection Fraction 50-55% echo 12/11/17 07/15/2017 8:09am Height 67 inches 5'7" Weight 295.00 lb w/ boots Heart Rate 66 /min BP Systolic Sitting 122 mmHg rue large cuff BP Diastolic Sitting 64 mmHg rue large cuff BP Systolic Standing 132 mmHg rue large cuff BP Diastolic Standing 74 mmHg rue large cuff Respiratory Rate 18 /min BMI (Body Mass Index) 46.2 kg/m2 Ejection Fraction 60-65% echo 02/06/17 12/19/2016 7:54am Height 67 inches 5'7" Weight 291.00 lb w/ shoes Heart Rate 64 /min reg BP Systolic Sitting 120 mmHg Rue, lg cuff BP Diastolic Sitting 80 mmHg Rue, lg cuff BP Systolic Standing 114 mmHg Rue BP Diastolic Standing 80 mmHg Rue Respiratory Rate 16 /min BMI (Body Mass Index) 45.6 kg/m2 Ejection Fraction 55-60% as of 01/26/16 echo 05/09/2016 2:45pm Height 67 inches 5'7" Weight 282.00 lb Heart Rate 68 /min 70 BP Systolic Sitting 124 mmHg right arm, large cuff BP Diastolic Sitting 76 mmHg right arm, large cuff BP Systolic Standing 120 mmHg right arm, large cuff BP Diastolic Standing 78 mmHg right arm, large cuff Respiratory Rate 20 /min BMI (Body Mass Index) 44.2 kg/m2 Ejection Fraction 55-60% 01/26/16 04/09/2016 3:00pm Height 67 inches 5'7" Weight 285.00 lb Heart Rate 66 /min 68 BP Systolic Sitting 130 mmHg left arm, large cuff BP Diastolic Sitting 84 mmHg left arm, large cuff BP Systolic Standing 124 mmHg left arm, large cuff BP Diastolic Standing 82 mmHg left arm, large cuff Respiratory Rate 16 /min BMI (Body Mass Index) 44.6 kg/m2 Ejection Fraction 55-60% 01/26/16 02/15/2016 9:07am Height 67 inches 5'7" Weight 292.00 lb Heart Rate 64 /min 66 BP Systolic Sitting 126 mmHg right arm, large cuff BP Diastolic Sitting 78 mmHg right arm, large cuff BP Systolic Standing 124 mmHg right arm, large cuff BP Diastolic Standing 78 mmHg right arm, large cuff Respiratory Rate 20 /min BMI (Body Mass Index) 45.7 kg/m2 Ejection Fraction 55-60% 01/26/16 09/12/2015 9:54am Height 67 inches 5'7" Weight 291.00 lb Heart Rate 60 /min 62 BP Systolic Sitting 118 mmHg right arm, large cuff BP Diastolic Sitting 82 mmHg right arm, large cuff BP Systolic Standing 116 mmHg right arm, large cuff BP Diastolic Standing 80 mmHg right arm, large cuff Respiratory Rate 16 /min BMI (Body Mass Index) 45.6 kg/m2 Ejection Fraction 60-65% 02/15/15 03/23/2015 3:47pm Height 67 inches 5'7" Heart Rate 62 /min 64 BP Systolic Sitting 122 mmHg right arm, large cuff BP Diastolic Sitting 84 mmHg right arm, large cuff BP Systolic Standing 118 mmHg right arm, large cuff BP Diastolic Standing 82 mmHg right arm, large cuff Respiratory Rate 20 /min Ejection Fraction 60-65% 02/15/15 02/28/2015 3:00pm Height 67 inches 5'7" Weight 289.00 lb w/ shoes Heart Rate 72 /min BP Systolic Sitting 136 mmHg LA, reg BP Diastolic Sitting 88 mmHg LA, reg BP Systolic Standing 132 mmHg LA, reg BP Diastolic Standing 82 mmHg LA, reg BMI (Body Mass Index) 45.3 kg/m2 Ejection Fraction 60% 02/21/15 [facility] 02/14/2015 8:38am Height 67 inches 5'7" Weight 285.00 lb [...] Ejection Fraction 55-60% 09/12/11 Results Test Date Facility Test Result H/L Range Note PSA Free And Total 08/06/2018 [facility] PSA Total 0.33 ng/mL <=3.[address] [place] [address] [phone] PSA Free <0.1 ng/mL PSA Free/Total See Comment ratio 1 Laboratory test 08/06/2018 [facility] TSH (Thyroid 1.98 mcIU/mL N 0.34-5.[address] Stim Horm) [place] [address] [phone] Vitamin D Total 25(Oh) 9.9 ng/mL Low 20-50 Lipid Profile 08/06/2018 [facility] Triglycerides 142 mg/dL 2 (Trig/Chol/HDL) [address] [place] [address] [phone] Cholesterol 192 mg/dL 3 HDL Cholesterol 39.7 mg/dL 4 LDL Cholesterol 124 mg/dL 5 Laboratory test 08/06/2018 [facility] C Reactive 2.17 mg/L N < 8.[address] [place] [address] [phone] CBC Auto Diff 08/06/2018 [facility] White Blood 9.0 N 3.5- 10.[address] Count 10^3/[place] [address] [phone] Red Blood Count 5.25 10^6/uL N 4.00-5.40 Hemoglobin 14.6 g/dL N 14.0-18.0 Hematocrit 43 % N 42-52 Mean Corpuscular Volume 83 fL N 80-94 Mean Corpuscular Hemoglobin 28 pg N 27-31 Mean Corpuscular HGB Conc 34 g/dL N 31-36 Red Cell Distribution Width 16 % High 10.5-15 Platelet Count 254 10^3/uL N 150-450 Mean Platelet Volume 9.1 fL N 7.4-10.4 Abs Neutrophils 4.5 10^3/uL N 1.5-7.7 Abs Lymphocytes 3.5 10^3/uL N 1.0-4.8 Abs Monocytes 0.6 10^3/uL N 0-0.8 Abs Eosinophils 0.4 10^3/uL N 0-0.6 Abs Basophils 0.1 10^3/uL N 0-0.2 Abs Nucleated RBC 0 10^3/uL Granulocyte % 49.5 % Lymphocyte % 38.5 % Monocyte % 7.0 % Eosinophil % 4.2 % Basophil % 0.8 % Nucleated Red Blood Cells % 0.1 Comp Metabolic Panel 08/06/2018 [facility] Sodium 143 mmol/L N 135-[address] [place] [address] [phone] Potassium 3.8 mmol/L N 3.5-5.0 Chloride 107 mmol/L N 101-111 Co2 Carbon Dioxide 29 mmol/L N 22-32 Anion Gap 7 mmol/L N 2-11 Glucose 184 mg/dL High 70-100 Blood Urea Nitrogen 18 mg/dL N 6-24 Creatinine 0.69 mg/dL N 0.67-1.17 BUN/Creatinine Ratio 26.1 High 8-20 Calcium 9.1 mg/dL N 8.6-10.3 Total Protein 6.7 g/dL N 6.4-8.9 Albumin 3.6 g/dL N 3.2-5.2 Globulin 3.1 g/dL N 2-4 Albumin/Globulin Ratio 1.2 N 1-3 Total Bilirubin 0.80 mg/dL N 0.2-1.0 Alkaline Phosphatase 84 U/L N 34-104 Alt 24 U/L N 7-52 Ast 24 U/L N 13-39 Egfr Non- 118.6 >60 Egfr 143.5 >60 6 Laboratory test 08/06/2018 [facility] Hemoglobin A1c 10.5 % High 4.0-5.6 [address] (Glyco HGB) [place] [address] [phone] Inr/Protime 08/06/2018 [facility] Inr 1.52 High 0.77-1.[address] [place] [address] [phone] Basic Metabolic 05/30/2018 [facility] Sodium 141 N 135-[address] mmol/[place] [address] [phone] Potassium 4.5 mmol/L N 3.5-5.0 Chloride 105 mmol/L N 101-111 Co2 Carbon Dioxide 32 mmol/L N 22-32 Anion Gap 4 mmol/L N 2-11 Glucose 255 mg/dL High 70-100 Blood Urea Nitrogen 16 mg/dL N 6-24 Creatinine 0.70 mg/dL N 0.67-1.17 BUN/Creatinine Ratio 22.9 High 8-20 Calcium 9.2 mg/dL N 8.6-10.3 Egfr Non- 117.1 >60 Egfr 141.7 >60 8 CBC Auto Diff 05/12/2018 [facility] White Blood 9.9 10^3/uL N 3.5-10.[address] [place] [address] [phone] Red Blood Count 5.02 10^6/uL N 4.00-5.40 Hemoglobin 12.4 g/dL Low 14.0-18.0 Hematocrit 38 % Low 42-52 Mean Corpuscular Volume 76 fL Low 80-94 Mean Corpuscular Hemoglobin 25 pg Low 27-31 Mean Corpuscular HGB Conc 33 g/dL N 31-36 Red Cell Distribution Width 18 % High 10.5-15 Platelet Count 289 10^3/uL N 150-450 Mean Platelet Volume 8.6 um3 N 7.4-10.4 Abs Neutrophils 4.8 10^3/uL N 1.5-7.7 Abs Lymphocytes 3.6 10^3/uL N 1.0-4.8 Abs Monocytes 1.0 10^3/uL High 0-0.8 Abs Eosinophils 0.4 10^3/uL N 0-0.6 Abs Basophils 0.1 10^3/uL N 0-0.2 Abs Nucleated RBC 0 10^3/uL Granulocyte % 48.1 % N 38-83 Lymphocyte % 36.3 % N 25-47 Monocyte % 10.5 % High 0-7 Eosinophil % 3.9 % N 0-6 Basophil % 1.2 % N 0-2 Nucleated Red Blood Cells % 0.1 Basic Metabolic Panel 05/12/2018 [facility] Sodium 142 mmol/L N 135-145 [address] [place] [address] [phone] Potassium 3.6 mmol/L N 3.5-5.0 Chloride 109 mmol/L N 101-111 Co2 Carbon Dioxide 26 mmol/L N 22-32 Anion Gap 7 mmol/L N 2-11 Glucose 168 mg/dL High 70-100 Blood Urea Nitrogen 15 mg/dL N 6-24 Creatinine 0.81 mg/dL N 0.67-1.17 BUN/Creatinine Ratio 18.5 N 8-20 Calcium 9.1 mg/dL N 8.6-10.3 Egfr Non- 98.9 >60 Egfr 119.7 >60 9 Laboratory test 05/12/2018 [facility] Magnesium 2.0 mg/dL N 1.9-2.[address] [place] [address] [phone] TSH (Thyroid Stim Horm) 3.68 mcIU/mL N 0.34-5.60 Inr/Protime 05/06/2018 [facility] Inr 1.96 High 0.77-1.02 [address] [place] [address] [phone] Inr/Protime 04/28/2018 [facility] Inr 1.89 High 0.77-1.02 [address] [place] [address] [phone] Comp Metabolic 04/15/2018 [facility] Sodium 142 mmol/L N 135- 145 [address] [place] [address] [phone] Potassium 3.8 mmol/L N 3.5-5.0 Chloride 105 mmol/L N 101-111 Co2 Carbon Dioxide 28 mmol/L N 22-32 Anion Gap 9 mmol/L N 2-11 Glucose 184 mg/dL High 70-100 Blood Urea Nitrogen 14 mg/dL N 6-24 Creatinine 0.69 mg/dL N 0.67-1.17 BUN/Creatinine Ratio 20.3 High 8-20 Calcium 8.6 mg/dL N 8.6-10.3 Total Protein 6.9 g/dL N 6.4-8.9 Albumin 3.6 g/dL N 3.2-5.2 Globulin 3.3 g/dL N 2-4 Albumin/Globulin Ratio 1.1 N 1-3 Total Bilirubin 0.40 mg/dL N 0.2-1.0 Alkaline Phosphatase 77 U/L N 34-104 Alt 15 U/L N 7-52 Ast 18 U/L N 13-39 Egfr Non- 119.0 >60 Egfr 144.0 >60 11 Laboratory test 04/15/2018 [facility] Gentamicin Trough 0.5 g/ mL [address] [place] [address] [phone] C Reactive Protein 1.43 mg/L N <8.01 13 CBC Auto Diff 04/15/2018 [facility] White Blood 8.6 10^3/uL N 3.5-10.8 [address] [facility] [place] [address] [phone] Red Blood Count 4.57 10^6/uL N 4.00-5.40 Hemoglobin 11.3 g/dL Low 14.0-18.0 Hematocrit 35 % Low 42-52 Mean Corpuscular Volume 76 fL Low 80-94 Mean Corpuscular Hemoglobin 25 pg Low 27-31 Mean Corpuscular HGB Conc 32 g/dL N 31-36 Red Cell Distribution Width 18 % High 10.5-15 Platelet Count 303 10^3/uL N 150-450 Mean Platelet Volume 8.9 um3 N 7.4-10.4 Abs Neutrophils 4.7 10^3/uL N 1.5-7.7 Abs Lymphocytes 2.8 10^3/uL N 1.0-4.8 Abs Monocytes 0.7 10^3/uL N 0-0.8 Abs Eosinophils 0.3 10^3/uL N 0-0.6 Abs Basophils 0.1 10^3/uL N 0-0.2 Abs Nucleated RBC 0 10^3/uL Granulocyte % 54.1 % N 38-83 Lymphocyte % 32.4 % N 25-47 Monocyte % 8.4 % High 0-7 Eosinophil % 4.0 % N 0-6 Basophil % 1.1 % N 0-2 Nucleated Red Blood Cells % 0.1 Laboratory test 04/15/2018 [facility] Erythrocyte Sed 22 mm/Hr High 0-20 [address] [place] [address] [phone] CBC Auto Diff 04/08/2018 [facility] White Blood 8.9 N 3.5- 10.[address] Count 10^3/[place] [address] [phone] Red Blood Count 4.67 10^6/uL N 4.00-5.40 Hemoglobin 11.5 g/dL Low 14.0-18.0 Hematocrit 35 % Low 42-52 Mean Corpuscular Volume 76 fL Low 80-94 Mean Corpuscular Hemoglobin 25 pg Low 27-31 Mean Corpuscular HGB Conc 33 g/dL N 31-36 Red Cell Distribution Width 17 % High 10.5-15 Platelet Count 322 10^3/uL N 150-450 Mean Platelet Volume 8.6 um3 N 7.4-10.4 Abs Neutrophils 4.5 10^3/uL N 1.5-7.7 Abs Lymphocytes 3.1 10^3/uL N 1.0-4.8 Abs Monocytes 0.8 10^3/uL N 0-0.8 Abs Eosinophils 0.4 10^3/uL N 0-0.6 Abs Basophils 0.1 10^3/uL N 0-0.2 Abs Nucleated RBC 0 10^3/uL Granulocyte % 51.0 % N 38-83 Lymphocyte % 34.7 % N 25-47 Monocyte % 8.6 % High 0-7 Eosinophil % 4.4 % N 0-6 Basophil % 1.3 % N 0-2 Nucleated Red Blood Cells % 0.1 Laboratory test 04/08/2018 [facility] Erythrocyte Sed 24 mm/Hr High 0-[address] [place] [address] [phone] Comp Metabolic 04/08/2018 [facility] Sodium 142 N 135-[address] mmol/[place] [address] [phone] Potassium 3.6 mmol/L N 3.5-5.0 Chloride 105 mmol/L N 101-111 Co2 Carbon Dioxide 29 mmol/L N 22-32 Anion Gap 8 mmol/L N 2-11 Glucose 126 mg/dL High 70-100 Blood Urea Nitrogen 11 mg/dL N 6-24 Creatinine 0.64 mg/dL Low 0.67-1.17 BUN/Creatinine Ratio 17.2 N 8-20 Calcium 9.0 mg/dL N 8.6-10.3 Total Protein 6.8 g/dL N 6.4-8.9 Albumin 3.5 g/dL N 3.2-5.2 Globulin 3.3 g/dL N 2-4 Albumin/Globulin Ratio 1.1 N 1-3 Total Bilirubin 0.40 mg/dL N 0.2-1.0 Alkaline Phosphatase 79 U/L N 34-104 Alt 14 U/L N 7-52 Ast 17 U/L N 13-39 Egfr Non- 129.8 >60 Egfr 157.1 >60 15 Laboratory test 04/08/2018 [facility] Gentamicin Trough 0.7 g/ mL [address] [place] [address] [phone] C Reactive Protein 1.86 mg/L N <8.01 Comp Metabolic Panel 04/03/2018 [facility] Sodium 142 mmol/L N 135-[address] [place] [address] [phone] Potassium 3.3 mmol/L Low 3.5-5.0 Chloride 103 mmol/L N 101-111 Co2 Carbon Dioxide 30 mmol/L N 22-32 Anion Gap 9 mmol/L N 2-11 Glucose 168 mg/dL High 70-100 Blood Urea Nitrogen 11 mg/dL N 6-24 Creatinine 0.68 mg/dL N 0.67-1.17 BUN/Creatinine Ratio 16.2 N 8-20 Calcium 8.9 mg/dL N 8.6-10.3 Total Protein 6.5 g/dL N 6.4-8.9 Albumin 3.4 g/dL N 3.2-5.2 Globulin 3.1 g/dL N 2-4 Albumin/Globulin Ratio 1.1 N 1-3 Total Bilirubin 0.40 mg/dL N 0.2-1.0 Alkaline Phosphatase 72 U/L N 34-104 Alt 12 U/L N 7-52 Ast 16 U/L N 13-39 Egfr Non- 121.1 >60 Egfr 146.5 >60 18 Laboratory test 04/03/2018 [facility] Gentamicin Trough 0.6 g/ mL [address] [place] [address] [phone] C Reactive Protein 1.68 mg/L N <8.01 20 CBC Auto Diff 04/03/2018 [facility] White Blood 8.1 10^3/uL N 3.5-10.[address] [place] [address] [phone] Red Blood Count 4.50 10^6/uL N 4.00-5.40 Hemoglobin 11.2 g/dL Low 14.0-18.0 Hematocrit 35 % Low 42-52 Mean Corpuscular Volume 77 fL Low 80-94 Mean Corpuscular Hemoglobin 25 pg Low 27-31 Mean Corpuscular HGB Conc 32 g/dL N 31-36 Red Cell Distribution Width 17 % High 10.5-15 Platelet Count 284 10^3/uL N 150-450 Mean Platelet Volume 8.4 um3 N 7.4-10.4 Abs Neutrophils 4.2 10^3/uL N 1.5-7.7 Abs Lymphocytes 2.7 10^3/uL N 1.0-4.8 Abs Monocytes 0.8 10^3/uL N 0-0.8 Abs Eosinophils 0.4 10^3/uL N 0-0.6 Abs Basophils 0.1 10^3/uL N 0-0.2 Abs Nucleated RBC 0 10^3/uL Granulocyte % 52.1 % N 38-83 Lymphocyte % 32.8 % N 25-47 Monocyte % 9.3 % High 0-7 Eosinophil % 5.1 % N 0-6 Basophil % 0.7 % N 0-2 Nucleated Red Blood Cells % 0.1 Laboratory 04/03/2018 [facility] Erythrocyte Sed 23 mm/Hr High 0-20 21 test finding [address] [place] [address] [phone] Laboratory 03/28/2018 [facility] Gentamicin Peak 4.6 22 test finding [address] g/[place] [address] [phone] Laboratory 03/28/2018 [facility] Gentamicin 0.5 23 test finding [address] Trough g/[place] [address] [phone] Laboratory 03/25/2018 [facility] Erythrocyte Sed 18 mm/Hr N 0- 20 24, test finding [address] [place] [address] [phone] CBC Auto Diff 03/25/2018 [facility] White Blood 9.5 N 3.5- 10.[address] Count 10^3/[place] [address] [phone] Red Blood Count 4.69 10^6/uL N 4.00-5.40 Hemoglobin 11.8 g/dL Low 14.0-18.0 Hematocrit 36 % Low 42-52 Mean Corpuscular Volume 77 fL Low 80-94 Mean Corpuscular Hemoglobin 25 pg Low 27-31 Mean Corpuscular HGB Conc 32 g/dL N 31-36 Red Cell Distribution Width 17 % High 10.5-15 Platelet Count 322 10^3/uL N 150-450 Mean Platelet Volume 9.2 um3 N 7.4-10.4 Abs Neutrophils 4.9 10^3/uL N 1.5-7.7 Abs Lymphocytes 3.5 10^3/uL N 1.0-4.8 Abs Monocytes 0.7 10^3/uL N 0-0.8 Abs Eosinophils 0.4 10^3/uL N 0-0.6 Abs Basophils 0.1 10^3/uL N 0-0.2 Abs Nucleated RBC 0 10^3/uL Granulocyte % 50.9 % N 38-83 Lymphocyte % 36.3 % N 25-47 Monocyte % 7.7 % High 0-7 Eosinophil % 3.9 % N 0-6 Basophil % 1.2 % N 0-2 Nucleated Red Blood Cells % 0.1 Laboratory test 03/25/2018 [facility] Gentamicin Trough 0.4 g/ mL [address] [place] [address] [phone] C Reactive Protein 1.41 mg/L N <8.01 27 Comp Metabolic Panel 03/25/2018 [facility] Sodium 143 mmol/L N 135-[address] [place] [address] [phone] Potassium 3.4 mmol/L Low 3.5-5.0 Chloride 103 mmol/L N 101-111 Co2 Carbon Dioxide 31 mmol/L N 22-32 Anion Gap 9 mmol/L N 2-11 Glucose 134 mg/dL High 70-100 Blood Urea Nitrogen 9 mg/dL N 6-24 Creatinine 0.63 mg/dL Low 0.67-1.17 BUN/Creatinine Ratio 14.3 N 8-20 Calcium 8.8 mg/dL N 8.6-10.3 Total Protein 6.6 g/dL N 6.4-8.9 Albumin 3.4 g/dL N 3.2-5.2 Globulin 3.2 g/dL N 2-4 Albumin/Globulin Ratio 1.1 N 1-3 Total Bilirubin 0.40 mg/dL N 0.2-1.0 Alkaline Phosphatase 73 U/L N 34-104 Alt 10 U/L N 7-52 Ast 15 U/L N 13-39 Egfr Non- 132.2 >60 Egfr 160.0 >60 28 Laboratory test 03/25/2018 [facility] Gentamicin Peak 6.0 g/ mL 29, [address] [place] [address] [phone] Basic Metabolic 02/04/2018 [facility] Sodium 145 mmol/L N 139- [address] [place] [address] [phone] Potassium 3.9 mmol/L N 3.5-5.0 Chloride 104 mmol/L N 101-111 Co2 Carbon Dioxide 36 mmol/L High 22-32 Anion Gap 5 mmol/L N 2-11 Glucose 136 mg/dL High 70-100 Blood Urea Nitrogen 17 mg/dL N 6-24 Creatinine 0.85 mg/dL N 0.67-1.17 BUN/Creatinine Ratio 20.0 N 8-20 Calcium 9.1 mg/dL N 8.6-10.3 Egfr Non- 93.6 >60 Egfr 120.4 >60 31 CBC Auto Diff 02/04/2018 [facility] White Blood 8.0 10^3/uL N 3.5-10.[address] [place] [address] [phone] Red Blood Count 3.81 10^6/uL Low 4.0-5.4 Hemoglobin 10.3 g/dL Low 14.0-18.0 Hematocrit 33 % Low 42-52 Mean Corpuscular Volume 85 fL N 80-94 Mean Corpuscular Hemoglobin 27 pg N 27-31 Mean Corpuscular HGB Conc 32 g/dL N 31-36 Red Cell Distribution Width 17 % High 10.5-15 Platelet Count 353 10^3/uL N 150-450 Mean Platelet Volume 7.9 um3 N 7.4-10.4 Abs Neutrophils 4.9 10^3/uL N 1.5-7.7 Abs Lymphocytes 2.2 10^3/uL N 1.0-4.8 Abs Monocytes 0.7 10^3/uL N 0-0.8 Abs Eosinophils 0.2 10^3/uL N 0-0.6 Abs Basophils 0.1 10^3/uL N 0-0.2 Abs Nucleated RBC 0 10^3/uL Granulocyte % 60.8 % N 38-83 Lymphocyte % 27.2 % N 25-47 Monocyte % 8.9 % High 0-7 Eosinophil % 2.2 % N 0-6 Basophil % 0.9 % N 0-2 Nucleated Red Blood Cells % 0.1 Inr/Protime 02/04/2018 [facility] Inr 2.90 High 0.77-1.[address] [place] [address] [phone] Basic Metabolic 01/30/2018 [facility] Sodium 144 mmol/L N 139- [address] [place] [address] [phone] Potassium 4.2 mmol/L N 3.5-5.0 Chloride 105 mmol/L N 101-111 Co2 Carbon Dioxide 34 mmol/L High 22-32 Anion Gap 5 mmol/L N 2-11 Glucose 109 mg/dL High 70-100 Blood Urea Nitrogen 13 mg/dL N 6-24 Creatinine 0.78 mg/dL N 0.67-1.17 BUN/Creatinine Ratio 16.7 N 8-20 Calcium 9.0 mg/dL N 8.6-10.3 Egfr Non- 103.3 >60 Egfr 132.9 >60 32 Laboratory test 01/30/2018 [facility] B-Type 257 pg/mL High [address] [place] [address] Peptide BNP [phone] Basic Metabolic 12/19/2017 [facility] Sodium 144 mmol/L N 139- [address] [place] [address] [phone] Potassium 3.8 mmol/L N 3.5-5.0 Chloride 103 mmol/L N 101-111 Co2 Carbon Dioxide 36 mmol/L High 22-32 Anion Gap 5 mmol/L N 2-11 Glucose 119 mg/dL High 70-100 Blood Urea Nitrogen 16 mg/dL N 6-24 Creatinine 0.76 mg/dL N 0.67-1.17 BUN/Creatinine Ratio 21.1 High 8-20 Calcium 9.1 mg/dL N 8.6-10.3 Egfr Non- 106.5 >60 Egfr 136.9 >60 34 Cath Panel 12/16/2017 [facility] Partial 35.0 seconds N 26.0- 36.[address] [address] PTT [phone] CBC Auto 12/16/2017 [facility] White Blood 8.2 10^3/uL N 3.5- 10.[address] [place] [address] [phone] Red Blood Count 5.12 10^6/uL N 4.0-5.4 Hemoglobin 14.7 g/dL N 14.0-18.0 Hematocrit 45 % N 42-52 Mean Corpuscular Volume 88 fL N 80-94 Mean Corpuscular Hemoglobin 29 pg N 27-31 Mean Corpuscular HGB Conc 33 g/dL N 31-36 Red Cell Distribution Width 16 % High 10.5-15 Platelet Count 221 10^3/uL N 150-450 Mean Platelet Volume 9.3 um3 N 7.4-10.4 Abs Neutrophils 5.2 10^3/uL N 1.5-7.7 Abs Lymphocytes 2.2 10^3/uL N 1.0-4.8 Abs Monocytes 0.6 10^3/uL N 0-0.8 Abs Eosinophils 0.2 10^3/uL N 0-0.6 Abs Basophils 0.1 10^3/uL N 0-0.2 Abs Nucleated RBC 0 10^3/uL Granulocyte % 63.0 % N 38-83 Lymphocyte % 26.3 % N 25-47 Monocyte % 7.2 % High 0-7 Eosinophil % 2.8 % N 0-6 Basophil % 0.7 % N 0-2 Nucleated Red Blood Cells % 0.1 Inr/Protime 12/16/2017 [facility] Inr 1.13 High 0.77-1.02 [address] [place] [address] [phone] Basic Metabolic 12/16/2017 [facility] Sodium 144 mmol/L N 139- 145 Panel [address] [place] [address] [phone] Potassium 3.6 mmol/L N 3.5-5.0 Chloride 105 mmol/L N 101-111 Co2 Carbon Dioxide 32 mmol/L N 22-32 Anion Gap 7 mmol/L N 2-11 Glucose 92 mg/dL N 70-100 Blood Urea Nitrogen 11 mg/dL N 6-24 Creatinine 0.67 mg/dL N 0.67-1.17 BUN/Creatinine Ratio 16.4 N 8-20 Calcium 9.1 mg/dL N 8.6-10.3 Egfr Non- 123.2 >60 Egfr 158.4 >60 35 Basic Metabolic Panel 12/05/2017 [facility] Sodium 144 mmol/L N 139-145 [address] [place] [address] [phone] Potassium 3.7 mmol/L N 3.5-5.0 Chloride 107 mmol/L N 101-111 Co2 Carbon Dioxide 30 mmol/L N 22-32 Anion Gap 7 mmol/L N 2-11 Glucose 151 mg/dL High 70-100 Blood Urea Nitrogen 15 mg/dL N 6-24 Creatinine 0.78 mg/dL N 0.67-1.17 BUN/Creatinine Ratio 19.2 N 8-20 Calcium 8.9 mg/dL N 8.6-10.3 Egfr Non- 103.3 >60 Egfr 132.9 >60 36 CBC Auto 10/03/2016 [facility] White Blood 11.7 10^3/uL High 3.5-10.8 [address] [place] [address] [phone] Red Blood Count 5.10 10^6/uL N 4.0-5.4 Hemoglobin 15.3 g/dL N 14.0-18.0 Hematocrit 45 % N 42-52 Mean Corpuscular Volume 89 fL N 80-94 Mean Corpuscular Hemoglobin 30 pg N 27-31 Mean Corpuscular HGB Conc 34 g/dL N 31-36 Red Cell Distribution Width 14 % N 10.5-15 Platelet Count 246 10^3/uL N 150-450 Mean Platelet Volume 10 um3 N 7.4-10.4 Abs Neutrophils 6.2 10^3/uL N 1.5-7.7 Abs Lymphocytes 4.2 10^3/uL N 1.0-4.8 Abs Monocytes 0.7 10^3/uL N 0-0.8 Abs Eosinophils 0.5 10^3/uL N 0-0.6 Abs Basophils 0.1 10^3/uL N 0-0.2 Abs Nucleated RBC 0.01 10^3/uL N Granulocyte % 53.1 % N 38-83 Lymphocyte % 35.8 % N 25-47 Monocyte % 6.1 % N 1-9 Eosinophil % 4.3 % N 0-6 Basophil % 0.7 % N 0-2 Nucleated Red Blood Cells % 0.1 N Comp Metabolic Panel 10/03/2016 [facility] Sodium 140 mmol/L N 133-[address] [place] [address] [phone] Potassium 3.6 mmol/L N 3.5-5.0 Chloride 105 mmol/L N 101-111 Co2 Carbon Dioxide 26 mmol/L N 22-32 Anion Gap 9 mmol/L N 2-11 Glucose 302 mg/dL High 70-100 Blood Urea Nitrogen 18 mg/dL N 6-24 Creatinine 0.77 mg/dL N 0.67-1.17 BUN/Creatinine Ratio 23.4 High 8-20 Calcium 9.3 mg/dL N 8.6-10.3 Total Protein 7.0 g/dL N 6.4-8.9 Albumin 3.9 g/dL N 3.2-5.2 Globulin 3.1 g/dL N 2-4 Albumin/Globulin Ratio 1.3 N 1-3 Total Bilirubin 0.60 mg/dL N 0.2-1.0 Alkaline Phosphatase 63 U/L N 34-104 Alt 19 U/L N 7-52 Ast 15 U/L N 13-39 Egfr Non- 105.3 N >60 Egfr 135.4 N >60 38 Lipid Profile 10/03/2016 [facility] Triglycerides 206 mg/dL N 39 (Trig/Chol/HDL) [address] [place] [address] [phone] Cholesterol 155 mg/dL N 40 HDL Cholesterol 31.6 mg/dL N 41 LDL Cholesterol 82 mg/dL N 42 Laboratory test 10/03/2016 [facility] TSH (Thyroid 1.85 mcIU/mL N 0.34-5.[address] Stim Horm) [place] [address] [phone] PSA Screening 0.279 ng/mL N 0-4.000 44 Hemoglobin A1c (Glyco HGB) 11.1 % High Less than 6.0 45 Basic Metabolic Panel 05/02/2016 [facility] Sodium 137 mmol/L N 133-145 [address] [place] [address] [phone] Potassium 3.7 mmol/L N 3.5-5.0 Chloride 101 mmol/L N 101-111 Co2 Carbon Dioxide 27 mmol/L N 22-32 Anion Gap 9 mmol/L N 2-11 Glucose 427 mg/dL High 70-100 Blood Urea Nitrogen 16 mg/dL N 6-24 Creatinine 0.88 mg/dL N 0.67-1.17 BUN/Creatinine Ratio 18.2 N 8-20 Calcium 9.5 mg/dL N 8.6-10.3 Egfr Non- 90.6 N >60 Egfr 116.5 N >60 46 Basic Metabolic Panel 04/28/2016 [facility] Sodium 140 mmol/L N 133-145 [address] [place] [address] [phone] Potassium 3.4 mmol/L Low 3.5-5.0 Chloride 105 mmol/L N 101-111 Co2 Carbon Dioxide 28 mmol/L N 22-32 Anion Gap 7 mmol/L N 2-11 Glucose 229 mg/dL High 70-100 Blood Urea Nitrogen 15 mg/dL N 6-24 Creatinine 0.72 mg/dL N 0.67-1.17 BUN/Creatinine Ratio 20.8 High 8-20 Calcium 9.3 mg/dL N 8.6-10.3 Egfr Non- 114.2 N >60 Egfr 146.9 N >60 47 Inr/Protime 04/28/2016 [facility] Inr 0.99 N 0.89-1.[address] [place] [address] [phone] CBC Auto Diff 04/28/2016 [facility] White Blood 10.8 N 3.5- 10.[address] Count 10^3/[place] [address] [phone] Red Blood Count 5.43 10^6/uL High 4.0-5.4 Hemoglobin 16.3 g/dL N 14.0-18.0 Hematocrit 47 % N 42-52 Mean Corpuscular Volume 86 fL N 80-94 Mean Corpuscular Hemoglobin 30 pg N 27-31 Mean Corpuscular HGB Conc 35 g/dL N 31-36 Red Cell Distribution Width 14 % N 10.5-15 Abs Neutrophils 5.1 10^3/uL N 1.5-7.7 Abs Lymphocytes 4.4 10^3/uL N 1.0-4.8 Abs Monocytes 0.7 10^3/uL N 0-0.8 Abs Eosinophils 0.4 10^3/uL N 0-0.6 Abs Basophils 0.1 10^3/uL N 0-0.2 Granulocyte % 47.7 % N 38-83 Lymphocyte % 41.0 % N 25-47 Monocyte % 7.0 % N 1-9 Eosinophil % 3.4 % N 0-6 Basophil % 0.9 % N 0-2 Platelet Count 204 10^3/uL N 150-450 Mean Platelet Volume 10 um3 N 7.4-10.4 Cath Panel 04/28/2016 [facility] Partial Thrombo 28.9 N 26.0- 36.[address] Time PTT seconds [place], [place] [id number] [phone] Laboratory 04/28/2016 [facility] B-Type 91 pg/mL N 48, test finding Natriuretic [address] [place] [address] Peptide BNP [phone] Lipid Profile 04/28/2016 [facility] Triglycerides 228 mg/dL N 50 (Trig/Chol/HDL [address] ) [place], [place] [id number] [phone] Cholesterol 155 mg/dL N 51 HDL Cholesterol 32.5 mg/dL N 52 LDL Cholesterol 77 mg/dL N 53 Laboratory test finding 04/28/2016 [facility] Ast 19 U/L N 13- [address] [place] [address] [phone] Alt 23 U/L N 7-52 55 Basic Metabolic Panel 04/04/2016 [facility] Sodium 137 mmol/L N 133-[address] [place] [address] [phone] Potassium 3.9 mmol/L N 3.5-5.0 Chloride 102 mmol/L N 101-111 Co2 Carbon Dioxide 26 mmol/L N 22-32 Anion Gap 9 mmol/L N 2-11 Glucose 369 mg/dL High 70-100 Blood Urea Nitrogen 16 mg/dL N 6-24 Creatinine 0.76 mg/dL N 0.67-1.17 BUN/Creatinine Ratio 21.1 High 8-20 Calcium 9.3 mg/dL N 8.6-10.3 Egfr Non- 107.3 N >60 Egfr 138.0 N >60 56 Basic Metabolic Panel 03/30/2016 [facility] Sodium 143 mmol/L N 133-[address] [place] [address] [phone] Potassium 4.0 mmol/L N 3.5-5.0 Chloride 105 mmol/L N 101-111 Co2 Carbon Dioxide 30 mmol/L N 22-32 Anion Gap 8 mmol/L N 2-11 Glucose 168 mg/dL High 70-100 Blood Urea Nitrogen 19 mg/dL N 6-24 Creatinine 0.90 mg/dL N 0.67-1.17 BUN/Creatinine Ratio 21.1 High 8-20 Calcium 9.4 mg/dL N 8.6-10.3 Egfr Non- 88.3 N >60 Egfr 113.5 N >60 57 Cath Panel 03/30/2016 [facility] Partial 31.8 seconds N 26.0- 36.[address] [place] [address] PTT [phone] Inr/Protime 03/30/2016 [facility] Inr 1.06 N 0.89-1.[address] [place] [address] [phone] CBC Auto 03/30/2016 [facility] White Blood 12.6 10^3/uL High 3.5-10.[address] [place] [address] [phone] Red Blood Count 5.16 10^6/uL N 4.0-5.4 Hemoglobin 15.1 g/dL N 14.0-18.0 Hematocrit 45 % N 42-52 Mean Corpuscular Volume 87 fL N 80-94 Mean Corpuscular Hemoglobin 29 pg N 27-31 Mean Corpuscular HGB Conc 34 g/dL N 31-36 Red Cell Distribution Width 13 % N 10.5-15 Platelet Count 234 10^3/uL N 150-450 Mean Platelet Volume 10 um3 N 7.4-10.4 Abs Neutrophils 6.5 10^3/uL N 1.5-7.7 Abs Lymphocytes 4.8 10^3/uL N 1.0-4.8 Abs Monocytes 0.9 10^3/uL High 0-0.8 Abs Eosinophils 0.3 10^3/uL N 0-0.6 Abs Basophils 0.1 10^3/uL N 0-0.2 Abs Nucleated RBC 0.01 10^3/uL N Granulocyte % 51.4 % N 38-83 Lymphocyte % 37.9 % N 25-47 Monocyte % 6.9 % N 1-9 Eosinophil % 2.6 % N 0-6 Basophil % 1.2 % N 0-2 Nucleated Red Blood Cells % 0.1 N Creatinine 03/17/2015 Creatinine 0.73 mg/dL N 0.67-1.17 Egfr Non- 112.8 N >60 Egfr 145.1 N >60 59 Laboratory test finding 03/17/2015 Blood Urea Nitrogen 15 mg/dL N 6-24 BUN Creatinine 03/11/2015 Creatinine 0.58 mg/dL Low 0.67-1.17 Egfr Non- 147.1 N >60 Egfr 189.2 N >60 60 Laboratory test finding 03/11/2015 Blood Urea Nitrogen BUN 12 mg/dL N 6- 24 1 Ratio was not calculated because free PSA [...] absence of malignant disease. Test Performed by: [facility] [address] [place] [address] 2 Desirable: <150 Borderline High: 150-199 High: 200-499 Very High: >500 3 Desirable: <200 Borderline High: 200-239 High: >239 4 Low: <40 Desirable: 40-60 High: >60 5 Desirable: <100 Near Optimal: 100-129 Borderline High: 130-159 High: 160-189 Very High: >189 6 Because ethnic data is not always [...] 5 Kidney failure <15 (or dialysis) 7 Therapeutic target for the treatment of diabetes mellitus patients is <7% HBA1C, and in selective patients <6.0%. Please refer to [place] [employer] diabetic care guidelines for further information. 8 Because ethnic data is not always [...] 5 Kidney failure <15 (or dialysis) 9 Because ethnic data is not always readily [...] 15-29 5 Kidney failure <15 (or dialysis) 10 [id number] 11 Because ethnic data is not always readily [...] 15-29 5 Kidney failure <15 (or dialysis) 12 Trough <0.5 ?g/mL Peak 4-8 ?g/mL 13 [id number] 14 [id number] 15 Because ethnic data is not always readily [...] 15-29 5 Kidney failure <15 (or dialysis) 16 Trough <0.5 ?g/mL Peak 4-8 ?g/mL 17 [id number] 18 Because ethnic data is not always readily [...] 15-29 5 Kidney failure <15 (or dialysis) 19 Trough <0.5 ?g/mL Peak 4-8 ?g/mL 20 [id number] 21 [id number] 22 Trough <0.5 ?g/mL Peak 4-8 ?g/mL 23 Trough <0.5 ?g/mL Peak 4-8 ?g/mL 24 [id number] 25 [id number] 26 Trough <0.5 ?g/mL Peak 4-8 ?g/mL 27 [id number] 28 Because ethnic data is not always readily [...] 15-29 5 Kidney failure <15 (or dialysis) 29 [id number] 30 Trough <0.5 ?g/mL Peak 4-8 ?g/mL 31 Because ethnic data is not always readily [...] 15-29 5 Kidney failure <15 (or dialysis) 32 Because ethnic data is not always readily [...] 15-29 5 Kidney failure <15 (or dialysis) 33 >100 to <200 pg/mL: likely compensated congestive heart failure (CHF) 200 to 400 pg/mL: likely moderate CHF >400 pg/mL: likely moderate to severe CHF 34 Because ethnic data is not always readily [...] 15-29 5 Kidney failure <15 (or dialysis) 35 Because ethnic data is not always readily [...] 15-29 5 Kidney failure <15 (or dialysis) 36 Because ethnic data is not always readily [...] 15-29 5 Kidney failure <15 (or dialysis) 37 [id number] 38 Because ethnic data is not always [...] 5 Kidney failure <15 (or dialysis) 39 Desirable <150 Borderline high 150-199 High 200-499 Very High >500 40 Desirable <200 Borderline high 200-239 High >239 41 Low <40 Desirable: 40-60 High: >60 42 Desirable: <100 mg/dL Near Optimal: 100-129 mg/dL Borderline High: 130-159 mg/dL High: 160-189 mg/dL Very High: >189 mg/dL 43 [id number] 44 Serum levels of PSA measured using the [...] methods or kits cannot be used interchangeably. 45 Therapeutic target for the treatment of diabetes Mellitus patients is <7% HBA1C, and in selective patients <6.0%.Please refer to [place] [employer] Diabetic care guidelines for further information. 46 Because ethnic data is not always readily [...] 15-29 5 Kidney failure <15 (or dialysis) 47 Because ethnic data is not always [...] 5 Kidney failure <15 (or dialysis) 48 to be drawn after 2 weeks on the increased furosemide. copy to Dr. Elijah mcleod Assess for rnalinsu 49 >100 to <200 pg/mL: likely compensated congestive heart failure (CHF) 200 to 400 pg/mL: likely moderate CHF >400 pg/mL: likely moderate to severe CHF 50 Desirable <150 Borderline high 150-199 High 200-499 Very High >500 51 Desirable <200 Borderline high 200-239 High >239 52 Low <40 Desirable: 40-60 High: >60 53 Desirable: <100 mg/dL Near Optimal: 100-129 mg/dL Borderline High: 130-159 mg/dL High: 160-189 mg/dL Very High: >189 mg/dL 54 to be drawn after 2 weeks on the increased furosemide. copy to Dr. Elijah mcleod Assess for rnalinsufficiency on increased diuretic and assess choles terol.. 55 to be drawn after 2 weeks on the increased furosemide. copy to Dr. Elijah hercules. Assess for rnalinsufficiency on increased diuretic and assess choles terol.. 56 Because ethnic data is not always readily [...] 15-29 5 Kidney failure <15 (or dialysis) 57 Because ethnic data is not always readily [...] 15-29 5 Kidney failure <15 (or dialysis) 58 to be done no sooner than 4 days before cath. 59 Because ethnic data is not always readily [...] 15-29 5 Kidney failure <15 (or dialysis) 60 Because ethnic data is not always readily [...] Kidney failure <15 (or dialysis) Procedures Date Code Description Status 03/12/2019 32533 EKG Tracing & Interpretation Completed 02/23/2019 [id number] Colonoscopy Completed 09/05/2018 31847 EKG Tracing & Interpretation Completed 05/20/2018 56333 EKG Tracing & Interpretation Completed 05/12/2018 47891 Cardioversion Completed 05/12/2018 17554 EKG, Interpretation Only Completed 05/12/2018 44543 Echocardiography, Transesophageal, Real Time W/Image 2D Completed W/W/O M-M 05/12/2018 43082 Moderate Sedation Services; Same Phys Each Additional Completed 15 Mins 05/12/2018 21895 Moderate Sedation Services; Same Phys Intl 15 Mins; PT Completed >=5 Years 05/12/2018 88676 Pulse Wave/Continuous-Interp.RPT Completed 05/12/2018 10886 Color Flow Doppler/Interp & Reprt Completed 05/07/2018 40341 EKG Tracing & Interpretation Completed 04/16/2018 04249 ECHO Transthoracic, Real-Time 2D With Doppler And Color Completed Flow 04/16/2018 83324 ECHO Transthoracic, Real-Time 2D With Doppler And Color Completed Flow 03/31/2018 46042 EKG Tracing & Interpretation Completed 03/12/2018 20373 Echocardiography, Transesophageal, Real Time W/Image 2D Completed W/W/O M-M 03/12/2018 38116 Pulse Wave/Continuous-Interp.RPT Completed 03/12/2018 70474 Color Flow Doppler/Interp & Reprt Completed 03/12/2018 78625 Moderate Sedation Services; Same Phys Intl 15 Mins; PT Completed >=5 Years 03/10/2018 73171 ECHO Transthorasic Realtime 2D W Doppler & Color Flow Completed Hosp 02/25/2018 18829 EKG Tracing & Interpretation Completed 02/10/2018 29723 Echocardiogram, Limited Study Completed 02/07/2018 20996 Echocardiogram, Limited Study Completed 02/07/2018 62076 Thoracentesis W/ Img Guidance Completed 02/06/2018 82989 EKG, Interpretation Only Completed 02/05/2018 48410 EKG, Interpretation Only Completed 01/30/2018 69304 ECHO Transthorasic Realtime 2D W Doppler & Color Flow Completed Hosp 01/30/2018 64274 ECHO Transthorasic Realtime 2D W Doppler & Color Flow Completed Hosp 01/29/2018 05048 EKG Tracing & Interpretation Completed 12/17/2017 01278 RT & LT HRT Cath W/Inj For Ventriculography I/S And Completed Interp If Don 12/12/2017 50837 EKG Tracing & Interpretation Completed 12/11/2017 20164 ECHO Transthorasic Realtime 2D W Doppler & Color Flow Completed Hosp 02/06/2017 48038 ECHO Transthorasic Realtime 2D W Doppler & Color Flow Completed Hosp 05/09/2016 02520 EKG Tracing & Interpretation Completed 05/01/2016 07408 EKG, Interpretation Only Completed 04/30/2016 81683 Intravascular Blood Flow Velocity Completed 04/30/2016 90233 EKG, Interpretation Only Completed 04/30/2016 49045 Percutaneous Transcatheter Placement Of Intracoronary Completed Stent 04/10/2016 87788 Color Flow Doppler/Interp & Reprt Completed 04/10/2016 06917 Pulse Wave/Continuous-Interp.RPT Completed 04/10/2016 81918 Echocardiography, Transesophageal, Real Time W/Image 2D Completed W/W/O M-M 04/02/2016 76399 RT & lt Cath W/Injx HRT Art&L Ventr Img S&I Completed 03/06/2016 37583 Treadmill Interp/Report Only Completed 03/06/2016 53784 Stress Test Supervsn W/Out I/R Completed 02/15/2016 08046 EKG Tracing & Interpretation Completed 01/26/2016 55811 ECHO Transthorasic Realtime 2D W Doppler & Color Flow Completed Hosp 09/12/2015 77793 EKG Tracing & Interpretation Completed 02/23/2015 27872 Stress Test Supervsn W/Out I/R Completed 02/23/2015 11556 Treadmill Interp/Report Only Completed 02/15/2015 17327 ECHO Transthorasic Realtime 2D W Doppler & Color Flow Completed Hosp 02/14/2015 48242 EKG Tracing & Interpretation Completed Encounters Type Date Location Provider Dx Diagnosis Office Visit 03/12/2019 [facility] Yogi Briceno Z01.810 Encounter for 8:00a Of Cee Owen DO FACC preprocedural cardiovascular examination Z95.2 Presence of prosthetic heart valve Z79.2 snf (current) use of antibiotics I10 Essential (primary) hypertension I50.32 Chronic diastolic (congestive) heart failure G47.33 Obstructive sleep apnea (adult) (pediatric) E11.69 Type 2 diabetes mellitus with other specified complication 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 I10 Essential ( primary) Of Plate Drying Machine Tender Owen, DO hypertension FACC E66.8 Other obesity I48.92 Unspecified atrial flutter E11.69 Type 2 diabetes mellitus with other specified complication E78.5 Hyperlipidemia, unspecified I33.0 Acute and subacute infective endocarditis Z79.2 superintendent terminal (current) use of antibiotics J44.9 Chronic obstructive pulmonary disease, unspecified G47.33 Obstructive sleep apnea (adult) (pediatric) I50.32 Chronic diastolic (congestive) heart failure F17.201 Nicotine dependence, unspecified, in remission Z95.2 Presence of prosthetic heart valve Office 05/06/2018 [facility] Quiroz T82.7xxD Infect/inflm react Visit 8:50a For Brenton Baltazar M.D. 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 and subacute infective endocarditis Z79.2 superintendent terminal (current) use of antibiotics Office Visit 04/11/2018 9:50a [facility] Quiroz I33.0 Acute and subacute For Brenton Baltazar M.D. infective Diseases endocarditis T82.7xxD Infect/inflm react d/t oth cardi/vasc dev/implnt/grft, subs Z95.2 Presence of prosthetic heart valve Z79.2 superintendent terminal (current) use of antibiotics Office Visit 03/31/2018 4:00p [facility] Chris D. I33.0 Acute and subacute For Infectious Howie Baltazar infective Diseases endocarditis L03.115 Cellulitis of right lower limb T82.7xxD Infect/inflm react d/t oth cardi/vasc dev/implnt/grft, subs Office Visit 03/31/2018 3:00p [facility] Tam Craig I48.92 Unspecified Of Plate Drying Machine Tender [place] [facility] [place].Richie, FACC, atrial flutter FSCAI I10 Essential (primary) hypertension Z95.2 Presence of prosthetic heart valve Office Visit 03/12/2018 3:22p [facility] John I48.92 Unspecified Assoc,nathalia Pagan M.D. atrial flutter Hospitalists J13 Pneumonia due to Streptococcus pneumoniae I10 Essential (primary) hypertension E11.9 Type 2 diabetes mellitus without complications Office Visit 03/11/2018 1:36p [facility] Chris Quiroz M79.1 Myalgia Infectious Diseases Howie Baltazar J90 Pleural effusion, not elsewhere classified R78.81 Bacteremia R05 Cough Office Visit 03/10/2018 [facility] Duane J96.11 Chronic 3:20p Assoc,nathalia Shipley M.D. respiratory Hospitalists failure with hypoxia J13 Pneumonia due to Streptococcus pneumoniae I48.92 Unspecified atrial flutter E11.9 Type 2 diabetes mellitus without complications Office Visit 03/09/2018 [facility] Aubrey Crump A41.9 Sepsis, 3:19p Assoc,nathalia HEDRICK M.D. 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 (congestive) Hospitalists heart failure I48.92 Unspecified atrial flutter E11.9 Type 2 diabetes mellitus without complications Z79.4 snf (current) use of insulin J91.8 Pleural effusion in other conditions classified elsewhere J96.11 Chronic respiratory failure with hypoxia [facility], I50.31 Acute diastolic 8:43a nathalia Babcock M.D. (congestive) Hospitalists heart failure I48.92 Unspecified atrial flutter E11.9 Type 2 diabetes mellitus without complications Z79.4 snf (current) use of insulin J96.11 Chronic respiratory failure with hypoxia J91.8 Pleural effusion in other conditions classified elsewhere Office Visit 02/07/2018 11:09a [facility] Tam Craig, I48.92 Unspecified Of Plate Drying Machine Tender AT [facility] MBerna, FACC, atrial flutter FSCAI J90 Pleural effusion, not elsewhere classified [facility], I50.31 Acute diastolic 8:42a nathalia Babcock M.D. (congestive) Hospitalists heart failure I48.92 Unspecified atrial flutter E11.9 Type 2 diabetes mellitus without complications Z79.4 snf (current) use of insulin J96.11 Chronic respiratory failure with hypoxia Office Visit 02/07/2018 11:59a [facility] J90 Pleural effusion, Sleep Services Of MD Rani not elsewhere Plate Drying Machine Tender classified R06.02 Shortness of breath R09.02 Hypoxemia R60.0 Localized edema Z87.891 Personal history of nicotine dependence Office [facility], I50.31 Acute diastolic 8:41a nathalia Babcock M.D. (congestive) Hospitalists heart failure J96.11 Chronic respiratory failure with hypoxia I48.92 Unspecified atrial flutter J90 Pleural effusion, not elsewhere classified E11.9 Type 2 diabetes mellitus without complications Z79.4 snf (current) use of insulin Office Visit 02/05/2018 [facility] Una Webster, J96.11 Chronic 8:39a nathalia Babcock M.D. respiratory Hospitalists failure with hypoxia J90 Pleural effusion, not elsewhere classified I48.92 Unspecified atrial flutter E11.9 Type 2 diabetes mellitus without complications I50.31 Acute diastolic (congestive) heart failure Z79.4 superintendent terminal (current) use of insulin Office Visit 02/05/2018 8:25a [facility] Tam Craig, I50.9 Heart failure, [facility], unspecified FSCAI J90 Pleural effusion, not elsewhere classified I48.92 Unspecified atrial flutter Office Visit 02/05/2018 11:50a [facility] R06.02 Shortness of Sleep Services Of MD Rani breath Plate Drying Machine Tender R09.02 Hypoxemia J90 Pleural effusion, not elsewhere classified G47.33 Obstructive sleep apnea (adult) (pediatric) Office Visit 02/04/2018 [facility] Una Webster, J96.11 Chronic 8:35a nathalia Babcokc M.D. respiratory Hospitalists failure with hypoxia J90 Pleural effusion, not elsewhere classified I50.31 Acute diastolic (congestive) heart failure I48.92 Unspecified atrial flutter E11.9 Type 2 diabetes mellitus without complications Z79.4 superintendent terminal (current) use of insulin Office Visit 02/04/2018 2:20p [facility] Tam Craig, R06.02 Shortness of Of [facility] Drying Machine [facility], breath FSCAI J90 Pleural effusion, not elsewhere classified Office Visit 01/30/2018 10:43a [facility] Edvin David R06.00 DyspneaPamela M.D. unspecified R94.39 Abnormal result of other cardiovascular function study Z95.2 Presence of prosthetic heart valve Office Visit 01/29/2018 1:40p [facility] Tam Craig, Z95.2 Presence of Of Plate Drying Machine Tender [facility], prosthetic heart FSCAI valve R06.02 Shortness of breath I25.10 Athscl heart disease of [place] coronary artery w/o ang pctrs I48.3 Typical atrial flutter Office Visit 12/18/2017 2:04p [facility] Tam Craig, I35.0 Nonrheumatic Of [facility] AT [facility], [facility], aortic (valve) FSCAI stenosis I50.9 Heart failure, unspecified Office Visit 12/18/2017 [facility] Una Webster, I50.33 Acute on chronic 2:20p Assoc,nathalia Velásquez.Richie diastolic Hospitalists (congestive) heart failure I35.0 Nonrheumatic aortic (valve) stenosis E11.9 Type 2 diabetes mellitus without complications E78.5 Hyperlipidemia, unspecified Office Visit 12/17/2017 11:30a [facility] Tam Craig, R93.1 Abnormal Of [facility] AT [facility], [facility], findings on dx FSCAI imaging of heart and cor circ I35.0 Nonrheumatic aortic (valve) stenosis I50.9 Heart failure, unspecified Office Visit 12/17/2017 [facility] Una Webster, I50.33 Acute on chronic 2:19p Assoc,nathalia M.Richie diastolic Hospitalists (congestive) heart failure I35.0 Nonrheumatic aortic (valve) stenosis E11.9 Type 2 diabetes mellitus without complications E78.5 Hyperlipidemia, unspecified Office Visit 12/12/2017 8:40a [facility] Tam Craig, I35.0 Nonrheumatic Of [facility] AT [facility], [facility], aortic (valve) FSCAI stenosis I25.10 Athscl heart disease of [place] coronary artery w/o ang pctrs I71.2 Thoracic aortic aneurysm, without rupture Office Visit 07/15/2017 8:20a [facility] Tam Craig, I35.0 Nonrheumatic Of Plate Drying Machine Tender AT [facility], [facility], aortic (valve) FSCAI stenosis I25.110 Athscl heart disease of [place] cor art w unstable ang pctrs I71.2 Thoracic aortic aneurysm, without rupture Office Visit 12/19/2016 8:20a [facility] Tam Craig, I25.110 Athscl heart Of [facility] AT [facility], [facility], disease of FSCAI [place] cor art w unstable ang pctrs I10 Essential (primary) hypertension E78.5 Hyperlipidemia, unspecified Z72.0 Tobacco use I35.0 Nonrheumatic aortic (valve) stenosis I77.810 Thoracic aortic ectasia Office Visit 05/09/2016 3:00p [facility] Tam Craig, I35.0 Nonrheumatic Of Plate Drying Machine Tender AT [facility], FACC, aortic (valve) FSCAI stenosis I10 Essential (primary) hypertension I25.110 Athscl heart disease of [place] cor art w unstable ang pctrs E78.5 Hyperlipidemia, unspecified Z72.0 Tobacco use Office Visit 04/09/2016 3:20p [facility] Tam Craig, I35.0 Nonrheumatic Of Plate Drying Machine Tender AT [facility], [facility], aortic (valve) FSCAI stenosis I25.9 Chronic ischemic heart disease, unspecified I10 Essential (primary) hypertension E78.5 Hyperlipidemia, unspecified I25.10 Athscl heart disease of [place] coronary artery w/o ang pctrs Office Visit 02/15/2016 9:20a [facility] Tam Craig, I35.0 Nonrheumatic Of Plate Drying Machine Tender AT [facility], [facility], aortic (valve) FSCAI stenosis I77.810 Thoracic aortic ectasia I10 Essential (primary) hypertension Office Visit 09/12/2015 10:00a [facility] Tam Craig, I35.0 Nonrheumatic Of Plate Drying Machine Tender AT [facility], [facility], aortic (valve) FSCAI stenosis I10 Essential (primary) hypertension I77.810 Thoracic aortic ectasia Office Visit 03/23/2015 3:45p [facility] Tam Craig, 424.1 Aortic Valve Of Plate Drying Machine Tender AT [facility], FACC, Disorder FSCAI 401.1 Hypertension Benign 447.71 Thoracic Aortic Ectasia Office Visit 02/28/2015 3:00p [facility] Tam Craig, 786.05 Shortness Of Of Plate Drying Machine Tender AT [facility], FACC, Breath FSCAI 424.1 Aortic Valve Disorder 401.1 Hypertension Benign 272.4 Hyperlipidemia Other Unspec 447.71 Thoracic Aortic Ectasia Office Visit 02/14/2015 9:00a [facility] Tam Craig, 424.1 Aortic Valve Of Plate Drying Machine Tender AT [facility], FACC, Disorder FSCAI 401.1 Hypertension Benign 272.4 Hyperlipidemia Other Unspec 786.05 Shortness Of Breath Plan of Treatment Future Appointment(s):04/04/2020 9:00 am - Sobia Saravia MD at [facility]04/14/2019 2:00 pm - TOBY Romano at [facility]04/14/2019 2:00 pm - Omid Mulligan MD, FACS at [facility]03/27/2019 - Sobia Saravia MDZ01.811 Encounter for preprocedural respiratory examinationFollow up:1 yearJ44.9 Chronic obstructive pulmonary disease, unspecifiedNew Orders:PFTW/Spirometry Vol Pre/Post Bronchdilat Dlco Complete, Ordered: 03/27/19G47.33 Obstructive sleep apnea ( adult) (pediatric)New Orders:Sleep-Homecare, Ordered: 03/27/19
--- OUTSIDE RECORDS SUMMARY | 2019-04-14 11:14 | XMS REPORT | Continuity of Care Document ---
:1960 External Reference #:[id number] Author Name Rad, Bernadette Care Team Providers Name Role Phone Sudheer Sahni MD Primary Care Physician Unavailable Payers Date Identification Numbers Payment Provider Subscriber Effective: Policy Number: [id number] BS Facets Augustine Watson JR 2017 PayID: [id number] [facility] [address] [place] [address] Problems Active Problems Provider Date Aortic valve disorder Tam Craig M.D., [place], [facility] Onset: 02/14/2015 Benign essential hypertension Tam Craig M.D., [place], [facility] Onset: 2014 Hyperlipidemia Tam Craig M.D., [place], GERRY Onset: 02/14/2015 Dyspnea Tam Craig M.D., [place], [facility] Onset: 02/14/2015 Thoracic Aortic Ectasia Tam Craig M.D., [place], [facility] Onset: 02/28/2015 Essential hypertension Tam Craig M.D., [place], [facility] Onset: 09/12/2015 Chronic ischemic heart disease, Tam Craig M.D., [place], [facility] Onset: 2015 unspecified Atherosclerotic heart disease of Tam Craig M.D., [place], [facility] Onset: 2015 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 Onset: 02/04/2018 Type 2 diabetes mellitus Una Webster M.D. Onset: 02/04/2018 Long-term current use of insulin Una Webster M.D. Onset: 02/04/2018 Chronic hypoxemic respiratory Una Webster M.D. Onset: 02/05/2018 failure Pleural effusion, not elsewhere Una Webster M.D. Onset: 02/05/2018 classified Pleural effusion Una Webster M.D. Onset: 02/08/2018 Disorder of pericardium Tam Craig M.D., [facility] Onset: 02/25/2018 Sepsis, unspecified organism Aubrey Crump II, M.D. Onset: 03/09/2018 Paroxysmal atrial fibrillation Aubrey Crump II, M.D. Onset: 03/09/2018 Chronic obstructive lung disease Aubrey Crump II, M.D. Onset: 03/09/2018 Pneumonia due to Streptococcus Duane Shipley M.D. 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 [employer] Tobacco Use Start: Unknown End: Former Cigarette quit as of December Unknown Smoker 2017 ETOH Use Rarely consumes alcohol Recreational Drug Use Denies Drug Use Tobacco Use Start: Unknown End: Patient is a former quit December 2017 - Unknown smoker formerly less than 1 ppd x 40 yrs Smoking Status Reviewed: 03/31/19 Patient is a former quit December 2017 - smoker formerly less than 1 ppd x 40 yrs Exercise Type/Frequency Exercises regularly 1/2 mile daily Allergies, Adverse Reactions, Alerts Description No Known Drug Allergies Medications Active Medications SIG Qnty Indications Ordering Provider Date Colyte With Flavor take as directed 4000ml Barbara Borjas 03/31/2019 Packs on the day [place] 240gm Solution before surgery Rec Neomycin Sulfate 2 tabs at 6tabs Barbara Borjas 03/31/2019 500mg 1pm,2pm and 11pm [employer], [employer] Tablets on the day before surgery Metronidazole 1 tablet by 3tabs Barbara Borjas 03/31/2019 500mg mouth at 1pm,2pm [place], [employer] Tablets and 11pm on the day before surgery Amlodipine Besylate 1/2 tab by mouth 90tabs Yogi Owen, 03/10/2019 every day DO FACC 10mg Tablets Aspirin take 1 by mouth 90tabs Yogi Owen, 09/05/2018 325mg Tablets once a day DO FACC Atorvastatin Calcium 1 by mouth every 90tabs E78.5 Yogi Owen, 2018 day DO FACC 80mg Tablets Metoprolol Tartrate 1 by mouth twice 180tabs Yogi Owen, 06/02/2018 a day DO FACC 50mg Tablets Lisinopril 1 by mouth every 90tabs Yogi Owen, 05/20/2018 40mg Tablets day DO FACC Amoxicillin 1 by mouth twice 60tabs T82.7xxD Chris Quiroz 04/11/2018 500mg a day Howie Baltazar Tablets Furosemide 1 by mouth every Tam Craig, 03/25/2018 20mg Tablets day Howie, FACC, FSCAI Tylenol Extra prn Unknown Strength 500mg Tablets Doxazosin Mesylate one tab by mouth Unknown 4mg daily Tablets Metformin HCL ER 2 by mouth every Unknown 750mg day Tablets ER 24HR Lantus 110 units at Unknown 100Unit/ML night before bed Solution History Medications Xarelto 1 by mouth every 30tabs I48.92 Yogi Briceno 05/07/2018 - 20mg day Brayden DO FACC 09/05/2018 Tablets Lisinopril 1 by mouth every 90tabs Yogi Briceno 05/07/2018 - 20mg day Brayden, DO [facility] 05/20/2018 Tablets Warfarin Sodium take as directed 90tabs Tam Craig, 03/06/2018 - 2mg M.DCharles, [facility], 05/07/2018 Tablets [facility] Amiodarone HCL 1 by mouth every 30tabs I48.3 Tam Craig, 02/25/2018 - day M.D., [facility], 05/12/2018 200mg Tablets [facility] Brilinta 1 tab by mouth 60tabs Tam Craig, 07/15/2017 - 60mg twice a day M.D., [facility], 10/21/2017 Tablets [facility] Pravastatin Sodium 1 tablet daily at 180tabs E78.5 Tam Craig, 2015 - bedtime M.Richie, [facility], 09/05/2018 40mg Tablets [facility] Furosemide 1 tablet 2 times 150tabs Tam Craig, 04/09/2016 - 40mg daily (changed at M.D., [facility], 03/25/2018 Tablets RG 02/17/18) [facility] Ventolin HFA 2 puffs by mouth Unknown [...] or as directed MD Fallon, 05/07/2018 Tablets [facility], [facility] Omeprazole 1 by mouth every Unknown - 20mg day 03/30/2018 Capsules Lisinopril 1 by mouth every Unknown - 10mg day 05/07/2018 Tablets Warfarin Sodium take as directed 90tabs Tam Craig, - 4mg M.D., [facility], 05/07/2018 Tablets [facility] Metoprolol Tartrate 1 by mouth twice a Unknown - day 06/02/2018 25mg Tablets Hydrocodone-Acetami 1 or 2 tabs by Unknown - nophen mouth every 6-8 05/06/2018 5-325mg hours as needed for Tablets pain Amiodarone HCL 1 by mouth every 30tabs Tam Craig, - day for 30 days Howie [facility], 02/24/2018 200mg Tablets FSCAI Aspirin 1 by mouth every Unknown - [...] Tablets Vital Signs Date Vital Result Comment 03/31/2019 10:59am Height 67 inches 5'7" Weight 288.00 lb Heart Rate 72 /min BP Systolic Sitting 148 mmHg BP Diastolic Sitting 90 mmHg Respiratory Rate 16 /min Body Temperature 97.6 F BMI (Body Mass Index) 45.1 kg/m2 03/27/2019 6:53am Height 67 inches 5'7" Weight [...] Range Note PSA Free And Total 08/06/2018 [facility] PSA Total 0.33 ng/mL <=3.5 [place] [address] [phone] PSA Free <0.1 ng/mL PSA Free/Total See Comment ratio 1 Laboratory 08/06/2018 [facility] TSH (Thyroid 1.98 Normal 0.34 -5.60 test finding [facility] Stim Horm) mcIU/[place] [address] [phone] Vitamin D Total 25(Oh) 9.9 ng/mL Low 20-50 Lipid Profile 08/06/2018 [facility] Triglycerides 142 mg/dL 2 (Trig/Chol/HDL) [place] [address] [phone] Cholesterol 192 mg/dL 3 HDL Cholesterol 39.7 mg/dL 4 LDL Cholesterol 124 mg/dL 5 Laboratory test 08/06/2018 [facility] C Reactive 2.17 mg/L Normal <8.01 finding [facility] [place] [address] [phone] CBC Auto Diff 08/06/2018 [facility] White Blood 9.0 Normal 3.5 -10.8 [facility] Count 10^3/[place] [address] [phone] Red Blood Count 5.25 10^6/uL Normal 4.00-5.40 Hemoglobin 14.6 g/dL Normal 14.0-18.0 Hematocrit 43 % Normal 42-52 Mean Corpuscular Volume 83 fL Normal 80-94 Mean Corpuscular Hemoglobin 28 pg Normal 27-31 Mean Corpuscular HGB Conc 34 g/dL Normal 31-36 Red Cell Distribution Width 16 % High 10.5-15 Platelet Count 254 10^3/uL Normal 150-450 Mean Platelet Volume 9.1 fL Normal 7.4-10.4 Abs Neutrophils 4.5 10^3/uL Normal 1.5-7.7 Abs Lymphocytes 3.5 10^3/uL Normal 1.0-4.8 Abs Monocytes 0.6 10^3/uL Normal 0-0.8 Abs Eosinophils 0.4 10^3/uL Normal 0-0.6 Abs Basophils 0.1 10^3/uL Normal 0-0.2 Abs Nucleated RBC 0 10^3/uL Granulocyte % 49.5 % Lymphocyte % 38.5 % Monocyte % 7.0 % Eosinophil % 4.2 % Basophil % 0.8 % Nucleated Red Blood Cells % 0.1 Comp Metabolic 08/06/2018 [facility] Sodium 143 mmol/L Normal 135-145 Panel [address] [place] [address] [phone] Potassium 3.8 mmol/L Normal 3.5-5.0 Chloride 107 mmol/L Normal 101-111 Co2 Carbon Dioxide 29 mmol/L Normal 22-32 Anion Gap 7 mmol/L Normal 2-11 Glucose 184 mg/dL High 70-100 Blood Urea Nitrogen 18 mg/dL Normal 6-24 Creatinine 0.69 mg/dL Normal 0.67-1.17 BUN/Creatinine Ratio 26.1 High 8-20 Calcium 9.1 mg/dL Normal 8.6-10.3 Total Protein 6.7 g/dL Normal 6.4-8.9 Albumin 3.6 g/dL Normal 3.2-5.2 Globulin 3.1 g/dL Normal 2-4 Albumin/Globulin Ratio 1.2 Normal 1-3 Total Bilirubin 0.80 mg/dL Normal 0.2-1.0 Alkaline Phosphatase 84 U/L Normal 34-104 Alt 24 U/L Normal 7-52 Ast 24 U/L Normal 13-39 Egfr Non- 118.6 >60 Egfr 143.5 >60 6 Laboratory test 08/06/2018 [facility] Hemoglobin A1c 10.5 % High 4.0-5.[address] (Glyco HGB) [place] [address] [phone] Inr/Protime 08/06/2018 [facility] Inr 1.52 High 0.77-1.[address] [place] [address] [phone] Basic Metabolic 05/30/2018 [facility] Sodium 141 Normal 135- [address] mmol/[place] [address] [phone] Potassium 4.5 mmol/L Normal 3.5-5.0 Chloride 105 mmol/L Normal 101-111 Co2 Carbon Dioxide 32 mmol/L Normal 22-32 Anion Gap 4 mmol/L Normal 2-11 Glucose 255 mg/dL High 70-100 Blood Urea Nitrogen 16 mg/dL Normal 6-24 Creatinine 0.70 mg/dL Normal 0.67-1.17 BUN/Creatinine Ratio 22.9 High 8-20 Calcium 9.2 mg/dL Normal 8.6-10.3 Egfr Non- 117.1 >60 Egfr 141.7 >60 8 CBC Auto 05/12/2018 [facility] White Blood 9.9 10^3/uL Normal 3.5-10.[address] [place] [address] [phone] Red Blood Count 5.02 10^6/uL Normal 4.00-5.40 Hemoglobin 12.4 g/dL Low 14.0-18.0 Hematocrit 38 % Low 42-52 Mean Corpuscular Volume 76 fL Low 80-94 Mean Corpuscular Hemoglobin 25 pg Low 27-31 Mean Corpuscular HGB Conc 33 g/dL Normal 31-36 Red Cell Distribution Width 18 % High 10.5-15 Platelet Count 289 10^3/uL Normal 150-450 Mean Platelet Volume 8.6 um3 Normal 7.4-10.4 Abs Neutrophils 4.8 10^3/uL Normal 1.5-7.7 Abs Lymphocytes 3.6 10^3/uL Normal 1.0-4.8 Abs Monocytes 1.0 10^3/uL High 0-0.8 Abs Eosinophils 0.4 10^3/uL Normal 0-0.6 Abs Basophils 0.1 10^3/uL Normal 0-0.2 Abs Nucleated RBC 0 10^3/uL Granulocyte % 48.1 % Normal 38-83 Lymphocyte % 36.3 % Normal 25-47 Monocyte % 10.5 % High 0-7 Eosinophil % 3.9 % Normal 0-6 Basophil % 1.2 % Normal 0-2 Nucleated Red Blood Cells % 0.1 Basic Metabolic 05/12/2018 [facility] Sodium 142 mmol/L Normal 135-[address] [place] [address] [phone] Potassium 3.6 mmol/L Normal 3.5-5.0 Chloride 109 mmol/L Normal 101-111 Co2 Carbon Dioxide 26 mmol/L Normal 22-32 Anion Gap 7 mmol/L Normal 2-11 Glucose 168 mg/dL High 70-100 Blood Urea Nitrogen 15 mg/dL Normal 6-24 Creatinine 0.81 mg/dL Normal 0.67-1.17 BUN/Creatinine Ratio 18.5 Normal 8-20 Calcium 9.1 mg/dL Normal 8.6-10.3 Egfr Non- 98.9 >60 Egfr 119.7 >60 9 Laboratory test 05/12/2018 [facility] Magnesium 2.0 mg/dL Normal 1.9-2.7 finding [address] [place] [address] [phone] TSH (Thyroid Stim Horm) 3.68 mcIU/mL Normal 0.34-5.60 Inr/Protime 05/06/2018 [facility] Inr 1.96 High 0.77-1.02 [address] [place] [address] [phone] Inr/Protime 04/28/2018 [facility] Inr 1.89 High 0.77-1.02 [address] [place] [address] [phone] Comp Metabolic 04/15/2018 [facility] Sodium 142 mmol/L Normal 135-145 10 Panel [address] [place] [address] [phone] Potassium 3.8 mmol/L Normal 3.5-5.0 Chloride 105 mmol/L Normal 101-111 Co2 Carbon Dioxide 28 mmol/L Normal 22-32 Anion Gap 9 mmol/L Normal 2-11 Glucose 184 mg/dL High 70-100 Blood Urea Nitrogen 14 mg/dL Normal 6-24 Creatinine 0.69 mg/dL Normal 0.67-1.17 BUN/Creatinine Ratio 20.3 High 8-20 Calcium 8.6 mg/dL Normal 8.6-10.3 Total Protein 6.9 g/dL Normal 6.4-8.9 Albumin 3.6 g/dL Normal 3.2-5.2 Globulin 3.3 g/dL Normal 2-4 Albumin/Globulin Ratio 1.1 Normal 1-3 Total Bilirubin 0.40 mg/dL Normal 0.2-1.0 Alkaline Phosphatase 77 U/L Normal 34-104 Alt 15 U/L Normal 7-52 Ast 18 U/L Normal 13-39 Egfr Non- 119.0 >60 Egfr 144.0 >60 11 Laboratory test 04/15/2018 [facility] Gentamicin Trough 0.5 g/ mL [address] [place] [address] [phone] C Reactive Protein 1.43 mg/L Normal <8.01 13 CBC Auto 04/15/2018 [facility] White Blood 8.6 10^3/uL Normal 3.5-10.[address] [place] [address] [phone] Red Blood Count 4.57 10^6/uL Normal 4.00-5.40 Hemoglobin 11.3 g/dL Low 14.0-18.0 Hematocrit 35 % Low 42-52 Mean Corpuscular Volume 76 fL Low 80-94 Mean Corpuscular Hemoglobin 25 pg Low 27-31 Mean Corpuscular HGB Conc 32 g/dL Normal 31-36 Red Cell Distribution Width 18 % High 10.5-15 Platelet Count 303 10^3/uL Normal 150-450 Mean Platelet Volume 8.9 um3 Normal 7.4-10.4 Abs Neutrophils 4.7 10^3/uL Normal 1.5-7.7 Abs Lymphocytes 2.8 10^3/uL Normal 1.0-4.8 Abs Monocytes 0.7 10^3/uL Normal 0-0.8 Abs Eosinophils 0.3 10^3/uL Normal 0-0.6 Abs Basophils 0.1 10^3/uL Normal 0-0.2 Abs Nucleated RBC 0 10^3/uL Granulocyte % 54.1 % Normal 38-83 Lymphocyte % 32.4 % Normal 25-47 Monocyte % 8.4 % High 0-7 Eosinophil % 4.0 % Normal 0-6 Basophil % 1.1 % Normal 0-2 Nucleated Red Blood Cells % 0.1 Laboratory 04/15/2018 [facility] Erythrocyte Sed 22 mm/Hr High 0-20 14 test finding [address] [place] [address] [phone] CBC Auto Diff 04/08/2018 [facility] White Blood 8.9 Normal 3.5 -10.[address] Count 10^3/[place] [address] [phone] Red Blood Count 4.67 10^6/uL Normal 4.00-5.40 Hemoglobin 11.5 g/dL Low 14.0-18.0 Hematocrit 35 % Low 42-52 Mean Corpuscular Volume 76 fL Low 80-94 Mean Corpuscular Hemoglobin 25 pg Low 27-31 Mean Corpuscular HGB Conc 33 g/dL Normal 31-36 Red Cell Distribution Width 17 % High 10.5-15 Platelet Count 322 10^3/uL Normal 150-450 Mean Platelet Volume 8.6 um3 Normal 7.4-10.4 Abs Neutrophils 4.5 10^3/uL Normal 1.5-7.7 Abs Lymphocytes 3.1 10^3/uL Normal 1.0-4.8 Abs Monocytes 0.8 10^3/uL Normal 0-0.8 Abs Eosinophils 0.4 10^3/uL Normal 0-0.6 Abs Basophils 0.1 10^3/uL Normal 0-0.2 Abs Nucleated RBC 0 10^3/uL Granulocyte % 51.0 % Normal 38-83 Lymphocyte % 34.7 % Normal 25-47 Monocyte % 8.6 % High 0-7 Eosinophil % 4.4 % Normal 0-6 Basophil % 1.3 % Normal 0-2 Nucleated Red Blood Cells % 0.1 Laboratory test 04/08/2018 [facility] Erythrocyte Sed 24 mm/Hr High 0-[address] [place] [address] [phone] Comp Metabolic 04/08/2018 [facility] Sodium 142 Normal 135- [address] mmol/[place] [address] [phone] Potassium 3.6 mmol/L Normal 3.5-5.0 Chloride 105 mmol/L Normal 101-111 Co2 Carbon Dioxide 29 mmol/L Normal 22-32 Anion Gap 8 mmol/L Normal 2-11 Glucose 126 mg/dL High 70-100 Blood Urea Nitrogen 11 mg/dL Normal 6-24 Creatinine 0.64 mg/dL Low 0.67-1.17 BUN/Creatinine Ratio 17.2 Normal 8-20 Calcium 9.0 mg/dL Normal 8.6-10.3 Total Protein 6.8 g/dL Normal 6.4-8.9 Albumin 3.5 g/dL Normal 3.2-5.2 Globulin 3.3 g/dL Normal 2-4 Albumin/Globulin Ratio 1.1 Normal 1-3 Total Bilirubin 0.40 mg/dL Normal 0.2-1.0 Alkaline Phosphatase 79 U/L Normal 34-104 Alt 14 U/L Normal 7-52 Ast 17 U/L Normal 13-39 Egfr Non- 129.8 >60 Egfr 157.1 >60 15 Laboratory test 04/08/2018 [facility] Gentamicin Trough 0.7 g/ mL [address] [place] [address] [phone] C Reactive Protein 1.86 mg/L Normal <8.01 Comp Metabolic 04/03/2018 [facility] Sodium 142 mmol/L Normal 135-[address] [place] [address] [phone] Potassium 3.3 mmol/L Low 3.5-5.0 Chloride 103 mmol/L Normal 101-111 Co2 Carbon Dioxide 30 mmol/L Normal 22-32 Anion Gap 9 mmol/L Normal 2-11 Glucose 168 mg/dL High 70-100 Blood Urea Nitrogen 11 mg/dL Normal 6-24 Creatinine 0.68 mg/dL Normal 0.67-1.17 BUN/Creatinine Ratio 16.2 Normal 8-20 Calcium 8.9 mg/dL Normal 8.6-10.3 Total Protein 6.5 g/dL Normal 6.4-8.9 Albumin 3.4 g/dL Normal 3.2-5.2 Globulin 3.1 g/dL Normal 2-4 Albumin/Globulin Ratio 1.1 Normal 1-3 Total Bilirubin 0.40 mg/dL Normal 0.2-1.0 Alkaline Phosphatase 72 U/L Normal 34-104 Alt 12 U/L Normal 7-52 Ast 16 U/L Normal 13-39 Egfr Non- 121.1 >60 Egfr 146.5 >60 18 Laboratory test 04/03/2018 [facility] Gentamicin Trough 0.6 g/ mL [address] [place] [address] [phone] C Reactive Protein 1.68 mg/L Normal <8.01 20 CBC Auto 04/03/2018 [facility] White Blood 8.1 10^3/uL Normal 3.5-10.[address] [place] [address] [phone] Red Blood Count 4.50 10^6/uL Normal 4.00-5.40 Hemoglobin 11.2 g/dL Low 14.0-18.0 Hematocrit 35 % Low 42-52 Mean Corpuscular Volume 77 fL Low 80-94 Mean Corpuscular Hemoglobin 25 pg Low 27-31 Mean Corpuscular HGB Conc 32 g/dL Normal 31-36 Red Cell Distribution Width 17 % High 10.5-15 Platelet Count 284 10^3/uL Normal 150-450 Mean Platelet Volume 8.4 um3 Normal 7.4-10.4 Abs Neutrophils 4.2 10^3/uL Normal 1.5-7.7 Abs Lymphocytes 2.7 10^3/uL Normal 1.0-4.8 Abs Monocytes 0.8 10^3/uL Normal 0-0.8 Abs Eosinophils 0.4 10^3/uL Normal 0-0.6 Abs Basophils 0.1 10^3/uL Normal 0-0.2 Abs Nucleated RBC 0 10^3/uL Granulocyte % 52.1 % Normal 38-83 Lymphocyte % 32.8 % Normal 25-47 Monocyte % 9.3 % High 0-7 Eosinophil % 5.1 % Normal 0-6 Basophil % 0.7 % Normal 0-2 Nucleated Red Blood Cells % 0.1 Laboratory 04/03/2018 [facility] Erythrocyte Sed 23 mm/Hr High 0-20 21 test finding [address] [place] [address] [phone] Laboratory 03/28/2018 [facility] Gentamicin Peak 4.6 22 test finding [address] [place] g/[place] [address] [phone] Laboratory 03/28/2018 [facility] Gentamicin 0.5 23 test finding [address] Trough g/[place] [address] [phone] Laboratory 03/25/2018 [facility] Erythrocyte Sed 18 mm/Hr Normal 0-20 24, test finding [address] [place] [address] [phone] CBC Auto Diff 03/25/2018 [facility] White Blood 9.5 Normal 3.5 -10. [address] Count 10^3/uL 8 [place] [address] [phone] Red Blood Count 4.69 10^6/uL Normal 4.00-5.40 Hemoglobin 11.8 g/dL Low 14.0-18.0 Hematocrit 36 % Low 42-52 Mean Corpuscular Volume 77 fL Low 80-94 Mean Corpuscular Hemoglobin 25 pg Low 27-31 Mean Corpuscular HGB Conc 32 g/dL Normal 31-36 Red Cell Distribution Width 17 % High 10.5-15 Platelet Count 322 10^3/uL Normal 150-450 Mean Platelet Volume 9.2 um3 Normal 7.4-10.4 Abs Neutrophils 4.9 10^3/uL Normal 1.5-7.7 Abs Lymphocytes 3.5 10^3/uL Normal 1.0-4.8 Abs Monocytes 0.7 10^3/uL Normal 0-0.8 Abs Eosinophils 0.4 10^3/uL Normal 0-0.6 Abs Basophils 0.1 10^3/uL Normal 0-0.2 Abs Nucleated RBC 0 10^3/uL Granulocyte % 50.9 % Normal 38-83 Lymphocyte % 36.3 % Normal 25-47 Monocyte % 7.7 % High 0-7 Eosinophil % 3.9 % Normal 0-6 Basophil % 1.2 % Normal 0-2 Nucleated Red Blood Cells % 0.1 Laboratory test 03/25/2018 [facility] Gentamicin Trough 0.4 g/ mL 26 finding [address] [place] [address] [phone] C Reactive Protein 1.41 mg/L Normal <8.01 27 Comp Metabolic 03/25/2018 [facility] Sodium 143 mmol/L Normal 135-145 Panel [address] [place] [address] [phone] Potassium 3.4 mmol/L Low 3.5-5.0 Chloride 103 mmol/L Normal 101-111 Co2 Carbon Dioxide 31 mmol/L Normal 22-32 Anion Gap 9 mmol/L Normal 2-11 Glucose 134 mg/dL High 70-100 Blood Urea Nitrogen 9 mg/dL Normal 6-24 Creatinine 0.63 mg/dL Low 0.67-1.17 BUN/Creatinine Ratio 14.3 Normal 8-20 Calcium 8.8 mg/dL Normal 8.6-10.3 Total Protein 6.6 g/dL Normal 6.4-8.9 Albumin 3.4 g/dL Normal 3.2-5.2 Globulin 3.2 g/dL Normal 2-4 Albumin/Globulin Ratio 1.1 Normal 1-3 Total Bilirubin 0.40 mg/dL Normal 0.2-1.0 Alkaline Phosphatase 73 U/L Normal 34-104 Alt 10 U/L Normal 7-52 Ast 15 U/L Normal 13-39 Egfr Non- 132.2 >60 Egfr 160.0 >60 28 Laboratory 03/25/2018 [facility] Gentamicin 6.0 g/mL 29, 30 test finding [address] [place] [address] [phone] Basic 02/04/2018 [facility] Sodium 145 mmol/L Normal 139- Metabolic [address] [place] [address] [phone] Potassium 3.9 mmol/L Normal 3.5-5.0 Chloride 104 mmol/L Normal 101-111 Co2 Carbon Dioxide 36 mmol/L High 22-32 Anion Gap 5 mmol/L Normal 2-11 Glucose 136 mg/dL High 70-100 Blood Urea Nitrogen 17 mg/dL Normal 6-24 Creatinine 0.85 mg/dL Normal 0.67-1.17 BUN/Creatinine Ratio 20.0 Normal 8-20 Calcium 9.1 mg/dL Normal 8.6-10.3 Egfr Non- 93.6 >60 Egfr 120.4 >60 31 CBC Auto 02/04/2018 [facility] White Blood 8.0 10^3/uL Normal 3.5-10.[address] [place] [address] [phone] Red Blood Count 3.81 10^6/uL Low 4.0-5.4 Hemoglobin 10.3 g/dL Low 14.0-18.0 Hematocrit 33 % Low 42-52 Mean Corpuscular Volume 85 fL Normal 80-94 Mean Corpuscular Hemoglobin 27 pg Normal 27-31 Mean Corpuscular HGB Conc 32 g/dL Normal 31-36 Red Cell Distribution Width 17 % High 10.5-15 Platelet Count 353 10^3/uL Normal 150-450 Mean Platelet Volume 7.9 um3 Normal 7.4-10.4 Abs Neutrophils 4.9 10^3/uL Normal 1.5-7.7 Abs Lymphocytes 2.2 10^3/uL Normal 1.0-4.8 Abs Monocytes 0.7 10^3/uL Normal 0-0.8 Abs Eosinophils 0.2 10^3/uL Normal 0-0.6 Abs Basophils 0.1 10^3/uL Normal 0-0.2 Abs Nucleated RBC 0 10^3/uL Granulocyte % 60.8 % Normal 38-83 Lymphocyte % 27.2 % Normal 25-47 Monocyte % 8.9 % High 0-7 Eosinophil % 2.2 % Normal 0-6 Basophil % 0.9 % Normal 0-2 Nucleated Red Blood Cells % 0.1 Inr/Protime 02/04/2018 [facility] Inr 2.90 High 0.77-1.[address] [place] [address] [phone] Basic Metabolic 01/30/2018 [facility] Sodium 144 mmol/L Normal 139-[address] [place] [address] [phone] Potassium 4.2 mmol/L Normal 3.5-5.0 Chloride 105 mmol/L Normal 101-111 Co2 Carbon Dioxide 34 mmol/L High 22-32 Anion Gap 5 mmol/L Normal 2-11 Glucose 109 mg/dL High 70-100 Blood Urea Nitrogen 13 mg/dL Normal 6-24 Creatinine 0.78 mg/dL Normal 0.67-1.17 BUN/Creatinine Ratio 16.7 Normal 8-20 Calcium 9.0 mg/dL Normal 8.6-10.3 Egfr Non- 103.3 >60 Egfr 132.9 >60 32 Laboratory test 01/30/2018 [facility] B-Type 257 pg/mL High [address] [place] [address] Peptide BNP [phone] Basic Metabolic 12/19/2017 [facility] Sodium 144 mmol/L Normal 139- Panel [address] [place] [address] [phone] Potassium 3.8 mmol/L Normal 3.5-5.0 Chloride 103 mmol/L Normal 101-111 Co2 Carbon Dioxide 36 mmol/L High 22-32 Anion Gap 5 mmol/L Normal 2-11 Glucose 119 mg/dL High 70-100 Blood Urea Nitrogen 16 mg/dL Normal 6-24 Creatinine 0.76 mg/dL Normal 0.67-1.17 BUN/Creatinine Ratio 21.1 High 8-20 Calcium 9.1 mg/dL Normal 8.6-10.3 Egfr Non- 106.5 >60 Egfr 136.9 >60 34 Cath Panel 12/16/2017 [facility] Partial 35.0 seconds Normal 26.0-36.[address] [place] [address] PTT [phone] CBC Auto 12/16/2017 [facility] White Blood 8.2 10^3/uL Normal 3.5-10.[address] Count [place] [address] [phone] Red Blood Count 5.12 10^6/uL Normal 4.0-5.4 Hemoglobin 14.7 g/dL Normal 14.0-18.0 Hematocrit 45 % Normal 42-52 Mean Corpuscular Volume 88 fL Normal 80-94 Mean Corpuscular Hemoglobin 29 pg Normal 27-31 Mean Corpuscular HGB Conc 33 g/dL Normal 31-36 Red Cell Distribution Width 16 % High 10.5-15 Platelet Count 221 10^3/uL Normal 150-450 Mean Platelet Volume 9.3 um3 Normal 7.4-10.4 Abs Neutrophils 5.2 10^3/uL Normal 1.5-7.7 Abs Lymphocytes 2.2 10^3/uL Normal 1.0-4.8 Abs Monocytes 0.6 10^3/uL Normal 0-0.8 Abs Eosinophils 0.2 10^3/uL Normal 0-0.6 Abs Basophils 0.1 10^3/uL Normal 0-0.2 Abs Nucleated RBC 0 10^3/uL Granulocyte % 63.0 % Normal 38-83 Lymphocyte % 26.3 % Normal 25-47 Monocyte % 7.2 % High 0-7 Eosinophil % 2.8 % Normal 0-6 Basophil % 0.7 % Normal 0-2 Nucleated Red Blood Cells % 0.1 Inr/Protime 12/16/2017 [facility] Inr 1.13 High 0.77-1.[address] [place] [address] [phone] Basic Metabolic 12/16/2017 [facility] Sodium 144 mmol/L Normal 139-145 [place] [address] [phone] Potassium 3.6 mmol/L Normal 3.5-5.0 Chloride 105 mmol/L Normal 101-111 Co2 Carbon Dioxide 32 mmol/L Normal 22-32 Anion Gap 7 mmol/L Normal 2-11 Glucose 92 mg/dL Normal 70-100 Blood Urea Nitrogen 11 mg/dL Normal 6-24 Creatinine 0.67 mg/dL Normal 0.67-1.17 BUN/Creatinine Ratio 16.4 Normal 8-20 Calcium 9.1 mg/dL Normal 8.6-10.3 Egfr Non- 123.2 >60 Egfr 158.4 >60 35 Basic Metabolic 12/05/2017 [facility] Sodium 144 mmol/L Normal 139-[address] [place] [address] [phone] Potassium 3.7 mmol/L Normal 3.5-5.0 Chloride 107 mmol/L Normal 101-111 Co2 Carbon Dioxide 30 mmol/L Normal 22-32 Anion Gap 7 mmol/L Normal 2-11 Glucose 151 mg/dL High 70-100 Blood Urea Nitrogen 15 mg/dL Normal 6-24 Creatinine 0.78 mg/dL Normal 0.67-1.17 BUN/Creatinine Ratio 19.2 Normal 8-20 Calcium 8.9 mg/dL Normal 8.6-10.3 Egfr Non- 103.3 >60 Egfr 132.9 >60 36 CBC Auto 10/03/2016 [facility] White Blood 11.7 10^3/uL High 3.5-10.8 [address] [place] [address] [phone] Red Blood Count 5.10 10^6/uL Normal 4.0-5.4 Hemoglobin 15.3 g/dL Normal 14.0-18.0 Hematocrit 45 % Normal 42-52 Mean Corpuscular Volume 89 fL Normal 80-94 Mean Corpuscular Hemoglobin 30 pg Normal 27-31 Mean Corpuscular HGB Conc 34 g/dL Normal 31-36 Red Cell Distribution Width 14 % Normal 10.5-15 Platelet Count 246 10^3/uL Normal 150-450 Mean Platelet Volume 10 um3 Normal 7.4-10.4 Abs Neutrophils 6.2 10^3/uL Normal 1.5-7.7 Abs Lymphocytes 4.2 10^3/uL Normal 1.0-4.8 Abs Monocytes 0.7 10^3/uL Normal 0-0.8 Abs Eosinophils 0.5 10^3/uL Normal 0-0.6 Abs Basophils 0.1 10^3/uL Normal 0-0.2 Abs Nucleated RBC 0.01 10^3/uL Normal Granulocyte % 53.1 % Normal 38-83 Lymphocyte % 35.8 % Normal 25-47 Monocyte % 6.1 % Normal 1-9 Eosinophil % 4.3 % Normal 0-6 Basophil % 0.7 % Normal 0-2 Nucleated Red Blood Cells % 0.1 Normal Comp Metabolic 10/03/2016 [facility] Sodium 140 mmol/L Normal 133-145 Panel [address] [place] [address] [phone] Potassium 3.6 mmol/L Normal 3.5-5.0 Chloride 105 mmol/L Normal 101-111 Co2 Carbon Dioxide 26 mmol/L Normal 22-32 Anion Gap 9 mmol/L Normal 2-11 Glucose 302 mg/dL High 70-100 Blood Urea Nitrogen 18 mg/dL Normal 6-24 Creatinine 0.77 mg/dL Normal 0.67-1.17 BUN/Creatinine Ratio 23.4 High 8-20 Calcium 9.3 mg/dL Normal 8.6-10.3 Total Protein 7.0 g/dL Normal 6.4-8.9 Albumin 3.9 g/dL Normal 3.2-5.2 Globulin 3.1 g/dL Normal 2-4 Albumin/Globulin Ratio 1.3 Normal 1-3 Total Bilirubin 0.60 mg/dL Normal 0.2-1.0 Alkaline Phosphatase 63 U/L Normal 34-104 Alt 19 U/L Normal 7-52 Ast 15 U/L Normal 13-39 Egfr Non- 105.3 Normal >60 Egfr 135.4 Normal >60 38 Lipid Profile 10/03/2016 [facility] Triglycerides 206 mg/dL Normal 39 (Trig/Chol/HDL) [address] [place] [address] [phone] Cholesterol 155 mg/dL Normal 40 HDL Cholesterol 31.6 mg/dL Normal 41 LDL Cholesterol 82 mg/dL Normal 42 Laboratory 10/03/2016 [facility] TSH (Thyroid 1.85 Normal 0.34 -5.60 43 test finding 101 Stim Horm) mcIU/[place] [address] [phone] PSA Screening 0.279 ng/mL Normal 0-4.000 44 Hemoglobin A1c (Glyco HGB) 11.1 % High Less than 6.0 45 Basic Metabolic 05/02/2016 [facility] Sodium 137 mmol/L Normal 133-145 Panel [address] [place] [address] [phone] Potassium 3.7 mmol/L Normal 3.5-5.0 Chloride 101 mmol/L Normal 101-111 Co2 Carbon Dioxide 27 mmol/L Normal 22-32 Anion Gap 9 mmol/L Normal 2-11 Glucose 427 mg/dL High 70-100 Blood Urea Nitrogen 16 mg/dL Normal 6-24 Creatinine 0.88 mg/dL Normal 0.67-1.17 BUN/Creatinine Ratio 18.2 Normal 8-20 Calcium 9.5 mg/dL Normal 8.6-10.3 Egfr Non- 90.6 Normal >60 Egfr 116.5 Normal >60 46 Basic Metabolic 04/28/2016 [facility] Sodium 140 mmol/L Normal 133-145 Panel [address] [place] [address] [phone] Potassium 3.4 mmol/L Low 3.5-5.0 Chloride 105 mmol/L Normal 101-111 Co2 Carbon Dioxide 28 mmol/L Normal 22-32 Anion Gap 7 mmol/L Normal 2-11 Glucose 229 mg/dL High 70-100 Blood Urea Nitrogen 15 mg/dL Normal 6-24 Creatinine 0.72 mg/dL Normal 0.67-1.17 BUN/Creatinine Ratio 20.8 High 8-20 Calcium 9.3 mg/dL Normal 8.6-10.3 Egfr Non- 114.2 Normal >60 Egfr 146.9 Normal >60 47 Inr/Protime 04/28/2016 [facility] Inr 0.99 Normal 0.89-1.11 [address] [place] [address] [phone] CBC Auto Diff 04/28/2016 [facility] White Blood 10.8 Normal 3.5-10.8 101 [facility] Count 10^3/[place] [address] [phone] Red Blood Count 5.43 10^6/uL High 4.0-5.4 Hemoglobin 16.3 g/dL Normal 14.0-18.0 Hematocrit 47 % Normal 42-52 Mean Corpuscular Volume 86 fL Normal 80-94 Mean Corpuscular Hemoglobin 30 pg Normal 27-31 Mean Corpuscular HGB Conc 35 g/dL Normal 31-36 Red Cell Distribution Width 14 % Normal 10.5-15 Abs Neutrophils 5.1 10^3/uL Normal 1.5-7.7 Abs Lymphocytes 4.4 10^3/uL Normal 1.0-4.8 Abs Monocytes 0.7 10^3/uL Normal 0-0.8 Abs Eosinophils 0.4 10^3/uL Normal 0-0.6 Abs Basophils 0.1 10^3/uL Normal 0-0.2 Granulocyte % 47.7 % Normal 38-83 Lymphocyte % 41.0 % Normal 25-47 Monocyte % 7.0 % Normal 1-9 Eosinophil % 3.4 % Normal 0-6 Basophil % 0.9 % Normal 0-2 Platelet Count 204 10^3/uL Normal 150-450 Mean Platelet Volume 10 um3 Normal 7.4-10.4 Cath Panel 04/28/2016 [facility] Partial Thrombo 28.9 Normal 26.0-36.3 [place] [address] [phone] Laboratory 04/28/2016 [facility] B-Type 91 pg/mL Normal 48, test finding DRIVE Natriuretic [address] [place] [address] Peptide BNP [phone] Lipid Profile 04/28/2016 [facility] Triglycerides 228 mg/dL Normal 50 (Trig/Chol/HD [place]) [place] [address] [phone] Cholesterol 155 mg/dL Normal 51 HDL Cholesterol 32.5 mg/dL Normal 52 LDL Cholesterol 77 mg/dL Normal 53 Laboratory test finding 04/28/2016 [facility] Ast 19 U/L Normal 13-[address] [place] [address] [phone] Alt 23 U/L Normal 7-52 55 Basic Metabolic 04/04/2016 [facility] Sodium 137 mmol/L Normal 133-[address] [place] [address] [phone] Potassium 3.9 mmol/L Normal 3.5-5.0 Chloride 102 mmol/L Normal 101-111 Co2 Carbon Dioxide 26 mmol/L Normal 22-32 Anion Gap 9 mmol/L Normal 2-11 Glucose 369 mg/dL High 70-100 Blood Urea Nitrogen 16 mg/dL Normal 6-24 Creatinine 0.76 mg/dL Normal 0.67-1.17 BUN/Creatinine Ratio 21.1 High 8-20 Calcium 9.3 mg/dL Normal 8.6-10.3 Egfr Non- 107.3 Normal >60 Egfr 138.0 Normal >60 56 Basic Metabolic 03/30/2016 [facility] Sodium 143 mmol/L Normal 133-[address] [place] [address] [phone] Potassium 4.0 mmol/L Normal 3.5-5.0 Chloride 105 mmol/L Normal 101-111 Co2 Carbon Dioxide 30 mmol/L Normal 22-32 Anion Gap 8 mmol/L Normal 2-11 Glucose 168 mg/dL High 70-100 Blood Urea Nitrogen 19 mg/dL Normal 6-24 Creatinine 0.90 mg/dL Normal 0.67-1.17 BUN/Creatinine Ratio 21.1 High 8-20 Calcium 9.4 mg/dL Normal 8.6-10.3 Egfr Non- 88.3 Normal >60 Egfr 113.5 Normal >60 57 Cath Panel 03/30/2016 [facility] Partial 31.8 seconds Normal 26.0-36.[address] [place] [address] PTT [phone] Inr/Protime 03/30/2016 [facility] Inr 1.06 Normal 0.89-1.[address] [place] [address] [phone] CBC Auto 03/30/2016 [facility] White Blood 12.6 10^3/uL High 3.5-10.[address] [place] [address] [phone] Red Blood Count 5.16 10^6/uL Normal 4.0-5.4 Hemoglobin 15.1 g/dL Normal 14.0-18.0 Hematocrit 45 % Normal 42-52 Mean Corpuscular Volume 87 fL Normal 80-94 Mean Corpuscular Hemoglobin 29 pg Normal 27-31 Mean Corpuscular HGB Conc 34 g/dL Normal 31-36 Red Cell Distribution Width 13 % Normal 10.5-15 Platelet Count 234 10^3/uL Normal 150-450 Mean Platelet Volume 10 um3 Normal 7.4-10.4 Abs Neutrophils 6.5 10^3/uL Normal 1.5-7.7 Abs Lymphocytes 4.8 10^3/uL Normal 1.0-4.8 Abs Monocytes 0.9 10^3/uL High 0-0.8 Abs Eosinophils 0.3 10^3/uL Normal 0-0.6 Abs Basophils 0.1 10^3/uL Normal 0-0.2 Abs Nucleated RBC 0.01 10^3/uL Normal Granulocyte % 51.4 % Normal 38-83 Lymphocyte % 37.9 % Normal 25-47 Monocyte % 6.9 % Normal 1-9 Eosinophil % 2.6 % Normal 0-6 Basophil % 1.2 % Normal 0-2 Nucleated Red Blood Cells % 0.1 Normal Creatinine 03/17/2015 Creatinine 0.73 mg/dL Normal 0.67-1.17 Egfr Non- 112.8 Normal >60 Egfr 145.1 Normal >60 59 Laboratory test 03/17/2015 Blood Urea Nitrogen 15 mg/dL Normal 6-24 finding BUN Creatinine 03/11/2015 Creatinine 0.58 mg/dL Low 0.67-1.17 Egfr Non- 147.1 Normal >60 Egfr 189.2 Normal >60 60 Laboratory test finding 03/11/2015 Blood Urea Nitrogen BUN 12 mg/dL Normal 6-24 1 Ratio was not calculated because free [...] malignant disease. Test Performed by: [facility] [address] [place] [address] 2 Desirable: <150 Borderline High: 150-199 High: [...] in selective patients <6.0%. Please refer to [place] [employer] diabetic care guidelines for further [...] 5 Kidney failure <15 (or dialysis) 10 [id number] 11 Because ethnic data is not always [...] Trough <0.5 ?g/mL Peak 4-8 ?g/mL 13 [id number] 14 [id number] 15 Because ethnic data is not always [...] Trough <0.5 ?g/mL Peak 4-8 ?g/mL 17 [id number] 18 Because ethnic data is not always [...] Trough <0.5 ?g/mL Peak 4-8 ?g/mL 20 [id number] 21 [id number] 22 Trough <0.5 ?g/mL Peak 4-8 ?g/mL 23 Trough <0.5 ?g/mL Peak 4-8 ?g/mL 24 [id number] 25 [id number] 26 Trough <0.5 ?g/mL Peak 4-8 ?g/mL 27 [id number] 28 Because ethnic data is not always [...] 5 Kidney failure <15 (or dialysis) 29 [id number] 30 Trough <0.5 ?g/mL Peak 4-8 ?g/mL [...] 5 Kidney failure <15 (or dialysis) 37 [id number] 38 Because ethnic data is not always [...] 160-189 mg/dL Very High: >189 mg/dL 43 [id number] 44 Serum levels of PSA measured using the [employer] DXI Hybritech immunoassay should not be interpreted [...] and in selective patients <6.0%.Please refer to [place] [employer] Diabetic care guidelines for further [...] dialysis) Procedures Date Code Description Status 03/12/2019 64640 EKG Tracing & Interpretation Completed 02/23/2019 [id number] Colonoscopy Completed 09/05/2018 28927 EKG Tracing & Interpretation Completed 05/20/2018 92468 EKG Tracing & Interpretation Completed 05/12/2018 05269 Cardioversion Completed 05/12/2018 05417 EKG, Interpretation Only Completed 05/12/2018 71675 Echocardiography, Transesophageal, Real Time W/Image 2D Completed W/W/O M-M 05/12/2018 92161 Moderate Sedation Services; Same Phys Each Additional Completed 15 Mins 05/12/2018 95709 Moderate Sedation Services; Same Phys Intl 15 Mins; PT Completed >=5 Years 05/12/2018 61046 Pulse Wave/Continuous-Interp.RPT Completed 05/12/2018 70776 Color Flow Doppler/Interp & Reprt Completed 05/07/2018 10549 EKG Tracing & Interpretation Completed 04/16/2018 94689 ECHO Transthoracic, Real-Time 2D With Doppler And Color Completed Flow 04/16/2018 13443 ECHO Transthoracic, Real-Time 2D With Doppler And Color Completed Flow 03/31/2018 06943 EKG Tracing & Interpretation Completed 03/12/2018 31927 Echocardiography, Transesophageal, Real Time W/Image 2D Completed W/W/O M-M 03/12/2018 72570 Pulse Wave/Continuous-Interp.RPT Completed 03/12/2018 01950 Color Flow Doppler/Interp & Reprt Completed 03/12/2018 35854 Moderate Sedation Services; Same Phys Intl 15 Mins; PT Completed >=5 Years 03/10/2018 45928 ECHO Transthorasic Realtime 2D W Doppler & Color Flow Completed Hosp 02/25/2018 89324 EKG Tracing & Interpretation Completed 02/10/2018 39088 Echocardiogram, Limited Study Completed 02/07/2018 15448 Echocardiogram, Limited Study Completed 02/07/2018 87141 Thoracentesis W/ Img Guidance Completed 02/06/2018 99272 EKG, Interpretation Only Completed 02/05/2018 05413 EKG, Interpretation Only Completed 01/30/2018 49157 ECHO Transthorasic Realtime 2D W Doppler & Color Flow Completed Hosp 01/30/2018 13780 ECHO Transthorasic Realtime 2D W Doppler & Color Flow Completed Hosp 01/29/2018 18355 EKG Tracing & Interpretation Completed 12/17/2017 93427 RT & LT HRT Cath W/Inj For Ventriculography I/S And Completed Interp If Don 12/12/2017 35709 EKG Tracing & Interpretation Completed 12/11/2017 62605 ECHO Transthorasic Realtime 2D W Doppler & Color Flow Completed Hosp 02/06/2017 70408 ECHO Transthorasic Realtime 2D W Doppler & Color Flow Completed Hosp 05/09/2016 40087 EKG Tracing & Interpretation Completed 05/01/2016 62851 EKG, Interpretation Only Completed 04/30/2016 49729 Intravascular Blood Flow Velocity Completed 04/30/2016 86435 EKG, Interpretation Only Completed 04/30/2016 18256 Percutaneous Transcatheter Placement Of Intracoronary Completed Stent 04/10/2016 69226 Color Flow Doppler/Interp & Reprt Completed 04/10/2016 84351 Pulse Wave/Continuous-Interp.RPT Completed 04/10/2016 32772 Echocardiography, Transesophageal, Real Time W/Image 2D Completed W/W/O M-M 04/02/2016 32609 RT & lt Cath W/Injx HRT Art&L Ventr Img S&I Completed 03/06/2016 85534 Treadmill Interp/Report Only Completed 03/06/2016 69428 Stress Test Supervsn W/Out I/R Completed 02/15/2016 39623 EKG Tracing & Interpretation Completed 01/26/2016 01093 ECHO Transthorasic Realtime 2D W Doppler & Color Flow Completed Hosp 09/12/2015 80819 EKG Tracing & Interpretation Completed 02/23/2015 39748 Stress Test Supervsn W/Out I/R Completed 02/23/2015 34834 Treadmill Interp/Report Only Completed 02/15/2015 85716 ECHO Transthorasic Realtime 2D W Doppler & Color Flow Completed Hosp 02/14/2015 85803 EKG Tracing & Interpretation Completed Encounters Type Date Location Provider Dx Diagnosis Office Visit 03/12/2019 [facility] Yogi Briceno Z01.810 Encounter for 8:00a Of Cee Owen DO FACC preprocedural cardiovascular examination Z95.2 Presence of prosthetic heart valve Z79.2 care home (current) use of antibiotics I10 Essential (primary) hypertension I50.32 Chronic diastolic (congestive) heart failure G47.33 Obstructive sleep apnea (adult) (pediatric) E11.69 Type 2 diabetes mellitus with other specified complication 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 other cardiac Diseases implants and grafts Z95.2 Presence of prosthetic heart valve T82.7xxD Infect/inflm react d/t oth cardi/vasc dev/implnt/grft, subs Z79.2 intermodal customer service (current) use of antibiotics Office Visit 09/05/2018 8:20a [facility] Yogi SCharles Z95.2 Presence of Of Cee Owen DO prosthetic heart FACC valve Z95.818 Presence of other cardiac implants and grafts I10 Essential (primary) hypertension I50.32 Chronic diastolic (congestive) heart failure G47.33 Obstructive sleep apnea (adult) (pediatric) E11.69 Type 2 diabetes mellitus with other specified complication 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, unspecified, in remission Office Visit 05/20/2018 12:00p [facility] Yogi Briceno Z95.2 Presence of Of Cee Ferrisno, DO prosthetic heart FACC valve I48.92 Unspecified atrial flutter I10 Essential (primary) hypertension F17.201 Nicotine dependence, unspecified, in remission E66.8 Other obesity I50.32 Chronic diastolic (congestive) heart failure G47.33 Obstructive sleep apnea (adult) (pediatric) E11.69 Type 2 diabetes mellitus with other specified complication Z79.2 care home (current) use of antibiotics 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 I10 Essential ( primary) Of Cee Owen, DO hypertension FACC E66.8 Other obesity I48.92 Unspecified atrial flutter E11.69 Type 2 diabetes mellitus with other specified complication E78.5 Hyperlipidemia, unspecified I33.0 Acute and subacute infective endocarditis Z79.2 care home (current) use of antibiotics J44.9 Chronic obstructive pulmonary disease, unspecified G47.33 Obstructive sleep apnea (adult) (pediatric) I50.32 Chronic diastolic (congestive) heart failure F17.201 Nicotine dependence, unspecified, in remission Z95.2 Presence of prosthetic heart valve Office 05/06/2018 [facility] Chris Quiroz T82.7xxD Infect/inflm react Visit 8:50a For Infectious Mehran Baltazar. 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 and subacute infective endocarditis Z79.2 intermodal customer service (current) use of antibiotics Office Visit 04/11/2018 9:50a [facility] Chris Richie I33.0 Acute and subacute For Infectious Howie Baltazar infective Diseases endocarditis T82.7xxD Infect/inflm react d/t oth cardi/vasc dev/implnt/grft, subs Z95.2 Presence of prosthetic heart valve Z79.2 care home (current) use of antibiotics Office Visit 03/31/2018 4:00p [facility] Chris Richie I33.0 Acute and subacute For Infectious Howie Baltazar infective Diseases endocarditis L03.115 Cellulitis of right lower limb T82.7xxD Infect/inflm react d/t oth cardi/vasc dev/implnt/grft, subs Office Visit 03/31/2018 3:00p [facility] Tam Craig, I48.92 Unspecified Of Clinical Trials Assistant AT [facility] M.Richie, FACC, atrial flutter FSCAI I10 Essential (primary) hypertension Z95.2 Presence of prosthetic heart valve Office Visit 03/12/2018 3:22p [facility] John I48.92 Unspecified Assoc,nathalia Pagan M.D. atrial flutter Hospitalists J13 Pneumonia due to Streptococcus pneumoniae I10 Essential (primary) hypertension E11.9 Type 2 diabetes mellitus without complications Office Visit 03/11/2018 1:36p [facility] Chris Quiroz M79.1 Myalgia Infectious Crystal Baltazar M.D. J90 Pleural effusion, not elsewhere classified R78.81 Bacteremia R05 Cough Office Visit 03/10/2018 [facility] Duane J96.11 Chronic 3:20p Assoc,nathalia Shipley M.D. respiratory Hospitalists failure with hypoxia J13 Pneumonia due to Streptococcus pneumoniae I48.92 Unspecified atrial flutter E11.9 Type 2 diabetes mellitus without complications Office Visit 03/09/2018 [facility] Aubrey Crump A41.9 Sepsis, 3:19p Assoc,nathalia HEDRICK M.D. 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 I48.3 Typical atrial flutter Office Visit 02/10/2018 11:29a [facility] Andrew Quiroz I31.9 Disease of Of [facility] Howie Slade pericardium, unspecified I48.91 Unspecified atrial fibrillation Office Visit 02/10/2018 [facility] Augustine I50.31 Acute diastolic 8:44a Assnathalia [place] PA (congestive) heart Hospitalists failure E11.9 Type 2 diabetes mellitus without complications I48.92 Unspecified atrial flutter Z79.4 [employer]modal customer service (current) use of insulin Office Visit 02/09/2018 [facility] Una Webster, I50.31 Acute diastolic 8:44a nathalia Babcock M.D. (congestive) Hospitalists heart failure I48.92 Unspecified atrial flutter E11.9 Type 2 diabetes mellitus without complications Z79.4 care home (current) use of insulin J91.8 Pleural effusion in other conditions classified elsewhere J96.11 Chronic respiratory failure with hypoxia Office Visit 02/08/2018 [facility] Una Webster I50.31 Acute diastolic 8:43a nathalia Babcock M.D. (congestive) Hospitalists heart failure I48.92 Unspecified atrial flutter E11.9 Type 2 diabetes mellitus without complications Z79.4 care home (current) use of insulin J96.11 Chronic respiratory failure with hypoxia J91.8 Pleural effusion in other conditions classified elsewhere Office Visit 02/07/2018 11:09a [facility] Tam Craig, I48.92 Unspecified Of Clinical Trials Assistant AT [facility] M.Richie, FACC, atrial flutter FSCAI J90 Pleural effusion, not elsewhere classified Office Visit 02/07/2018 [facility] Una Webster I50.31 Acute diastolic 8:42a nathalia Babcock M.D. (congestive) Hospitalists heart failure I48.92 Unspecified atrial flutter E11.9 Type 2 diabetes mellitus without complications Z79.4 care home (current) use of insulin J96.11 Chronic respiratory failure with hypoxia Office Visit 02/07/2018 11:59a [facility] J90 Pleural effusion, Sleep Services Of MD Rani not elsewhere Clinical Trials Assistant classified R06.02 Shortness of breath R09.02 Hypoxemia R60.0 Localized edema Z87.891 Personal history of nicotine dependence Office Visit 02/06/2018 [facility] Una Webster, I50.31 Acute diastolic 8:41a nathalia Babcock M.D. (congestive) Hospitalists heart failure J96.11 Chronic respiratory failure with hypoxia I48.92 Unspecified atrial flutter J90 Pleural effusion, not elsewhere classified E11.9 Type 2 diabetes mellitus without complications Z79.4 [employer]modal customer service (current) use of insulin Office Visit 02/05/2018 [facility] Una Webster, J96.11 Chronic 8:39a nathalia Babcock M.D. respiratory Hospitalists failure with hypoxia J90 Pleural effusion, not elsewhere classified I48.92 Unspecified atrial flutter E11.9 Type 2 diabetes mellitus without complications I50.31 Acute diastolic (congestive) heart failure Z79.4 intermodal customer service (current) use of insulin Office Visit 02/05/2018 8:25a [facility] Tam Craig, I50.9 Heart failure, Of Clinical Trials Assistant AT [facility] M.Richie, [facility] ED[place]DS, unspecified FSCAI J90 Pleural effusion, not elsewhere classified I48.92 Unspecified atrial flutter Office Visit 02/05/2018 11:50a [facility] R06.02 Shortness of Sleep Services Of MD Rani breath Clinical Trials Assistant R09.02 Hypoxemia J90 Pleural effusion, not elsewhere classified G47.33 Obstructive sleep apnea (adult) (pediatric) Office Visit 02/04/2018 [facility] Una Webster, J96.11 Chronic 8:35a nathalia Babcock M.D. respiratory Hospitalists failure with hypoxia J90 Pleural effusion, not elsewhere classified I50.31 Acute diastolic (congestive) heart failure I48.92 Unspecified atrial flutter E11.9 Type 2 diabetes mellitus without complications Z79.4 care home (current) use of insulin Office Visit 02/04/2018 2:20p [facility] Tam Craig, R06.02 Shortness of Of Clinical Trials Assistant AT [facility], [facility] EDMONDS, breath FSCAI J90 Pleural effusion, not elsewhere classified Office Visit 01/30/2018 10:43a [facility] Edvin LaraCharles R06.00 Dyspnea, Howie Santiago unspecified R94.39 Abnormal result of other cardiovascular function study Z95.2 Presence of prosthetic heart valve Office Visit 01/29/2018 1:40p [facility] Tam Craig, Z95.2 Presence of Of Clinical Trials Assistant AT [facility], [facility] EDMONDS, prosthetic heart FSCAI valve R06.02 Shortness of breath I25.10 Athscl heart disease of [place] coronary artery w/o ang pctrs I48.3 Typical atrial flutter Office Visit 12/18/2017 2:04p [facility] Tam Craig, I35.0 Nonrheumatic Of Clinical Trials Assistant AT [facility], [facility] EDMONDS, aortic (valve) FSCAI stenosis I50.9 Heart failure, unspecified Office Visit 12/18/2017 [facility] Una Webster, I50.33 Acute on chronic 2:20p Assocnathalia M.D. diastolic Hospitalists (congestive) heart failure I35.0 Nonrheumatic aortic (valve) stenosis E11.9 Type 2 diabetes mellitus without complications E78.5 Hyperlipidemia, unspecified Office Visit 12/17/2017 11:30a [facility] Tam Craig, R93.1 Abnormal Of Clinical Trials Assistant AT [facility], [facility] ED[place]DS, findings on dx FSCAI imaging of heart and cor circ I35.0 Nonrheumatic aortic (valve) stenosis I50.9 Heart failure, unspecified Office Visit 12/17/2017 [facility] Una Webster, I50.33 Acute on chronic 2:19p Assocnathalia M.D. diastolic Hospitalists (congestive) heart failure I35.0 Nonrheumatic aortic (valve) stenosis E11.9 Type 2 diabetes mellitus without complications E78.5 Hyperlipidemia, unspecified Office Visit 12/12/2017 8:40a [facility] Tam Craig, I35.0 Nonrheumatic Of Clinical Trials Assistant AT [facility] M.D., FACC, aortic (valve) FSCAI stenosis I25.10 Athscl heart disease of [place] coronary artery w/o ang pctrs I71.2 Thoracic aortic aneurysm, without rupture Office Visit 07/15/2017 8:20a [facility] Tam Craig, I35.0 Nonrheumatic Of Clinical Trials Assistant AT [facility], FACC, aortic (valve) FSCAI stenosis I25.110 Athscl heart disease of [place] cor art w unstable ang pctrs I71.2 Thoracic aortic aneurysm, without rupture Office Visit 12/19/2016 8:20a [facility] Tam Craig, I25.110 Athscl heart Of Clinical Trials Assistant AT [facility], FACC, disease of FSCAI [place] cor art w unstable ang pctrs I10 Essential (primary) hypertension E78.5 Hyperlipidemia, unspecified Z72.0 Tobacco use I35.0 Nonrheumatic aortic (valve) stenosis I77.810 Thoracic aortic ectasia Office Visit 05/09/2016 3:00p [facility] Tam Craig, I35.0 Nonrheumatic Of Clinical Trials Assistant AT [facility], FACC, aortic (valve) FSCAI stenosis I10 Essential (primary) hypertension I25.110 Athscl heart disease of [place] cor art w unstable ang pctrs E78.5 Hyperlipidemia, unspecified Z72.0 Tobacco use Office Visit 04/09/2016 3:20p [facility] Tam Craig, I35.0 Nonrheumatic Of Clinical Trials Assistant AT [facility], FACC, aortic (valve) FSCAI stenosis I25.9 Chronic ischemic heart disease, unspecified I10 Essential (primary) hypertension E78.5 Hyperlipidemia, unspecified I25.10 Athscl heart disease of ey[place] coronary artery w/o ang pctrs Office Visit 02/15/2016 9:20a [facility] Tam Craig, I35.0 Nonrheumatic Of Clinical Trials Assistant AT [facility], FACC, aortic (valve) FSCAI stenosis I77.810 Thoracic aortic ectasia I10 Essential (primary) hypertension Office Visit 09/12/2015 10:00a [facility] Tam Craig, I35.0 Nonrheumatic Of Clinical Trials Assistant AT [facility], FACC, aortic (valve) FSCAI stenosis I10 Essential (primary) hypertension I77.810 Thoracic aortic ectasia Office Visit 03/23/2015 3:45p [facility] Tam Craig, 424.1 Aortic Valve Of Clinical Trials Assistant AT [facility], FACC, Disorder FSCAI 401.1 Hypertension Benign 447.71 Thoracic Aortic Ectasia Office Visit 02/28/2015 3:00p [facility] Tam Craig, 786.05 Shortness Of [facility], FACC, Breath FSCAI 424.1 Aortic Valve Disorder 401.1 Hypertension Benign 272.4 Hyperlipidemia Other Unspec 447.71 Thoracic Aortic Ectasia Office Visit 02/14/2015 9:00a [facility] Tam Craig, 424.1 Aortic Valve Of Clinical Trials Assistant AT [facility], FACC, Disorder FSCAI 401.1 Hypertension Benign 272.4 Hyperlipidemia Other Unspec 786.05 Shortness Of Breath Plan of Treatment Future Appointment(s):04/04/2020 9:00 am - Sobia Saravia MD at [facility]04/14/2019 2:00 pm - TOBY Romano at [facility]04/14/2019 2:00 pm - Omid Mulligan MD, FACS at [facility]03/31/2019 - Barbara Ann, NPC18.6 Malignant neoplasm of descending colonFollow up:[id number] Encounter for other preprocedural examination
[2019-04-14] MEDS ORDERED: Ondansetron INJ* 2 MG/ML VIAL ONE (13:23)
[2019-04-14] MEDS ORDERED: Dexamethasone IV* 4 MG/ML 1 ML (4 MG) ONE (13:23)
[2019-04-14] MEDS ORDERED: fentaNYL* 50 MCG/ML 5 ML VIAL (250 MCG VIAL) ONE ×2 (13:23→15:42)
[2019-04-14] MEDS ORDERED: KETAMINE HCL* 50 MG/ML 10 ML VIAL ONE (13:23)
[2019-04-14] MEDS ORDERED: Propofol* 10 MG/ML 20 ML BTL ONE (13:23)
[2019-04-14] MEDS ORDERED: Lidocaine 2% PF * 5 ML VIAL ONE (13:23)
[2019-04-14] MEDS ORDERED: Rocuronium* 10 MG/ML VIAL ONE ×2 (13:24→17:39)
[2019-04-14] MEDS ORDERED: Midazolam* 1 MG/ML 5 ML VIAL (5 MG) ONE (13:24)
[2019-04-14] MEDS ORDERED: Phenylephrine 10 MG/ML VIAL* 1 ML VIAL ONE (13:24)
[2019-04-14] MEDS ORDERED: Bupivacaine 0.25% EPI 200,000* 30 ML SDV ONE (14:23)
[2019-04-14] MEDS ORDERED: Phenylephrine 40 MCG/ML SYRINGE ONE (15:34)
[2019-04-14] MEDS ORDERED: Levalbuterol 0.63MG/3ML NEB* UNIT OF USE INH PRN (16:43)
[2019-04-14] MEDS ORDERED: Ondansetron INJ* 2 MG/ML VIAL IV PRN ×2 (16:43→19:18)
[2019-04-14] MEDS ORDERED: Naloxone* 0.4 MG/ML 1 ML VIAL IV PRN (16:43)
[2019-04-14] MEDS ORDERED: fentaNYL* 50 MCG/ML 2 ML VIAL (100 MCG VIAL) IV PRN (16:43)
[2019-04-14] MEDS ORDERED: fentaNYL* 50 MCG/ML 2 ML VIAL (100 MCG VIAL) ONE ×4 (17:16→20:19)
[2019-04-14] MEDS ORDERED: Glycopyrrolate IV* 0.2 MG/ML 1 ML VIAL ONE (18:41)
[2019-04-14] MEDS ORDERED: HYDROmorphone INJ1* 1 MG/ML SYRINGE IV SLOW PU PRN (19:18)
[2019-04-14] MEDS ORDERED: oxyCODONE/Acetamin 5/325 MG* TAB PO PRN (19:18)
--- NOTE | 2019-04-14 19:18 | BRIEFOPN ---
Brief Operative Note - Operation Details Pre-Op Diagnosis: colon cancer Post-Op Diagnosis: distal transverse colon cancer Procedures: lap assisted left colectomy Surgeon(s)/Proceduralists: Isaak Anesthesia: GET; Toal Estimated Blood Loss: 50 ml Findings: as above Specimen(s)/Culture(s) Description: left colon Complications: None
[2019-04-14] MEDS ORDERED: Ketorolac INJ* 30 MG/ML 1 ML VIAL ONE (20:20)
[2019-04-14] MEDS: Ketorolac INJ* 30 MG/ML 1 ML VIAL IV SCH (20:23)
--- NOTE | 2019-04-14 21:35 | CONS ---
CC: Dr. Omid Mulligan; Dr. Sudheer Sahni; Dr. Yogi Owen. CONSULTATION REPORT: DATE OF CONSULT: 04/14/19 REQUESTING PHYSICIAN: Omid Mulligan MD CONSULTING SERVICE: Internal Medicine. REASON FOR CONSULTATION: Medical co-management. HISTORY OF PRESENT ILLNESS: This is a 58-year-old male with an extensive cardiac history including a ortic valve stenosis status post replacement with bioprosthetic valve of [place] as well as history of ascending aortic aneurysm status post graft repair, previous history of AFib status post cardiover abad, not on any anticoagulation, was recently found to have a colonic mass, which was noted to be co kvng cancer and the patient needed a lap-assisted left colectomy. Post surgically, the patient was ot herwise stable, they offered no complaints except for some minimal pain in the surgical site, but was in high spirits and denied any chest pain, any shortness of breath, any breathing difficulty whatsoe zaki. PAST MEDICAL HISTORY: As per records. The patient had previous history of type 2 diabetes, hyperten abad, sleep apnea, aortic stenosis with ascending aortic aneurysm, had [place] bioprosthetic valve a nd ascending aortic aneurysm repair with vascular prosthesis graft. It was complicated with mediasti nal bleeding and later further complicated with pericardial effusions status post pericardial window. He also has history of COPD, follows with Dr. Saravia and history of diastolic heart failure, modera [id number] LVH per most recent echocardiogram, obesity. PAST SURGICAL HISTORY: As mentioned, the two aortic surgeries including aortic valve repair and repa ir of the ascending aortic aneurysm and a pericardial window placement, hernia repair in 2006 for umb ilical hernia, which was incarcerated. HOME MEDICATIONS: The patient is currently on: 1. Doxazosin 4 mg oral daily at bedtime. 2. Atorvastatin 80 mg daily at bedtime. 3. Tylenol 500 mg q.4 hours p.r.n. 4. Folgard 50,000 units oral monthly. 5. Metformin 2 tablets of 750 mg in the morning. 6. Lantus 110 units subcutaneous at bedtime. 7. Furosemide 20 mg every morning. 8. Amlodipine 5 mg every morning. 9. Metoprolol 50 mg p.o. b.i.d. 10. Lisinopril 40 mg every morning. 11. Aspirin 325 mg every morning. 12. Amoxicillin 500 mg p.o. b.i.d. ALLERGIES: No known drug allergies documented. FAMILY HISTORY: No known family history of any bleeding disorder, clotting disorders, or any problem s. Her father had history of heart disease, mother had history of emphysema. SOCIAL HISTORY: The patient is , is a former smoker, quit in December 2017, previously less than a pack a day for about 40 years, rarely consumes any alcohol. Denies any other drug abuse. 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 REVIEW OF SYSTEMS: A 14-point review of systems did not reveal any new information other than what i s stated in the HPI. PHYSICAL EXAMINATION: Vital signs on the postop unit, BP was noted to be 140/67, heart rate 78, resp iratory rate 13, saturating 92% on 3 L of nasal cannula, temperature was documented at 97.5. In gene ral, the patient is awake, alert, and oriented x3, did not appear to be in any acute distress. Head and Neck Examination: Atraumatic, normocephalic. Neck: Supple. No jugular venous distention. Hea rt Examination: S1, S2. There was a systolic murmur for the aortic valve. Lungs: Clear to auscult ation bilaterally. No wheezing, rhonchi, or rales. Abdomen: There was a large midline scar with mi nimal blood noted on the surgical site. The rest of the trocar scars were covered. The patient, oth erwise, did have minimal tenderness at the surgical site. Extremities: The patient had lower extrem ity edema noted. There was an A line present on the right arm and SCDs were present on both lower ex tremities as well. DIAGNOSTIC STUDIES/LAB DATA: There was just glucose that was monitored during the operating room, wh ich is hovering between 151 to 219. IMPRESSION: This is a 58-year-old gentleman with multiple cardiac risk factors and multiple cardiac surgeries, here for incidental finding of colon cancer status post left hemicolectomy, doing well pos toperatively, consulted for medical co- management. ASSESSMENT AND PLAN: 1. Left colonic cancer status post left hemicolectomy. 2. History of diabetes. 3. History of hypertension. 4. History of dyslipidemia. 5. History of aortic valve replacement with bioprosthetic valve. 6. History of ascending aortic aneurysm repair. 7. History of obstructive sleep apnea, on CPAP. 8. History of morbid obesity. We will monitor the patient's fingersticks for now. The patient is currently on clear liquids only. Once this is advanced, we could increase the patient's home dose of diabetic medications. In the [facility], we will just monitor with q.4 hour fingersticks that were already ordered by Surgery. Rest o f his medications that were started, I agree with them, may restart aspirin once Surgery clears and c an restart patient's diuretics once he is on regular diet and we will watch for IV fluids and decreas e rate given his history of cardiac disease. DVT prophylaxis, the patient already on SCDs. [id number]/[facility] #: [id number]
[2019-04-14] MEDS: Lactated Ringers 1000 ML Bag* 1,000 ML IV SCH (22:48)
[2019-04-14] MEDS: Atorvastatin* 80 MG TAB PO SCH (23:05)
[2019-04-14] MEDS: Doxazosin TAB* 2 MG PO SCH (23:06)
[2019-04-14] MEDS: Amoxicillin PO (*) 500 MG CAP PO SCH (23:06)
[2019-04-14] MEDS: Metoprolol Tartrate TAB* 50 mg PO SCH (23:06)
[2019-04-14] MEDS: Heparin VIAL(*) 5000 UNITS/ML VIAL (FIVE THOUSAND) SUBCUT SCH (23:08)
[2019-04-14] MEDS: Insulin REGULAR(*) 1 UNITS UNIT SUBCUT SCH (23:09)
[2019-04-15] MEDS: Ketorolac INJ* 30 MG/ML 1 ML VIAL IV SCH ×4 (02:11→21:02)
[2019-04-15] MEDS: Insulin REGULAR(*) 1 UNITS UNIT SUBCUT SCH ×6 (02:14→22:25)
[2019-04-15 02:44] LABS: Urine Appearance Clear; Urine Bacteria Absent (Absent); Urine Bilirubin Negative (Negative); Urine Blood Negative (Negative); Urine Color Amber; Urine Glucose 3+(>=500 mg/dL) (Negative); Urine Ketones 1+ (Negative); Urine Nitrite Negative (Negative); Urine Protein 2+(100 mg/dL) (Negative); Urine Red Blood Cell Absent (Absent); Urine Specific Gravity 1.025 (1.010-1.030); Urine Urobilinogen Negative (Negative); Urine White Blood Cell Absent (Absent)
[2019-04-15] MEDS: Heparin VIAL(*) 5000 UNITS/ML VIAL (FIVE THOUSAND) SUBCUT SCH ×3 (06:08→22:26)
[2019-04-15] MEDS: Lactated Ringers 1000 ML Bag* 1,000 ML IV SCH ×3 (06:45→21:04)
[2019-04-15 07:06] LABS: ABS Monocytes 1.2 10^3/ul (0-0.8); ABS Neutrophils 13.3 10^3/ul (1.5-7.7); Hematocrit 41 % (42-52); Hemoglobin 14.4 g/dL (14.0-18.0); Lymphocyte % 17.3 %; Mean Corpuscular HGB Conc 35 g/dL (31-36); Mean Corpuscular Hemoglobin 31 pg (27-31); Mean Corpuscular Volume 87 fL (80-94); Mean Platelet Volume 8.8 fL (7.4-10.4); Platelet Count 217 10^3/uL (150-450); Red Blood Count 4.72 10^6 /uL (4.18-5.48); Red Cell Distribution Width 13 % (10-15); White Blood Count 17.5 10^3/uL (3.5-10.8)
[2019-04-15 07:32] LABS: BUN/Creatinine Ratio 20.2 (8-20); Calcium 8.6 mg/dL (8.6-10.3); EGFR African American 114.4 (>60); EGFR Non-African American 94.5 (>60); Potassium 3.7 mmol/L (3.5-5.0)
[2019-04-15] MEDS: amLODIPine TAB* 5 MG PO SCH (08:16)
[2019-04-15] MEDS: Amoxicillin PO (*) 500 MG CAP PO SCH ×2 (08:16→21:01)
[2019-04-15] MEDS: Lisinopril TAB* 10 MG PO SCH (08:16)
[2019-04-15] MEDS: Metoprolol Tartrate TAB* 50 mg PO SCH ×2 (08:16→21:02)
--- NOTE | 2019-04-15 09:03 | OP ---
CC: Sudheer Sahni MD; Allan Rojas MD; Sobia Saravia MD; Yogi Owen MD * DATE OF OPERATION: 04/14/19 - ROOM #339 DATE OF : 64 SURGEON: Omid Mulligan MD. CUSTOMER ACCOUNT ADMINISTRATOR: Dr. Amaral. ANESTHESIOLOGIST: Dr. Hoover. ANESTHESIA: General endotracheal. PRE-OP DIAGNOSIS: Transverse colon carcinoma. POST-OP DIAGNOSIS: Transverse colon carcinoma. OPERATIVE PROCEDURE: Laparoscopic-assisted left colectomy. ESTIMATED BLOOD LOSS: 50 mL. IV FLUIDS: 2.9 L of crystalloid. SPECIMEN: Left colon. DRAINS: None. COMPLICATIONS: None. COUNTS: Instrument, needle and sponge counts were correct. OPERATIVE FINDINGS: Distal transverse colon tumor based on location of middle colic vessels. No evidence of metastatic disease. Small supraumbilical ventral hernia. DESCRIPTION OF PROCEDURE: The patient was brought to the operating room and placed on the table supine. Sequential compression devices were placed on both lower extremities. General anesthesia was administered. Quinones catheter was placed. The patient was positioned right leg on the table and he was appropriately padded and secured. An A-line was placed by the anesthesiologist in the right radial artery. Both arms were left extended. His abdomen was then prepped and draped in the usual sterile fashion. He received appropriate intravenous antibiotics. A time-out was performed. Local anesthetic was infiltrated into the skin and soft tissue in the left upper quadrant. A 5 mm optical trocar was used to access the peritoneal cavity and carbon dioxide was insufflated to a pressure of 15 mmHg. A 5 mm 30-degree laparoscope was introduced. The patient was noted to have a generous-sized omentum. Gross inspection of the peritoneal surfaces revealed no evidence of abnormality. There was a small 5 mm ventral hernia in the supraumbilical position. In the periumbilical region, there was no obvious defect. The additional trocars were placed under direct visualization; this included a 5 mm trocar in the right abdomen about the level of the umbilicus, a 5 mm trocar in the supraumbilical region that was subsequently converted to 12 mm trocar, a 5 mm trocar in the left lower quadrant, and an additional 5 mm trocar placed in the upper abdomen midline. Utilizing atraumatic bowel graspers, inspection was performed and the tattooed area was noted in the distal transverse colon. It was felt that resection would require mobilization of both splenic and hepatic flexures and therefore, dissection proceeded in the mid transverse colon and proceeded initially towards the splenic flexure. The gastrocolic ligament was opened with LigaSure , and the omentum retracted cephalad, and the dissection proceeded to the splenic flexure, taking this down completely and mobilizing the descending colon. The dissection then proceeded from the mid transverse colon proximally, again opening the gastrocolic ligament and elevating the omentum cephalad. Dissection proceeded with the LigaSure, identifying and preserving the duodenum , mobilizing the colon down through the cecum. Additional mobilization was then performed along the white line of Toldt to free the descending colon to the top of the sigmoid colon. Dissection continued proximal and to meet the area of prior dissection. Once the colon was adequately mobilized, an upper midline incision was created. An Axel extra large size retractor was placed. The colon was exteriorized and inspected. There was a palpable mass in the mid distal transverse colon between 2 tattooed areas. This was an area just distal to the left branch of the middle colic artery. It was decided that this would be the most proximal extent of the dissection, and it was decided that left colectomy would be performed. The mesentery was scored with cautery. The vessels were isolated, clamped, divided, and ligated with 2-0 Vicryl suture ligature. The dissection proceeded incrementally along the mesentery, dividing it with Marni clamps and again ligating it with 2-0 Vicryl suture ligature. The division of the left colic vessels was completed and the distal margin resection was at the top of the sigmoid colon. The resection was performed using a Jose Luis technique. The OLENA 80 stapler was used for this, aligning the proximal and distal bowel to create the colocolonic anastomosis of the proximal transverse colon to the proximal sigmoid colon and then the second firing of the stapler divided the bowel. The bowel was inspected on the back table to assure that the specimen was oriented with the suture tied on the proximal margin. The anastomosis was reinforced with 3-0 silk placed at the crotch of the staple line. The anastomosis appeared to be widely patent with bowel contents able to be milked through it and it appeared to be well vascularized. The mesenteric defect was closed with interrupted 3-0 silk sutures. Lavage was performed. Palpation of the liver was performed, revealing no masses within the right or left lobes. There was a rent in the omentum that was closed with 3-0 silk and then, after returning the viscera to the anatomic position, the omentum was placed beneath the midline wound, which was closed with a #1 PDS suture running. This incorporated the closure of the previously identified supraumbilical hernia. The subcutaneous tissues were irrigated and then the skin was closed at all the incisions with alfredo. Dressings were applied. The patient tolerated the procedure well, was extubated uneventfully, and transferred to recovery room in stable condition. [id number]/[facility] #: [id number] MTDD
--- NOTE | 2019-04-15 09:49 | PN ---
Progress Note - Progress Note Date of Service: 04/15/19 SOAP: Subjective: Reports pain "5/10". Doesn't feel he needs more pain meds. Has been OOB, walking. No N/V. Discussed findings at surgery. Objective: Vital Signs Temp 98.6 F 04/15/19 07:16 Pulse 64 04/15/19 07:16 Resp 20 04/15/19 07:16 BP 117/58 04/15/19 07:16 Pulse Ox 91 04/15/19 07:27 Gen:NAD; sitting up in bed. Lungs: CTA B with some crackles at bases Heart: reg Abd: dressings intact; obese; soft; mildly tender incisions. Intake & Output 04/14/19 04/15/19 04/15/19 18:59 06:59 18:59 Intake Total 4560 30 Output Total 700 50 Balance 3860 -20 Weight 283 lb Intake: IV Fluids 4080 LR 4080 Oral 480 30 Output: Brown 700 50 Assessment: POD# 1 s/p lap left colectomy for ca. Doing well. Expect significant 3rd spacing due to surgical dissection. Plan: Sips. D/c brown. Decr IVF. Check CXR. Judicious use of diuretics. Ambulate/pulm toilet.
[2019-04-15] MEDS ORDERED: Albuterol 2.5 MG/3 ML NEB.SOL* (0.083%) INH PRN (09:53)
[2019-04-15] MEDS ORDERED: NS 0.9% 1000 ML** 1,000 ML IV SCH (10:00)
--- NOTE | 2019-04-15 10:41 | PN ---
Subjective Date of Service: 04/15/19 Interval History: Patient is feeling relatively well today. Patient has pain in abdomen which is relatively well controlled. Patient is not passing gas and has little appetite. Patient is hypoxic on RA, but does not feel SOB, but has not engaged in any actively. Patient denies F/C, N/V, CP, dizziness, or other pain. Patient feels as if his LE edema has recently improved. Family History: Unchanged from Admission Social History: Unchanged from Admission Past Medical History: Unchanged from Admission Objective Active Medications: Albuterol (Ventolin 2.5 Mg/3 Ml Neb.Rebecca*) 2.5 mg INH Q4H PRN PRN Reason: SOB/WHEEZING Amlodipine Besylate (Norvasc Tab*) 5 mg PO QAM [facility] Last Admin: 04/15/19 08:16 Dose: 5 mg Amoxicillin (Amoxicillin Po (*)) 500 mg PO BID [facility] Last Admin: 04/15/19 08:16 Dose: 500 mg Atorvastatin Calcium (Lipitor*) 80 mg PO BEDTIME [facility] Last Admin: 04/14/19 23:05 Dose: 80 mg Doxazosin Mesylate (Cardura Tab*) 4 mg PO BEDTIME [facility] Last Admin: 04/14/19 23:06 Dose: 4 mg Furosemide (Lasix Tab*) 20 mg PO DAILY [facility] Heparin Sodium (Porcine) (Heparin Vial(*)) 5,000 units SUBCUT Q8HR [facility] Last Admin: 04/15/19 06:08 Dose: 5,000 units Hydromorphone HCl (Dilaudid Inj1s*) 0.5 mg IV SLOW PU Q1H PRN PRN Reason: PAIN - SEVERE Lactated Ringer's (Lactated Ringers 1000 Ml Bag*) 1,000 mls @ 75 mls/hr IV PER RATE [facility] Last Admin: 04/15/19 10:07 Dose: 75 mls/hr Insulin Human Regular (Insulin Regular(*)) 0 units SUBCUT Q4HR [facility]; Protocol Last Admin: 04/15/19 10:15 Dose: Not Given Ketorolac Tromethamine (Toradol Inj*) 30 mg IV Q6H [facility] Stop: 04/16/19 19:24 Last Admin: 04/15/19 08:13 Dose: 30 mg Lisinopril (Prinivil Tab*) 40 mg PO QAM [facility] Last Admin: 04/15/19 08:16 Dose: 40 mg Metoprolol Tartrate (Lopressor Tab*) 50 mg PO BID MARYJO Last Admin: 04/15/19 08:16 Dose: 50 mg Ondansetron HCl (Zofran Inj*) 4 mg IV Q4H PRN PRN Reason: NAUSEA/VOMITING Oxycodone/Acetaminophen (Percocet 5/325 Tab*) 1 tab PO Q4H PRN PRN Reason: PAIN - MODERATE Vital Signs - 8 hr 04/15/19 04/15/19 04/15/19 02:56 03:28 07:16 Temperature 97.7 F 98.6 F Pulse Rate 54 64 Respiratory 17 20 Rate Blood Pressure 112/61 117/58 (mmHg) O2 Sat by Pulse 92 94 93 Oximetry 04/15/19 07:27 Temperature Pulse Rate Respiratory Rate Blood Pressure (mmHg) O2 Sat by Pulse 91 Oximetry Oxygen Devices in Use Now: Nasal Cannula Appearance: Patient is a 58yo male who appears stated age and is sitting in the bed in NAD. Eyes: No Scleral Icterus, PERRLA Ears/Nose/Mouth/Throat: NL Teeth, Lips, Gums, Clear Oropharnyx, Mucous Membranes Moist Neck: NL Appearance and Movements; NL JVP, Trachea Midline Respiratory: Symmetrical Chest Expansion and Respiratory Effort, - - Rales heard in B/L Lower lobes. Slightly diminished breath sounds. Cardiovascular: RRR, - - 1+ B/L LE edema. Grade 2/6 RENU at RUSB. Abdominal: No Hepatosplenomegaly, - - hypoactive bowel sounds. Tender to palpation over incision. Lymphatic: No Cervical Adenopathy Extremities: No Clubbing, Cyanosis Skin: No Nodules or Sclerosis Neurological: Alert and Oriented x 3, NL Sensation, NL Muscle Strength and Tone , - - CN II-XII intact. Result Diagrams: 04/15/19 06:47 04/15/19 06:47 Assess/Plan/Problems-Billing Assessment: Patient is a 58yo male with a PMH for HFpEF, S/P replacement, DM II, HTN, here with colectomy for colon cancer and is doing well postoperatively with signs of minor fluid overload. - Patient Problems (1) S/P colectomy Current Visit: Yes Status: Acute Code(s): Z90.49 - ACQUIRED ABSENCE OF OTHER SPECIFIED PARTS OF DIGESTIVE TRACT SNOMED Code(s): 964825913 Comment: - Management per general surgery - No flatus yet, continue NPO except meds - For colon cancer. Primary anastomosis - No obvious bleeding. (2) CHF (congestive heart failure) Current Visit: No Status: Chronic Priority: High Code(s): I50.9 - HEART FAILURE, UNSPECIFIED SNOMED Code(s): 20936082 Comment: - Slight signs of fluid overload S/P surgery with Congestion on CXR and slight lower lobe rales - Decrease fluid rate, no indication for lasix at this time - Strict I/O and daily weight (3) Aortic stenosis Current Visit: Yes Status: Acute Code(s): I35.0 - NONRHEUMATIC AORTIC (VALVE ) STENOSIS SNOMED Code(s): 35774089 Comment: - S/P Repair (4) DM2 (diabetes mellitus, type 2) Current Visit: No Status: Chronic Priority: High Comment: - Continue Regular insulin SSI while NPO - Good control at this time. (5) Full code status Current Visit: Yes Status: Acute Code(s): Z78.9 - OTHER SPECIFIED HEALTH STATUS SNOMED Code(s): 565421777 (6) DVT prophylaxis Current Visit: No Status: Acute Priority: High Code(s): RGQ0342 - SNOMED Code(s): 907032139 Comment: - HSQ Status and Disposition: Inpatient, Disposition per General surgery Thank you for this consult, we will continue to follow along.
[2019-04-15] MEDS: Furosemide TAB* 20 MG PO SCH (14:52)
[2019-04-15] MEDS: Atorvastatin* 80 MG TAB PO SCH (21:01)
[2019-04-15] MEDS: Doxazosin TAB* 2 MG PO SCH (21:01)
[2019-04-16] MEDS: Ketorolac INJ* 30 MG/ML 1 ML VIAL IV SCH (02:50)
[2019-04-16] MEDS: Insulin REGULAR(*) 1 UNITS UNIT SUBCUT SCH ×5 (02:54→22:17)
[2019-04-16] MEDS ORDERED: Furosemide IV* 10 MG/ML 2 ML VIAL (20 MG) IV ONE (06:00)
[2019-04-16] MEDS: Heparin VIAL(*) 5000 UNITS/ML VIAL (FIVE THOUSAND) SUBCUT SCH ×3 (06:23→22:10)
[2019-04-16 06:41] LABS: ABS Basophils 0.1 10^3/ul (0-0.2); ABS Eosinophils 0.2 10^3/ul (0-0.6); ABS Lymphocytes 3.6 10^3/ul (1.0-4.8); ABS Monocytes 0.9 10^3/ul (0-0.8); ABS Neutrophils 6.9 10^3/ul (1.5-7.7); Eosinophil % 1.8 %; Hematocrit 41 % (42-52); Hemoglobin 14.5 g/dL (14.0-18.0); Mean Corpuscular HGB Conc 35 g/dL (31-36); Mean Corpuscular Hemoglobin 31 pg (27-31); Mean Corpuscular Volume 87 fL (80-94); Mean Platelet Volume 9.1 fL (7.4-10.4); Platelet Count 202 10^3/uL (150-450); Red Blood Count 4.69 10^6 /uL (4.18-5.48); Red Cell Distribution Width 13 % (10-15); White Blood Count 11.7 10^3/uL (3.5-10.8)
[2019-04-16 06:57] LABS: BUN/Creatinine Ratio 20.3 (8-20); Calcium 8.6 mg/dL (8.6-10.3); EGFR African American 143.5 (>60); EGFR Non-African American 118.6 (>60); Potassium 3.9 mmol/L (3.5-5.0)
[2019-04-16] MEDS ORDERED: Ibuprofen TAB* 600 MG PO PRN (07:58)
--- NOTE | 2019-04-16 08:05 | PN ---
Progress Note - Progress Note Date of Service: 04/16/19 SOAP: Subjective: Some nausea; no vomiting. Reports flatus and 2 loose BMs, no BPR. Pain: "4/10 ". Breathing fine. Urination normal. Slept poorly as was sent for CXR last night. Pt received lasix x 2 yesterday for CHF. Objective: Vital Signs Temp 98.5 F 04/16/19 07:11 Pulse 78 04/16/19 07:11 Resp 16 04/16/19 07:11 BP 147/80 04/16/19 07:11 Pulse Ox 93 04/16/19 07:11 Gen: Lying in bed; NAD. Abd: incisions c/d/i; no erythema; soft; +BS; min tender. Ext: warm; no edema Intake & Output 04/15/19 04/16/19 04/16/19 18:59 06:59 18:59 Intake Total 622 1180 Output Total 770 550 825 Balance -148 630 -825 Weight 277 lb 6.4 oz Intake: IV Fluids 362 LR 362 Oral 260 1180 Output: Urine 670 550 825 Quinones 100 Other: Estimated Void Medium Date of Last Bowel 04/16/2019 Movement # Bowel Movements 2 Estimated Stool Amount Medium # Voids 2 Laboratory Results - last 24 hr 04/15/19 04/15/19 04/15/19 05:58 10:12 13:56 WBC RBC Hgb Hct MCV MCH MCHC RDW Plt Count MPV Neut % (Auto) Lymph % (Auto) [place] % (Auto) Eos % (Auto) Baso % (Auto) Absolute Neuts (auto) Absolute Lymphs (auto) Absolute Monos (auto) Absolute Eos (auto) Absolute Basos (auto) Absolute Nucleated RBC Nucleated RBC % Sodium Potassium Chloride Carbon Dioxide Anion Gap BUN Creatinine Est GFR ( Amer) Est GFR (Non-Af Amer) BUN/Creatinine Ratio Glucose POC Glucose (mg/dL) 182 H 108 H 97 Calcium 04/15/19 04/15/19 04/16/19 18:11 22:14 02:36 WBC RBC Hgb Hct MCV MCH MCHC RDW Plt Count MPV Neut % (Auto) Lymph % (Auto) [place] % (Auto) Eos % (Auto) Baso % (Auto) Absolute Neuts (auto) Absolute Lymphs (auto) Absolute Monos (auto) Absolute Eos (auto) Absolute Basos (auto) Absolute Nucleated RBC Nucleated RBC % Sodium Potassium Chloride Carbon Dioxide Anion Gap BUN Creatinine Est GFR ( Amer) Est GFR (Non-Af Amer) BUN/Creatinine Ratio Glucose POC Glucose (mg/dL) 97 205 H 181 H Calcium 04/16/19 04/16/19 04/16/19 06:12 06:18 06:18 WBC 11.7 H RBC 4.69 Hgb 14.5 Hct 41 L MCV 87 MCH 31 MCHC 35 RDW 13 Plt Count 202 MPV 9.1 Neut % (Auto) 58.9 Lymph % (Auto) 31.0 [place] % (Auto) 7.9 Eos % (Auto) 1.8 Baso % (Auto) 0.4 Absolute Neuts (auto) 6.9 Absolute Lymphs (auto) 3.6 Absolute Monos (auto) 0.9 H Absolute Eos (auto) 0.2 Absolute Basos (auto) 0.1 Absolute Nucleated RBC 0.0 Nucleated RBC % 0.0 Sodium 138 Potassium 3.9 Chloride 105 Carbon Dioxide 28 Anion Gap 5 BUN 14 Creatinine 0.69 Est GFR ( Amer) 143.5 Est GFR (Non-Af Amer) 118.6 BUN/Creatinine Ratio 20.3 H Glucose 195 H POC Glucose (mg/dL) 191 H Calcium 8.6 Assessment: POD#2 s/p lap L colon. Doing well. Mild CHF managed with early diuresis. Plan: Adv diet. PO meds. Amb/Pulm toilet. Home likely in AM if cont to do well.
[2019-04-16] MEDS ORDERED: Furosemide TAB* 20 MG PO SCH (09:00)
[2019-04-16] MEDS: Furosemide TAB* 20 MG PO SCH (09:24)
[2019-04-16] MEDS: Amoxicillin PO (*) 500 MG CAP PO SCH ×2 (09:24→22:08)
[2019-04-16] MEDS: Lisinopril TAB* 10 MG PO SCH (09:24)
[2019-04-16] MEDS: amLODIPine TAB* 5 MG PO SCH (09:24)
[2019-04-16] MEDS: Aspirin EC TAB* 325 MG PO SCH (09:24)
[2019-04-16] MEDS: Metoprolol Tartrate TAB* 50 mg PO SCH ×2 (09:25→22:08)
--- NOTE | 2019-04-16 11:11 | PN ---
Subjective Date of Service: 04/16/19 - ' Interval History: Patient is feeling well. Minimal abdominal pain with flatus and having a BM. Patient has no nausea and a good appetite, no issues with vomiting. Patient denies Cp, SOB, Dizziness, MAC, Orthopnea, F/C, dysuria, decrease in urine output, or other pain. Family History: Unchanged from Admission Social History: Unchanged from Admission Past Medical History: Unchanged from Admission Objective Active Medications: Albuterol (Ventolin 2.5 Mg/3 Ml Neb.Rebecca*) 2.5 mg INH Q4H PRN PRN Reason: SOB/WHEEZING Amlodipine Besylate (Norvasc Tab*) 5 mg PO QAM [facility] Last Admin: 04/16/19 09:24 Dose: 5 mg Amoxicillin (Amoxicillin Po (*)) 500 mg PO BID [facility] Last Admin: 04/16/19 09:24 Dose: 500 mg Aspirin (Ecotrin Ec Tab*) 325 mg PO DAILY [facility] Last Admin: 04/16/19 09:24 Dose: 325 mg Atorvastatin Calcium (Lipitor*) 80 mg PO BEDTIME [facility] Last Admin: 04/15/19 21:01 Dose: 80 mg Doxazosin Mesylate (Cardura Tab*) 4 mg PO BEDTIME [facility] Last Admin: 04/15/19 21:01 Dose: 4 mg Furosemide (Lasix Tab*) 20 mg PO DAILY [facility] Last Admin: 04/16/19 09:24 Dose: 20 mg Heparin Sodium (Porcine) (Heparin Vial(*)) 5,000 units SUBCUT Q8HR [facility] Last Admin: 04/16/19 06:23 Dose: 5,000 units Hydromorphone HCl (Dilaudid Inj1s*) 0.5 mg IV SLOW PU Q1H PRN PRN Reason: PAIN - SEVERE Ibuprofen (Motrin Tab*) 600 mg PO Q6H PRN PRN Reason: PAIN - MILD Last Admin: 04/16/19 09:24 Dose: 600 mg Insulin Human Regular (Insulin Regular(*)) 0 units SUBCUT ACHS [facility]; Protocol Lisinopril (Prinivil Tab*) 40 mg PO QAM [facility] Last Admin: 04/16/19 09:24 Dose: 40 mg Metoprolol Tartrate (Lopressor Tab*) 50 mg PO BID [facility] Last Admin: 04/16/19 09:25 Dose: 50 mg Ondansetron HCl (Zofran Inj*) 4 mg IV Q4H PRN PRN Reason: NAUSEA/VOMITING Oxycodone/Acetaminophen (Percocet 5/325 Tab*) 1 tab PO Q4H PRN PRN Reason: PAIN - MODERATE Vital Signs - 8 hr 04/16/19 04/16/19 04/16/19 03:55 04:00 06:00 Temperature 98.5 F Pulse Rate 68 Respiratory 16 18 Rate Blood Pressure 129/67 (mmHg) O2 Sat by Pulse 94 91 92 Oximetry 04/16/19 04/16/19 07:11 07:59 Temperature 98.5 F Pulse Rate 78 Respiratory 16 16 Rate Blood Pressure 147/80 (mmHg) O2 Sat by Pulse 93 93 Oximetry Oxygen Devices in Use Now: Nasal Cannula Appearance: Patient is a 58yo male who appears stated age and is sitting in the bed in NAD. Eyes: No Scleral Icterus, PERRLA Ears/Nose/Mouth/Throat: NL Teeth, Lips, Gums, Clear Oropharnyx, Mucous Membranes Moist Neck: NL Appearance and Movements; NL JVP, Trachea Midline Respiratory: Symmetrical Chest Expansion and Respiratory Effort, - - Slight crackles in B/L Bases unchanged. Cardiovascular: NL Sounds; No Murmurs; No JVD, RRR, - - 1+ B/L LE edema, unchanged. Abdominal: NL Sounds; No Tenderness; No Distention, No Hepatosplenomegaly Lymphatic: No Cervical Adenopathy Extremities: No Clubbing, Cyanosis Skin: No Nodules or Sclerosis, - - Abdominal surgical incisions unremarkable. Neurological: Alert and Oriented x 3, NL Sensation, NL Muscle Strength and Tone , - - CN II-XII intact. Result Diagrams: 04/16/19 06:18 04/16/19 06:18 Assess/Plan/Problems-Billing Assessment: Patient is a 58yo male with a PMH for HFpEF, S/P replacement, DM II, HTN, here with colectomy for colon cancer and is doing well postoperatively with signs of minor fluid overload. - Patient Problems (1) S/P colectomy Current Visit: Yes Status: Acute Code(s): Z90.49 - ACQUIRED ABSENCE OF OTHER SPECIFIED PARTS OF DIGESTIVE TRACT SNOMED Code(s): 848160205 Comment: - Management per general surgery - Flatus and BM, tolerating diet. - For colon cancer. Primary anastomosis - No obvious bleeding. (2) CHF (congestive heart failure) Current Visit: No Status: Chronic Priority: High Code(s): I50.9 - HEART FAILURE, UNSPECIFIED SNOMED Code(s): 47578116 Comment: - Slight signs of fluid overload S/P surgery with Congestion on CXR and slight lower lobe rales - Needed lasix overnight - Establishing negative fluid balance, up 3.5L. Additional Lasix PRN, continue low dose home regimen at this time. - Strict I/O and daily weight (3) Aortic stenosis Current Visit: Yes Status: Acute Code(s): I35.0 - NONRHEUMATIC AORTIC (VALVE ) STENOSIS SNOMED Code(s): 36664482 Comment: - S/P Repair (4) DM2 (diabetes mellitus, type 2) Current Visit: No Status: Chronic Priority: High Comment: - Continue Regular insulin ACHS - Good control at this time. (5) Full code status Current Visit: Yes Status: Acute Code(s): Z78.9 - OTHER SPECIFIED HEALTH STATUS SNOMED Code(s): 712188208 (6) DVT prophylaxis Current Visit: No Status: Acute Priority: High Code(s): NRB9733 - SNOMED Code(s): 202654384 Comment: - HSQ Status and Disposition: Inpatient, Disposition per General surgery Thank you for this consult, we will continue to follow along.
[2019-04-16] MEDS: Atorvastatin* 80 MG TAB PO SCH (22:08)
[2019-04-16] MEDS: Doxazosin TAB* 2 MG PO SCH (22:08)
[2019-04-17 05:26] LABS: ABS Basophils 0.1 10^3/ul (0-0.2); ABS Eosinophils 0.3 10^3/ul (0-0.6); ABS Lymphocytes 2.6 10^3/ul (1.0-4.8); ABS Monocytes 0.8 10^3/ul (0-0.8); ABS Neutrophils 6.4 10^3/ul (1.5-7.7); Eosinophil % 3.4 %; Hematocrit 40 % (42-52); Lymphocyte % 25.5 %; Mean Corpuscular HGB Conc 35 g/dL (31-36); Mean Corpuscular Hemoglobin 30 pg (27-31); Mean Corpuscular Volume 87 fL (80-94); Mean Platelet Volume 8.9 fL (7.4-10.4); Platelet Count 203 10^3/uL (150-450); Red Cell Distribution Width 14 % (10-15); White Blood Count 10.2 10^3/uL (3.5-10.8)
[2019-04-17 05:39] LABS: BUN/Creatinine Ratio 20.7 (8-20); Calcium 8.5 mg/dL (8.6-10.3); EGFR African American 175.4 (>60); EGFR Non-African American 144.9 (>60); Magnesium 1.7 mg/dL (1.9-2.7); Potassium 3.2 mmol/L (3.5-5.0)
[2019-04-17] MEDS: Heparin VIAL(*) 5000 UNITS/ML VIAL (FIVE THOUSAND) SUBCUT SCH (06:04)
[2019-04-17] MEDS ORDERED: Propofol* 10 MG/ML 20 ML BTL ONE (06:53)
[2019-04-17] MEDS ORDERED: Midazolam* 1 MG/ML 2 ML VIAL (2 MG) ONE (06:53)
[2019-04-17] MEDS ORDERED: fentaNYL* 50 MCG/ML 2 ML VIAL (100 MCG VIAL) ONE (06:53)
[2019-04-17] MEDS ORDERED: Lidocaine 2% PF * 5 ML VIAL ONE (06:53)
[2019-04-17] MEDS: Aspirin EC TAB* 325 MG PO SCH (08:31)
[2019-04-17] MEDS: Lisinopril TAB* 10 MG PO SCH (08:31)
[2019-04-17] MEDS: amLODIPine TAB* 5 MG PO SCH (08:31)
[2019-04-17] MEDS: Amoxicillin PO (*) 500 MG CAP PO SCH (08:31)
[2019-04-17] MEDS: Furosemide TAB* 20 MG PO SCH (08:32)
[2019-04-17] MEDS: Metoprolol Tartrate TAB* 50 mg PO SCH (08:32)
[2019-04-17] MEDS: Insulin REGULAR(*) 1 UNITS UNIT SUBCUT SCH ×2 (08:32→12:42)
[2019-04-17] MEDS ORDERED: Ketorolac INJ* 30 MG/ML 1 ML VIAL ONE (08:41)
[2019-04-17] MEDS ORDERED: Metoclopramide IV* 5 MG/ML 2 ML VIAL ONE (08:41)
[2019-04-17] MEDS ORDERED: Ondansetron INJ* 2 MG/ML VIAL ONE (08:41)
[2019-04-17] MEDS ORDERED: Dexamethasone IV* 4 MG/ML 1 ML (4 MG) ONE (08:41)
[2019-04-17] MEDS ORDERED: Potassium Chloride* LIQUID 20 MEQ/15 ML UDC PO ONE (09:23)
[2019-04-17] MEDS ORDERED: Magnesium Sulfate 2 GM IV* 2 GM/50 ML BAG IVPB ONE (09:23)
[2019-04-17 11:11] VITALS: BP 136/76
--- NOTE | 2019-04-17 12:48 | PN ---
Progress Note - Progress Note Date of Service: 04/17/19 SOAP: Subjective:minimal pain,edinson solids,passing flatus and loose stools,ambulating [] Objective: Vital Signs Temp 98.4 F 04/17/19 11:10 Pulse 62 04/17/19 11:10 Resp 13 04/17/19 11:10 BP 136/76 04/17/19 11:10 Pulse Ox 95 04/17/19 11:10 Intake & Output 04/16/19 04/17/19 04/17/19 18:59 06:59 18:59 Intake Total 660 1680 650 Output Total 900 725 Balance -240 955 650 Weight 290 lb 11.2 oz 286 lb Intake: IVPB 50 magnesium 2G 50 Oral 660 1680 600 Tube Feeding 0 Output: Urine 900 725 Other: Estimated Void Medium Date of Last Bowel 04/17/19 Movement # Bowel Movements 1 Estimated Stool Amount Small # Voids 2 lungs:clear bilat;heart:RRR;abd:+bs,large,soft,incisions intact with alfredo, clean and dry,no erythema;ext:mild ankle edema bilat,nontender calves [] Assessment:POD#3 s/p lap assisted left colectomy for adenocarcinoma,condition is stable and doing well,meets discharge criteria [] Plan:Discharge home today,instructions reviewed,office visit scheduled for ;Dr Mulligan will review the pathology report with the patient. []
--- NOTE | 2019-04-17 17:57 | DS ---
Amended report to enter cosigning physician. CC: Dr. Mulligan, [facility]; Dr. Sudheer Sahni* DISCHARGE SUMMARY: DATE OF ADMISSION: 04/14/19. DATE OF DISCHARGE: 04/17/19. ATTENDING SURGEON: Omid Mulligan MD* (dictated by Barbara Ann NP). CONDITION ON DISCHARGE: Stable. HOSPITAL COURSE: Please refer to admission history and physical for admission details. The patient was taken to the operating room on 04/14/19 and underwent laparoscopic-assisted left colectomy for adenocarcinoma by Dr. Mulligan. Postoperatively, he had mild CHF, which resolved with early diuresis. He had an otherwise uneventful postoperative course and required minimal pain medication. His diet was gradually advanced to consistent carbohydrate and he tolerated that well. He was ambulating in the halls and using his Inspiron. He was seen today by myself and Dr. Mulligan and he met criteria for discharge. Dr. Mulligan reviewed the pathology report with the patient. PHYSICAL EXAMINATION: General: Well appearing, in no acute distress. Vital Signs: Temperature 98.4, pulse 64 and regular, respiratory rate 16, O2 saturation on room air 95%, blood pressure 136/76. Lungs: Breath sounds bilaterally clear and equal. Heart: Regular rate and rhythm. Abdomen: Active bowel sounds, obese, soft. Incisions are intact with surgical alfredo and are clean and dry. There is no surrounding erythema. There is appropriate incisional tenderness. Extremities: Mild ankle edema bilaterally. Nontender calves. Skin: Warm and dry. IMPRESSION: Postop day 3 status post laparoscopic-assisted left colectomy, doing extremely well, in stable condition. PLAN: As discussed with Dr. Mulligan. Discharge home today; instructions were reviewed with the patient. He will continue to monitor his fingerstick glucose at home as usual; here in the hospital, his fingerstick glucose ranged from 195 to 223, and I have encouraged him to set up a followup appointment within the next 2 weeks with his primary care provider, Dr. Sudheer Sahni. He will resume all of his usual home medications. He has a prescription for Percocet 5/ 325 as needed, and he may use [id number] Tylenol for mild pain. He has a followup appointment at [facility] with Dr. Mulligan on Saturday, . All of his questions were answered and he knows he can call at anytime with any concerns. TIME SPENT: Time spent discharging this patient is 30 minutes with greater than 50% in [id number] patient education and physical examination. RONAL ANN, SIGNAL APPRENTICE [id number]/CPS #: [id number] KATELYNN
== END 2019-04-17 13:45 | disposition home or self-care (01) | DRG 221 ==
LOC: AA 11:09 → EDSTATUS 13:30 → AA 19:18 → OBSVTOIN 19:18 → SSU 21:42
PROVIDERS: ADMIT Surgery; ATTEND Surgery
PROC: 0DTG0ZZ Resection of Left Large Intestine, Open Approach (ICD-10-PCS; principal; 2019-04-14 13:30)
DX: C18.4 Malignant neoplasm of transverse colon (principal); I50.33 Acute on chronic diastolic (congestive) heart failure; J96.11 Chronic respiratory failure with hypoxia; Z68.41 Body mass index [BMI] 40.0-44.9, adult; G47.33 Obstructive sleep apnea (adult) (pediatric); E11.9 Type 2 diabetes mellitus without complications; J44.9 Chronic obstructive pulmonary disease, unspecified; I25.10 Atherosclerotic heart disease of native coronary artery without angina pectoris; I11.0 Hypertensive heart disease with heart failure; E78.5 Hyperlipidemia, unspecified; I48.0 Paroxysmal atrial fibrillation; E66.01 Morbid (severe) obesity due to excess calories; Z83.3 Family history of diabetes mellitus; Z95.2 Presence of prosthetic heart valve; Z87.891 Personal history of nicotine dependence; Z82.49 Family history of ischemic heart disease and other diseases of the circulatory system; Z82.5 Family history of asthma and other chronic lower respiratory diseases
CPT/HCPCS: 36415; 71045; 71046; 80048; 81003; 81015; 83735; 85025; 88309; A9270-GY; C1776; J1100; J1335; J1644; J1885; J1940; J2250; J2405; J2704; J2765; J3010; J3475

== ENCOUNTER 2020-08-17 08:10 | Observation (INO) ==
[2020-08-17 10:01] LABS: ABS Eosinophils 0.1 10^3/ul (0-0.6); ABS Lymphocytes 1.7 10^3/ul (1.0-4.8); ABS Monocytes 0.9 10^3/ul (0-0.8); Eosinophil % 1.3 %; Hematocrit 43 % (42-52); Hemoglobin 14.4 g/dL (14.0-18.0); Lymphocyte % 25.2 %; Mean Corpuscular HGB Conc 34 g/dL (31-36); Mean Corpuscular Hemoglobin 29 pg (27-31); Mean Corpuscular Volume 84 fL (80-94); Mean Platelet Volume 8.6 fL (7.4-10.4); Nucleated Red Blood Cells % 0.1; Platelet Count 274 10^3/uL (150-450); Red Blood Count 5.05 10^6 /uL (4.18-5.48); Red Cell Distribution Width 15 % (10-15); White Blood Count 6.7 10^3/uL (3.5-10.8)
[2020-08-17 10:11] LABS: Activated Partial Thrombo Time 32.4 seconds (26.0-38.0); INR 1.25 (0.82-1.09)
[2020-08-17 10:40] LABS: Anion Gap 7 mmol/L (2-11); CO2 Carbon Dioxide 25 mmol/L (22-32); Chloride 105 mmol/L (101-111); Sodium 137 mmol/L (135-145)
[2020-08-17 10:46] LABS: ALT 26 U/L (7-52); AST 41 U/L (13-39); Albumin/Globulin Ratio 0.8 (1-3); Alkaline Phosphatase 159 U/L (34-104); Blood Urea Nitrogen 12 mg/dL (6-24); C Reactive Protein 6.02 mg/L (<8.01); EGFR African American 167.4 (>60); EGFR Non-African American 138.4 (>60); Globulin 3.6 g/dL (2-4); Glucose 124 mg/dL (70-100); Total Protein 6.6 g/dL (6.4-8.9)
[2020-08-17 11:22] LABS: Ferritin 291.2 ng/mL (24-336)
[2020-08-17 12:36] LABS: Troponin I 0.06 ng/mL (<0.03)
[2020-08-17] MEDS ORDERED: Potassium Chlor 20 meq TAB.ER PO ONE (13:01)
[2020-08-17 13:17] LABS: Magnesium 1.7 mg/dL (1.9-2.7)
[2020-08-17 13:22] LABS: LDH 441 U/L (140-271)
[2020-08-17 13:36] LABS: Urine Appearance Clear; Urine Bilirubin Negative (Negative); Urine Blood 1+ (Negative); Urine Color Yellow; Urine Glucose 3+(>=500 mg/dL) (Negative); Urine Ketones Negative (Negative); Urine Nitrite Negative (Negative); Urine Protein 3+(>=500 mg/dL) (Negative); Urine Specific Gravity 1.035 (1.010-1.030); Urine Urobilinogen Negative (Negative)
[2020-08-17 13:39] LABS: Urine Bacteria Absent (Absent); Urine Red Blood Cell 3+(>10/hpf) (Absent); Urine White Blood Cell Trace(0-5/hpf) (Absent)
[2020-08-17] MEDS ORDERED: Albuterol HFA INHALER 8 gm MDI INH PRN (13:54)
[2020-08-17] MEDS ORDERED: Potassium Chlor 20 meq TAB.ER PO SCH (14:00)
[2020-08-17 14:05] LABS: Troponin I 0.05 ng/mL (<0.03)
[2020-08-17] MEDS ORDERED: Enoxaparin 40 MG/0.4 ML SYR SUBCUT SCH (16:00)
[2020-08-17 20:03] LABS: Troponin I 0.06 ng/mL (<0.03)
[2020-08-17] MEDS ORDERED: Insulin GLARGINE 100 un/ml 10 ml VIAL SUBCUT SCH ×2 (21:00)
[2020-08-17 23:25] LABS: Troponin I 0.05 ng/mL (<0.03)
[2020-08-18 08:11] VITALS: BP 157/85
[2020-08-18] MEDS ORDERED: Empagliflozin (NF) 25 MG TABLET PO SCH (09:00)
[2020-08-18] MEDS ORDERED: Aspirin EC 81 mg TAB.EC (enteric coated) PO SCH (09:00)
[2020-08-18] MEDS ORDERED: Insulin GLARGINE 100 un/ml 10 ml VIAL SUBCUT SCH (09:00)
[2020-08-18] MEDS ORDERED: CHOLECALCIFEROL 50000 UNIT PO SCH (09:00)
== END 2020-08-18 13:15 | disposition home or self-care (01) ==
LOC: MED 08:10 → ED 08:10 → MED 14:06
PROVIDERS: ADMIT Student in an Organized Health Care Education/Training Program; ATTEND Student in an Organized Health Care Education/Training Program